=== PATIENT | female | born 1960 | race African-American/Black ===

== ENCOUNTER 2016-12-19 16:11 | Inpatient (IN) | payer MEDICARE, OTHER ==
[~2016-12-19] VITALS: Ht 167.6 cm; Wt 157.9 kg
[~2016-12-19 16:11] MED LIST: AMLO10TA2 PO; AMLO10TA4 PO; AMLO5TAB2 PO; BUDE10.22 IH; BUPR150T6 PO; CARV12.52 PO; CARV25TA PO; CELE200C PO; CYCL10TA2 PO; DICL100G7 TP; DOCU-27 PO; DULO30CA2 PO; DULO60CA6 PO; FERR-26 PO; FLUT1DIS3 IH; FLUT1DIS3 INH; FURO-68 PO; Ipratropium/Albuterol Sulfate NEB; LEVO500T38 PO; LIDO700A4 TD; LOSA50TA6 PO; MELO-150 PO; MIRT30TA PO; MIRT30TA3 PO; Nicotine TD; OXYC30TA PO; OXYC5TAB88 PO; POTA20TA4 PO; PRED-220 PO; PRED20TA PO; PREG25CA PO; VENL37.5 PO; VENTOLIN HFA18 GM IH; WARF5TAB PO
[2016-12-19 16:55] LABS: BASO % 0 % (0-3); EOS % 3 % (0-3); HEMATOCRIT 43.6 % (36.0-47.0); HEMOGLOBIN 13.3 g/dL (12.0-15.5); LYMPH # 1.3 x10^3/uL (1.0-4.8); LYMPH % 14 % (24-48); MEAN CORPUSCULAR HEMOGLOBIN 26 pg (25-35); MEAN CORPUSCULAR HGB CONC 30 g/dL (31-37); MEAN CORPUSCULAR VOLUME 86 fL (79-100); MONO % 9 % (0-9); NEUT % 74 % (31-73); PLATELET COUNT 292 x10^3/uL (140-400); RED CELL DISTRIBUTION WIDTH 18.8 % (11.5-14.5); WHITE BLOOD COUNT 8.8 x10^3/uL (4.0-11.0)
[2016-12-19] MEDS ORDERED: IPRATRPIUM/ALBUTEROL 0.5/2.5MG 3 ML NEBU. NEB ONE (17:00)
[2016-12-19] MEDS ORDERED: methylPREDNISolone SOD SUCC PF 125 MG/2 ML VIAL. IV ONE (17:00)
[2016-12-19 17:12] LABS: CALCIUM 8.7 mg/dL (8.5-10.1); GFR 69.7; POTASSIUM 4.5 mmol/L (3.5-5.1)
[2016-12-19 17:19] LABS: ALBUMIN 3.1 g/dL (3.4-5.0); ALBUMIN/GLOBULIN RATIO 0.7 (1.0-1.7); TOTAL BILIRUBIN 0.4 mg/dL (0.2-1.0); TOTAL PROTEIN 7.6 g/dL (6.4-8.2)
[2016-12-19 17:27] LABS: CKMB INDEX 0.8 % (0-4); CKMB MASS 0.9 ng/mL (0.0-3.6)
[2016-12-19 17:37] LABS: OBC FLU VALID
[2016-12-19 18:20] LABS: HCO3 ABG 35 mmol/L (21-28); PH ABG 7.31 (7.35-7.45); PO2 ABG 56 mmHg (75-108)
[2016-12-19 18:22] LABS: PCO2 ABG 70 mmHg (35-46)
[2016-12-19] MEDS ORDERED: ONDANSETRON PF 4 MG/2 ML VIAL. IV PRN (18:30)
[2016-12-19] MEDS ORDERED: ACETAMINOPHEN 325 MG TABLET. PO PRN (18:30)
--- NOTE | 2016-12-19 19:13 | PHYS DOC ---
Past Medical History Past Medical History: COPD, Hypertension, Pneumonia, TIA Additional Past Medical Histor: LEFT KNEE PAIN Past Surgical History: Hip Replacement, Knee Replacement Additional Past Surgical Histo: ankle surgery Alcohol Use: None Drug Use: None Adult General Chief Complaint Chief Complaint: SHORTNESS OF BREATH HPI HPI Patient is a 56 year old female who presents with complaint of shortness of breath. 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 Patient states that she has had symptoms off and on for the past couple weeks, however over the past 3 days she has had significantly worsening symptoms of shortness of breath. Denies any chest pain. Patient states that she is not normally on continuous oxygen, however patient was found to have low oxygen saturation in the mid 70s. Patient denies any fevers or productive cough. Patient has history of COPD and hypertension. Review of Systems Review of Systems Constitutional: Denies fever or chills [] Eyes: Denies change in visual acuity, redness, or eye pain [] HENT: Denies nasal congestion or sore throat [] Respiratory: Shortness of breath, cough [] Cardiovascular: Denies chest pain or edema [] GI: Denies abdominal pain, nausea, vomiting, bloody stools or diarrhea [] : Denies dysuria or hematuria [] Musculoskeletal: Denies back pain or joint pain [] Integument: Denies rash or skin lesions [] Neurologic: Denies headache, focal weakness or sensory changes [] Current Medications Current Medications Current Medications Medications (Trade) Dose Ordered Sig/Gwendolyn Start Time Stop Time Status Last Admin Dose Admin Acetaminophen (Tylenol) 650 mg PRN Q4HRS PRN 12/19/16 18:30 12/20/16 18:29 Albuterol/ Ipratropium (Duoneb) 3 ml RTQID 12/19/16 20:00 12/20/16 19:59 Methylprednisolone Sodium Succinate (Solu-Medrol 125mg Vial) 125 mg 1X ONCE 12/19/16 17:00 12/19/16 17:01 DC 12/19/16 17:04 125 MG Ondansetron HCl 4 mg 4 mg PRN Q8HRS PRN 12/19/16 18:30 12/20/16 18:29 Sodium Chloride (Iv Sodium Chloride 0.9% 1000ml Bag) 1,000 ml @ 75 mls/hr [id number] 2/15/17 19:00 12/20/16 18:59 Allergies Allergies Allergies Coded Allergies Type Severity Reaction Last Updated Verified No Known Drug Allergies 03/19/16 No Physical Exam Physical Exam Constitutional: Alert, obese, afebrile, appears in moderate respiratory distress. [] HENT: Normocephalic, atraumatic, bilateral external ears normal, oropharynx moist, no oral exudates, nose normal. [] Eyes: PERRLA, EOMI, conjunctiva normal, no discharge. [] Neck: Normal range of motion, no tenderness, supple, no stridor. [] Cardiovascular:Heart rate regular rhythm, no murmur [] Lungs & Thorax: Moderate to severe restriction of air movement bilaterally, expiratory wheezes bilaterally, no rales [] Abdomen: Bowel sounds normal, soft, no tenderness, no masses, no pulsatile masses. [] Skin: Warm, dry, no erythema, no rash. [] Back: No tenderness, no CVA tenderness. [] Extremities: No tenderness, no cyanosis, no clubbing, ROM intact, 1+ pedal edema bilaterally. [] Neurologic: Alert and oriented X 3, normal motor function, normal sensory function, no focal deficits noted. [] Current Patient Data Vital Signs Vital Signs Date Time Temp Pulse Resp B/P Pulse Ox O2 Delivery O2 Flow Rate FiO2 12/19/16 18:25 BiPAP/CPAP 12/19/16 16:50 96 12/19/16 16:44 98.1 81 22 136/73 98.1 Lab Values Laboratory Tests Test 12/19/16 16:35 12/19/16 17:03 12/19/16 18:15 White Blood Count 8.8x10^3/uL (4.0-11.0) Red Blood Count 5.10x10^6/uL (3.50-5.40) Hemoglobin 13.3g/dL (12.0-15.5) Hematocrit 43.6% (36.0-47.0) Mean Corpuscular Volume 86fL (79-100) Mean Corpuscular Hemoglobin 26pg (25-35) Mean Corpuscular Hemoglobin Concent 30g/dL (31-37) L Red Cell Distribution Width 18.8% (11.5-14.5) H Platelet Count 292x10^3/uL (140-400) Neutrophils (%) (Auto) 74% (31-73) H Lymphocytes (%) (Auto) 14% (24-48) L Monocytes (%) (Auto) 9% (0-9) Eosinophils (%) (Auto) 3% (0-3) Basophils (%) (Auto) 0% (0-3) Neutrophils # (Auto) 6.5x10^3uL (1.8-7.7) Lymphocytes # (Auto) 1.3x10^3/uL (1.0-4.8) Monocytes # (Auto) 0.8x10^3/uL (0.0-1.1) Eosinophils # (Auto) 0.2x10^3/uL (0.0-0.7) Basophils # (Auto) 0.0x10^3/uL (0.0-0.2) Sodium Level 140mmol/L (136-145) Potassium Level 4.5mmol/L (3.5-5.1) Chloride Level 101mmol/L (98-107) Carbon Dioxide Level 33mmol/L (21-32) H Anion Gap 6 (6-14) Blood Urea Nitrogen 13mg/dL (7-20) Creatinine 1.0mg/dL (0.6-1.0) Estimated GFR (Cockcroft-Gault) 69.7 BUN/Creatinine Ratio 13 (6-20) Glucose Level 97mg/dL (70-99) Calcium Level 8.7mg/dL (8.5-10.1) Total Bilirubin 0.4mg/dL (0.2-1.0) Aspartate Amino Transferase (AST) 18U/L (15-37) Alanine Aminotransferase (ALT) 22U/L (14-59) Alkaline Phosphatase 96U/L (46-116) Creatine Kinase 114U/L (26-192) Creatine Kinase MB (Mass) 0.9ng/mL (0.0-3.6) Creatine Kinase MB Relative Index 0.8% (0-4) Troponin I Quantitative < 0.017ng/mL (0.000-0.055) RJ-Iwv-Z-Type Natriuretic Peptide 1244pg/mL (0-124) H Total Protein 7.6g/dL (6.4-8.2) Albumin 3.1g/dL (3.4-5.0) L Albumin/Globulin Ratio 0.7 (1.0-1.7) L Influenza Type A Antigen Negative (NEGATIVE) Influenza Type B Antigen Negative (NEGATIVE) O2 Saturation Pending Arterial Blood pH 7.31 (7.35-7.45) L Arterial Blood pCO2 at Patient Temp 70mmHg (35-46) *H Arterial Blood pO2 at Patient Temp 56mmHg (75-108) L Arterial Blood HCO3 35mmol/L (21-28) H Arterial Blood Base Excess 6mmol/L (-3-3) H FiO2 40.0 Laboratory Tests 12/19/16 16:35 Laboratory Tests 12/19/16 16:35 EKG EKG Interpreted by me: Heart rate 78, sinus rhythm, normal intervals, normal axis, T -wave inversions in V2 through V4, no acute ST elevations or depressions [] Radiology/Procedures Radiology/Procedures One view AP chest x-ray interpreted by me: Cardiomegaly, no infiltrate, no effusion [] Course & Med Decision Making Course & Med Decision Making Pertinent Labs and Imaging studies reviewed. (See chart for details) Due to severity of symptoms and hypoxia, the patient was placed on BiPAP in the emergency department. Patient's testing does not show an obvious source of infection at this time. The patient will need continued treatment in hospital. I spoke with Dr. Burks who accepted care of patient in hospital. A consult was placed to Dr. Pena of pulmonology to follow patient in hospital. Critical care time excluding procedures: 45 minutes Dragon Disclaimer Dragon Disclaimer This electronic medical record was generated, in whole or in part, using a voice recognition dictation system. Departure Departure Impression: Primary Impression: Acute on chronic respiratory failure Additional Impressions: COPD (chronic obstructive pulmonary disease) Moderate protein malnutrition Disposition: ADMITTED INPATIENT Admitting Physician: Geri Burks Condition: GUARDED Referrals: LESLIE LUCIO MD (PCP) Problem Qualifiers Primary Impression: Acute on chronic respiratory failure Respiratory failure complication: hypoxia and hypercapnia Qualified Code: J96.21 - Acute and chronic respiratory failure with hypoxia Additional Impressions: COPD (chronic obstructive pulmonary disease) COPD type: COPD with acute exacerbation Qualified Code: J44.1 - Chronic obstructive pulmonary disease with (acute) exacerbation VANESSA OBRIEN MD Dec 19, 2016 19:13
[2016-12-19] MEDS: IV NORMAL SALINE 1000ML BAG 1,000 ML IV SCH (19:38)
[2016-12-19] MEDS: IPRATRPIUM/ALBUTEROL 0.5/2.5MG 3 ML NEBU. NEB SCH (19:59)
[2016-12-19 21:15] VITALS: BP 125/74
--- NOTE | 2016-12-19 22:00 | ACF ---
Admission Forms Criteria RESPIRATORY FAILURE [facility] Clinical Indications for Admission to Inpatient Care (Place 'X' for any and all applicable criteria): Hospital admission is needed for appropriate care of the patient because of acute respiratory failure or insufficiency as indicated by ANY ONE of the following(1)(2)(3)(4)(5)(6)(7)(8): [X]I. Mechanical ventilation needed (acute invasive or noninvasive) [X]II. Severe ventilation deficit as indicated by ANY ONE of the following (9) [ ]a) Respiratory acidosis (pH less than 7.32 and partial pressure of carbon dioxide greater than 40 mm Hg (5.3 kPa)) [X]b) Partial pressure of carbon dioxide greater than 44 mm Hg (5.9 kPa ) (new) [ ]c) Airflow measurements less than 25% of predicted (eg, peak expiratory flow rate less than 100 L/minute) [ ]d) Forced vital capacity less than 15 mL/kg of ideal body weight, or 50% decrease in vital capacity from baseline [ ]III. Noncardiac pulmonary edema not resolving with rapid emergency treatment (8) [ ]IV. Severe respiratory distress as indicated by ANY ONE of the following: [ ]a) Severe tachypnea (respiratory rate greater than 30, greater than 45 for 6-month-old, greater than 60 for ) [ ]b) Severe hypoxemia (partial pressure of oxygen less than 50 mm Hg ( 6.7 kPa) on greater than 50% oxygen or partial pressure of oxygen to FIO2 ratio less than 200) [ ]c) Mental status deterioration from respiratory disease [ ]V. Airway obstruction or inadequate protection [A](10)(11) The original [employer] content created by [employer] has been revised. The portions of the content which have been revised are identified through the use of italic text or in bold, and [facility] [employer] has neither reviewed nor approved the modified material. All other unmodified content is copyright [employer]. Please see references footnoted in the original [employer] edition 2016 Admission Criteria Met?: Yes DHARMESH ANSARI Dec 19, 2016 22:00
[2016-12-19 23:29] VITALS: BP 143/68
[2016-12-20] MEDS ORDERED: CHOL10007 PO (00:09)
[2016-12-20] MEDS ORDERED: PROG200C7 PO (00:09)
[2016-12-20] MEDS ORDERED: DOCU100C5 PO (00:09)
[2016-12-20] MEDS ORDERED: PHEN37.53 PO (00:09)
[2016-12-20] MEDS ORDERED: OMEG1CAP16 PO (00:09)
[2016-12-20] MEDS ORDERED: LIOT25TA3 PO (00:18)
[2016-12-20] MEDS ORDERED: CHOL500050 PO (00:18)
[2016-12-20] MEDS ORDERED: TEST200V3 IM (00:18)
[2016-12-20] MEDS ORDERED: DULO30CA43 PO (00:18)
[2016-12-20] MEDS ORDERED: DICL100G7 TD (00:18)
[2016-12-20 03:27] VITALS: BP 116/74
[2016-12-20 06:00] LABS: BASO % 0 % (0-3); EOS % 0 % (0-3); HEMATOCRIT 43.5 % (36.0-47.0); HEMOGLOBIN 13.5 g/dL (12.0-15.5); LYMPH # 0.6 x10^3/uL (1.0-4.8); LYMPH % 7 % (24-48); MEAN CORPUSCULAR HEMOGLOBIN 26 pg (25-35); MEAN CORPUSCULAR HGB CONC 31 g/dL (31-37); MEAN CORPUSCULAR VOLUME 84 fL (79-100); MONO % 2 % (0-9); NEUT % 91 % (31-73); PLATELET COUNT 310 x10^3/uL (140-400); RED CELL DISTRIBUTION WIDTH 19.5 % (11.5-14.5)
[2016-12-20 06:10] LABS: CALCIUM 8.9 mg/dL (8.5-10.1); CREATININE 0.7 mg/dL (0.6-1.0); GFR 105.1; POTASSIUM 4.5 mmol/L (3.5-5.1)
[2016-12-20 07:00] VITALS: BP 140/85
--- NOTE | 2016-12-20 07:26 | EKG ---
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
--- NOTE | 2016-12-20 07:47 | RAD ---
Portable chest, 12/19/2016: History: Shortness of breath Comparison is made to a study from 02/13/2016. The heart remains moderately enlarged. The pulmonary vascularity is within normal limits. No pulmonary infiltrates are seen. There is no evidence of pleural fluid. Moderate arthritic changes are present at both shoulders. IMPRESSION: 1. Cardiomegaly. 2. No new abnormality is detected.
[2016-12-20] MEDS: IPRATRPIUM/ALBUTEROL 0.5/2.5MG 3 ML NEBU. NEB SCH ×3 (07:55→15:13)
[2016-12-20 09:02] LABS: HCO3 ABG 30 mmol/L (21-28); PCO2 ABG 55 mmHg (35-46); PH ABG 7.36 (7.35-7.45); PO2 ABG 72 mmHg (75-108)
[2016-12-20] MEDS ORDERED: DOCUSATE SODIUM 100 MG CAPSULE PO PRN (09:15)
[2016-12-20] MEDS ORDERED: CYCLOBENZAPRINE 10 MG TABLET. PO PRN (09:15)
[2016-12-20] MEDS ORDERED: DICLOFENAC SODIUM 1% TOPICAL GEL 100GM TUBE. TP PRN (09:15)
--- NOTE | 2016-12-20 09:38 | PDOC ---
OBJECTIVE Vital Signs Vital Signs Date Time Temp Pulse Resp B/P Pulse Ox O2 Delivery O2 Flow Rate FiO2 12/20/16 07:55 94 Venturi Mask 12/20/16 07:00 98.1 94 18 140/85 90 Nasal Cannula 6.0 98.1 12/20/16 04:19 93 BiPAP/CPAP 12/20/16 03:27 98.6 87 20 116/74 93 BiPAP/CPAP 98.6 12/20/16 02:42 Bi-pap 12/20/16 02:38 94 BiPAP/CPAP 12/19/16 23:29 98.6 62 18 143/68 97 BiPAP/CPAP 98.6 12/19/16 21:15 97.6 80 20 125/74 90 Room Air 97.6 12/19/16 20:57 86 26 141/81 91 BiPAP/CPAP 12/19/16 20:27 86 26 139/80 91 BiPAP/CPAP 12/19/16 20:00 92 BiPAP/CPAP 12/19/16 19:57 88 24 146/83 91 12/19/16 19:27 86 26 144/81 90 BiPAP/CPAP 12/19/16 18:57 88 26 145/85 91 12/19/16 18:27 84 24 147/79 92 12/19/16 18:25 BiPAP/CPAP 12/19/16 17:57 86 24 138/79 92 12/19/16 17:27 78 26 132/69 95 12/19/16 16:57 84 24 124/72 97 BiPAP/CPAP 12/19/16 16:50 96 BiPAP/CPAP 12/19/16 16:44 98.1 81 22 136/73 67 Room Air 98.1 I & O Intake and Output 12/20/16 07:00 # Voids 2 ASSESSMENT/PLAN Assessment/Plan [id number] H&P dictated Problems: COMMENT Lab Laboratory Tests Test 12/19/16 16:35 12/19/16 17:03 12/19/16 18:15 12/20/16 04:30 White Blood Count 8.8x10^3/uL (4.0-11.0) 9.0x10^3/uL (4.0-11.0) Red Blood Count 5.10x10^6/uL (3.50-5.40) 5.20x10^6/uL (3.50-5.40) Hemoglobin 13.3g/dL (12.0-15.5) 13.5g/dL (12.0-15.5) Hematocrit 43.6% (36.0-47.0) 43.5% (36.0-47.0) Mean Corpuscular Volume 86fL (79-100) 84fL (79-100) Mean Corpuscular Hemoglobin 26pg (25-35) 26pg (25-35) Mean Corpuscular Hemoglobin Concent 30g/dL (31-37) 31g/dL (31-37) Red Cell Distribution Width 18.8% (11.5-14.5) 19.5% (11.5-14.5) Platelet Count 292x10^3/uL (140-400) 310x10^3/uL (140-400) Neutrophils (%) (Auto) 74% (31-73) 91% (31-73) Lymphocytes (%) (Auto) 14% (24-48) 7% (24-48) Monocytes (%) (Auto) 9% (0-9) 2% (0-9) Eosinophils (%) (Auto) 3% (0-3) 0% (0-3) Basophils (%) (Auto) 0% (0-3) 0% (0-3) Neutrophils # (Auto) 6.5x10^3uL (1.8-7.7) 8.2x10^3uL (1.8-7.7) Lymphocytes # (Auto) 1.3x10^3/uL (1.0-4.8) 0.6x10^3/uL (1.0-4.8) Monocytes # (Auto) 0.8x10^3/uL (0.0-1.1) 0.2x10^3/uL (0.0-1.1) Eosinophils # (Auto) 0.2x10^3/uL (0.0-0.7) 0.0x10^3/uL (0.0-0.7) Basophils # (Auto) 0.0x10^3/uL (0.0-0.2) 0.0x10^3/uL (0.0-0.2) Sodium Level 140mmol/L (136-145) 141mmol/L (136-145) Potassium Level 4.5mmol/L (3.5-5.1) 4.5mmol/L (3.5-5.1) Chloride Level 101mmol/L (98-107) 103mmol/L (98-107) Carbon Dioxide Level 33mmol/L (21-32) 30mmol/L (21-32) Anion Gap 6 (6-14) 8 (6-14) Blood Urea Nitrogen 13mg/dL (7-20) 15mg/dL (7-20) Creatinine 1.0mg/dL (0.6-1.0) 0.7mg/dL (0.6-1.0) Estimated GFR (Cockcroft-Gault) 69.7 105.1 BUN/Creatinine Ratio 13 (6-20) Glucose Level 97mg/dL (70-99) 129mg/dL (70-99) Calcium Level 8.7mg/dL (8.5-10.1) 8.9mg/dL (8.5-10.1) Total Bilirubin 0.4mg/dL (0.2-1.0) Aspartate Amino Transf (AST/SGOT) 18U/L (15-37) Alanine Aminotransferase (ALT/SGPT) 22U/L (14-59) Alkaline Phosphatase 96U/L (46-116) Creatine Kinase 114U/L (26-192) Creatine Kinase MB (Mass) 0.9ng/mL (0.0-3.6) Creatine Kinase MB Relative Index 0.8% (0-4) Troponin I Quantitative < 0.017ng/mL (0.000-0.055) RK-Tnj-P-Type Natriuretic Peptide 1244pg/mL (0-124) Total Protein 7.6g/dL (6.4-8.2) Albumin 3.1g/dL (3.4-5.0) Albumin/Globulin Ratio 0.7 (1.0-1.7) Influenza Type A Antigen Negative (NEGATIVE) Influenza Type B Antigen Negative (NEGATIVE) Arterial Blood pH 7.31 (7.35-7.45) Arterial Blood pCO2 at Patient Temp 70mmHg (35-46) Arterial Blood pO2 at Patient Temp 56mmHg (75-108) Arterial Blood HCO3 35mmol/L (21-28) Arterial Blood Base Excess 6mmol/L (-3-3) FiO2 40.0 Test 12/20/16 08:55 Arterial Blood pH 7.36 (7.35-7.45) Arterial Blood pCO2 at Patient Temp 55mmHg (35-46) Arterial Blood pO2 at Patient Temp 72mmHg (75-108) Arterial Blood HCO3 30mmol/L (21-28) Arterial Blood Base Excess 3mmol/L (-3-3) FiO2 40.0 ITALIA VALENCIA MD Dec 20, 2016 09:38
--- NOTE | 2016-12-20 09:44 | PDOC ---
PULMONARY PROGRESS NOTES Vitals Vital Signs Date Time Temp Pulse Resp B/P Pulse Ox O2 Delivery O2 Flow Rate FiO2 12/20/16 07:55 94 Venturi Mask 12/20/16 07:00 98.1 94 18 140/85 6.0 98.1 Lungs: Crackles Cardiovascular: S1 Abdomen: Soft, Non-tender Extremities: No Edema, Other Labs Laboratory Tests Test 12/19/16 16:35 12/19/16 17:03 12/19/16 18:15 12/20/16 04:30 White Blood Count 8.8x10^3/uL (4.0-11.0) 9.0x10^3/uL (4.0-11.0) Red Blood Count 5.10x10^6/uL (3.50-5.40) 5.20x10^6/uL (3.50-5.40) Hemoglobin 13.3g/dL (12.0-15.5) 13.5g/dL (12.0-15.5) Hematocrit 43.6% (36.0-47.0) 43.5% (36.0-47.0) Mean Corpuscular Volume 86fL (79-100) 84fL (79-100) Mean Corpuscular Hemoglobin 26pg (25-35) 26pg (25-35) Mean Corpuscular Hemoglobin Concent 30g/dL (31-37) 31g/dL (31-37) Red Cell Distribution Width 18.8% (11.5-14.5) 19.5% (11.5-14.5) Platelet Count 292x10^3/uL (140-400) 310x10^3/uL (140-400) Neutrophils (%) (Auto) 74% (31-73) 91% (31-73) Lymphocytes (%) (Auto) 14% (24-48) 7% (24-48) Monocytes (%) (Auto) 9% (0-9) 2% (0-9) Eosinophils (%) (Auto) 3% (0-3) 0% (0-3) Basophils (%) (Auto) 0% (0-3) 0% (0-3) Neutrophils # (Auto) 6.5x10^3uL (1.8-7.7) 8.2x10^3uL (1.8-7.7) Lymphocytes # (Auto) 1.3x10^3/uL (1.0-4.8) 0.6x10^3/uL (1.0-4.8) Monocytes # (Auto) 0.8x10^3/uL (0.0-1.1) 0.2x10^3/uL (0.0-1.1) Eosinophils # (Auto) 0.2x10^3/uL (0.0-0.7) 0.0x10^3/uL (0.0-0.7) Basophils # (Auto) 0.0x10^3/uL (0.0-0.2) 0.0x10^3/uL (0.0-0.2) Sodium Level 140mmol/L (136-145) 141mmol/L (136-145) Potassium Level 4.5mmol/L (3.5-5.1) 4.5mmol/L (3.5-5.1) Chloride Level 101mmol/L (98-107) 103mmol/L (98-107) Carbon Dioxide Level 33mmol/L (21-32) 30mmol/L (21-32) Anion Gap 6 (6-14) 8 (6-14) Blood Urea Nitrogen 13mg/dL (7-20) 15mg/dL (7-20) Creatinine 1.0mg/dL (0.6-1.0) 0.7mg/dL (0.6-1.0) Estimated GFR (Cockcroft-Gault) 69.7 105.1 BUN/Creatinine Ratio 13 (6-20) Glucose Level 97mg/dL (70-99) 129mg/dL (70-99) Calcium Level 8.7mg/dL (8.5-10.1) 8.9mg/dL (8.5-10.1) Total Bilirubin 0.4mg/dL (0.2-1.0) Aspartate Amino Transf (AST/SGOT) 18U/L (15-37) Alanine Aminotransferase (ALT/SGPT) 22U/L (14-59) Alkaline Phosphatase 96U/L (46-116) Creatine Kinase 114U/L (26-192) Creatine Kinase MB (Mass) 0.9ng/mL (0.0-3.6) Creatine Kinase MB Relative Index 0.8% (0-4) Troponin I Quantitative < 0.017ng/mL (0.000-0.055) GB-Swc-J-Type Natriuretic Peptide 1244pg/mL (0-124) Total Protein 7.6g/dL (6.4-8.2) Albumin 3.1g/dL (3.4-5.0) Albumin/Globulin Ratio 0.7 (1.0-1.7) Influenza Type A Antigen Negative (NEGATIVE) Influenza Type B Antigen Negative (NEGATIVE) Arterial Blood pH 7.31 (7.35-7.45) Arterial Blood pCO2 at Patient Temp 70mmHg (35-46) Arterial Blood pO2 at Patient Temp 56mmHg (75-108) Arterial Blood HCO3 35mmol/L (21-28) Arterial Blood Base Excess 6mmol/L (-3-3) FiO2 40.0 Test 12/20/16 08:55 Arterial Blood pH 7.36 (7.35-7.45) Arterial Blood pCO2 at Patient Temp 55mmHg (35-46) Arterial Blood pO2 at Patient Temp 72mmHg (75-108) Arterial Blood HCO3 30mmol/L (21-28) Arterial Blood Base Excess 3mmol/L (-3-3) FiO2 40.0 Laboratory Tests Test 12/19/16 16:35 12/19/16 17:03 12/19/16 18:15 12/20/16 04:30 White Blood Count 8.8x10^3/uL (4.0-11.0) 9.0x10^3/uL (4.0-11.0) Red Blood Count 5.10x10^6/uL (3.50-5.40) 5.20x10^6/uL (3.50-5.40) Hemoglobin 13.3g/dL (12.0-15.5) 13.5g/dL (12.0-15.5) Hematocrit 43.6% (36.0-47.0) 43.5% (36.0-47.0) Mean Corpuscular Volume 86fL (79-100) 84fL (79-100) Mean Corpuscular Hemoglobin 26pg (25-35) 26pg (25-35) Mean Corpuscular Hemoglobin Concent 30g/dL (31-37) 31g/dL (31-37) Red Cell Distribution Width 18.8% (11.5-14.5) 19.5% (11.5-14.5) Platelet Count 292x10^3/uL (140-400) 310x10^3/uL (140-400) Neutrophils (%) (Auto) 74% (31-73) 91% (31-73) Lymphocytes (%) (Auto) 14% (24-48) 7% (24-48) Monocytes (%) (Auto) 9% (0-9) 2% (0-9) Eosinophils (%) (Auto) 3% (0-3) 0% (0-3) Basophils (%) (Auto) 0% (0-3) 0% (0-3) Neutrophils # (Auto) 6.5x10^3uL (1.8-7.7) 8.2x10^3uL (1.8-7.7) Lymphocytes # (Auto) 1.3x10^3/uL (1.0-4.8) 0.6x10^3/uL (1.0-4.8) Monocytes # (Auto) 0.8x10^3/uL (0.0-1.1) 0.2x10^3/uL (0.0-1.1) Eosinophils # (Auto) 0.2x10^3/uL (0.0-0.7) 0.0x10^3/uL (0.0-0.7) Basophils # (Auto) 0.0x10^3/uL (0.0-0.2) 0.0x10^3/uL (0.0-0.2) Sodium Level 140mmol/L (136-145) 141mmol/L (136-145) Potassium Level 4.5mmol/L (3.5-5.1) 4.5mmol/L (3.5-5.1) Chloride Level 101mmol/L (98-107) 103mmol/L (98-107) Carbon Dioxide Level 33mmol/L (21-32) 30mmol/L (21-32) Anion Gap 6 (6-14) 8 (6-14) Blood Urea Nitrogen 13mg/dL (7-20) 15mg/dL (7-20) Creatinine 1.0mg/dL (0.6-1.0) 0.7mg/dL (0.6-1.0) Estimated GFR (Cockcroft-Gault) 69.7 105.1 BUN/Creatinine Ratio 13 (6-20) Glucose Level 97mg/dL (70-99) 129mg/dL (70-99) Calcium Level 8.7mg/dL (8.5-10.1) 8.9mg/dL (8.5-10.1) Total Bilirubin 0.4mg/dL (0.2-1.0) Aspartate Amino Transf (AST/SGOT) 18U/L (15-37) Alanine Aminotransferase (ALT/SGPT) 22U/L (14-59) Alkaline Phosphatase 96U/L (46-116) Creatine Kinase 114U/L (26-192) Creatine Kinase MB (Mass) 0.9ng/mL (0.0-3.6) Creatine Kinase MB Relative Index 0.8% (0-4) Troponin I Quantitative < 0.017ng/mL (0.000-0.055) YU-Wei-R-Type Natriuretic Peptide 1244pg/mL (0-124) Total Protein 7.6g/dL (6.4-8.2) Albumin 3.1g/dL (3.4-5.0) Albumin/Globulin Ratio 0.7 (1.0-1.7) Influenza Type A Antigen Negative (NEGATIVE) Influenza Type B Antigen Negative (NEGATIVE) Arterial Blood pH 7.31 (7.35-7.45) Arterial Blood pCO2 at Patient Temp 70mmHg (35-46) Arterial Blood pO2 at Patient Temp 56mmHg (75-108) Arterial Blood HCO3 35mmol/L (21-28) Arterial Blood Base Excess 6mmol/L (-3-3) FiO2 40.0 Test 12/20/16 08:55 Arterial Blood pH 7.36 (7.35-7.45) Arterial Blood pCO2 at Patient Temp 55mmHg (35-46) Arterial Blood pO2 at Patient Temp 72mmHg (75-108) Arterial Blood HCO3 30mmol/L (21-28) Arterial Blood Base Excess 3mmol/L (-3-3) FiO2 40.0 Medications Active Scripts Medications Dose Route/Sig Days Date Category Testosterone Cypionate 200 Mg/1 Ml Vial 0.15 Ml IM Q2WKS 12/20/16 Reported Voltaren (Diclofenac Sodium) 100 Gm Gel..gram. 1 Eduardo TD PRN QID PRN 12/20/16 Reported Liothyronine Sodium 25 Mcg Tablet 12.5 Mcg PO DAILY 12/20/16 Reported Duloxetine Hcl 30 Mg Capsule.dr 90 Mg PO DAILY 12/20/16 Reported Vitamin D3 (Cholecalciferol (Vitamin D3)) 50,000 Unit Capsule 1 Cap PO QM 12/20/16 Reported Fish Oil 1,000 Mg Softgel ([place]-3 Fatty Acids/Fish Oil) 1 Each Capsule 1 Each PO BID 12/20/16 Reported Prometrium (Progesterone,Micronized) 200 Mg Capsule 1 Cap PO QHS 12/20/16 Reported Phentermine Hcl 37.5 Mg Capsule 1 Cap PO DAILYWBKFT 12/20/16 Reported Docusate Sodium 100 Mg Capsule 1 Cap PO PRN BID PRN 12/20/16 Reported Oxycodone Hcl 30 Mg Tablet 1 Tab PO Q6HRS 03/19/16 Reported Mirtazapine 30 Mg Tablet 1 Tab PO QHS 03/19/16 Reported Coreg (Carvedilol) 25 Mg Tablet 1 Tab PO BID 03/19/16 Reported Amlodipine Besylate 10 Mg Tablet 10 Mg PO DAILY 03/19/16 Reported Advair 250-50 Diskus (Fluticasone/Salmeterol) 1 Each Disk.w.dev 1 Inh IH BID 03/19/16 Reported Klor-Con M20 (Potassium Chloride) 20 Meq Tablet.er 20 Meq PO DAILYWBKFT 09/19/15 Rx [Ipratropium/Albuterol Sulfate] 3 ML Nebu 3 Ml NEB Q4HRS 07/24/15 Rx Ventolin Hfa Inhaler (Albuterol Sulfate) 1 Puff Puff 2 Puff IH QID 07/24/15 Rx Losartan Potassium 50 Mg Tablet 100 Mg PO DAILY 12/22/14 Reported Cyclobenzaprine Hcl 10 Mg Tablet 1 Tab PO PRN DAILY PRN 12/22/14 Reported Impression . [id number] AGREE WITH CURRENT RX THANKS [facility]IP[facility] ANUSHA FARAH MD Dec 20, 2016 09:44
[2016-12-20 10:04] LABS: ANISOCYTOSIS SLIGHT; PLT ESTIMATE ADEQUATE (ADEQUATE)
[2016-12-20] MEDS ORDERED: ERGO500012 PO (10:05)
[2016-12-20] MEDS: IV NORMAL SALINE 1000ML BAG 1,000 ML IV SCH (10:27)
[2016-12-20] MEDS: DULOXETINE HCL 30 MG CAPSULE.DR. PO SCH (10:28)
[2016-12-20] MEDS: POTASSIUM CHLORIDE 20 MEQ TABLET.ER. PO SCH (10:29)
[2016-12-20] MEDS: LEVOFLOXACIN 500 MG TABLET PO SCH (10:29)
[2016-12-20] MEDS: PREDNISONE 20 MG TABLET PO SCH (10:30)
[2016-12-20] MEDS: AMLODIPINE BESYLATE 10 MG TABLET PO SCH (10:30)
[2016-12-20] MEDS: CARVEDILOL 12.5 MG TABLET PO SCH ×2 (10:30→16:58)
[2016-12-20] MEDS: LOSARTAN POTASSIUM 50 MG TABLET. PO SCH (10:32)
[2016-12-20 10:58] VITALS: BP 143/82
[2016-12-20] MEDS ORDERED: ERGOCALCIFEROL (VITAMIN D2) 50,000 UNIT CAPSULE PO SCH (11:00)
--- NOTE | 2016-12-20 11:09 | PREOP HP ---
DATE OF SERVICE: HISTORY OF PRESENT ILLNESS: The patient is in room 578, she is a 56-year-old lady who presented to the Emergency Room complaining of increasing shortness of breath and not being able to ____breathe. She was at her [employer] office where she has expressed her shortness of breath and feeling more short of breath over the last few days and was sent to the Emergency Room for further evaluation. She does have previous history of COPD and has been using her inhalers and bronchodilators, but continued to have shortness of breath and apparently her O2 sat was in the mid 70s at the [employer] office, for that reason she was sent to the Emergency Room. She denies fever or chills. She does have cough productive to yellowish sputum and increasing wheezing and shortness of breath. PAST MEDICAL HISTORY: Significant for hypertension and hypertensive cardiovascular disease, diastolic dysfunction and diastolic congestive heart failure. She does have chronic peripheral edema due to venous insufficiency, previous history of CVA, COPD, emphysema, bronchitis, pneumonia, sleep apnea; she uses CPAP at night, gastroesophageal reflux disease, obesity, constipation. She has been dealing with dysfunctional uterine bleeding and abnormal ultrasound of the uterus for which she had endometrial biopsy was not enough sampling and she is now being sent for possible dilation and curettage. She also has chronic kidney disease, osteoarthritis, degenerative disk disease, bilateral hip replacement, also bilateral knee replacement and left ankle fusion. She has chronic back pain, depression, anxiety and history of tonsillectomy. SOCIAL HISTORY: She quit smoking in 05/2016 recently, but has many years of smoking about 34 years. She had received her flu shot and pneumonia vaccine. She uses alcohol occasionally, does not use other drugs. FAMILY HISTORY: Positive for obesity, hypertension, epilepsy, diabetes, depression, Chron's disease, CVA, asthma and kidney cancer. REVIEW OF SYSTEMS: CONSTITUTIONAL: Denies fever or chills. EYES: Denies visual changes. HEENT: Denies nasal congestion or sore throat. RESPIRATORY: She does have increasing shortness of breath, wheezing, and cough productive to yellowish sputum. CARDIOVASCULAR: She denies chest pain. She does have chronic lower extremity edema. GASTROINTESTINAL: Denies abdominal pain, nausea, vomiting, diarrhea. GENITOURINARY: Denies dysuria or hematuria. MUSCULOSKELETAL: Denies back pain or joint pain. DERMATOLOGY: Denies rash. NEUROLOGIC: Denies headache or focal weakness. PHYSICAL EXAMINATION: GENERAL: She is alert and oriented, in no acute distress. HEENT: Her tympanic membranes clear. Mucous membranes are moist. Eyes: Conjunctivae normal. NECK: Supple. HEART: Regular rate and rhythm. LUNGS: With mild diffuse scattered wheezes with decreased breath sounds bilaterally. ABDOMEN: Soft, nontender, obese. No organomegaly or masses was appreciated. No bruits. SKIN: Warm and dry. BACK: She has no CVA tenderness. EXTREMITIES: She has +1 pedal edema bilaterally, which is chronic. NEUROLOGY: Without any focal deficit. IMPRESSION: 1. Chronic obstructive pulmonary disease exacerbation. 2. Acute on chronic bronchitis. 3. Acute on chronic respiratory failure. 4. Sleep apnea and hypoxia with hypercapnia. 5. Obesity. 6. Diastolic congestive heart failure, chronic and compensated. 7. Abnormal uterine bleeding by history as mentioned above. 8. Osteoarthritis and degenerative joint disease. 9. Depression and anxiety. ITALIA VALENCIA MD DR: CECILIA/trace JOB#: [id number] / [id number]
[2016-12-20] MEDS ORDERED: OXYCODONE IR 30 MG TABLET. PO SCH (12:00)
[2016-12-20] MEDS ORDERED: OXYCODONE IR 5 MG TABLET. PO PRN (12:00)
[2016-12-20 14:46] VITALS: BP 137/44
[2016-12-20] MEDS: OXYCODONE IR 30 MG TABLET. PO PRN (16:57)
[2016-12-20 19:00] VITALS: BP 140/81
[2016-12-20 23:00] VITALS: BP 122/70
[2016-12-21] MEDS: OXYCODONE IR 30 MG TABLET. PO PRN ×2 (00:41→08:30)
--- NOTE | 2016-12-21 04:28 | CONS ---
DATE OF CONSULTATION: 12/20/2016 ATTENDING PHYSICIAN: Dr. Geri Burks. REASON FOR CONSULTATION: The patient seen in pulmonary consultation at the request of Dr. Burks for acute respiratory failure. HISTORY OF PRESENT ILLNESS: The patient is a 56-year-old female that presented from the [employer] [employer] office with decreased saturation. She was found to have saturations in the mid 70s. She is normally not on oxygen. She normally wears CPAP at home. Unfortunately, she recently moved in with her sister and has not been able to locate her CPAP machine. She also had a cough, mostly productive of green sputum. She moved in with her sister and some friends who smoke. She does not smoke herself. She denies any acute onset of shortness of breath associated with syncope and near syncopal episode. No chest pain or pressure. PAST MEDICAL HISTORY: Otherwise remarkable for COPD, obstructive sleep apnea, hypertension, TIA, previous left knee arthroplasty. PAST SURGICAL HISTORY: Recent knee arthroplasty on the left. SOCIAL HISTORY: She denies any current use of tobacco or alcohol. REVIEW OF SYSTEMS: As indicated above, otherwise, a 10-point system was reviewed and negative. CURRENT MEDICATIONS: List was reviewed. Please see the MRAD. ALLERGIES: No known drug allergies. PHYSICAL EXAMINATION: VITAL SIGNS: Stable. O2 saturation was greater than 92%. Overnight, she was on BiPAP. She is currently on 6 liters. HEENT: Eyes, the sclerae were nonicteric. NECK: Jugular venous distention was not elevated. No lymphadenopathy. CHEST: Full expansion. LUNGS: Adequate airway flow, no wheezes. CARDIOVASCULAR: Regular rate and rhythm with S1, S2, no S3. ABDOMEN: Soft, nontender, nondistended. EXTREMITIES: No clubbing, cyanosis or edema. LABORATORY DATA: White count was normal. Hemoglobin and hematocrit were noted. Arterial blood gas; pH of 7.31, PaCO2 of 70, pO2 of 56. Influenza screen was negative. Chest x-ray reveals some cardiomegaly. IMPRESSION: 1. Acute on chronic hypercapnic hypoxemic respiratory failure. 2. Acute exacerbation of chronic obstructive pulmonary disease. 3. Obstructive sleep apnea/obesity hypoventilation syndrome. 4. Morbid obesity. 5. Diastolic heart failure. 6. Depression and anxiety. PLAN: 1. Recommend continue BiPAP at bedtime. 2. Initiate CPAP at home. 3. Concur with prednisone. 4. Doxycycline for acute nonspecific bronchitis. Dr. Burks, I do appreciate the privilege in sharing in the patient's care. ANUSHA FARAH MD DR: OCTAVIA/trace JOB#: [id number] / [id number]
[2016-12-21] MEDS: LEVOFLOXACIN 500 MG TABLET PO SCH (05:39)
[2016-12-21 07:00] VITALS: BP 136/87
[2016-12-21] MEDS: DULOXETINE HCL 30 MG CAPSULE.DR. PO SCH (08:29)
[2016-12-21] MEDS: PREDNISONE 20 MG TABLET PO SCH (08:29)
[2016-12-21] MEDS: POTASSIUM CHLORIDE 20 MEQ TABLET.ER. PO SCH (08:29)
[2016-12-21] MEDS: LOSARTAN POTASSIUM 50 MG TABLET. PO SCH (08:30)
[2016-12-21] MEDS: CARVEDILOL 12.5 MG TABLET PO SCH ×2 (08:33→17:00)
[2016-12-21] MEDS: AMLODIPINE BESYLATE 10 MG TABLET PO SCH (08:37)
--- NOTE | 2016-12-21 10:22 | PDOC ---
SUBJECTIVE Subjective feels better , still wheezy, mild swelling Lower ext, did not sleep good need sleep medicine OBJECTIVE Vital Signs Vital Signs Date Time Temp Pulse Resp B/P Pulse Ox O2 Delivery O2 Flow Rate FiO2 12/21/16 09:47 95 Nasal Cannula 5.0 12/21/16 08:37 80 122/70 12/21/16 08:33 80 122/70 12/21/16 08:30 18 Nasal Cannula 5.0 12/21/16 08:30 80 122/70 12/21/16 08:00 Nasal Cannula 5.0 12/21/16 07:00 97.8 80 18 136/87 95 Venturi Mask 12.0 97.8 12/21/16 02:00 19 12/21/16 00:41 22 96 BiPAP/CPAP 12.0 12/20/16 23:42 96 BiPAP/CPAP 12/20/16 23:00 98.1 80 20 122/70 94 Venturi Mask 12.0 98.1 12/20/16 20:00 Nasal Cannula 5.0 12/20/16 19:00 97.9 93 20 140/81 91 Nasal Cannula 97.9 12/20/16 16:58 87 137/44 12/20/16 16:57 92 Venturi Mask 6.0 12/20/16 15:14 Venturi Mask 12/20/16 14:46 98.1 87 20 137/44 92 Venturi Mask 12.0 98.1 12/20/16 12:06 90 Venturi Mask 6.0 12/20/16 12:00 90 Venturi Mask 6.0 12/20/16 11:36 Venturi Mask 12/20/16 10:58 98.3 107 18 143/82 90 Venturi Mask 6.0 98.3 12/20/16 10:32 94 140/85 12/20/16 10:30 94 140/85 12/20/16 10:30 94 140/85 I & O Intake and Output 12/21/16 07:00 Intake Total 2700 ml Balance 2700 ml Intake Oral 1700 ml IV Total 1000 ml # Voids 5 PHYSICAL EXAM Physical Exam still few scattered wheezes no change except trace edema LE ASSESSMENT/PLAN Assessment/Plan 1. Chronic obstructive pulmonary disease exacerbation. 2. Acute on chronic bronchitis. 3. Acute on chronic respiratory failure. 4. Sleep apnea and hypoxia with hypercapnia. 5. Obesity. 6. Diastolic congestive heart failure, chronic and compensated. 7. Abnormal uterine bleeding by history as mentioned above. 8. Osteoarthritis and degenerative joint disease. 9. Depression and anxiety. continue current plans, Dr. Jacinto covering this week end Problems: ITALIA VALENCIA MD Dec 21, 2016 10:22
[2016-12-21] MEDS ORDERED: FUROSEMIDE 20 MG/2 ML VIAL IVP ONE (10:30)
[2016-12-21] MEDS ORDERED: TEMAZEPAM 15 MG CAPSULE PO PRN (10:30)
[2016-12-21 11:00] VITALS: BP 117/74
--- NOTE | 2016-12-21 13:33 | PDOC ---
PULMONARY PROGRESS NOTES Vitals Vital Signs Date Time Temp Pulse Resp B/P Pulse Ox O2 Delivery O2 Flow Rate FiO2 12/21/16 11:00 98.1 82 18 117/74 91 Nasal Cannula 5.0 98.1 Lungs: Crackles Cardiovascular: S1 Abdomen: Soft, Non-tender Extremities: No Edema, Other Labs Laboratory Tests Test 12/19/16 16:35 12/19/16 17:03 12/19/16 18:15 12/20/16 04:30 White Blood Count 8.8x10^3/uL (4.0-11.0) 9.0x10^3/uL (4.0-11.0) Red Blood Count 5.10x10^6/uL (3.50-5.40) 5.20x10^6/uL (3.50-5.40) Hemoglobin 13.3g/dL (12.0-15.5) 13.5g/dL (12.0-15.5) Hematocrit 43.6% (36.0-47.0) 43.5% (36.0-47.0) Mean Corpuscular Volume 86fL (79-100) 84fL (79-100) Mean Corpuscular Hemoglobin 26pg (25-35) 26pg (25-35) Mean Corpuscular Hemoglobin Concent 30g/dL (31-37) 31g/dL (31-37) Red Cell Distribution Width 18.8% (11.5-14.5) 19.5% (11.5-14.5) Platelet Count 292x10^3/uL (140-400) 310x10^3/uL (140-400) Neutrophils (%) (Auto) 74% (31-73) 91% (31-73) Lymphocytes (%) (Auto) 14% (24-48) 7% (24-48) Monocytes (%) (Auto) 9% (0-9) 2% (0-9) Eosinophils (%) (Auto) 3% (0-3) 0% (0-3) Basophils (%) (Auto) 0% (0-3) 0% (0-3) Neutrophils # (Auto) 6.5x10^3uL (1.8-7.7) 8.2x10^3uL (1.8-7.7) Lymphocytes # (Auto) 1.3x10^3/uL (1.0-4.8) 0.6x10^3/uL (1.0-4.8) Monocytes # (Auto) 0.8x10^3/uL (0.0-1.1) 0.2x10^3/uL (0.0-1.1) Eosinophils # (Auto) 0.2x10^3/uL (0.0-0.7) 0.0x10^3/uL (0.0-0.7) Basophils # (Auto) 0.0x10^3/uL (0.0-0.2) 0.0x10^3/uL (0.0-0.2) Sodium Level 140mmol/L (136-145) 141mmol/L (136-145) Potassium Level 4.5mmol/L (3.5-5.1) 4.5mmol/L (3.5-5.1) Chloride Level 101mmol/L (98-107) 103mmol/L (98-107) Carbon Dioxide Level 33mmol/L (21-32) 30mmol/L (21-32) Anion Gap 6 (6-14) 8 (6-14) Blood Urea Nitrogen 13mg/dL (7-20) 15mg/dL (7-20) Creatinine 1.0mg/dL (0.6-1.0) 0.7mg/dL (0.6-1.0) Estimated GFR (Cockcroft-Gault) 69.7 105.1 BUN/Creatinine Ratio 13 (6-20) Glucose Level 97mg/dL (70-99) 129mg/dL (70-99) Calcium Level 8.7mg/dL (8.5-10.1) 8.9mg/dL (8.5-10.1) Total Bilirubin 0.4mg/dL (0.2-1.0) Aspartate Amino Transf (AST/SGOT) 18U/L (15-37) Alanine Aminotransferase (ALT/SGPT) 22U/L (14-59) Alkaline Phosphatase 96U/L (46-116) Creatine Kinase 114U/L (26-192) Creatine Kinase MB (Mass) 0.9ng/mL (0.0-3.6) Creatine Kinase MB Relative Index 0.8% (0-4) Troponin I Quantitative < 0.017ng/mL (0.000-0.055) KX-Gyq-H-Type Natriuretic Peptide 1244pg/mL (0-124) Total Protein 7.6g/dL (6.4-8.2) Albumin 3.1g/dL (3.4-5.0) Albumin/Globulin Ratio 0.7 (1.0-1.7) Influenza Type A Antigen Negative (NEGATIVE) Influenza Type B Antigen Negative (NEGATIVE) Arterial Blood pH 7.31 (7.35-7.45) Arterial Blood pCO2 at Patient Temp 70mmHg (35-46) Arterial Blood pO2 at Patient Temp 56mmHg (75-108) Arterial Blood HCO3 35mmol/L (21-28) Arterial Blood Base Excess 6mmol/L (-3-3) FiO2 40.0 Segmented Neutrophils % 90% (35-66) Lymphocytes % 9% (24-48) Monocytes % 1% (0-10) Platelet Estimate Adequate (ADEQUATE) Anisocytosis Slight Test 12/20/16 08:55 Arterial Blood pH 7.36 (7.35-7.45) Arterial Blood pCO2 at Patient Temp 55mmHg (35-46) Arterial Blood pO2 at Patient Temp 72mmHg (75-108) Arterial Blood HCO3 30mmol/L (21-28) Arterial Blood Base Excess 3mmol/L (-3-3) FiO2 40.0 Medications Active Scripts Medications Dose Route/Sig Days Date Category Testosterone Cypionate 200 Mg/1 Ml Vial 0.15 Ml IM Q2WKS 12/20/16 Reported Voltaren (Diclofenac Sodium) 100 Gm Gel..gram. 1 Eduardo TD PRN QID PRN 12/20/16 Reported Liothyronine Sodium 25 Mcg Tablet 12.5 Mcg PO DAILY 12/20/16 Reported Duloxetine Hcl 30 Mg Capsule.dr 90 Mg PO DAILY 12/20/16 Reported Vitamin D3 (Cholecalciferol (Vitamin D3)) 50,000 Unit Capsule 1 Cap PO QM 12/20/16 Reported Fish Oil 1,000 Mg Softgel ([place]-3 Fatty Acids/Fish Oil) 1 Each Capsule 1 Each PO BID 12/20/16 Reported Prometrium (Progesterone,Micronized) 200 Mg Capsule 1 Cap PO QHS 12/20/16 Reported Phentermine Hcl 37.5 Mg Capsule 1 Cap PO DAILYWBKFT 12/20/16 Reported Docusate Sodium 100 Mg Capsule 1 Cap PO PRN BID PRN 12/20/16 Reported Oxycodone Hcl 30 Mg Tablet 1 Tab PO Q6HRS 03/19/16 Reported Mirtazapine 30 Mg Tablet 1 Tab PO QHS 03/19/16 Reported Coreg (Carvedilol) 25 Mg Tablet 1 Tab PO BID 03/19/16 Reported Amlodipine Besylate 10 Mg Tablet 10 Mg PO DAILY 03/19/16 Reported Advair 250-50 Diskus (Fluticasone/Salmeterol) 1 Each Disk.w.dev 1 Inh IH BID 03/19/16 Reported Klor-Con M20 (Potassium Chloride) 20 Meq Tablet.er 20 Meq PO DAILYWBKFT 09/19/15 Rx [Ipratropium/Albuterol Sulfate] 3 ML Nebu 3 Ml NEB Q4HRS 07/24/15 Rx Ventolin Hfa Inhaler (Albuterol Sulfate) 1 Puff Puff 2 Puff IH QID 07/24/15 Rx Losartan Potassium 50 Mg Tablet 100 Mg PO DAILY 12/22/14 Reported Cyclobenzaprine Hcl 10 Mg Tablet 1 Tab PO PRN DAILY PRN 12/22/14 Reported Impression . 1. Acute on chronic hypercapnic hypoxemic respiratory failure. 2. Acute exacerbation of chronic obstructive pulmonary disease. 3. Obstructive sleep apnea/obesity hypoventilation syndrome. 4. Morbid obesity. 5. Diastolic heart failure. 6. Depression and anxiety. ANUSHA FARAH MD Dec 21, 2016 13:33
[2016-12-21 14:57] VITALS: BP 140/71
[2016-12-21 17:00] VITALS: BP 140/71
--- NOTE | 2016-12-21 18:07 | PDOC3 ---
Discharge Summary* Date of Admission: Dec 19, 2016 Date of Discharge: Dec 21, 2016 Admitting Diagnosis Problems Medical Problems: (1) Acute on chronic respiratory failure Status: Acute (2) COPD (chronic obstructive pulmonary disease) Status: Acute (3) Moderate protein malnutrition Status: Acute Final Diagnosis 1. Chronic obstructive pulmonary disease exacerbation. 2. Acute on chronic bronchitis. 3. Acute on chronic respiratory failure. 4. Sleep apnea and hypoxia with hypercapnia. 5. Obesity. 6. Diastolic congestive heart failure, chronic and compensated. 7. Abnormal uterine bleeding by history as mentioned above. 8. Osteoarthritis and degenerative joint disease. 9. Depression and anxiety. Problems Medical Problems: (1) Acute on chronic respiratory failure Status: Acute (2) COPD (chronic obstructive pulmonary disease) Status: Acute (3) Moderate protein malnutrition Status: Acute CONSULTS pulmonary Dr. Ziegler Procedures CXR Brief Hospital Course Ms. Fernandez is a 56 old [sex] who presented with [ ] Disposition/Orders: D/C to Home CONDITION AT DISCHARGE: Improved Diet: Cardiac, Consistent Carbohydrate Scheduled ([Ipratropium/Albuterol Sulfate]) 3 ML NEB Q4HRS Albuterol Sulfate (Ventolin Hfa Inhaler) 2 PUFF IH QID Amlodipine Besylate (Amlodipine Besylate) 10 MG PO DAILY (Reported) Carvedilol (Coreg) 1 TAB PO BID (Reported) Cholecalciferol (Vitamin D3) (Vitamin D3) 1 CAP PO QM (Reported) Duloxetine Hcl (Duloxetine Hcl) 90 MG PO DAILY (Reported) Fluticasone/Salmeterol (Advair 250-50 Diskus) 1 INH IH BID (Reported) Liothyronine Sodium (Liothyronine Sodium) 12.5 MCG PO DAILY (Reported) Losartan Potassium (Losartan Potassium) 100 MG PO DAILY (Reported) Mirtazapine (Mirtazapine) 1 TAB PO QHS (Reported) [place]-3 Fatty Acids/Fish Oil (Fish Oil 1,000 Mg Softgel) 1 EACH PO BID (Reported ) Oxycodone Hcl (Oxycodone Hcl) 1 TAB PO Q6HRS (Reported) Phentermine Hcl (Phentermine Hcl) 1 CAP PO DAILYWBKFT (Reported) Potassium Chloride (Klor-Con M20) 20 MEQ PO DAILYWBKFT Progesterone,Micronized (Prometrium) 1 CAP PO QHS (Reported) Testosterone Cypionate (Testosterone Cypionate) 0.15 ML IM Q2WKS (Reported) Scheduled PRN Cyclobenzaprine Hcl (Cyclobenzaprine Hcl) 1 TAB PO PRN DAILY PRN PRN PAIN ( Reported) Diclofenac Sodium (Voltaren) 1 FRANCO TD PRN QID PRN PRN PAIN (Reported) Docusate Sodium (Docusate Sodium) 1 CAP PO PRN BID PRN PRN CONSTIPATION ( Reported) Miscellaneous Medications Ergocalciferol (Vitamin D2) (Vitamin D2) 50,000 UNIT PO (Reported) Discontinued Medications Celecoxib (Celebrex) 1 CAP PO 1X (Reported) Cholecalciferol (Vitamin D3) (Vitamin D3) 1,000 UNIT PO QM (Reported) Ferrous Sulfate (Ferrous Sulfate) 325 MG PO TIDWMEALS (Reported) FOLLOW UP APPOINTMENT: Dr. Valencia 2 weeks Time Spent Total time spent with patient [] minutes for coordination of care, counseling, and education. ITALIA VALENCIA MD Dec 21, 2016 18:07
[2016-12-24] MEDS ORDERED: ERGOCALCIFEROL (VITAMIN D2) 50,000 UNIT CAPSULE PO SCH (09:00)
[2016-12-24] MEDS ORDERED: CHOLECALCIFEROL PO SCH (16:00)
== END 2016-12-21 17:54 | disposition home health service (06) | DRG 189 ==
LOC: ER 16:11 → 5 SOUTH 18:08
PROVIDERS: ADMIT Internal Medicine; ATTEND Internal Medicine
PROC: 5A09357 Assistance with Respiratory Ventilation, Less than 24 Consecutive Hours, Continuous Positive Airway Pressure (ICD-10-PCS; principal; 2016-12-20)
DX: J96.22 Acute and chronic respiratory failure with hypercapnia (principal); J44.1 Chronic obstructive pulmonary disease with (acute) exacerbation; I50.32 Chronic diastolic (congestive) heart failure; E44.0 Moderate protein-calorie malnutrition; E66.2 Morbid (severe) obesity with alveolar hypoventilation; Z68.43 Body mass index [BMI] 50.0-59.9, adult; I13.0 Hypertensive heart and chronic kidney disease with heart failure and stage 1 through stage 4 chronic kidney disease, or unspecified chronic kidney disease; J44.0 Chronic obstructive pulmonary disease with (acute) lower respiratory infection; J20.9 Acute bronchitis, unspecified; F32.9 Major depressive disorder, single episode, unspecified; F41.9 Anxiety disorder, unspecified; I87.2 Venous insufficiency (chronic) (peripheral); N18.9 Chronic kidney disease, unspecified; J96.21 Acute and chronic respiratory failure with hypoxia; Z96.643 Presence of artificial hip joint, bilateral; Z96.653 Presence of artificial knee joint, bilateral; K21.9 Gastro-esophageal reflux disease without esophagitis; M19.90 Unspecified osteoarthritis, unspecified site; Z80.51 Family history of malignant neoplasm of kidney; Z81.8 Family history of other mental and behavioral disorders; Z82.0 Family history of epilepsy and other diseases of the nervous system; Z82.3 Family history of stroke; Z82.49 Family history of ischemic heart disease and other diseases of the circulatory system; Z82.5 Family history of asthma and other chronic lower respiratory diseases; Z83.3 Family history of diabetes mellitus; Z86.73 Personal history of transient ischemic attack (TIA), and cerebral infarction without residual deficits; Z87.891 Personal history of nicotine dependence; Z79.899 Other long term (current) drug therapy
CPT/HCPCS: 36415; 36600; 71010; 80048; 80053; 82553; 82805; 83880; 84484; 85007; 85027; 87804; 93005; 94620; 94640; 94660; 94760; 96374; J2930; J7030; J7512; J7620; 97535; 99291-25

== ENCOUNTER → 2017-02-12 | Outpatient (CLI) | payer MEDICARE, OTHER ==
[~2017-02-12] MED LIST changes: +CHOL10007 PO; +CHOL500050 PO; +DICL100G7 TD; +DOCU100C5 PO; +DULO30CA43 PO; +ERGO500012 PO; +LIOT25TA3 PO; +OMEG1CAP16 PO; +PHEN37.53 PO; +PROG200C7 PO; +TEST200V3 IM
--- NOTE | 2017-02-13 09:21 | SLEEP ---
DATE OF STUDY: 02/12/2017 ATTENDING PHYSICIAN: Dr. Emmanuel Galan. HISTORY OF PRESENT ILLNESS: Soraida is a 66-year-old who weighs 330 pounds with a BMI of 53. The patient's Andrew score was 20 suggesting severe subjective hypersomnia. Sleep study was performed at [place] [facility]. This was a split night study. During the night study, the patient spent 441 minutes in bed and slept for 344 minutes with a sleep efficiency of 78%. Sleep latency was 24 minutes with absent REM sleep. Overall, sleep architecture showed increased stage I and stage II sleep, normal slow wave and absent REM sleep. During the initial diagnostic portion of the study, the patient slept for 156 minutes. During this time, there were 1 obstructive apnea, 10 mixed apneas and 172 hypopneas. The patient's apnea hypopnea index was 71 per hour. Supine index 37 per hour and REM sleep was not observed. Review of nocturnal oximetry study revealed a mean oxygen saturation of 88% with the lowest of 75%, 92% of time oxygen saturation remained between 80% and 89% and 8% of time between 70% and 79%. EKG monitoring revealed normal sinus rhythm. There were frequent PACs seen. Average heart rate was 87 beats per minute. PLMS were seen at index of 66 per hour and 13 per hour caused EEG arousals. The patient met the criteria for CPAP initiation. It was started at 5 centimeter of water and titrated up to 17 centimeter of water. At the final pressure, the patient slept for 53 minutes. The patient had supine sleep throughout. No REM sleep was observed. AHI was reduced to 7 per hour, mostly from few rebound central apneas due to mask leak. The patient's oxygen saturation remained in the mid to high 80s with the lowest saturation of 84%. The patient would benefit from 1 liter of oxygen with the CPAP. The patient used a nasal mask. IMPRESSION: 1. Severe sleep apnea-hypopnea syndrome at an apnea hypopnea index of 71 per hour. 2. Nocturnal hypoxia secondary to combination of obstructive sleep apnea and suspected obesity hypoventilation syndrome. Not completely resolved with CPAP alone. 3. Severe PLMS at an index of 66 per hour and 13 per hour caused EEG arousals. RECOMMENDATIONS: 1. CPAP at 17 cm of water with 1 liter of supplemental oxygen should be used on a nightly basis. 2. Follow up in 4-6 weeks to assess compliance with CPAP and to document clinical improvement. 3. Weight loss is strongly advised. 4. Avoid LUNCHROOM MONITOR depressants. 5. Caution regarding driving until symptoms of sleep apnea resolve with the use of CPAP. 6. PLMS can be further assessed for any symptoms of restless legs during the day and if present, it can be treated with dopaminergic agonist agents. FATIMAH ZELAYA MD DR: DIXIE/trace JOB#: [id number] / [id number] LESLIE Pablo MD
== END | disposition home or self-care (01) ==
LOC: SLPLAB 18:22
PROVIDERS: ATTEND Family Medicine
DX: G47.33 Obstructive sleep apnea (adult) (pediatric) (principal); G47.00 Insomnia, unspecified; E66.9 Obesity, unspecified; J44.9 Chronic obstructive pulmonary disease, unspecified
CPT/HCPCS: 95810

== ENCOUNTER 2017-03-27 14:25 | Inpatient (IN) | payer OTHER ==
[~2017-03-27] VITALS: Ht 167.6 cm; Wt 154.8 kg
[~2017-03-27 14:25] MED LIST changes: +WARF-78 PO; -WARF5TAB PO
[2017-03-27 15:08] LABS: BASO # 0.1 x10^3/uL (0.0-0.2); BASO % 1 % (0-3); EOS % 3 % (0-3); HEMOGLOBIN 13.8 g/dL (12.0-15.5); LYMPH # 1.2 x10^3/uL (1.0-4.8); LYMPH % 15 % (24-48); MEAN CORPUSCULAR HEMOGLOBIN 30 pg (25-35); MEAN CORPUSCULAR HGB CONC 32 g/dL (31-37); MEAN CORPUSCULAR VOLUME 94 fL (79-100); MONO % 12 % (0-9); NEUT % 69 % (31-73); PLATELET COUNT 228 x10^3/uL (140-400); RED BLOOD COUNT 4.59 x10^6/uL (3.50-5.40); WHITE BLOOD COUNT 8.1 x10^3/uL (4.0-11.0)
--- NOTE | 2017-03-27 15:15 | RAD ---
Portable chest, 03/27/2017: History: Dyspnea, hypoxia Comparison is made to a study from 12/19/2016. The heart is enlarged. The pulmonary appears congested with loss of vascular margination. No pulmonary consolidation is seen. There is no evidence of pleural fluid. IMPRESSION: Cardiomegaly with vascular congestion.
[2017-03-27 15:19] LABS: CALCIUM 8.9 mg/dL (8.5-10.1); GFR 69.7; POTASSIUM 4.2 mmol/L (3.5-5.1)
[2017-03-27 15:21] LABS: HCO3 ABG 33 mmol/L (21-28); PCO2 ABG 55 mmHg (35-46); PH ABG 7.39 (7.35-7.45); PO2 ABG 61 mmHg (75-108); SAT O2 ABG 89 % (92-99)
[2017-03-27 15:23] LABS: FIO2 ABG 36
[2017-03-27 15:27] LABS: ALBUMIN 3.2 g/dL (3.4-5.0); ALBUMIN/GLOBULIN RATIO 0.7 (1.0-1.7); TOTAL BILIRUBIN 0.6 mg/dL (0.2-1.0); TOTAL PROTEIN 7.9 g/dL (6.4-8.2)
[2017-03-27] MEDS ORDERED: IPRATRPIUM/ALBUTEROL 0.5/2.5MG 3 ML NEBU. NEB ONE (15:30)
--- NOTE | 2017-03-27 15:37 | PHYS DOC ---
Past Medical History Past Medical History: CHF, COPD, Hypertension, Pneumonia, TIA Additional Past Medical Histor: LEFT KNEE PAIN, OBESITY Past Medical History Sleep apnea Past Surgical History: Hip Replacement, Knee Replacement Additional Past Surgical Histo: ankle surgery Alcohol Use: None Drug Use: None Adult General Chief Complaint Chief Complaint: SHORTNESS OF BREATH HPI HPI Patient is a 56 year old female who presents with 2 day history of progressive moderate dyspnea and no chest pain. Patient was sent here by EMS after home health and delivered a new CPAP machine which she's been not having for over one year and they noted her room air oxygen saturation of 65%. Patient is a fairly noncompliant with any of her medical regimen including the CPAP, nebulizer treatments, diuretics for congestive heart failure and poor follow- up. Patient admits to some element of orthopnea denies any chest pain cough or fever. Patient had a recent sleep study which showed severe sleep apnea. Patient is not on home oxygen. Review of Systems Review of Systems Constitutional: Denies fever or chills [] Eyes: Denies change in visual acuity, redness, or eye pain [] HENT: Denies nasal congestion or sore throat [] Respiratory: Denies cough or shortness of breath [] Cardiovascular: No additional information not addressed in HPI [] GI: Denies abdominal pain, nausea, vomiting, bloody stools or diarrhea [] : Denies dysuria or hematuria [] Musculoskeletal: Denies back pain or joint pain [] Integument: Denies rash or skin lesions [] Neurologic: Denies headache, focal weakness or sensory changes [] Endocrine: Denies polyuria or polydipsia [] Current Medications Current Medications Current Medications Medications (Trade) Dose Ordered Sig/Gwendolyn Start Time Stop Time Status Last Admin Dose Admin Acetaminophen (Tylenol) 650 mg PRN Q4HRS PRN 03/27/17 16:15 03/28/17 16:14 Albuterol/ Ipratropium (Duoneb) 3 ml 1X ONCE 03/27/17 15:30 03/27/17 15:31 DC 03/27/17 15:44 3 ML Furosemide (Lasix) 40 mg 1X ONCE 03/27/17 15:45 03/27/17 15:46 DC 03/27/17 15:54 40 MG Ondansetron HCl (Zofran) 4 mg PRN Q8HRS PRN 03/27/17 16:15 03/28/17 16:14 Allergies Allergies Allergies Coded Allergies Type Severity Reaction Last Updated Verified No Known Drug Allergies 03/19/16 No Physical Exam Physical Exam Constitutional: Well developed, well nourished, no acute distress, non-toxic appearance. [] HENT: Normocephalic, atraumatic, bilateral external ears normal, oropharynx moist, no oral exudates, nose normal. [] Eyes: PERRLA, EOMI, conjunctiva normal, no discharge. [] Neck: Normal range of motion, no tenderness, supple, no stridor. [] Cardiovascular:Heart rate regular rhythm, no murmur [] Lungs & Thorax: Bilateral breath sounds occasional crackles, no respiratory distress Abdomen: Bowel sounds normal, soft, no tenderness, no masses, no pulsatile masses. [] Skin: Warm, dry, no erythema, no rash. [] Back: No tenderness, no CVA tenderness. [] Extremities: No tenderness, no cyanosis, no clubbing, ROM intact, 2+ edema bilateral lower extremities Neurologic: Alert and oriented X 3, normal motor function, normal sensory function, no focal deficits noted. [] Psychologic: Affect normal, judgement normal, mood normal. [] Current Patient Data Vital Signs Vital Signs Date Time Temp Pulse Resp B/P (MAP) Pulse Ox O2 Delivery O2 Flow Rate FiO2 03/27/17 16:03 90 139/80 (99) 95 Nasal Cannula 5.0 03/27/17 14:35 97.9 20 97.9 Lab Values Laboratory Tests Test 03/27/17 14:42 03/27/17 15:03 White Blood Count 8.1 x10^3/uL (4.0-11.0) Red Blood Count 4.59 x10^6/uL (3.50-5.40) Hemoglobin 13.8 g/dL (12.0-15.5) Hematocrit 43.0 % (36.0-47.0) Mean Corpuscular Volume 94 fL (79-100) Mean Corpuscular Hemoglobin 30 pg (25-35) Mean Corpuscular Hemoglobin Concent 32 g/dL (31-37) Red Cell Distribution Width 20.0 % (11.5-14.5) H Platelet Count 228 x10^3/uL (140-400) Neutrophils (%) (Auto) 69 % (31-73) Lymphocytes (%) (Auto) 15 % (24-48) L Monocytes (%) (Auto) 12 % (0-9) H Eosinophils (%) (Auto) 3 % (0-3) Basophils (%) (Auto) 1 % (0-3) Neutrophils # (Auto) 5.6 x10^3uL (1.8-7.7) Lymphocytes # (Auto) 1.2 x10^3/uL (1.0-4.8) Monocytes # (Auto) 1.0 x10^3/uL (0.0-1.1) Eosinophils # (Auto) 0.3 x10^3/uL (0.0-0.7) Basophils # (Auto) 0.1 x10^3/uL (0.0-0.2) Sodium Level 142 mmol/L (136-145) Potassium Level 4.2 mmol/L (3.5-5.1) Chloride Level 103 mmol/L (98-107) Carbon Dioxide Level 33 mmol/L (21-32) H Anion Gap 6 (6-14) Blood Urea Nitrogen 31 mg/dL (7-20) H Creatinine 1.0 mg/dL (0.6-1.0) Estimated GFR (Cockcroft-Gault) 69.7 BUN/Creatinine Ratio 31 (6-20) H Glucose Level 122 mg/dL (70-99) H Calcium Level 8.9 mg/dL (8.5-10.1) Total Bilirubin 0.6 mg/dL (0.2-1.0) Aspartate Amino Transferase (AST) 19 U/L (15-37) Alanine Aminotransferase (ALT) 25 U/L (14-59) Alkaline Phosphatase 111 U/L (46-116) Troponin I Quantitative < 0.017 ng/mL (0.000-0.055) Total Protein 7.9 g/dL (6.4-8.2) Albumin 3.2 g/dL (3.4-5.0) L Albumin/Globulin Ratio 0.7 (1.0-1.7) L O2 Saturation 89 % (92-99) L Arterial Blood pH 7.39 (7.35-7.45) Arterial Blood pCO2 at Patient Temp 55 mmHg (35-46) H Arterial Blood pO2 at Patient Temp 61 mmHg (75-108) L Arterial Blood HCO3 33 mmol/L (21-28) H Arterial Blood Base Excess 6 mmol/L (-3-3) H FiO2 36 Laboratory Tests 03/27/17 14:42 Laboratory Tests 03/27/17 14:42 EKG EKG Normal sinus rhythm rate of 89 STEMI QTC normal [] Radiology/Procedures Radiology/Procedures Chest x-ray significant cardiomegaly CHF time of reviewed by me independently visualized at 1536 [] Course & Med Decision Making Course & Med Decision Making Pertinent Labs and Imaging studies reviewed. (See chart for details) Clinically patient appears to have CHF based on physical exam and chest x-ray. Given 1 dose of IV Lasix. Patient is normally not on home oxygen; on 4 L she was satting around 87% and we bumped it up to 5 L by nasal cannula and she is saturating around 90. She'll need to be admitted for further workup and evaluation and be placed back on her medications. Based on her physical exam and history and findings on her workup most consistent with CHF and acute on chronic respiratory failure do not suspect pulmonary embolism and do not feel a CT of the chest is warranted at this time. [] Dragon Disclaimer Dragon Disclaimer This electronic medical record was generated, in whole or in part, using a voice recognition dictation system. Departure Departure Impression: Primary Impression: Acute CHF (congestive heart failure) Additional Impression: Acute on chronic respiratory failure Disposition: ADMITTED INPATIENT Admitting Physician: Geri Burks Condition: IMPROVED Referrals: LESLIE LUCIO MD (PCP) Problem Qualifiers VANESSA DIAL MD March 27, 2017 15:37
[2017-03-27] MEDS ORDERED: FUROSEMIDE 40 MG/4 ML VIAL. IVP ONE (15:45)
[2017-03-27] MEDS ORDERED: ONDANSETRON PF 4 MG/2 ML VIAL. IV PRN (16:15)
[2017-03-27] MEDS ORDERED: ACETAMINOPHEN 325 MG TABLET. PO PRN (16:15)
[2017-03-27] MEDS ORDERED: DICLOFENAC SODIUM 1% TOPICAL GEL 100GM TUBE. TP PRN (18:30)
[2017-03-27] MEDS ORDERED: DOCUSATE SODIUM 100 MG CAPSULE. PO PRN (18:30)
[2017-03-27] MEDS: CARVEDILOL 12.5 MG TABLET. PO SCH (18:42)
[2017-03-27 19:00] VITALS: BP 135/84
[2017-03-27 19:13] VITALS: BP 130/70
[2017-03-27] MEDS ORDERED: NON FORMULARY ITEM ([Ipratropium/Albuterol Sulfate] (Duoneb) 3 ML) NEB SCH (20:00)
[2017-03-27] MEDS: IPRATRPIUM/ALBUTEROL 0.5/2.5MG 3 ML NEBU. NEB SCH (20:10)
[2017-03-27] MEDS: BUDESONIDE 0.5 MG/2 ML NEBU. NEB SCH (20:10)
[2017-03-27] MEDS: CYCLOBENZAPRINE 10 MG TABLET. PO PRN (20:25)
[2017-03-27] MEDS ORDERED: NON FORMULARY ITEM (Fluticasone/Salmeterol (Advair 250-50 Diskus) 1 INH) IH SCH (21:00)
[2017-03-27] MEDS: MIRTAZAPINE 15 MG TABLET PO SCH (22:36)
[2017-03-27 23:00] VITALS: BP 136/76
[2017-03-28 03:00] VITALS: BP 130/68
[2017-03-28 06:05] LABS: HEMATOCRIT 41.6 % (36.0-47.0); HEMOGLOBIN 13.5 g/dL (12.0-15.5); RED BLOOD COUNT 4.46 x10^6/uL (3.50-5.40); RED CELL DISTRIBUTION WIDTH 20.3 % (11.5-14.5); WHITE BLOOD COUNT 6.5 x10^3/uL (4.0-11.0)
[2017-03-28 06:25] LABS: CALCIUM 8.7 mg/dL (8.5-10.1); GFR 69.7; POTASSIUM 3.8 mmol/L (3.5-5.1)
[2017-03-28 07:46] VITALS: BP 119/81
--- NOTE | 2017-03-28 08:00 | EKG ---
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
[2017-03-28] MEDS: DULoxetine HCL 30 MG CAPSULE.DR PO SCH (09:06)
[2017-03-28] MEDS: POTASSIUM CHLORIDE 20 MEQ TABLET.ER. PO SCH (09:07)
[2017-03-28] MEDS: LIOTHYRONINE 5 MCG TABLET. PO SCH (09:07)
[2017-03-28] MEDS: LOSARTAN POTASSIUM 50 MG TABLET. PO SCH (09:09)
[2017-03-28] MEDS: amLODIPine BESYLATE 10 MG TABLET PO SCH (09:10)
[2017-03-28] MEDS: CARVEDILOL 12.5 MG TABLET. PO SCH ×2 (09:11→17:55)
--- NOTE | 2017-03-28 09:33 | PDOC ---
OBJECTIVE Vital Signs Vital Signs Date Time Temp Pulse Resp B/P (MAP) Pulse Ox O2 Delivery O2 Flow Rate FiO2 03/28/17 09:11 86 119/81 03/28/17 09:10 86 119/81 03/28/17 09:09 86 119/81 03/28/17 07:46 96.5 86 20 119/81 (94) 88 Nasal Cannula 4.0 96.5 03/28/17 07:07 4.0 03/28/17 06:07 20 95 Nasal Cannula 4.0 03/28/17 04:46 95 BiPAP/CPAP 03/28/17 03:10 BiPAP/CPAP 03/28/17 03:00 97.3 93 18 130/68 (88) 86 Nasal Cannula 4.0 97.3 03/28/17 01:09 20 95 03/28/17 00:09 20 93 BiPAP/CPAP 03/27/17 23:00 97.5 71 19 136/76 (96) 84 Nasal Cannula 4.0 97.5 03/27/17 22:27 93 BiPAP/CPAP 03/27/17 20:17 Nasal Cannula 4.0 03/27/17 20:11 90 Nasal Cannula 4.0 03/27/17 20:03 Nasal Cannula 03/27/17 20:00 Nasal Cannula 5.0 03/27/17 20:00 Nasal Cannula 4.0 03/27/17 19:13 97.9 89 20 130/70 (90) 93 Nasal Cannula 5.0 97.9 03/27/17 19:03 Nasal Cannula 5.0 03/27/17 19:00 97.5 77 19 135/84 (101) 92 Nasal Cannula 4.0 97.5 03/27/17 18:42 88 139/81 03/27/17 17:03 88 139/81 (100) 97 Nasal Cannula 5.0 03/27/17 16:03 90 139/80 (99) 95 Nasal Cannula 5.0 03/27/17 15:47 90 Nasal Cannula 4.0 03/27/17 15:10 90 Nasal Cannula 4.0 03/27/17 15:03 88 133/75 (94) 91 Nasal Cannula 4.0 03/27/17 14:35 97.9 97 20 123/62 (82) 67 Room Air 97.9 ASSESSMENT/PLAN Assessment/Plan [id number] H&P dictated Problems: COMMENT Lab Laboratory Tests Test 03/27/17 14:42 03/27/17 15:03 03/28/17 05:15 White Blood Count 8.1 x10^3/uL (4.0-11.0) 6.5 x10^3/uL (4.0-11.0) Red Blood Count 4.59 x10^6/uL (3.50-5.40) 4.46 x10^6/uL (3.50-5.40) Hemoglobin 13.8 g/dL (12.0-15.5) 13.5 g/dL (12.0-15.5) Hematocrit 43.0 % (36.0-47.0) 41.6 % (36.0-47.0) Mean Corpuscular Volume 94 fL (79-100) 93 fL (79-100) Mean Corpuscular Hemoglobin 30 pg (25-35) 30 pg (25-35) Mean Corpuscular Hemoglobin Concent 32 g/dL (31-37) 32 g/dL (31-37) Red Cell Distribution Width 20.0 % (11.5-14.5) 20.3 % (11.5-14.5) Platelet Count 228 x10^3/uL (140-400) 218 x10^3/uL (140-400) Neutrophils (%) (Auto) 69 % (31-73) Lymphocytes (%) (Auto) 15 % (24-48) Monocytes (%) (Auto) 12 % (0-9) Eosinophils (%) (Auto) 3 % (0-3) Basophils (%) (Auto) 1 % (0-3) Neutrophils # (Auto) 5.6 x10^3uL (1.8-7.7) Lymphocytes # (Auto) 1.2 x10^3/uL (1.0-4.8) Monocytes # (Auto) 1.0 x10^3/uL (0.0-1.1) Eosinophils # (Auto) 0.3 x10^3/uL (0.0-0.7) Basophils # (Auto) 0.1 x10^3/uL (0.0-0.2) Sodium Level 142 mmol/L (136-145) 141 mmol/L (136-145) Potassium Level 4.2 mmol/L (3.5-5.1) 3.8 mmol/L (3.5-5.1) Chloride Level 103 mmol/L (98-107) 101 mmol/L (98-107) Carbon Dioxide Level 33 mmol/L (21-32) 36 mmol/L (21-32) Anion Gap 6 (6-14) 4 (6-14) Blood Urea Nitrogen 31 mg/dL (7-20) 30 mg/dL (7-20) Creatinine 1.0 mg/dL (0.6-1.0) 1.0 mg/dL (0.6-1.0) Estimated GFR (Cockcroft-Gault) 69.7 69.7 BUN/Creatinine Ratio 31 (6-20) Glucose Level 122 mg/dL (70-99) 122 mg/dL (70-99) Calcium Level 8.9 mg/dL (8.5-10.1) 8.7 mg/dL (8.5-10.1) Total Bilirubin 0.6 mg/dL (0.2-1.0) Aspartate Amino Transf (AST/SGOT) 19 U/L (15-37) Alanine Aminotransferase (ALT/SGPT) 25 U/L (14-59) Alkaline Phosphatase 111 U/L (46-116) Troponin I Quantitative < 0.017 ng/mL (0.000-0.055) Total Protein 7.9 g/dL (6.4-8.2) Albumin 3.2 g/dL (3.4-5.0) Albumin/Globulin Ratio 0.7 (1.0-1.7) O2 Saturation 89 % (92-99) Arterial Blood pH 7.39 (7.35-7.45) Arterial Blood pCO2 at Patient Temp 55 mmHg (35-46) Arterial Blood pO2 at Patient Temp 61 mmHg (75-108) Arterial Blood HCO3 33 mmol/L (21-28) Arterial Blood Base Excess 6 mmol/L (-3-3) FiO2 36 ITALIA VALENCIA MD March 28, 2017 09:33
[2017-03-28 10:30] VITALS: BP 153/88
--- NOTE | 2017-03-28 10:38 | PREOP HP ---
DATE OF SERVICE: HISTORY OF PRESENT ILLNESS: The patient is a 56-year-old lady is admitted to room 557. She is a 56-year-old lady who presented to the Emergency Room complaining of increasing shortness of breath and dyspnea over the last 2 days. Home health nurse sent her to the Emergency Room after she had a new CPAP machine. Apparently, her O2 sat was down to 65% and she was feeling very short of breath. She was brought in by ambulance. She denies chest pain. She is not compliant with her medications including CPAP, nebulizer treatments, diuretics. She does describe orthopnea and PND. She denies chest pain. She does have increasing shortness of breath as mentioned above. She is normally on CPAP at night, but is not on oxygen. PAST MEDICAL HISTORY: Significant for diastolic congestive heart failure, hypertension, hypertensive cardiovascular disease, COPD, emphysema, previous history of bronchitis and pneumonia. She does have CPAP for sleep apnea that she uses at night, obesity, CVA in 2013, peripheral vascular disease and venous insufficiency edema, chronic kidney disease, osteoarthritis, and chronic back pain for which she is on pain medication chronically which is causing her to be constipated at times. She does have a history of bilateral hip replacement and knee replacement, history of left ankle fusion, history of depression and anxiety. SOCIAL HISTORY: She used to smoke heavy and she quit smoking in May 2016. She drinks alcohol occasionally. She denies use of illicit drugs. FAMILY HISTORY: Positive for obesity, hypertension, epilepsy, diabetes, depression, Crohn's disease, cardiovascular disease and asthma. She also has a family history of kidney cancer in her brother. REVIEW OF SYSTEMS: CONSTITUTIONAL: Denies fever or chills. EYES: Denies changes in her vision, redness or drainage from the eyes. HEENT: Denies nasal congestion or sore throat. RESPIRATORY: She does have increasing shortness of breath. CARDIOVASCULAR: She does not have chest pain, but she does have edema in the lower extremities, which seems to be chronic. GASTROINTESTINAL: Denies abdominal pain, nausea, vomiting or diarrhea. GENITOURINARY: Denies dysuria or hematuria. MUSCULOSKELETAL: She does have chronic back pain and chronic arthritis pain. NEUROLOGIC: Denies headache or focal weakness or sensory changes. ALLERGIES: She has no known drug allergies. PHYSICAL EXAMINATION: GENERAL: She is well-developed, obese. Nontoxic appearance. At the time I saw her, she was very sleepy, lying flat on her back. HEENT: Normocephalic, atraumatic. Eyes: Pupils equal, round, reactive to light and accommodation. NECK: Supple. HEART: Regular rate and rhythm. LUNGS: She does have poor air movement, bilateral crackles in the lower lobes. ABDOMEN: Obese, soft, nontender, no masses. SKIN: Warm and dry. BACK: Without CVA tenderness. EXTREMITIES: She does have +2 edema bilateral lower extremities. No clubbing or cyanosis. NEUROLOGICAL: She is alert and oriented x 3. Moves all her extremities without any focal deficit. IMPRESSION: 1. Acute on chronic respiratory failure due to chronic obstructive pulmonary disease and diastolic congestive heart failure exacerbation. 2. Chronic back pain. 3. Hypertension, hypertensive cardiovascular disease. 4. Diastolic congestive heart failure. 5. Chronic obstructive pulmonary disease. 6. Sleep apnea. 7. Constipation. 8. Chronic kidney disease. 9. Osteoarthritis and chronic back pain. ITALIA VALENCIA MD DR: CECILIA/trace JOB#: [id number] / [id number]
--- NOTE | 2017-03-28 11:12 | PDOC2 ---
JESS QUIROS PUBLIC RELATIONS COUNSELOR 03/28/17 1112: CARDIAC CONSULT DATE OF CONSULT Date of Consult DATE: 03/28/17 TIME: 11:02 REASON FOR CONSULT Reason for Consult: Acute CHF, Hypoxia REFERRING PHYSICIAN Referring Physician: Kieran SOURCE Source: Chart review, Patient HISTORY OF PRESENT ILLNESS HISTORY OF PRESENT ILLNESS This is a pleasant 56 yo female admitted for complains of SOA. Reports that in the last 2 weeks she has been feeling more fatigue than usual and in the last 3- 4 days her SOA has gotten worse. Her SOA initially was with exrtion and progressed to rest. No productive coughing. No fever or chills. Also describes increased leg swelling, orthopnea and PND. She has been utilizing about 2 LPM o@ supplement continuously at home. She has been newly diagnosed with KRISTINA in 02/2017 and just received her CPAP the other day and has not had a chance to wear it. Upon admission she was noted with CO2 retention and was feeling sleepy. She was then placed on a bipap and her mentation improved. Presently she is wheezy and easily drifts to sleep as I was talking to her. She feels tired currently but her SOA is better. Reports no nausea, diarrhea, CP, or palpitations. Denies any CAD, VTE, recent falls or injury. She currently lives by herself PAST MEDICAL HISTORY Cardiovascular: CHF, HTN, Hyperlipidemia, Other (PAD/venous insuficiency) Pulmonary: COPD, Pneumonia, Other (KRISTINA) CENTRAL NERVOUS SYSTEM: CVA (no residuals) GI: Constipation Heme/Onc: No pertinent hx Hepatobiliary: No pertinent hx Psych: Anxiety, Depression Musculoskeletal: Osteoarthritis Rheumatologic: No pertinent hx ENT: No pertinent hx Renal/: No pertinent hx Endocrine: Hypothyroidism Dermatology: No pertinent hx PAST SURGICAL HISTORY Past Surgical History: Total hip replacement (bilateral ), Total knee replacement (left), Other (left ankle fusion) FAMILY HISTORY Family History: Coronary Artery Disease, Diabetes, Heart Disease SOCIAL HISTORY Smoke: No (heavy tobaccoism quit 2015) ALCOHOL: occassional Drugs: None Lives: with Family CURRENT MEDICATIONS CURRENT MEDICATIONS Current Medications Medications (Trade) Dose Ordered Sig/Gwendolyn Route PRN Reason Start Time Stop Time Status Last Admin Dose Admin Albuterol/ Ipratropium (Duoneb) 3 ml 1X ONCE NEB 03/27/17 15:30 03/27/17 15:31 DC 03/27/17 15:44 Furosemide (Lasix) 40 mg 1X ONCE IVP 03/27/17 15:45 03/27/17 15:46 DC 03/27/17 15:54 Amlodipine Besylate (Norvasc) 10 mg DAILY PO 03/28/17 09:00 03/28/17 09:10 Cyclobenzaprine HCl (Flexeril) 10 mg PRN DAILY PRN PO PAIN 03/27/17 18:30 03/27/17 20:25 Duloxetine HCl (Cymbalta) 90 mg DAILY PO 03/28/17 09:00 03/28/17 09:06 Losartan Potassium (Cozaar) 100 mg DAILY PO 03/28/17 09:00 03/28/17 09:09 Potassium Chloride (Klor-Con) 20 meq DAILYWBKFT PO 03/28/17 08:00 03/28/17 09:07 Carvedilol (Coreg) 25 mg BIDWMEALS PO 03/27/17 18:30 03/28/17 09:11 Liothyronine Sodium (Cytomel) 12.5 mcg DAILY PO 03/28/17 09:00 03/28/17 09:07 Mirtazapine (Remeron) 30 mg QHS PO 03/27/17 21:00 03/27/17 22:36 Albuterol/ Ipratropium (Duoneb) 3 ml Q4HRS W/A NEB 03/27/17 22:00 03/27/17 20:10 Budesonide (Pulmicort) 0.5 mg RTBID NEB 03/27/17 20:00 03/27/17 20:10 Oxycodone HCl (Roxicodone) 30 mg Q6HRS PO 03/27/17 18:45 03/28/17 09:36 DC 03/28/17 06:07 ALLERGIES ALLERGIES: Coded Allergies: No Known Drug Allergies (Unverified , 03/19/16) ROS Review of System 14 point ROS evaluated with pertinent positives noted per HPI PHYSICAL EXAM General: Oriented X3, Cooperative, No acute distress HEENT: Atraumatic, Mucous membr. moist/pink Lungs: Other (diffuse wheeze, diminished) Heart: Regular rate, Normal S1, Normal S2, Other (2/6 systolic murmur to LLS border; distant heart sounds) Abdomen: Soft, Other (obese; large pannus) Extremities: No cyanosis, Other (1-2+ bilateral LE pitting edema) Skin: No breakdown, Other (buttock wound; cracked skin by gluteal crease) Neuro: Normal speech, Sensation intact Psych/Mental Status: Other (drowsy) MUSCULOSKELETAL: Osteoarthritic changes both hands VITALS VITALS Vital Signs Date Time Temp Pulse Resp B/P (MAP) Pulse Ox O2 Delivery O2 Flow Rate FiO2 03/28/17 09:11 86 119/81 03/28/17 08:00 Nasal Cannula 5.0 03/28/17 07:46 96.5 20 88 96.5 LABS Lab: Laboratory Tests Test 03/27/17 14:42 03/27/17 15:03 03/28/17 05:15 White Blood Count 8.1 x10^3/uL (4.0-11.0) 6.5 x10^3/uL (4.0-11.0) Red Blood Count 4.59 x10^6/uL (3.50-5.40) 4.46 x10^6/uL (3.50-5.40) Hemoglobin 13.8 g/dL (12.0-15.5) 13.5 g/dL (12.0-15.5) Hematocrit 43.0 % (36.0-47.0) 41.6 % (36.0-47.0) Mean Corpuscular Volume 94 fL (79-100) 93 fL (79-100) Mean Corpuscular Hemoglobin 30 pg (25-35) 30 pg (25-35) Mean Corpuscular Hemoglobin Concent 32 g/dL (31-37) 32 g/dL (31-37) Red Cell Distribution Width 20.0 % (11.5-14.5) 20.3 % (11.5-14.5) Platelet Count 228 x10^3/uL (140-400) 218 x10^3/uL (140-400) Neutrophils (%) (Auto) 69 % (31-73) Lymphocytes (%) (Auto) 15 % (24-48) Monocytes (%) (Auto) 12 % (0-9) Eosinophils (%) (Auto) 3 % (0-3) Basophils (%) (Auto) 1 % (0-3) Neutrophils # (Auto) 5.6 x10^3uL (1.8-7.7) Lymphocytes # (Auto) 1.2 x10^3/uL (1.0-4.8) Monocytes # (Auto) 1.0 x10^3/uL (0.0-1.1) Eosinophils # (Auto) 0.3 x10^3/uL (0.0-0.7) Basophils # (Auto) 0.1 x10^3/uL (0.0-0.2) Sodium Level 142 mmol/L (136-145) 141 mmol/L (136-145) Potassium Level 4.2 mmol/L (3.5-5.1) 3.8 mmol/L (3.5-5.1) Chloride Level 103 mmol/L (98-107) 101 mmol/L (98-107) Carbon Dioxide Level 33 mmol/L (21-32) 36 mmol/L (21-32) Anion Gap 6 (6-14) 4 (6-14) Blood Urea Nitrogen 31 mg/dL (7-20) 30 mg/dL (7-20) Creatinine 1.0 mg/dL (0.6-1.0) 1.0 mg/dL (0.6-1.0) Estimated GFR (Cockcroft-Gault) 69.7 69.7 BUN/Creatinine Ratio 31 (6-20) Glucose Level 122 mg/dL (70-99) 122 mg/dL (70-99) Calcium Level 8.9 mg/dL (8.5-10.1) 8.7 mg/dL (8.5-10.1) Total Bilirubin 0.6 mg/dL (0.2-1.0) Aspartate Amino Transf (AST/SGOT) 19 U/L (15-37) Alanine Aminotransferase (ALT/SGPT) 25 U/L (14-59) Alkaline Phosphatase 111 U/L (46-116) Troponin I Quantitative < 0.017 ng/mL (0.000-0.055) Total Protein 7.9 g/dL (6.4-8.2) Albumin 3.2 g/dL (3.4-5.0) Albumin/Globulin Ratio 0.7 (1.0-1.7) O2 Saturation 89 % (92-99) Arterial Blood pH 7.39 (7.35-7.45) Arterial Blood pCO2 at Patient Temp 55 mmHg (35-46) Arterial Blood pO2 at Patient Temp 61 mmHg (75-108) Arterial Blood HCO3 33 mmol/L (21-28) Arterial Blood Base Excess 6 mmol/L (-3-3) FiO2 36 ECHOCARDIOGRAM ECHOCARDIOGRAM <Conclusion> Technically difficult study. Left ventricle systolic function is normal. The Ejection Fraction is estimated at 60-65%. There is normal LV segmental wall motion. There is mild concentric left ventricular hypertrophy. Moderate tricuspid regurgitation. The PA pressure was estimated at 68 mmHg consistent with severe pulmonary hypertension. There is no evidence of significant pericardial effusion. DATE: 02/14/16 1434 ASSESSMENT/PLAN ASSESSMENT/PLAN 1. Acute on chronic respiratory failure with underlying COPD/KRISTINA 2. Known Severe pulmonary HTN: last TTE 02/2016 with PAP of 68 mmHg 3. Hypoxic encephalopathy 4. Acute on chronic diastolic CHF: likely induced by #1 & 2 5. HTN: controlled 6. HLP: controlled 7. Morbid obesity: BMI 56 8. Hx of CVA; no residuals 9. Hypothyroidism: TSH not therapeutic at 7.9, on replacement, defer to PCP Recommendations 1. Strict I & O 2. Lasix therapy with additional dose this afternoon 3. Bipap PRN. Start on nebulizer treatments. Follow pulmonary recommendations 4. Home CPAP machine just received day before admission, reinforced use. 5. Continue with secondary prevention. Add ASA to regimen. 6. TTE 7. Na restriction, wt loss, dietitian consult. Problems: TRINI BO MD 03/29/17 1512: CARDIAC CONSULT ALLERGIES ALLERGIES: Coded Allergies: No Known Drug Allergies (Unverified , 03/19/16) ASSESSMENT/PLAN ASSESSMENT/PLAN Patient seen and examined 03/28/17. Agree with LITIGATION CLAIM REPRESENTATIVE's assessment and plan. Acute respiratory failure secondary to combination of acute COPD exacerbation and acute on chronic diastolic heart failure. Continue diuresis with Lasix. Check 2-D echo to assess LV systolic function. Continue treatment of COPD per pulmonary team. Thank you for your consultation. Problems: JESS QUIROS APRN March 28, 2017 11:12 TRINI BO MD March 29, 2017 15:12
[2017-03-28] MEDS: FUROSEMIDE 40 MG/4 ML VIAL. IVP SCH (11:40)
[2017-03-28 11:44] LABS: CHOLESTEROL/HDL RATIO 2.8; MAGNESIUM 2.2 mg/dL (1.8-2.4)
[2017-03-28] MEDS: BUDESONIDE 0.5 MG/2 ML NEBU. NEB SCH ×2 (12:26→20:14)
[2017-03-28] MEDS: IPRATRPIUM/ALBUTEROL 0.5/2.5MG 3 ML NEBU. NEB SCH ×3 (12:26→20:14)
[2017-03-28] MEDS ORDERED: FUROSEMIDE 40 MG/4 ML VIAL. IVP ONE ×2 (12:45→18:00)
[2017-03-28 12:48] LABS: FREE T4 1.23 ng/dL (0.76-1.46)
--- NOTE | 2017-03-28 13:51 | CARD ---
APPROVED REPORT EXAM: Two-dimensional and M-mode echocardiogram with Doppler and color Doppler. Other Information Quality : Average Rhythm : NSR INDICATION Congestive Heart Failure Hypoxia 2D DIMENSIONS RVDd4.3 (2.9-3.5cm)Left Atrium(2D)4.0 (1.6-4.0cm) IVSd1.1 (0.7-1.1cm)LVDd5.0 (3.9-5.9cm) LVOT Diameter2.3 (1.8-2.4cm)PWd1.1 (0.7-1.1cm) LVDs3.3 (2.5-4.0cm)FS (%) 32.8 % SV70.7 mlLVEF(%)61.1 (>50%) Aortic Valve AoV Peak Emmett.157.9cm/sAoV VTI25.2cm AO Peak GR.10.0mmHgLVOT Peak Emmett.108.9cm/s LVOT VTI 18.31cmAO Mean GR.6mmHg LESLIE (VMAX)2.55kr4NDH (VTI)3.02cm2 Mitral Valve MV E Jhsshwnw73.6cm/sMV DECEL [id number] MV A Dkjgdmaw62.4cm/sMV SUR28dq E/A Ratio1.1MV A Xqiqqnpg119xu MVA (PHT)3.45cm2 TDI E/Lateral E'9.0E/Medial E'10.0 Tricuspid Valve TR P. Woetfkyi130hk/sRAP DSECVVFO93rvGv TR Peak Gr.52pdZiEOFQ35idGq LEFT VENTRICLE The left ventricle is normal size. There is normal left ventricular wall thickness. Left ventricle sy stolic function is normal. The Ejection Fraction is 60-65%. There is normal LV segmental wall motion. The left ventricular diastolic function and filling is normal for age. There is no ventricular septa l defect visualized. RIGHT VENTRICLE The right ventricle is mildly dilated. The right ventricular systolic function is normal. ATRIA The left atrium size is normal. The right atrium is moderately dilated. The interatrial septum is int act with no evidence for an atrial septal defect or patent foramen ovale as noted on 2-D or Doppler i maging. AORTIC VALVE The aortic valve is normal in structure and function. The aortic valve is trileaflet. Doppler and Col or Flow revealed no significant aortic regurgitation. There is no significant aortic valvular stenosi s. MITRAL VALVE The mitral valve leaflets are thickened. There is no mitral valve stenosis. Doppler and Color Flow re vealed no mitral valve regurgitation noted. TRICUSPID VALVE The tricuspid valve is not well visualized. Doppler and Color Flow revealed moderate tricuspid regurg itation. There is severe pulmonary hypertension. The PA pressure was estimated at 79 mmHg. There is n o tricuspid valve stenosis. PULMONIC VALVE The pulmonic valve is not well visualized. Doppler and Color Flow revealed no pulmonic valvular regur gitation. There is no pulmonic valvular stenosis. GREAT VESSELS The aortic root is normal in size. Normal pulmonary venous flow (Doppler). The IVC is dilated and col lapses <50% with inspiration. PERICARDIAL EFFUSION There is no evidence of significant pericardial effusion. Critical Notification Critical Value: No <Conclusion> Left ventricle systolic function is normal. The Ejection Fraction is 60-65%. There is normal LV segmental wall motion. The right ventricle is mildly dilated. The right atrium is moderately dilated. Moderate tricuspid regurgitation. There is severe pulmonary hypertension. The PA pressure was estimated at 79 mmHg. There is no evidence of significant pericardial effusion.
[2017-03-28 15:00] VITALS: BP 101/60
[2017-03-28 19:00] VITALS: BP 123/50
[2017-03-28] MEDS: MIRTAZAPINE 15 MG TABLET PO SCH (22:13)
[2017-03-28 23:00] VITALS: BP 133/78
[2017-03-29] VITALS (17 sets, daily range): BP systolic 89–161; BP diastolic 44–86
--- NOTE | 2017-03-29 03:50 | CONS ---
DATE OF CONSULTATION: 03/28/2017 ATTENDING PHYSICIAN: Geri Burks MD REASON FOR CONSULTATION: The patient is seen in pulmonary consultation at the request of Dr. Burks for increasing shortness of breath. HISTORY OF PRESENT ILLNESS: The patient is a 56-year-old that was admitted through the Emergency Room with increasing shortness of breath over the last 2 days, not associated with any significant chest pain. She has a history of obstructive sleep apnea, is not tolerating CPAP at home. Apparently, she also was unable to localize her CPAP. She states that she had a new CPAP delivered several days ago. She denies fever, chills or productive cough. She has some pedal edema. PAST MEDICAL HISTORY: Otherwise remarkable for COPD, obstructive sleep apnea, hypertension, TIA and obesity. PAST SURGICAL HISTORY: Previous left knee arthroplasty. SOCIAL HISTORY: She denies any tobacco or alcohol. REVIEW OF SYSTEMS: As indicated above, otherwise, a 10-point system was reviewed and negative. CURRENT MEDICATIONS: List was reviewed. Please see the MRAD. ALLERGIES: No known drug allergies. PHYSICAL EXAMINATION: GENERAL: The patient was in no significant respiratory distress. O2 saturation currently on 4 liters was greater than 92%. HEENT: Eyes, the sclerae were nonicteric. NECK: Jugular venous distention was not elevated. No lymphadenopathy. CHEST: Full expansion. LUNGS: Adequate airway flow with no wheezes. CARDIOVASCULAR: Regular rate and rhythm with S1, S2, no S3. ABDOMEN: Soft, nontender, nondistended. EXTREMITIES: No clubbing, cyanosis or edema. NEUROLOGIC: The patient was awake, alert, following commands. A detailed neuro exam was not performed. LABORATORY DATA: Reviewed. Chest x-ray was reviewed. There was increased infiltrates compatible with CHF. White count was normal. Hemoglobin and hematocrit were noted. Arterial blood gas; pH of 7.39, PaCO2 of 55, PaO2 of 61. Electrolytes were noted. Troponin level was not elevated. BUN and creatinine 31 and 1.0. BNP was elevated. TSH was high. IMPRESSION: 1. Uwjoj-ey-wdywlzf hypercapnic hypoxemic respiratory failure, multifactorial. 2. Ggpgn-eb-ypwadsk diastolic heart failure. 3. Acute exacerbation of chronic obstructive pulmonary disease. 4. Hypertensive cardiovascular disease. 5. Sleep apnea. 6. Morbid obesity. PLAN: 1. Agree with current medical management. Continue to diurese. 2. Echocardiogram is pending. 3. Continue CPAP. 4. The patient is intolerant to CPAP at home. We will consider repeating a sleep study for BiPAP titration. 5. Continue nebulized treatments. 6. Deep venous thrombosis prophylaxis. Dr. Burks, I do appreciate the privilege in sharing the patient's care. ANUSHA FARAH MD DR: OCTAVIA/trace JOB#: [id number] / [id number]
[2017-03-29 05:40] LABS: HEMATOCRIT 41.4 % (36.0-47.0); HEMOGLOBIN 13.3 g/dL (12.0-15.5); RED BLOOD COUNT 4.37 x10^6/uL (3.50-5.40); RED CELL DISTRIBUTION WIDTH 19.6 % (11.5-14.5); WHITE BLOOD COUNT 10.8 x10^3/uL (4.0-11.0)
[2017-03-29 05:47] LABS: CALCIUM 8.6 mg/dL (8.5-10.1); CREATININE 1.1 mg/dL (0.6-1.0); GFR 62.4; POTASSIUM 4.8 mmol/L (3.5-5.1)
[2017-03-29 05:50] LABS: HCO3 ABG 42 mmol/L (21-28); PO2 ABG 57 mmHg (75-108); SAT O2 ABG 78 % (92-99)
[2017-03-29] MEDS ORDERED: PROPOFOL 100 ML IV ONE ×2 (06:22→09:04)
[2017-03-29] MEDS ORDERED: SUCCINYLCHOLINE 200 MG/10 ML VIAL. ONE ×2 (06:22→06:30)
[2017-03-29] MEDS ORDERED: PROPOFOL 10 MG/ML (100ML) VIAL. IV ONE (06:30)
[2017-03-29 06:50] LABS: FIO2 ABG 40; PCO2 ABG 151 mmHg (35-46); PH ABG 7.06 (7.35-7.45)
--- NOTE | 2017-03-29 07:21 | RAD ---
Indication assess nasogastric tube placement. Single film targeted to the lower chest and upper abdomen was obtained. The abdominal gas pattern is unremarkable. The lung bases are clear. A nasogastric tube is noted coiled in the body of the stomach. The tip is positioned in the distal body of the stomach. IMPRESSION: NG tube in the stomach
--- NOTE | 2017-03-29 07:22 | RAD ---
Indication respiratory failure. A single view of the chest was obtained and is compared to an examination 2 days previously. Cardiomegaly is unchanged. Pulmonary infiltrates, likely reflecting congestive heart failure, persist and appear worse. (A superimposed infectious component associated with the infiltrates is not excluded). Endotracheal tube is appropriately positioned above the korin. Nasogastric tube is additionally noted. IMPRESSION: Worsening pulmonary infiltrates. Findings likely reflect worsening congestive heart failure. Appropriately positioned endotracheal tube
[2017-03-29] MEDS: CARVEDILOL 12.5 MG TABLET. PO SCH (08:00)
[2017-03-29] MEDS: POTASSIUM CHLORIDE 20 MEQ TABLET.ER. PO SCH (08:00)
[2017-03-29] MEDS: BUDESONIDE 0.5 MG/2 ML NEBU. NEB SCH ×2 (08:38→19:37)
[2017-03-29] MEDS: IPRATRPIUM/ALBUTEROL 0.5/2.5MG 3 ML NEBU. NEB SCH ×5 (08:38→22:00)
[2017-03-29] MEDS: DULoxetine HCL 30 MG CAPSULE.DR PO SCH (08:51)
[2017-03-29 08:56] LABS: HCO3 ABG 29 mmol/L (21-28); PCO2 ABG 51 mmHg (35-46); PH ABG 7.38 (7.35-7.45); PO2 ABG 74 mmHg (75-108); SAT O2 ABG 95 % (92-99)
[2017-03-29] MEDS: amLODIPine BESYLATE 10 MG TABLET PO SCH (08:57)
[2017-03-29] MEDS: LOSARTAN POTASSIUM 50 MG TABLET. PO SCH (08:57)
[2017-03-29] MEDS: LIOTHYRONINE 5 MCG TABLET. PO SCH (09:00)
[2017-03-29] MEDS: FUROSEMIDE 40 MG/4 ML VIAL. IVP SCH (09:00)
[2017-03-29 09:01] LABS: FIO2 ABG 50
--- NOTE | 2017-03-29 09:22 | PDOC ---
Provider Note Provider Note on vent re copd- labs ok, cxr chf- cont same HELIO LIANG MD March 29, 2017 09:22
--- NOTE | 2017-03-29 09:28 | PDOC ---
CARDIO Progress Notes Date and Time Date of Service 03/29/17 Time of Evaluation 0924 Subjective Subjective: Other (intubated/sedated) Vitals Vitals Vital Signs Date Time Temp Pulse Resp B/P (MAP) Pulse Ox O2 Delivery O2 Flow Rate FiO2 03/29/17 08:57 80 96/57 03/29/17 08:00 99.2 20 99 Ventilator 99.2 03/29/17 03:00 4.0 Weight Weight [ ] Input and Output Intake and Output Intake and Output 03/29/17 07:00 Intake Total 1480 ml Output Total 1050 ml Balance 430 ml Intake Oral 1480 ml Output Urine Total 1050 ml # Voids 1 Laboratory Labs Laboratory Tests Test 03/29/17 04:10 03/29/17 05:10 03/29/17 05:46 03/29/17 08:00 Sodium Level 138 mmol/L (136-145) Potassium Level 4.8 mmol/L (3.5-5.1) Chloride Level 99 mmol/L (98-107) Carbon Dioxide Level 33 mmol/L (21-32) Anion Gap 6 (6-14) Blood Urea Nitrogen 31 mg/dL (7-20) Creatinine 1.1 mg/dL (0.6-1.0) Estimated GFR (Cockcroft-Gault) 62.4 Glucose Level 118 mg/dL (70-99) Calcium Level 8.6 mg/dL (8.5-10.1) White Blood Count 10.8 x10^3/uL (4.0-11.0) Red Blood Count 4.37 x10^6/uL (3.50-5.40) Hemoglobin 13.3 g/dL (12.0-15.5) Hematocrit 41.4 % (36.0-47.0) Mean Corpuscular Volume 95 fL (79-100) Mean Corpuscular Hemoglobin 30 pg (25-35) Mean Corpuscular Hemoglobin Concent 32 g/dL (31-37) Red Cell Distribution Width 19.6 % (11.5-14.5) Platelet Count 230 x10^3/uL (140-400) O2 Saturation 78 % (92-99) 95 % (92-99) Arterial Blood pH 7.06 (7.35-7.45) 7.38 (7.35-7.45) Arterial Blood pCO2 at Patient Temp 151 mmHg (35-46) 51 mmHg (35-46) Arterial Blood pO2 at Patient Temp 57 mmHg (75-108) 74 mmHg (75-108) Arterial Blood HCO3 42 mmol/L (21-28) 29 mmol/L (21-28) Arterial Blood Base Excess 6 mmol/L (-3-3) 3 mmol/L (-3-3) FiO2 40 50 Radiology Rad Impression CXR: A single view of the chest was obtained and is compared to an examination 2 days previously. Cardiomegaly is unchanged. Pulmonary infiltrates, likely reflecting congestive heart failure, persist and appear worse. (A superimposed infectious component associated with the infiltrates is not excluded). Endotracheal tube is appropriately positioned above the korin. Nasogastric tube is additionally noted. IMPRESSION: Worsening pulmonary infiltrates. Findings likely reflect worsening congestive heart failure. Appropriately positioned endotracheal tube Physical Exam HEENT: Neck Supple W Full Motion Chest: Symmetric LUNGS: Other (diminished anteriorly; oral ETT/vent) Heart: S1S2, RRR (heart tones distant; tele: SR) Abdomen: Soft N/T, Other (truncal obesity) Extremities: Other (1-2+ bilateral) Neurology: other (sedated) Assessment Assessment 1. Acute on chronic respiratory failure underlying COPD/KRISTINA/pulmonary HTN (PA = 79) low respiratory rate overnight; hypoxic and acidotic and required intubation 2. Acute on chronic diastolic CHF preserved LV function BP low normotensive this a.m. - BB held change lasix to 20 mg BID today 3. HTN low normotensive after receiving sedating meds for intubation 4. hyperlipidemia LDLs = 80 on statin therapy ? of metabolic syndrome 5. Hypothyroidism TSH elevated defer to primary service 6. morbid obesity MARTIN BOWLES [employer] March 29, 2017 09:28
[2017-03-29] MEDS: PROPOFOL 100 ML IV PRN ×5 (09:35→21:09)
[2017-03-29] MEDS ORDERED: FUROSEMIDE 20 MG/2 ML VIAL. IVP ONE ×2 (09:45→14:00)
[2017-03-29] MEDS: METOPROLOL TARTRATE 5 MG/5 ML VIAL. IVP SCH ×2 (13:01→18:17)
--- NOTE | 2017-03-29 13:31 | PDOC ---
PULMONARY PROGRESS NOTES Subjective sedated on vent Vitals Vital Signs Date Time Temp Pulse Resp B/P (MAP) Pulse Ox O2 Delivery O2 Flow Rate FiO2 03/29/17 13:01 93 151/77 03/29/17 13:00 101.1 20 99 Ventilator 101.1 03/29/17 03:00 4.0 Lungs: Clear, Other (rhonchi) Cardiovascular: S1, S2 Abdomen: Soft, Non-tender Extremities: No Edema, Other Skin: Warm Labs Laboratory Tests Test 03/27/17 14:42 03/27/17 15:03 03/28/17 05:15 03/29/17 04:10 White Blood Count 8.1 x10^3/uL (4.0-11.0) 6.5 x10^3/uL (4.0-11.0) Red Blood Count 4.59 x10^6/uL (3.50-5.40) 4.46 x10^6/uL (3.50-5.40) Hemoglobin 13.8 g/dL (12.0-15.5) 13.5 g/dL (12.0-15.5) Hematocrit 43.0 % (36.0-47.0) 41.6 % (36.0-47.0) Mean Corpuscular Volume 94 fL (79-100) 93 fL (79-100) Mean Corpuscular Hemoglobin 30 pg (25-35) 30 pg (25-35) Mean Corpuscular Hemoglobin Concent 32 g/dL (31-37) 32 g/dL (31-37) Red Cell Distribution Width 20.0 % (11.5-14.5) 20.3 % (11.5-14.5) Platelet Count 228 x10^3/uL (140-400) 218 x10^3/uL (140-400) Neutrophils (%) (Auto) 69 % (31-73) Lymphocytes (%) (Auto) 15 % (24-48) Monocytes (%) (Auto) 12 % (0-9) Eosinophils (%) (Auto) 3 % (0-3) Basophils (%) (Auto) 1 % (0-3) Neutrophils # (Auto) 5.6 x10^3uL (1.8-7.7) Lymphocytes # (Auto) 1.2 x10^3/uL (1.0-4.8) Monocytes # (Auto) 1.0 x10^3/uL (0.0-1.1) Eosinophils # (Auto) 0.3 x10^3/uL (0.0-0.7) Basophils # (Auto) 0.1 x10^3/uL (0.0-0.2) Sodium Level 142 mmol/L (136-145) 141 mmol/L (136-145) 138 mmol/L (136-145) Potassium Level 4.2 mmol/L (3.5-5.1) 3.8 mmol/L (3.5-5.1) 4.8 mmol/L (3.5-5.1) Chloride Level 103 mmol/L (98-107) 101 mmol/L (98-107) 99 mmol/L (98-107) Carbon Dioxide Level 33 mmol/L (21-32) 36 mmol/L (21-32) 33 mmol/L (21-32) Anion Gap 6 (6-14) 4 (6-14) 6 (6-14) Blood Urea Nitrogen 31 mg/dL (7-20) 30 mg/dL (7-20) 31 mg/dL (7-20) Creatinine 1.0 mg/dL (0.6-1.0) 1.0 mg/dL (0.6-1.0) 1.1 mg/dL (0.6-1.0) Estimated GFR (Cockcroft-Gault) 69.7 69.7 62.4 BUN/Creatinine Ratio 31 (6-20) Glucose Level 122 mg/dL (70-99) 122 mg/dL (70-99) 118 mg/dL (70-99) Calcium Level 8.9 mg/dL (8.5-10.1) 8.7 mg/dL (8.5-10.1) 8.6 mg/dL (8.5-10.1) Total Bilirubin 0.6 mg/dL (0.2-1.0) Aspartate Amino Transf (AST/SGOT) 19 U/L (15-37) Alanine Aminotransferase (ALT/SGPT) 25 U/L (14-59) Alkaline Phosphatase 111 U/L (46-116) Troponin I Quantitative < 0.017 ng/mL (0.000-0.055) Total Protein 7.9 g/dL (6.4-8.2) Albumin 3.2 g/dL (3.4-5.0) Albumin/Globulin Ratio 0.7 (1.0-1.7) O2 Saturation 89 % (92-99) Arterial Blood pH 7.39 (7.35-7.45) Arterial Blood pCO2 at Patient Temp 55 mmHg (35-46) Arterial Blood pO2 at Patient Temp 61 mmHg (75-108) Arterial Blood HCO3 33 mmol/L (21-28) Arterial Blood Base Excess 6 mmol/L (-3-3) FiO2 36 Magnesium Level 2.2 mg/dL (1.8-2.4) JR-Xso-G-Type Natriuretic Peptide 1535 pg/mL (0-124) Triglycerides Level 75 mg/dL (0-150) Cholesterol Level 149 mg/dL (0-200) LDL Cholesterol, Calculated 80 mg/dL (0-100) VLDL Cholesterol, Calculated 15 mg/dL (0-40) Non-HDL Cholesterol Calculated 95 mg/dL (0-129) HDL Cholesterol 54 mg/dL (40-60) Cholesterol/HDL Ratio 2.8 Thyroid Stimulating Hormone (TSH) 7.909 uIU/mL (0.358-3.74) Free Thyroxine 1.23 ng/dL (0.76-1.46) Free Triiodothyronine (T3) pg/mL 3.69 pg/mL (2.18-3.98) Test 03/29/17 05:10 03/29/17 05:46 03/29/17 08:00 White Blood Count 10.8 x10^3/uL (4.0-11.0) Red Blood Count 4.37 x10^6/uL (3.50-5.40) Hemoglobin 13.3 g/dL (12.0-15.5) Hematocrit 41.4 % (36.0-47.0) Mean Corpuscular Volume 95 fL (79-100) Mean Corpuscular Hemoglobin 30 pg (25-35) Mean Corpuscular Hemoglobin Concent 32 g/dL (31-37) Red Cell Distribution Width 19.6 % (11.5-14.5) Platelet Count 230 x10^3/uL (140-400) O2 Saturation 78 % (92-99) 95 % (92-99) Arterial Blood pH 7.06 (7.35-7.45) 7.38 (7.35-7.45) Arterial Blood pCO2 at Patient Temp 151 mmHg (35-46) 51 mmHg (35-46) Arterial Blood pO2 at Patient Temp 57 mmHg (75-108) 74 mmHg (75-108) Arterial Blood HCO3 42 mmol/L (21-28) 29 mmol/L (21-28) Arterial Blood Base Excess 6 mmol/L (-3-3) 3 mmol/L (-3-3) FiO2 40 50 Laboratory Tests Test 03/29/17 04:10 03/29/17 05:10 03/29/17 05:46 03/29/17 08:00 Sodium Level 138 mmol/L (136-145) Potassium Level 4.8 mmol/L (3.5-5.1) Chloride Level 99 mmol/L (98-107) Carbon Dioxide Level 33 mmol/L (21-32) Anion Gap 6 (6-14) Blood Urea Nitrogen 31 mg/dL (7-20) Creatinine 1.1 mg/dL (0.6-1.0) Estimated GFR (Cockcroft-Gault) 62.4 Glucose Level 118 mg/dL (70-99) Calcium Level 8.6 mg/dL (8.5-10.1) White Blood Count 10.8 x10^3/uL (4.0-11.0) Red Blood Count 4.37 x10^6/uL (3.50-5.40) Hemoglobin 13.3 g/dL (12.0-15.5) Hematocrit 41.4 % (36.0-47.0) Mean Corpuscular Volume 95 fL (79-100) Mean Corpuscular Hemoglobin 30 pg (25-35) Mean Corpuscular Hemoglobin Concent 32 g/dL (31-37) Red Cell Distribution Width 19.6 % (11.5-14.5) Platelet Count 230 x10^3/uL (140-400) O2 Saturation 78 % (92-99) 95 % (92-99) Arterial Blood pH 7.06 (7.35-7.45) 7.38 (7.35-7.45) Arterial Blood pCO2 at Patient Temp 151 mmHg (35-46) 51 mmHg (35-46) Arterial Blood pO2 at Patient Temp 57 mmHg (75-108) 74 mmHg (75-108) Arterial Blood HCO3 42 mmol/L (21-28) 29 mmol/L (21-28) Arterial Blood Base Excess 6 mmol/L (-3-3) 3 mmol/L (-3-3) FiO2 40 50 Medications Active Scripts Medications Dose Route/Sig Max Daily Dose Days Date Category Vitamin D2 (Ergocalciferol (Vitamin D2)) 50,000 Unit Capsule 50,000 Unit PO 12/20/16 Reported Liothyronine Sodium 25 Mcg Tablet 12.5 Mcg PO DAILY 12/20/16 Reported Duloxetine Hcl 30 Mg Capsule.dr 90 Mg PO DAILY 12/20/16 Reported Vitamin D3 (Cholecalciferol (Vitamin D3)) 50,000 Unit Capsule 1 Cap PO QM 12/20/16 Reported Fish Oil 1,000 Mg Softgel (Ruso-3 Fatty Acids/Fish Oil) 1 Each Capsule 1 Each PO BID 12/20/16 Reported Prometrium (Progesterone,Micronized) 200 Mg Capsule 1 Cap PO QHS 12/20/16 Reported Phentermine Hcl 37.5 Mg Capsule 1 Cap PO DAILYWBKFT 12/20/16 Reported Docusate Sodium 100 Mg Capsule 1 Cap PO PRN BID PRN 12/20/16 Reported Oxycodone Hcl 30 Mg Tablet 1 Tab PO Q6HRS 03/19/16 Reported Mirtazapine 30 Mg Tablet 1 Tab PO QHS 03/19/16 Reported Coreg (Carvedilol) 25 Mg Tablet 1 Tab PO BID 03/19/16 Reported Amlodipine Besylate 10 Mg Tablet 10 Mg PO DAILY 03/19/16 Reported Advair 250-50 Diskus (Fluticasone/Salmeterol) 1 Each Disk.w.dev 1 Inh IH BID 03/19/16 Reported Klor-Con M20 (Potassium Chloride) 20 Meq Tablet.er 20 Meq PO DAILYWBKFT 09/19/15 Rx [Ipratropium/Albuterol Sulfate] 3 ML Nebu 3 Ml NEB Q4HRS 07/24/15 Rx Ventolin Hfa Inhaler (Albuterol Sulfate) 1 Puff Puff 2 Puff IH QID 07/24/15 Rx Losartan Potassium 50 Mg Tablet 100 Mg PO DAILY 12/22/14 Reported Cyclobenzaprine Hcl 10 Mg Tablet 1 Tab PO PRN DAILY PRN 12/22/14 Reported Impression . 1. Lvonf-gc-fdogfdk hypercapnic hypoxemic respiratory failure, multifactorial. 2. Doddd-lm-htzccbl diastolic heart failure. 3. Acute exacerbation of chronic obstructive pulmonary disease. 4. Hypertensive cardiovascular disease. 5. Sleep apnea. 6. Morbid obesity. 7. Fever possible sepsis 8. Narcotic dependent Left ventricle systolic function is normal. The Ejection Fraction is 60-65%. There is normal LV segmental wall motion. The right ventricle is mildly dilated. The right atrium is moderately dilated. Moderate tricuspid regurgitation. There is severe pulmonary hypertension. The PA pressure was estimated at 79 mmHg. There is no evidence of significant pericardial effusion. Plan . Pt became hypercapnic overnight required intubation emperi antibx see orders follow card input Echo report noted ANUSHA FARAH MD March 29, 2017 13:31
[2017-03-29] MEDS: ENALAPRILAT 1.25 MG/ML VIAL. IV SCH ×2 (14:10→18:18)
[2017-03-29] MEDS ORDERED: PIP/TAZO PER PHARMACY MC PRN (14:15)
[2017-03-29] MEDS ORDERED: VANCOMYCIN 2 GM in IV NORMAL SALINE 500ML BAG 500 ML IV ONE (15:00)
[2017-03-29] MEDS: VANCOMYCIN PER PHARMACY MC PRN (15:46)
[2017-03-29] MEDS: PIPERACILLIN/TAZOBACTAM 3.375 GM in IV NORMAL SALINE 50ML 50 ML IV SCH (16:07)
[2017-03-29] MEDS: CHLORHEXIDINE 0.12% 15 ML MOUTHWASH. MM SCH (21:07)
[2017-03-29] MEDS: MIRTAZAPINE 15 MG TABLET PO SCH (21:07)
[2017-03-30] VITALS (24 sets, daily range): BP systolic 85–143; BP diastolic 42–72
[2017-03-30] MEDS: PIPERACILLIN/TAZOBACTAM 3.375 GM in IV NORMAL SALINE 50ML 50 ML IV SCH ×5 (00:06→23:37)
[2017-03-30] MEDS: VANCOMYCIN 2 GM in IV NORMAL SALINE 500ML BAG 500 ML IV SCH ×2 (04:08→16:45)
[2017-03-30] MEDS: PROPOFOL 100 ML IV PRN ×3 (04:08→09:09)
[2017-03-30] MEDS: METOPROLOL TARTRATE 5 MG/5 ML VIAL. IVP SCH ×5 (06:00→18:00)
[2017-03-30] MEDS: ENALAPRILAT 1.25 MG/ML VIAL. IV SCH ×5 (06:00→23:36)
[2017-03-30] MEDS: BUDESONIDE 0.5 MG/2 ML NEBU. NEB SCH ×2 (07:05→19:59)
[2017-03-30] MEDS: IPRATRPIUM/ALBUTEROL 0.5/2.5MG 3 ML NEBU. NEB SCH ×4 (07:05→19:59)
[2017-03-30] MEDS: POTASSIUM CHLORIDE 20 MEQ TABLET.ER. PO SCH (07:15)
[2017-03-30] MEDS: DULoxetine HCL 30 MG CAPSULE.DR PO SCH (07:24)
[2017-03-30] MEDS: VANCOMYCIN PER PHARMACY MC PRN (07:53)
[2017-03-30] MEDS: FUROSEMIDE 40 MG/4 ML VIAL. IVP SCH (08:49)
[2017-03-30] MEDS: CHLORHEXIDINE 0.12% 15 ML MOUTHWASH. MM SCH ×2 (08:49→21:00)
[2017-03-30] MEDS: LIOTHYRONINE 5 MCG TABLET. PO SCH (08:49)
[2017-03-30] MEDS: LOSARTAN POTASSIUM 50 MG TABLET. PO SCH (09:00)
[2017-03-30] MEDS: amLODIPine BESYLATE 10 MG TABLET PO SCH (09:00)
[2017-03-30 09:34] LABS: HCO3 ABG 34 mmol/L (21-28); PCO2 ABG 52 mmHg (35-46); PH ABG 7.43 (7.35-7.45); PO2 ABG 59 mmHg (75-108); SAT O2 ABG 90 % (92-99)
[2017-03-30 09:35] LABS: FIO2 ABG 40
[2017-03-30 11:34] LABS: BASO % 0 % (0-3); EOS % 5 % (0-3); HEMATOCRIT 40.9 % (36.0-47.0); HEMOGLOBIN 13.4 g/dL (12.0-15.5); LYMPH # 0.5 x10^3/uL (1.0-4.8); LYMPH % 7 % (24-48); MEAN CORPUSCULAR HEMOGLOBIN 30 pg (25-35); MEAN CORPUSCULAR HGB CONC 33 g/dL (31-37); MEAN CORPUSCULAR VOLUME 92 fL (79-100); MONO % 16 % (0-9); NEUT % 72 % (31-73); PLATELET COUNT 200 x10^3/uL (140-400); RED BLOOD COUNT 4.46 x10^6/uL (3.50-5.40); RED CELL DISTRIBUTION WIDTH 19.6 % (11.5-14.5); WHITE BLOOD COUNT 6.8 x10^3/uL (4.0-11.0)
--- NOTE | 2017-03-30 11:36 | PDOC ---
PULMONARY PROGRESS NOTES Subjective PT SEEN ON PS TRIAL NO RESP DISTRESS Vitals Vital Signs Date Time Temp Pulse Resp B/P (MAP) Pulse Ox O2 Delivery O2 Flow Rate FiO2 03/30/17 11:06 100 Ventilator 03/30/17 11:00 88 22 129/69 (89) 03/30/17 08:00 99.4 99.4 Lungs: Clear, Other (rhonchi) Cardiovascular: S1, S2 Abdomen: Soft, Non-tender Extremities: No Edema, Other Skin: Warm Labs Laboratory Tests Test 03/29/17 04:10 03/29/17 05:10 03/29/17 05:46 03/29/17 08:00 Sodium Level 138 mmol/L (136-145) Potassium Level 4.8 mmol/L (3.5-5.1) Chloride Level 99 mmol/L (98-107) Carbon Dioxide Level 33 mmol/L (21-32) Anion Gap 6 (6-14) Blood Urea Nitrogen 31 mg/dL (7-20) Creatinine 1.1 mg/dL (0.6-1.0) Estimated GFR (Cockcroft-Gault) 62.4 Glucose Level 118 mg/dL (70-99) Calcium Level 8.6 mg/dL (8.5-10.1) White Blood Count 10.8 x10^3/uL (4.0-11.0) Red Blood Count 4.37 x10^6/uL (3.50-5.40) Hemoglobin 13.3 g/dL (12.0-15.5) Hematocrit 41.4 % (36.0-47.0) Mean Corpuscular Volume 95 fL (79-100) Mean Corpuscular Hemoglobin 30 pg (25-35) Mean Corpuscular Hemoglobin Concent 32 g/dL (31-37) Red Cell Distribution Width 19.6 % (11.5-14.5) Platelet Count 230 x10^3/uL (140-400) O2 Saturation 78 % (92-99) 95 % (92-99) Arterial Blood pH 7.06 (7.35-7.45) 7.38 (7.35-7.45) Arterial Blood pCO2 at Patient Temp 151 mmHg (35-46) 51 mmHg (35-46) Arterial Blood pO2 at Patient Temp 57 mmHg (75-108) 74 mmHg (75-108) Arterial Blood HCO3 42 mmol/L (21-28) 29 mmol/L (21-28) Arterial Blood Base Excess 6 mmol/L (-3-3) 3 mmol/L (-3-3) FiO2 40 50 Test 03/29/17 14:25 03/30/17 08:00 Lactic Acid Level 2.7 mmol/L (0.4-2.0) O2 Saturation 90 % (92-99) Arterial Blood pH 7.43 (7.35-7.45) Arterial Blood pCO2 at Patient Temp 52 mmHg (35-46) Arterial Blood pO2 at Patient Temp 59 mmHg (75-108) Arterial Blood HCO3 34 mmol/L (21-28) Arterial Blood Base Excess 8 mmol/L (-3-3) FiO2 40 Laboratory Tests Test 03/29/17 14:25 03/30/17 08:00 Lactic Acid Level 2.7 mmol/L (0.4-2.0) O2 Saturation 90 % (92-99) Arterial Blood pH 7.43 (7.35-7.45) Arterial Blood pCO2 at Patient Temp 52 mmHg (35-46) Arterial Blood pO2 at Patient Temp 59 mmHg (75-108) Arterial Blood HCO3 34 mmol/L (21-28) Arterial Blood Base Excess 8 mmol/L (-3-3) FiO2 40 Medications Active Scripts Medications Dose Route/Sig Max Daily Dose Days Date Category Vitamin D2 (Ergocalciferol (Vitamin D2)) 50,000 Unit Capsule 50,000 Unit PO 12/20/16 Reported Liothyronine Sodium 25 Mcg Tablet 12.5 Mcg PO DAILY 12/20/16 Reported Duloxetine Hcl 30 Mg Capsule.dr 90 Mg PO DAILY 12/20/16 Reported Vitamin D3 (Cholecalciferol (Vitamin D3)) 50,000 Unit Capsule 1 Cap PO QM 12/20/16 Reported Fish Oil 1,000 Mg Softgel (Diana-3 Fatty Acids/Fish Oil) 1 Each Capsule 1 Each PO BID 12/20/16 Reported Prometrium (Progesterone,Micronized) 200 Mg Capsule 1 Cap PO QHS 12/20/16 Reported Phentermine Hcl 37.5 Mg Capsule 1 Cap PO DAILYWBKFT 12/20/16 Reported Docusate Sodium 100 Mg Capsule 1 Cap PO PRN BID PRN 12/20/16 Reported Oxycodone Hcl 30 Mg Tablet 1 Tab PO Q6HRS 03/19/16 Reported Mirtazapine 30 Mg Tablet 1 Tab PO QHS 03/19/16 Reported Coreg (Carvedilol) 25 Mg Tablet 1 Tab PO BID 03/19/16 Reported Amlodipine Besylate 10 Mg Tablet 10 Mg PO DAILY 03/19/16 Reported Advair 250-50 Diskus (Fluticasone/Salmeterol) 1 Each Disk.w.dev 1 Inh IH BID 03/19/16 Reported Klor-Con M20 (Potassium Chloride) 20 Meq Tablet.er 20 Meq PO DAILYWBKFT 09/19/15 Rx [Ipratropium/Albuterol Sulfate] 3 ML Nebu 3 Ml NEB Q4HRS 07/24/15 Rx Ventolin Hfa Inhaler (Albuterol Sulfate) 1 Puff Puff 2 Puff IH QID 07/24/15 Rx Losartan Potassium 50 Mg Tablet 100 Mg PO DAILY 12/22/14 Reported Cyclobenzaprine Hcl 10 Mg Tablet 1 Tab PO PRN DAILY PRN 12/22/14 Reported Impression . 1. Nldzu-zu-bhqhwsa hypercapnic hypoxemic respiratory failure, multifactorial. 2. Gobxv-to-trnalgq diastolic heart failure. 3. Acute exacerbation of chronic obstructive pulmonary disease. 4. Hypertensive cardiovascular disease. 5. Sleep apnea. 6. Morbid obesity. 7. Fever possible sepsis 8. Narcotic dependent Left ventricle systolic function is normal. The Ejection Fraction is 60-65%. There is normal LV segmental wall motion. The right ventricle is mildly dilated. The right atrium is moderately dilated. Moderate tricuspid regurgitation. There is severe pulmonary hypertension. The PA pressure was estimated at 79 mmHg. There is no evidence of significant pericardial effusion. Plan . PS TRIAL SUSPECT EXTUBATION LATER TODAY SPOKE WITH RN AND RT empiric antibx see orders follow card input Echo report noted ANUSHA FARAH MD March 30, 2017 11:36
[2017-03-30 11:43] LABS: CALCIUM 8.4 mg/dL (8.5-10.1); CREATININE 0.9 mg/dL (0.6-1.0); GFR 78.7; POTASSIUM 3.7 mmol/L (3.5-5.1)
[2017-03-30 11:59] LABS: FIO2 ABG 40; HCO3 ABG 37 mmol/L (21-28); PCO2 ABG 55 mmHg (35-46); PH ABG 7.45 (7.35-7.45); PO2 ABG 66 mmHg (75-108); SAT O2 ABG 93 % (92-99)
--- NOTE | 2017-03-30 12:20 | PDOC ---
Provider Note Provider Note off tube , alert, no new sxs- labs ok- feel this was opiod mediated resp arrest , was on oxycodone 30 x 6 at home re tkr, will use only 7.5 q 6 prn now HELIO LIANG MD March 30, 2017 12:20
[2017-03-30] MEDS: PANTOPRAZOLE IV PUSH 40 MG VIAL. IVP SCH (12:37)
[2017-03-30] MEDS: MIRTAZAPINE 15 MG TABLET PO SCH (21:09)
[2017-03-31] VITALS (13 sets, daily range): BP systolic 104–142; BP diastolic 48–82
[2017-03-31] MEDS: METOPROLOL TARTRATE 5 MG/5 ML VIAL. IVP SCH ×5 (00:18→23:16)
[2017-03-31] MEDS: VANCOMYCIN PER PHARMACY MC PRN (05:18)
[2017-03-31] MEDS: PIPERACILLIN/TAZOBACTAM 3.375 GM in IV NORMAL SALINE 50ML 50 ML IV SCH ×4 (05:59→23:20)
[2017-03-31] MEDS: ENALAPRILAT 1.25 MG/ML VIAL. IV SCH (05:59)
[2017-03-31] MEDS: IPRATRPIUM/ALBUTEROL 0.5/2.5MG 3 ML NEBU. NEB SCH ×5 (06:00→19:42)
[2017-03-31] MEDS: VANCOMYCIN 2 GM in IV NORMAL SALINE 500ML BAG 500 ML IV SCH ×2 (06:24→17:34)
[2017-03-31] MEDS: BUDESONIDE 0.5 MG/2 ML NEBU. NEB SCH ×2 (07:09→19:41)
[2017-03-31] MEDS: CHLORHEXIDINE 0.12% 15 ML MOUTHWASH. MM SCH ×2 (07:36→20:26)
--- NOTE | 2017-03-31 08:55 | PDOC ---
PULMONARY PROGRESS NOTES Subjective PT SEEN ON PS TRIAL NO RESP DISTRESS Vitals Vital Signs Date Time Temp Pulse Resp B/P (MAP) Pulse Ox O2 Delivery O2 Flow Rate FiO2 03/31/17 07:10 96 Nasal Cannula 2.0 03/31/17 06:00 98.8 84 22 112/62 (79) 98.8 Lungs: Clear, Other (rhonchi) Cardiovascular: S1, S2 Abdomen: Soft, Non-tender Extremities: No Edema, Other Skin: Warm Labs Laboratory Tests Test 03/29/17 14:25 03/30/17 08:00 03/30/17 11:15 03/30/17 11:52 Lactic Acid Level 2.7 mmol/L (0.4-2.0) O2 Saturation 90 % (92-99) 93 % (92-99) Arterial Blood pH 7.43 (7.35-7.45) 7.45 (7.35-7.45) Arterial Blood pCO2 at Patient Temp 52 mmHg (35-46) 55 mmHg (35-46) Arterial Blood pO2 at Patient Temp 59 mmHg (75-108) 66 mmHg (75-108) Arterial Blood HCO3 34 mmol/L (21-28) 37 mmol/L (21-28) Arterial Blood Base Excess 8 mmol/L (-3-3) 11 mmol/L (-3-3) FiO2 40 40 White Blood Count 6.8 x10^3/uL (4.0-11.0) Red Blood Count 4.46 x10^6/uL (3.50-5.40) Hemoglobin 13.4 g/dL (12.0-15.5) Hematocrit 40.9 % (36.0-47.0) Mean Corpuscular Volume 92 fL (79-100) Mean Corpuscular Hemoglobin 30 pg (25-35) Mean Corpuscular Hemoglobin Concent 33 g/dL (31-37) Red Cell Distribution Width 19.6 % (11.5-14.5) Platelet Count 200 x10^3/uL (140-400) Neutrophils (%) (Auto) 72 % (31-73) Lymphocytes (%) (Auto) 7 % (24-48) Monocytes (%) (Auto) 16 % (0-9) Eosinophils (%) (Auto) 5 % (0-3) Basophils (%) (Auto) 0 % (0-3) Neutrophils # (Auto) 4.9 x10^3uL (1.8-7.7) Lymphocytes # (Auto) 0.5 x10^3/uL (1.0-4.8) Monocytes # (Auto) 1.1 x10^3/uL (0.0-1.1) Eosinophils # (Auto) 0.3 x10^3/uL (0.0-0.7) Basophils # (Auto) 0.0 x10^3/uL (0.0-0.2) Sodium Level 143 mmol/L (136-145) Potassium Level 3.7 mmol/L (3.5-5.1) Chloride Level 100 mmol/L (98-107) Carbon Dioxide Level 36 mmol/L (21-32) Anion Gap 7 (6-14) Blood Urea Nitrogen 17 mg/dL (7-20) Creatinine 0.9 mg/dL (0.6-1.0) Estimated GFR (Cockcroft-Gault) 78.7 Glucose Level 83 mg/dL (70-99) Calcium Level 8.4 mg/dL (8.5-10.1) Test 03/31/17 03:30 Vancomycin Level Trough 19.5 mcg/mL (10.0-20.0) Vancomycin Last Dose Date 5261110 Vancomycin Last Dose Time 1700 Laboratory Tests Test 03/30/17 11:15 03/30/17 11:52 03/31/17 03:30 White Blood Count 6.8 x10^3/uL (4.0-11.0) Red Blood Count 4.46 x10^6/uL (3.50-5.40) Hemoglobin 13.4 g/dL (12.0-15.5) Hematocrit 40.9 % (36.0-47.0) Mean Corpuscular Volume 92 fL (79-100) Mean Corpuscular Hemoglobin 30 pg (25-35) Mean Corpuscular Hemoglobin Concent 33 g/dL (31-37) Red Cell Distribution Width 19.6 % (11.5-14.5) Platelet Count 200 x10^3/uL (140-400) Neutrophils (%) (Auto) 72 % (31-73) Lymphocytes (%) (Auto) 7 % (24-48) Monocytes (%) (Auto) 16 % (0-9) Eosinophils (%) (Auto) 5 % (0-3) Basophils (%) (Auto) 0 % (0-3) Neutrophils # (Auto) 4.9 x10^3uL (1.8-7.7) Lymphocytes # (Auto) 0.5 x10^3/uL (1.0-4.8) Monocytes # (Auto) 1.1 x10^3/uL (0.0-1.1) Eosinophils # (Auto) 0.3 x10^3/uL (0.0-0.7) Basophils # (Auto) 0.0 x10^3/uL (0.0-0.2) Sodium Level 143 mmol/L (136-145) Potassium Level 3.7 mmol/L (3.5-5.1) Chloride Level 100 mmol/L (98-107) Carbon Dioxide Level 36 mmol/L (21-32) Anion Gap 7 (6-14) Blood Urea Nitrogen 17 mg/dL (7-20) Creatinine 0.9 mg/dL (0.6-1.0) Estimated GFR (Cockcroft-Gault) 78.7 Glucose Level 83 mg/dL (70-99) Calcium Level 8.4 mg/dL (8.5-10.1) O2 Saturation 93 % (92-99) Arterial Blood pH 7.45 (7.35-7.45) Arterial Blood pCO2 at Patient Temp 55 mmHg (35-46) Arterial Blood pO2 at Patient Temp 66 mmHg (75-108) Arterial Blood HCO3 37 mmol/L (21-28) Arterial Blood Base Excess 11 mmol/L (-3-3) FiO2 40 Vancomycin Level Trough 19.5 mcg/mL (10.0-20.0) Vancomycin Last Dose Date 5261110 Vancomycin Last Dose Time 1699 Medications Active Scripts Medications Dose Route/Sig Max Daily Dose Days Date Category Vitamin D2 (Ergocalciferol (Vitamin D2)) 50,000 Unit Capsule 50,000 Unit PO 12/20/16 Reported Liothyronine Sodium 25 Mcg Tablet 12.5 Mcg PO DAILY 12/20/16 Reported Duloxetine Hcl 30 Mg Capsule.dr 90 Mg PO DAILY 12/20/16 Reported Vitamin D3 (Cholecalciferol (Vitamin D3)) 50,000 Unit Capsule 1 Cap PO QM 12/20/16 Reported Fish Oil 1,000 Mg Softgel ([place]-3 Fatty Acids/Fish Oil) 1 Each Capsule 1 Each PO BID 12/20/16 Reported Prometrium (Progesterone,Micronized) 200 Mg Capsule 1 Cap PO QHS 12/20/16 Reported Phentermine Hcl 37.5 Mg Capsule 1 Cap PO DAILYWBKFT 12/20/16 Reported Docusate Sodium 100 Mg Capsule 1 Cap PO PRN BID PRN 12/20/16 Reported Oxycodone Hcl 30 Mg Tablet 1 Tab PO Q6HRS 03/19/16 Reported Mirtazapine 30 Mg Tablet 1 Tab PO QHS 03/19/16 Reported Coreg (Carvedilol) 25 Mg Tablet 1 Tab PO BID 03/19/16 Reported Amlodipine Besylate 10 Mg Tablet 10 Mg PO DAILY 03/19/16 Reported Advair 250-50 Diskus (Fluticasone/Salmeterol) 1 Each Disk.w.dev 1 Inh IH BID 03/19/16 Reported Klor-Con M20 (Potassium Chloride) 20 Meq Tablet.er 20 Meq PO DAILYWBKFT 09/19/15 Rx [Ipratropium/Albuterol Sulfate] 3 ML Nebu 3 Ml NEB Q4HRS 07/24/15 Rx Ventolin Hfa Inhaler (Albuterol Sulfate) 1 Puff Puff 2 Puff IH QID 07/24/15 Rx Losartan Potassium 50 Mg Tablet 100 Mg PO DAILY 12/22/14 Reported Cyclobenzaprine Hcl 10 Mg Tablet 1 Tab PO PRN DAILY PRN 12/22/14 Reported Impression . 1. Squrt-hm-jyzbevo hypercapnic hypoxemic respiratory failure, multifactorial. 2. Obiis-fv-ewanbra diastolic heart failure. 3. Acute exacerbation of chronic obstructive pulmonary disease. 4. Hypertensive cardiovascular disease. 5. Sleep apnea. 6. Morbid obesity. 7. Fever possible sepsis 8. Narcotic dependent Left ventricle systolic function is normal. The Ejection Fraction is 60-65%. There is normal LV segmental wall motion. The right ventricle is mildly dilated. The right atrium is moderately dilated. Moderate tricuspid regurgitation. There is severe pulmonary hypertension. The PA pressure was estimated at 79 mmHg. There is no evidence of significant pericardial effusion. Plan . EXTUBATED YESTERDAY NO RESP COMPLAINTS OK TO MOVE OUT OF ICU REG DIET SPOKE WITH RN AND RT empiric antibx Echo report noted ANUSHA FARAH MD March 31, 2017 08:55
[2017-03-31] MEDS: LIOTHYRONINE 5 MCG TABLET. PO SCH (09:10)
[2017-03-31] MEDS: DULoxetine HCL 30 MG CAPSULE.DR PO SCH (09:11)
[2017-03-31] MEDS: POTASSIUM CHLORIDE 20 MEQ TABLET.ER. PO SCH (09:11)
[2017-03-31] MEDS: LOSARTAN POTASSIUM 50 MG TABLET. PO SCH (09:11)
[2017-03-31] MEDS: amLODIPine BESYLATE 10 MG TABLET PO SCH (09:12)
[2017-03-31] MEDS: PANTOPRAZOLE IV PUSH 40 MG VIAL. IVP SCH (09:12)
[2017-03-31] MEDS: FUROSEMIDE 40 MG/4 ML VIAL. IVP SCH (09:14)
--- NOTE | 2017-03-31 11:23 | PDOC ---
Provider Note Provider Note sleeping, bp down so will hold some meds, daily proph lovenox, to floor- echo ef 60% HELIO LIANG MD March 31, 2017 11:23
[2017-03-31] MEDS: FAMOTIDINE 20 MG TABLET. PO SCH ×2 (12:53→20:27)
[2017-03-31] MEDS: oxyCODONE IR 5 MG TABLET PO PRN ×2 (13:49→20:26)
[2017-03-31] MEDS: CYCLOBENZAPRINE 10 MG TABLET. PO PRN (17:17)
[2017-03-31] MEDS ORDERED: MIDAZOLAM HCL/PF 5 MG/5 ML VIAL. ONE (18:56)
[2017-03-31] MEDS: MIRTAZAPINE 15 MG TABLET PO SCH (20:27)
[2017-04-01] VITALS (8 sets, daily range): BP systolic 123–157; BP diastolic 71–90
[2017-04-01] MEDS: oxyCODONE IR 5 MG TABLET PO PRN ×4 (02:27→20:51)
[2017-04-01] MEDS: VANCOMYCIN 2 GM in IV NORMAL SALINE 500ML BAG 500 ML IV SCH (05:34)
[2017-04-01] MEDS: METOPROLOL TARTRATE 5 MG/5 ML VIAL. IVP SCH ×2 (05:38→12:41)
[2017-04-01] MEDS: BUDESONIDE 0.5 MG/2 ML NEBU. NEB SCH ×2 (07:49→19:11)
[2017-04-01] MEDS: IPRATRPIUM/ALBUTEROL 0.5/2.5MG 3 ML NEBU. NEB SCH ×4 (07:49→19:10)
[2017-04-01] MEDS: PIPERACILLIN/TAZOBACTAM 3.375 GM in IV NORMAL SALINE 50ML 50 ML IV SCH ×2 (08:13→12:00)
[2017-04-01] MEDS: DULoxetine HCL 30 MG CAPSULE.DR PO SCH (08:14)
[2017-04-01] MEDS: CHLORHEXIDINE 0.12% 15 ML MOUTHWASH. MM SCH (08:15)
[2017-04-01] MEDS: POTASSIUM CHLORIDE 20 MEQ TABLET.ER. PO SCH (08:16)
[2017-04-01] MEDS: FAMOTIDINE 20 MG TABLET. PO SCH ×2 (08:16→20:51)
[2017-04-01] MEDS: LIOTHYRONINE 5 MCG TABLET. PO SCH (09:29)
--- NOTE | 2017-04-01 12:13 | PDOC ---
PULMONARY PROGRESS NOTES Subjective PT WITH NO INCREASE SOA Vitals Vital Signs Date Time Temp Pulse Resp B/P (MAP) Pulse Ox O2 Delivery O2 Flow Rate FiO2 04/01/17 11:50 Nasal Cannula 2.0 04/01/17 10:54 98.6 105 18 123/71 (88) 98.6 04/01/17 09:14 92 ROS: No Nausea, No Chest Pain, No Abdominal Pain, No Increase Cough General: Alert Lungs: Clear, Other (rhonchi) Cardiovascular: S1, S2 Abdomen: Soft, Non-tender Neuro Exam: Alert Extremities: No Edema, Other Skin: Warm Labs Laboratory Tests Test 03/31/17 03:30 Vancomycin Level Trough 19.5 mcg/mL (10.0-20.0) Vancomycin Last Dose Date 5261110 Vancomycin Last Dose Time 170 Medications Active Scripts Medications Dose Route/Sig Max Daily Dose Days Date Category Vitamin D2 (Ergocalciferol (Vitamin D2)) 50,000 Unit Capsule 50,000 Unit PO 12/20/16 Reported Liothyronine Sodium 25 Mcg Tablet 12.5 Mcg PO DAILY 12/20/16 Reported Duloxetine Hcl 30 Mg Capsule.dr 90 Mg PO DAILY 12/20/16 Reported Vitamin D3 (Cholecalciferol (Vitamin D3)) 50,000 Unit Capsule 1 Cap PO QM 12/20/16 Reported Fish Oil 1,000 Mg Softgel ([employer]-3 Fatty Acids/Fish Oil) 1 Each Capsule 1 Each PO BID 12/20/16 Reported Prometrium (Progesterone,Micronized) 200 Mg Capsule 1 Cap PO QHS 12/20/16 Reported Phentermine Hcl 37.5 Mg Capsule 1 Cap PO DAILYWBKFT 12/20/16 Reported Docusate Sodium 100 Mg Capsule 1 Cap PO PRN BID PRN 12/20/16 Reported Oxycodone Hcl 30 Mg Tablet 1 Tab PO Q6HRS 03/19/16 Reported Mirtazapine 30 Mg Tablet 1 Tab PO QHS 03/19/16 Reported Coreg (Carvedilol) 25 Mg Tablet 1 Tab PO BID 03/19/16 Reported Amlodipine Besylate 10 Mg Tablet 10 Mg PO DAILY 03/19/16 Reported Advair 250-50 Diskus (Fluticasone/Salmeterol) 1 Each Disk.w.dev 1 Inh IH BID 03/19/16 Reported Klor-Con M20 (Potassium Chloride) 20 Meq Tablet.er 20 Meq PO DAILYWBKFT 09/19/15 Rx [Ipratropium/Albuterol Sulfate] 3 ML Nebu 3 Ml NEB Q4HRS 07/24/15 Rx Ventolin Hfa Inhaler (Albuterol Sulfate) 1 Puff Puff 2 Puff IH QID 07/24/15 Rx Losartan Potassium 50 Mg Tablet 100 Mg PO DAILY 12/22/14 Reported Cyclobenzaprine Hcl 10 Mg Tablet 1 Tab PO PRN DAILY PRN 12/22/14 Reported Impression . 1. Syold-kr-dmcokvp hypercapnic hypoxemic respiratory failure, multifactorial. 2. Scagv-ep-zkkzgna diastolic heart failure. 3. Acute exacerbation of chronic obstructive pulmonary disease. 4. Hypertensive cardiovascular disease. 5. Sleep apnea. 6. Morbid obesity. 7. Fever possible sepsis 8. Narcotic dependent Left ventricle systolic function is normal. The Ejection Fraction is 60-65%. There is normal LV segmental wall motion. The right ventricle is mildly dilated. The right atrium is moderately dilated. Moderate tricuspid regurgitation. There is severe pulmonary hypertension. The PA pressure was estimated at 79 mmHg. There is no evidence of significant pericardial effusion. Plan . EXTUBATED 03/30 HOME IN AM OK HOME BIPAP NO RESP COMPLAINTS REG DIET SPOKE WITH RN AND RT ANUSHA FARAH MD April 01, 2017 12:13
--- NOTE | 2017-04-01 13:49 | PDOC ---
Provider Note Provider Note VSS, BP OK OFF USUAL MEDS- WILL DC IV METOP, FOLLOW- NO NEW SXS- PT IN SHOWER AT PRESENT HELIO LIANG MD April 01, 2017 13:49
[2017-04-01] MEDS: CARVEDILOL 6.25 MG TABLET. PO SCH (16:02)
[2017-04-01] MEDS: MIRTAZAPINE 15 MG TABLET PO SCH (20:51)
[2017-04-02 07:15] VITALS: BP 142/72
[2017-04-02] MEDS: IPRATRPIUM/ALBUTEROL 0.5/2.5MG 3 ML NEBU. NEB SCH ×2 (07:39→11:55)
[2017-04-02] MEDS: BUDESONIDE 0.5 MG/2 ML NEBU. NEB SCH (07:39)
[2017-04-02] MEDS: POTASSIUM CHLORIDE 20 MEQ TABLET.ER. PO SCH (08:17)
[2017-04-02] MEDS: LIOTHYRONINE 5 MCG TABLET. PO SCH (08:17)
[2017-04-02] MEDS: DULoxetine HCL 30 MG CAPSULE.DR PO SCH (08:17)
[2017-04-02] MEDS: FAMOTIDINE 20 MG TABLET. PO SCH (08:18)
[2017-04-02] MEDS: CARVEDILOL 6.25 MG TABLET. PO SCH (08:18)
[2017-04-02] MEDS: oxyCODONE IR 5 MG TABLET PO PRN (08:24)
--- NOTE | 2017-04-02 09:02 | PDOC ---
PULMONARY PROGRESS NOTES Subjective PT WITH NO INCREASE SOA Vitals Vital Signs Date Time Temp Pulse Resp B/P (MAP) Pulse Ox O2 Delivery O2 Flow Rate FiO2 04/02/17 08:24 19 98 Nasal Cannula 2.0 04/02/17 08:18 96 142/72 04/02/17 07:15 99.3 99.3 ROS: No Nausea, No Chest Pain, No Abdominal Pain, No Increase Cough General: Alert, No acute distress Lungs: Clear Cardiovascular: S1, S2 Abdomen: Soft, Non-tender Neuro Exam: Alert Extremities: No Edema, Other Skin: Warm Medications Active Scripts Medications Dose Route/Sig Max Daily Dose Days Date Category Vitamin D2 (Ergocalciferol (Vitamin D2)) 50,000 Unit Capsule 50,000 Unit PO 12/20/16 Reported Liothyronine Sodium 25 Mcg Tablet 12.5 Mcg PO DAILY 12/20/16 Reported Duloxetine Hcl 30 Mg Capsule.dr 90 Mg PO DAILY 12/20/16 Reported Vitamin D3 (Cholecalciferol (Vitamin D3)) 50,000 Unit Capsule 1 Cap PO QM 12/20/16 Reported Fish Oil 1,000 Mg Softgel ([place]-3 Fatty Acids/Fish Oil) 1 Each Capsule 1 Each PO BID 12/20/16 Reported Prometrium (Progesterone,Micronized) 200 Mg Capsule 1 Cap PO QHS 12/20/16 Reported Phentermine Hcl 37.5 Mg Capsule 1 Cap PO DAILYWBKFT 12/20/16 Reported Docusate Sodium 100 Mg Capsule 1 Cap PO PRN BID PRN 12/20/16 Reported Oxycodone Hcl 30 Mg Tablet 1 Tab PO Q6HRS 03/19/16 Reported Mirtazapine 30 Mg Tablet 1 Tab PO QHS 03/19/16 Reported Coreg (Carvedilol) 25 Mg Tablet 1 Tab PO BID 03/19/16 Reported Amlodipine Besylate 10 Mg Tablet 10 Mg PO DAILY 03/19/16 Reported Advair 250-50 Diskus (Fluticasone/Salmeterol) 1 Each Disk.w.dev 1 Inh IH BID 03/19/16 Reported Klor-Con M20 (Potassium Chloride) 20 Meq Tablet.er 20 Meq PO DAILYWBKFT 09/19/15 Rx [Ipratropium/Albuterol Sulfate] 3 ML Nebu 3 Ml NEB Q4HRS 07/24/15 Rx Ventolin Hfa Inhaler (Albuterol Sulfate) 1 Puff Puff 2 Puff IH QID 07/24/15 Rx Losartan Potassium 50 Mg Tablet 100 Mg PO DAILY 12/22/14 Reported Cyclobenzaprine Hcl 10 Mg Tablet 1 Tab PO PRN DAILY PRN 12/22/14 Reported Comments Left ventricle systolic function is normal. The Ejection Fraction is 60-65%. There is normal LV segmental wall motion. The right ventricle is mildly dilated. The right atrium is moderately dilated. Moderate tricuspid regurgitation. There is severe pulmonary hypertension. The PA pressure was estimated at 79 mmHg. There is no evidence of significant pericardial effusion. Impression . 1. Pptyl-ry-oyrlfzc hypercapnic hypoxemic respiratory failure, multifactorial. 2. Bweeq-ut-ohdybmx diastolic heart failure. 3. Acute exacerbation of chronic obstructive pulmonary disease. 4. Hypertensive cardiovascular disease. 5. Sleep apnea. 6. Morbid obesity. 7. Fever possible sepsis, resolved. 8. Narcotic dependent Plan . EXTUBATED 03/30/ DOING WELL HOME TODAY HOME CPAP /OXYGEN QHS WILL DC O2 DURING DAY AND ASSESS THE NEED FOR DAYTIME O2 NO RESP COMPLAINTS REG DIET SPOKE WITH FATIMAH SCHUSTER MD April 02, 2017 09:01
[2017-04-02] MEDS ORDERED: CARV6.25 PO (09:20)
[2017-04-02] MEDS ORDERED: FURO-69 PO (09:21)
[2017-04-02] MEDS ORDERED: OXYC5TAB PO (09:22)
--- NOTE | 2017-04-02 09:27 | PDOC ---
SUBJECTIVE Subjective alert and breathing comfortable, no new complaints OBJECTIVE Vital Signs Vital Signs Date Time Temp Pulse Resp B/P (MAP) Pulse Ox O2 Delivery O2 Flow Rate FiO2 04/02/17 08:24 19 98 Nasal Cannula 2.0 04/02/17 08:18 96 142/72 04/02/17 08:00 Nasal Cannula 2.0 04/02/17 07:42 Room Air 04/02/17 07:15 99.3 96 20 142/72 (95) 98 Nasal Cannula 2.0 99.3 04/02/17 05:04 96 BiPAP/CPAP 04/02/17 03:08 92 BiPAP/CPAP 04/02/17 03:06 18 BiPAP/CPAP 04/02/17 00:48 BiPAP/CPAP 04/01/17 23:21 98.9 98 20 155/90 (111) 91 Room Air 98.9 04/01/17 19:51 Nasal Cannula 2.0 04/01/17 19:50 98.4 91 24 128/79 (95) 92 Nasal Cannula 2.0 98.4 04/01/17 19:14 92 Nasal Cannula 2.0 04/01/17 16:02 100 135/72 04/01/17 15:53 16 Nasal Cannula 2.0 04/01/17 15:49 90 Nasal Cannula 2.0 04/01/17 15:00 98.5 100 18 135/72 (93) Nasal Cannula 98.5 04/01/17 14:48 14 Nasal Cannula 2.0 04/01/17 12:41 105 123/71 04/01/17 11:50 Nasal Cannula 2.0 04/01/17 10:54 98.6 105 18 123/71 (88) 98.6 04/01/17 10:31 100.0 100.0 I & O Intake and Output 04/02/17 06:59 Intake Total 1140 ml Output Total 1400 ml Balance -260 ml Intake Oral 840 ml IV Total 300 ml Output Urine Total 1400 ml # Voids 2 PHYSICAL EXAM Physical Exam lungs fairly clear heart RRR abd soft obese ext +1 edema chronic ASSESSMENT/PLAN Assessment/Plan doing well home today f/u out pt Problems: ITALIA VALENCIA MD April 02, 2017 09:27
--- NOTE | 2017-04-02 09:33 | PDOC3 ---
Discharge Summary* Date of Admission: March 27, 2017 Date of Discharge: April 02, 2017 Admitting Diagnosis Problems Medical Problems: (1) Acute CHF (congestive heart failure) Status: Acute (2) Acute on chronic respiratory failure Status: Acute Final Diagnosis 1. Nebmk-qn-gmacxok hypercapnic hypoxemic respiratory failure, multifactorial. requiring mechanical ventilation on this admit 2. Jjfqr-vu-iszsjue diastolic heart failure. 3. Acute exacerbation of chronic obstructive pulmonary disease. 4. Hypertensive cardiovascular disease. 5. Sleep apnea. 6. Morbid obesity. 7. Fever possible sepsis 8. Narcotic dependent 9. severe pulmonary HTN Problems Medical Problems: (1) Acute CHF (congestive heart failure) Status: Acute (2) Acute on chronic respiratory failure Status: Acute CONSULTS cardiology ,pulmonary Procedures echocardiogram, CXR, KUB, mechanical ventilation Brief Hospital Course Ms. Fernandez is a 56 old F who presented with SOB, heart failure , deteriorated shortly after admit requiring mechanical ventilation, extubated 03/30 , treated with bronchodilatotrs, ABx, dueretics, improved and now only on 2l BNC, neeed CPAP at night , pt advised to stop oxycodone 30 mg too high dose using only percocet 7.5 mg Q 8h PRN in hospital , 1 week supply script given till seen by Disposition/Orders: D/C to Home w/ HH CONDITION AT DISCHARGE: Improved Diet: Cardiac Scheduled Albuterol Sulfate (Ventolin Hfa Inhaler), 2 PUFF IH QID Amlodipine Besylate (Amlodipine Besylate), 10 MG PO DAILY, (Reported) Carvedilol (Coreg), 1 TAB PO BID, (Reported) Cholecalciferol (Vitamin D3) (Vitamin D3), 1 CAP PO QM, (Reported) Duloxetine Hcl (Duloxetine Hcl), 90 MG PO DAILY, (Reported) Fluticasone/Salmeterol (Advair 250-50 Diskus), 1 INH IH BID, (Reported) Liothyronine Sodium (Liothyronine Sodium), 12.5 MCG PO DAILY, (Reported) Losartan Potassium (Losartan Potassium), 100 MG PO DAILY, (Reported) Mirtazapine (Mirtazapine), 1 TAB PO QHS, (Reported) [place]-3 Fatty Acids/Fish Oil (Fish Oil 1,000 Mg Softgel), 1 EACH PO BID, ( Reported) Oxycodone Hcl (Oxycodone Hcl), 1 TAB PO Q6HRS, (Reported) Phentermine Hcl (Phentermine Hcl), 1 CAP PO DAILYWBKFT, (Reported) Potassium Chloride (Klor-Con M20), 20 MEQ PO DAILYWBKFT Progesterone,Micronized (Prometrium), 1 CAP PO QHS, (Reported) [Ipratropium/Albuterol Sulfate], 3 ML NEB Q4HRS Scheduled PRN Cyclobenzaprine Hcl (Cyclobenzaprine Hcl), 1 TAB PO PRN DAILY PRN for PAIN, ( Reported) Diclofenac Sodium (Voltaren), 1 FRANCO TD PRN QID PRN for PAIN, (Reported) Docusate Sodium (Docusate Sodium), 1 CAP PO PRN BID PRN for CONSTIPATION, ( Reported) Oxycodone Hcl (Oxycodone Hcl), 7.5 MG PO PRN Q6-8HRS PRN for PAIN Miscellaneous Medications Ergocalciferol (Vitamin D2) (Vitamin D2), 50,000 UNIT PO, (Reported) Discontinued Medications Testosterone Cypionate (Testosterone Cypionate), 0.15 ML IM Q2WKS, (Reported) FOLLOW UP APPOINTMENT: do not take oxycodone 30 mg f/u Dr. Galan [address] Yoo for knee Dr. Ziegler pulmonary Time Spent Total time spent with patient [] minutes for coordination of care, counseling, and education. ITALIA VALENCIA MD April 02, 2017 09:33
[2017-04-02] MEDS ORDERED: ENOXAPARIN 40 MG/0.4 ML SYRINGE. SQ SCH (10:00)
[2017-04-02 10:30] VITALS: BP 121/69
== END 2017-04-02 12:42 | disposition home health service (06) | DRG 208 ==
LOC: ER 14:25 → 5 NORTH 16:21 → 1 WEST ICU 03-29 07:11 → 6 SOUTH 03-31 16:11
PROVIDERS: ADMIT Internal Medicine; ATTEND Internal Medicine
PROC: 5A09357 Assistance with Respiratory Ventilation, Less than 24 Consecutive Hours, Continuous Positive Airway Pressure (ICD-10-PCS; principal; 2017-03-27)
PROC: 5A1945Z Respiratory Ventilation, 24-96 Consecutive Hours (ICD-10-PCS; 2017-03-29)
DX: J96.21 Acute and chronic respiratory failure with hypoxia (principal); I50.33 Acute on chronic diastolic (congestive) heart failure; J44.1 Chronic obstructive pulmonary disease with (acute) exacerbation; G93.1 Anoxic brain damage, not elsewhere classified; I13.0 Hypertensive heart and chronic kidney disease with heart failure and stage 1 through stage 4 chronic kidney disease, or unspecified chronic kidney disease; F11.20 Opioid dependence, uncomplicated; E87.2 Acidosis; Z68.43 Body mass index [BMI] 50.0-59.9, adult; J96.22 Acute and chronic respiratory failure with hypercapnia; E66.01 Morbid (severe) obesity due to excess calories; E78.5 Hyperlipidemia, unspecified; E03.9 Hypothyroidism, unspecified; G47.33 Obstructive sleep apnea (adult) (pediatric); G89.29 Other chronic pain; I07.1 Rheumatic tricuspid insufficiency; I73.9 Peripheral vascular disease, unspecified; I27.2 Other secondary pulmonary hypertension; K59.00 Constipation, unspecified; N18.9 Chronic kidney disease, unspecified; M54.9 Dorsalgia, unspecified; Z96.643 Presence of artificial hip joint, bilateral; Z96.652 Presence of left artificial knee joint; I87.2 Venous insufficiency (chronic) (peripheral); F32.9 Major depressive disorder, single episode, unspecified; F41.9 Anxiety disorder, unspecified; M19.90 Unspecified osteoarthritis, unspecified site; Z87.01 Personal history of pneumonia (recurrent); Z87.891 Personal history of nicotine dependence; Z91.19 Patient's noncompliance with other medical treatment and regimen; Z86.73 Personal history of transient ischemic attack (TIA), and cerebral infarction without residual deficits; Z83.3 Family history of diabetes mellitus; Z82.5 Family history of asthma and other chronic lower respiratory diseases; Z82.49 Family history of ischemic heart disease and other diseases of the circulatory system; Z82.0 Family history of epilepsy and other diseases of the nervous system; Z81.8 Family history of other mental and behavioral disorders; Z80.9 Family history of malignant neoplasm, unspecified
CPT/HCPCS: 36415; 36600; 71010; 74000; 80048; 80053; 80061; 80202; 82805; 83605; 83735; 83880; 84439; 84443; 84481; 84484; 85027; 87086; 87641; 93005; 93306; 94002; 94003; 94250; 94640; 94660; 96374; C9113; J0330; J1650; J1940; J2543; J2704; J3370; J3490; J7040; J7620; 99285-25

== ENCOUNTER 2018-06-19 00:44 | Inpatient (IN) | payer OTHER ==
[2018-06-19] VITALS (11 sets, daily range): BP systolic 83–162; BP diastolic 68–84
[~2018-06-19] VITALS: Ht 167.6 cm; Wt 156.1 kg
[~2018-06-19 00:44] MED LIST changes: +CARV6.25 PO; +CHOL100014 PO; -CHOL10007 PO; +DICL100G18 TD; +DICL100G18 TP; -DICL100G7 TD; -DICL100G7 TP; +DOCU-109 PO; -DOCU-27 PO; +DOCU100C28 PO; -DOCU100C5 PO; -ERGO500012 PO; +ERGO500027 PO; -FERR-26 PO; +FERR325T14 PO; +FURO-69 PO; -LEVO500T38 PO; +LEVO500T59 PO; -MELO-150 PO; +MELO15TA23 PO; -OMEG1CAP16 PO; +OMEG1CAP27 PO; +OXYC5TAB95 PO; +PROG200C15 PO; -PROG200C7 PO
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
[2018-06-19 01:02] LABS: BASE EXCESS COOX -10 mmol/L (-3-3); HCO3 COOX 22 mmol/L (21-28); METHEMOGLOBIN 0.5 % (0.0-1.9); OXYHEMOGLOBIN 82.4 %; PO2 COOX 68 mmHg (75-108); SAT O2 COOX 85 % (92-99)
[2018-06-19] MEDS ORDERED: NALOXONE 2 MG/2 ML DISP.SYRIN. IV ONE (01:15)
[2018-06-19] MEDS ORDERED: NALOXONE 2 MG in IV DEXTROSE 5% 500 ML IV ONE ×4 (01:30→08:30)
[2018-06-19 01:33] LABS: PCO2 COOX 76 mmHg (35-46)
--- NOTE | 2018-06-19 01:36 | EKG ---
[facility] [address] [place] [address] Test Date: 2018-06-19 Test Time: 01:16:27 Pat Name: PO BLOUNT Department: Room: Gender: F Flavor [employer] Tender: : 1960 Requested By: HELIO ESCALANTE Order Number: [id number] Reading MD: Blas Kaminski MD Measurements Intervals [place] Rate: 88 P: 61 HI: 182 QRS: 81 QRSD: 88 T: 20 QT: 362 QTc: 441 Interpretive Statements SINUS RHYTHM NON-SPECIFIC ST/T CHANGES Electronically Signed On 06-19-2018 15:10:55 CDT by Blas Kaminski MD
[2018-06-19 01:51] LABS: BILIRUBIN,URINE NEGATIVE (NEG); CLARITY,URINE CLOUDY; COLOR,URINE AMBER; NITRITE,URINE NEGATIVE (NEG); PROTEIN,URINE 100 mg/dL (NEG-TRACE)
[2018-06-19 01:56] LABS: RBC,URINE OCC /HPF (0-2)
[2018-06-19 01:57] LABS: BACTERIA,URINE FEW /HPF (0-FEW); HYALINE CASTS, URINE MODERATE /HPF; SQUAMOUS EPITHELIAL CELL,UR FEW /LPF
[2018-06-19 02:06] LABS: BARBITURATES NEG (NEG); BENZODIAZEPINES NEG (NEG); CANNABINOIDS NEG (NEG); COCAINE NEG (NEG); METHADONE NEG (NEG); OPIATES POS (NEG); PHENCYCLIDINE NEG (NEG)
[2018-06-19 02:15] LABS: AMPHETAMINE/METHAMPHETAMINE NEG (NEG)
[2018-06-19 02:16] LABS: BASE EXCESS COOX -8 mmol/L (-3-3); HCO3 COOX 23 mmol/L (21-28); METHEMOGLOBIN 0.4 % (0.0-1.9); OXYHEMOGLOBIN 88.2 %; PO2 COOX 80 mmHg (75-108); SAT O2 COOX 91 % (92-99)
[2018-06-19 02:18] LABS: BASO % 0 % (0-3); EOS % 0 % (0-3); HEMATOCRIT 49.3 % (36.0-47.0); HEMOGLOBIN 15.8 g/dL (12.0-15.5); LYMPH # 0.9 x10^3/uL (1.0-4.8); LYMPH % 11 % (24-48); MEAN CORPUSCULAR HEMOGLOBIN 31 pg (25-35); MEAN CORPUSCULAR HGB CONC 32 g/dL (31-37); MEAN CORPUSCULAR VOLUME 98 fL (79-100); MONO # 0.8 x10^3/uL (0.0-1.1); MONO % 10 % (0-9); NEUT # 6.4 x10^3uL (1.8-7.7); NEUT % 79 % (31-73); PLATELET COUNT 234 x10^3/uL (140-400); RED BLOOD COUNT 5.04 x10^6/uL (3.50-5.40); RED CELL DISTRIBUTION WIDTH 16.7 % (11.5-14.5); WHITE BLOOD COUNT 8.1 x10^3/uL (4.0-11.0)
[2018-06-19 02:32] LABS: PROTHROMBIN TIME PATIENT 13.8 SEC (11.7-14.0)
[2018-06-19 02:40] LABS: CALCIUM 8.6 mg/dL (8.5-10.1); CREATININE 2.1 mg/dL (0.6-1.0); GFR 29.4; POTASSIUM 4.6 mmol/L (3.5-5.1)
[2018-06-19 02:43] LABS: SALIC < 2.8 mg/dL (2.8-20.0)
[2018-06-19 02:44] LABS: ACETAMIN < 2 mcg/ml (10-30); ETHANOL 45 mg/dL (0-10)
[2018-06-19 02:47] LABS: PCO2 COOX 74 mmHg (35-46)
[2018-06-19 02:50] LABS: FREE T4 1.16 ng/dL (0.76-1.46); THYROID STIM HORMONE (TSH) 3.597 uIU/mL (0.358-3.74)
[2018-06-19 02:53] LABS: ALBUMIN 3.3 g/dL (3.4-5.0); DIRECT BILIRUBIN 0.1 mg/dL (0.0-0.2); MAGNESIUM 2.2 mg/dL (1.8-2.4); TOTAL BILIRUBIN 0.2 mg/dL (0.2-1.0)
[2018-06-19] MEDS ORDERED: VANCOMYCIN 1GM IVPB FOR OMNI 250 ML IV ONE (03:15)
[2018-06-19] MEDS ORDERED: PIPERACILLIN/TAZOBACTAM 3.375 GM in IV NORMAL SALINE 50ML 50 ML IV ONE (03:30)
[2018-06-19 03:32] LABS: BASE EXCESS ABG -6 mmol/L (-3-3); HCO3 ABG 25 mmol/L (21-28); PO2 ABG 89 mmHg (75-108); SAT O2 ABG 94 % (92-99)
--- NOTE | 2018-06-19 03:52 | RAD ---
CT head without contrast 06/19/2018 CLINICAL INDICATION: Altered mental status. COMPARISON: MRI brain 02/14/2013, CT head 02/13/2013 TECHNIQUE: Multiple CT images of the head were obtained without contrast. *One or more of the following individualized dose reduction techniques were utilized for this examination: 1. Automated exposure control. 2. Adjustment of the mA and/or kV according to patient size. 3. Use of iterative reconstruction technique. FINDINGS: No acute intracranial hemorrhage or extra-axial fluid collection. No midline shift. Mild periventricular white matter low attenuation compatible with mild nonspecific white matter disease. No midline shift. The yusuf-white matter interfaces are grossly maintained. IMPRESSION: No acute intracranial hemorrhage. Electronically signed by: Carrillo Souza MD (06/19/2018 3:48 AM) [facility]
[2018-06-19] MEDS ORDERED: VANCOMYCIN 2 GM in IV NORMAL SALINE 500ML BAG 500 ML IV ONE (04:00)
[2018-06-19 04:04] LABS: PCO2 ABG 72 mmHg (35-46)
[2018-06-19] MEDS ORDERED: NALOXONE IV ONE (06:00)
[2018-06-19] MEDS ORDERED: DEXTROSE 5% IV ONE (06:00)
[2018-06-19 08:10] LABS: BASE EXCESS ABG -1 mmol/L (-3-3); HCO3 ABG 28 mmol/L (21-28); PO2 ABG 87 mmHg (75-108); SAT O2 ABG 95 % (92-99)
[2018-06-19 08:12] LABS: FIO2 ABG 50; PCO2 ABG 69 mmHg (35-46)
--- NOTE | 2018-06-19 09:03 | RAD ---
EXAM: Portable semiupright AP view of the chest DATE: 06/19/2018 1:29 AM INDICATION: SOA; AMS COMPARISON: 03/29/2017, 03/27/2017 FINDINGS/ IMPRESSION: Moderate cardiomegaly. Perihilar predominant airspace opacities are seen with central pulmonary congestion may be seen with pulmonary edema. Small bilateral pleural effusions. No definite pneumothorax. Electronically signed by: Gen Moura MD (06/19/2018 8:59 AM) [facility]
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
[2018-06-19] MEDS ORDERED: PIP/TAZO PER PHARMACY MC PRN (11:45)
[2018-06-19] MEDS ORDERED: SODIUM BICARB ADULT 8.4% 50 MEQ/50 ML DISP.SYRIN. IV ONE (12:00)
--- NOTE | 2018-06-19 12:08 | CONS ---
DATE OF CONSULTATION: ATTENDING PHYSICIAN: Dr. Rene. REASON FOR CONSULTATION: Respiratory failure. HISTORY OF PRESENT ILLNESS: The patient is a 58-year-old female who is morbidly obese with a BMI of 55. She has a long history of tobacco use and is also dependent on narcotics. She was brought into the Emergency Room after she was found lying on the floor near her couch by her daughter at about 9 p.m. The patient was like this throughout the evening. EMS found the patient unresponsive and diaphoretic with small pupils. She was given Narcan, which did improve her mental status. She takes 3 tablets of oxycodone regularly and she was drinking alcohol as well. Urine drug screen was positive for alcohol and opiates. The patient was placed on BiPAP. Her initial arterial blood gases revealed a pH of 7.08, pCO2 of 76 and a pO2 of 68 on 36% FiO2, and the latest ABG showed a pH of 7.23, pCO2 of 69 and a pO2 of 87 on 50% FiO2. FiO2 has been reduced to 40% and IPAP and respiratory rate has been increased. She is awake and following commands. She also stated that she has been coughing up yellow sputum lately. I have reviewed her chest x-ray, which shows bilateral infiltrates with no significant effusions, more suggesting pneumonia. Lactic acid was high, which is now improved. Her systolic blood pressure was 76 on admission. Consultation requested for further evaluation and management. Her daughter was at the bedside who also says the patient uses CPAP at nighttime. PAST MEDICAL HISTORY: Significant for CHF, COPD, suspect obesity hypoventilation syndrome, history of KRISTINA on CPAP, history of hypertension, pneumonia, TIA. PAST SURGICAL HISTORY: Left knee surgery and hip replacement. ALLERGIES: None. MEDICATIONS: Reviewed as listed in the MRAD. REVIEW OF SYSTEMS: A 10-point system obtained. Pertinent positives discussed in my history of present illness, otherwise noncontributory. All systems that were negative were reviewed as well. No headaches. No nausea, vomiting, no diarrhea. No increased leg edema. No dysuria. No focal weakness. SOCIAL HISTORY: Smoking history at least for 25-30 years and still smokes cigarettes and drinks alcohol. PHYSICAL EXAMINATION: GENERAL: She is awake, following commands, while on BiPAP. VITAL SIGNS: Blood pressure 154 systolic, afebrile, pulse ox is 98% on current FiO2. HEENT: Sclerae nonicteric. NECK: Supple. LUNGS: With diminished breath sounds. CARDIOVASCULAR: Regular rate and rhythm. ABDOMEN: Soft, markedly obese. EXTREMITIES: With trace pitting edema. LABORATORY DATA: Reviewed. ABGs as discussed in my history of present illness. Chemistries with BUN of 22 and creatinine of 2.1. INR 1.1. White cell count 8.1, hemoglobin 15.8 and platelets are 234. IMPRESSION: 1. Acute hypoxic and hypercapnic respiratory failure secondary to narcotic overdose along with alcohol intoxication in a patient who has underlying COPD and has morbid obesity and suspected obesity hypoventilation syndrome. 2. Acute toxic encephalopathy, clinically improved. 3. Underlying chronic obstructive pulmonary disease. 4. Abnormal chest x-ray with bilateral infiltrates, clinical picture more compatible with pneumonia. 5. Obstructive sleep apnea/obesity hypoventilation syndrome. 6. Lactic acidosis related to hypoperfusion, less likely sepsis, it is now resolved with hydration. RECOMMENDATIONS: 1. Continue with present BiPAP, adjustments have been made on the IPAP and respiratory rate and FiO2 has been reduced. We will follow another ABGs and if the pH normalizes, then we will discontinue BiPAP. 2. Smoking cessation counseling provided along with counseling for alcohol cessation. 3. Add empiric antibiotic Zosyn. 4. Bronchodilators to continue. 5. Deep venous thrombosis prophylaxis. 6. Once she is off the BiPAP, she will go back to her home CPAP settings at nighttime. 7. Narcan can be discontinued as mentally she has improved. 8. Discussed with the patient's daughter. Discussed with RN and RT. We will follow along with you. Critical care time 39 minutes. FATIMAH ZELAYA MD DR: DIXIE/trace JOB#: [id number] / [id number]
[2018-06-19] MEDS: PIPERACILLIN/TAZOBACTAM 3.375 GM in IV NORMAL SALINE 50ML 50 ML IV SCH ×3 (12:30→23:44)
[2018-06-19] MEDS: IPRATRPIUM/ALBUTEROL 0.5/2.5MG 3 ML NEBU. NEB SCH ×3 (12:47→19:39)
--- NOTE | 2018-06-19 14:21 | PDOC2 ---
MARTIN BOWLES CREATIVE SPECIALIST 06/19/18 1421: CARDIAC CONSULT DATE OF CONSULT Date of Consult DATE: 06/19/18 TIME: 14:15 REASON FOR CONSULT Reason for Consult: CHF REFERRING PHYSICIAN Referring Physician: Mark SOURCE Source: Caregiver (daughter), Chart review HISTORY OF PRESENT ILLNESS HISTORY OF PRESENT ILLNESS 58 year old female admitted through ER. Per daughter, she was contacted at 2330 yesterday that patient was on floor. She spoke with a woman in the patient's home when she arrived at her mother's home about 10 minutes later and the daughter was advised the patient had been on the floor for at least 2 hours. Per ER records, patient has Rx for oxycodone 30 mg and got a 90 pill script filled 06/16/2018 with 30 pills missing when counted by EMS on 2017. Patient states she hides meds as "they steal them." Responded to Narcan in the field and was treated with Narcan gtt which has since been discontinued. UDS + for ETOH and opiates. Had admission in 2017 for similar circumstances during which time she required for intubation for her respiratory failure. Currently on bi-pap. Denies associated chest pain but reports recent dyspnea and LE edema. EKG without acute changes; initial lactate level 4.6 and now normalized; Cr of 2.1; NT-proBNP of 2121 and elevated AST/ALT. Labile BP with hypo and hypertension Reason for Visit: elevvated NT-proBNP PAST MEDICAL HISTORY Cardiovascular: CHF (diastolic, chronic), HTN, Hyperlipidemia, Pulmonary hypertension (severe, with PA of ) Pulmonary: COPD, Other (KRISTINA) GI: Other (morbid obesity) Psych: Addictions (vs chronic pain) Rheumatologic: No pertinent hx Infectious disease: No pertinent hx ENT: No pertinent hx Endocrine: Hypothyroidism PAST SURGICAL HISTORY Past Surgical History: Total hip replacement (bilateral ), Total knee replacement (right), Tonsillectomy FAMILY HISTORY Family History: Diabetes, Heart Disease, Hypertension SOCIAL HISTORY Smoke: <1 pack per day ALCOHOL: occassional Drugs: Other (opiods) CURRENT MEDICATIONS CURRENT MEDICATIONS Current Medications Medications (Trade) Dose Ordered Sig/Gwendolyn Route PRN Reason Start Time Stop Time Status Last Admin Dose Admin Naloxone HCl (Narcan) 1 mg 1X ONCE IV 06/19/18 01:15 06/19/18 01:16 DC 06/19/18 01:08 Naloxone HCl 2 mg/ Dextrose 502 ml @ 251 mls/hr 1X ONCE IV 06/19/18 01:30 06/19/18 03:29 DC 06/19/18 01:28 Piperacillin Sod/ Tazobactam Sod 3.375 gm/Sodium Chloride 50 ml @ 100 mls/hr 1X ONCE IV 06/19/18 03:30 06/19/18 03:59 DC 06/19/18 03:30 Vancomycin HCl 2 gm/Sodium Chloride 500 ml @ 250 mls/hr 1X ONCE IV 06/19/18 04:00 06/19/18 05:59 DC 06/19/18 03:51 Naloxone HCl 2 mg/ Dextrose 502 ml @ 251 mls/hr 1X ONCE IV 06/19/18 04:00 06/19/18 05:59 DC 06/19/18 03:50 Naloxone HCl 2 mg/ Dextrose 502 ml @ 251 mls/hr 1X ONCE IV 06/19/18 06:00 06/19/18 07:59 DC 06/19/18 05:50 Naloxone HCl 2 mg/ Dextrose 502 ml @ 251 mls/hr 1X ONCE IV 06/19/18 08:30 06/19/18 10:29 DC 06/19/18 08:31 Sodium Bicarbonate (Sodium Bicarb Adult 8.4% Syr) 50 meq 1X ONCE IV 06/19/18 12:00 06/19/18 12:01 DC 06/19/18 12:29 Piperacillin Sod/ Tazobactam Sod 3.375 gm/Sodium Chloride 50 ml @ 100 mls/hr Q6HRS IV 06/19/18 12:00 06/19/18 12:30 Enoxaparin Sodium (Lovenox 60mg Syringe) 60 mg Q12HR SQ 06/19/18 12:00 06/19/18 12:30 Albuterol/ Ipratropium (Duoneb) 3 ml RTQID NEB 06/19/18 12:00 06/19/18 12:47 ALLERGIES ALLERGIES: Coded Allergies: No Known Drug Allergies (Unverified , 09/30/17) ROS General: YES: Fatigue, Malaise PSYCHOLOGICAL ROS: No: Anxiety, Behavioral Disorder, Concentration difficultie , Decreased libido, Depression, Disorientation, Hallucinations, Hostility, Irritablity, Memory difficulties, Mood Swings, Obsessive thoughts, Physical abuse, Sexual abuse, Sleep disturbances, Suicidal ideation, Other Eyes: No Blurry vision, No Decreased vision, No Double vision, No Dry eyes, No Excessive tearing, No Eye Pain, No Itchy Eyes, No Loss of vision, No Photophobia , No Scotomata, No Uses contacts, No Uses glasses, No Other HEENT: No: Heacaches, Visual Changes, Hearing change, Nasal congestion, Nasal discharge, Oral lesions, Sinus pain, Sore Throat, Epistaxis, Sneezing, Snoring, Tinnitus, Vertigo, Vocal changes, Other ALLERGY AND IMMUNOLOGY: No: Hives, Insect Bite Sensitivity, Itchy/Watery Eyes, Nasal Congestion, Post Nasal Drip, Seasonal Allergies, Other Hematological and Lymphatic: No: Bleeding Problems, Blood Clots, Blood Transfusions, Brusing, Night Sweats, Pallor, Swollen Lymph Nodes, Other ENDOCRINE: YES: Malaise/lethargy Respiratory: YES: Shortness of breath, SOB with excertion; No: Cough, Hemoptysis, Orthopnea, Pleuritic Pain, Sputum Changes, Stridor, Tachypnea, Wheezing, Other Cardiovascular: yes Edema; No Chest Pain, No Palpitations, No Orthopnea, No Paroxysmal Noc. Dyspnea, No Lt Headedness, No Other Gastrointestinal: No Nausea, No Vomiting, No Abdominal Pain, No Diarrhea, No Constipation, No Melena, No Hematochezia, No Other Genitourinary: No Dysuria, No Frequency, No Incontinence, No Hematuria, No Retention, No Discharge, No Urgency, No Pain, No Flank Pain, No Other Musculoskeletal: No Gait Disturbance, No Joint Pain, No Joint Stiffness, No Joint Swelling, No Muscle Pain, No Muscular Weakness, No Pain In:, No Swelling In:, No Other Neurological: No Behavorial Changes, No Bowel/Bladder ControlChng, No Confusion , No Dizziness, No Gait Disturbance, No Headaches, No Impaired Coord/balance, No Memory Loss, No Numbness/Tingling, No Seizures, No Speech Problems, No Tremors, No Visual Changes, No Weakness, No Other Skin: No Dry Skin, No Eczema, No Hair Changes, No Lumps, No Mole Changes, No Mottling, No Nail Changes, No Pruritus, No Rash, No Skin Lesion Changes, No Other, No Acne PHYSICAL EXAM General: Alert, Cooperative HEENT: Atraumatic Lungs: Other (coarse, wheezing, bi-pap in use) Heart: Normal S1, Normal S2, Other (distant) Abdomen: Other (obese abdomen; difficult to examine) Extremities: No edema Skin: No rashes Neuro: Normal speech Psych/Mental Status: Mood NL MUSCULOSKELETAL: No deformity VITALS VITALS Vital Signs Date Time Temp Pulse Resp B/P (MAP) Pulse Ox O2 Delivery O2 Flow Rate FiO2 06/19/18 14:00 91 24 83/68 (73) 92 BiPAP/CPAP 06/19/18 12:00 98.3 98.3 06/19/18 00:50 4.0 LABS Lab: Laboratory Tests Test 06/19/18 00:55 06/19/18 01:41 06/19/18 01:55 06/19/18 02:10 O2 Saturation 85 % (92-99) 91 % (92-99) Arterial Blood pH 7.08 (7.35-7.45) 7.12 (7.35-7.45) Arterial Blood pCO2 at Patient Temp 76 mmHg (35-46) 74 mmHg (35-46) Arterial Blood pO2 at Patient Temp 68 mmHg (75-108) 80 mmHg (75-108) Arterial Blood HCO3 22 mmol/L (21-28) 23 mmol/L (21-28) Arterial Blood Base Excess -10 mmol/L (-3-3) -8 mmol/L (-3-3) Oxyhemoglobin 82.4 % 88.2 % Methemoglobin 0.5 % (0.0-1.9) 0.4 % (0.0-1.9) Carbon Monoxide, Quantitative 3.0 % (0.0-1.9) 2.9 % (0.0-1.9) FiO2 36.0 50.0 Urine Collection Type U cath Urine Color [place]ina Urine Clarity Cloudy Urine pH 5.0 Urine Specific [place] 1.020 Urine Protein 100 mg/dL (NEG-TRACE) Urine Glucose (UA) Negative mg/dL (NEG) Urine Ketones (Stick) Negative mg/dL (NEG) Urine Blood Large (NEG) Urine Nitrite Negative (NEG) Urine Bilirubin Negative (NEG) Urine Urobilinogen Dipstick 1.0 mg/dL (0.2 mg/dL) Urine Leukocyte Esterase Small (NEG) Urine RBC Occ /HPF (0-2) Urine WBC 1-4 /HPF (0-4) Urine Squamous Epithelial Cells Few /LPF Urine Bacteria Few /HPF (0-FEW) Urine Hyaline Casts Moderate /HPF Urine Mucus Mod /LPF Urine Opiates Screen Pos (NEG) Urine Methadone Screen Neg (NEG) Urine Barbiturates Neg (NEG) Urine Phencyclidine Screen Neg (NEG) Urine Amphetamine/Methamphetamine Neg (NEG) Urine Benzodiazepines Screen Neg (NEG) Urine Cocaine Screen Neg (NEG) Urine Cannabinoids Screen Neg (NEG) Urine Ethyl Alcohol Pos (NEG) White Blood Count 8.1 x10^3/uL (4.0-11.0) Red Blood Count 5.04 x10^6/uL (3.50-5.40) Hemoglobin 15.8 g/dL (12.0-15.5) Hematocrit 49.3 % (36.0-47.0) Mean Corpuscular Volume 98 fL (79-100) Mean Corpuscular Hemoglobin 31 pg (25-35) Mean Corpuscular Hemoglobin Concent 32 g/dL (31-37) Red Cell Distribution Width 16.7 % (11.5-14.5) Platelet Count 234 x10^3/uL (140-400) Neutrophils (%) (Auto) 79 % (31-73) Lymphocytes (%) (Auto) 11 % (24-48) Monocytes (%) (Auto) 10 % (0-9) Eosinophils (%) (Auto) 0 % (0-3) Basophils (%) (Auto) 0 % (0-3) Neutrophils # (Auto) 6.4 x10^3uL (1.8-7.7) Lymphocytes # (Auto) 0.9 x10^3/uL (1.0-4.8) Monocytes # (Auto) 0.8 x10^3/uL (0.0-1.1) Eosinophils # (Auto) 0.0 x10^3/uL (0.0-0.7) Basophils # (Auto) 0.0 x10^3/uL (0.0-0.2) Prothrombin Time 13.8 SEC (11.7-14.0) Prothromb Time International Ratio 1.1 (0.8-1.1) Activated Partial Thromboplast Time 28 SEC (24-38) Sodium Level 135 mmol/L (136-145) Potassium Level 4.6 mmol/L (3.5-5.1) Chloride Level 99 mmol/L (98-107) Carbon Dioxide Level 26 mmol/L (21-32) Anion Gap 10 (6-14) Blood Urea Nitrogen 22 mg/dL (7-20) Creatinine 2.1 mg/dL (0.6-1.0) Estimated GFR (Cockcroft-Gault) 29.4 Glucose Level 99 mg/dL (70-99) Lactic Acid Level 4.6 mmol/L (0.4-2.0) Calcium Level 8.6 mg/dL (8.5-10.1) Magnesium Level 2.2 mg/dL (1.8-2.4) Total Bilirubin 0.2 mg/dL (0.2-1.0) Direct Bilirubin 0.1 mg/dL (0.0-0.2) Aspartate Amino Transf (AST/SGOT) 112 U/L (15-37) Alanine Aminotransferase (ALT/SGPT) 89 U/L (14-59) Alkaline Phosphatase 103 U/L (46-116) Troponin I Quantitative < 0.017 ng/mL (0.000-0.055) RC-Qgs-O-Type Natriuretic Peptide 2121 pg/mL (0-124) Total Protein 8.0 g/dL (6.4-8.2) Albumin 3.3 g/dL (3.4-5.0) Thyroid Stimulating Hormone (TSH) 3.597 uIU/mL (0.358-3.74) Free Thyroxine 1.16 ng/dL (0.76-1.46) Salicylates Level < 2.8 mg/dL (2.8-20.0) Salicylate Last Dose Date Salicylate Last Dose Time Acetaminophen Level < 2 mcg/ml (10-30) Acetaminophen Last Dose Date Acetaminophen Last Dose Time Ethyl Alcohol Level 45 mg/dL (0-10) Test 06/19/18 03:28 06/19/18 06:35 06/19/18 08:00 O2 Saturation 94 % (92-99) 95 % (92-99) Arterial Blood pH 7.15 (7.35-7.45) 7.23 (7.35-7.45) Arterial Blood pCO2 at Patient Temp 72 mmHg (35-46) 69 mmHg (35-46) Arterial Blood pO2 at Patient Temp 89 mmHg (75-108) 87 mmHg (75-108) Arterial Blood HCO3 25 mmol/L (21-28) 28 mmol/L (21-28) Arterial Blood Base Excess -6 mmol/L (-3-3) -1 mmol/L (-3-3) FiO2 50.0 50 Lactic Acid Level 1.0 mmol/L (0.4-2.0) IMAGES IMAGES CXR FINDINGS/ IMPRESSION: Moderate cardiomegaly. Perihilar predominant airspace opacities are seen with central pulmonary congestion may be seen with pulmonary edema. Small bilateral pleural effusions. No definite pneumothorax. EKG EKG SR with anteroseptal T wave inversions; unchanged from EKG of 12/2016 ECHOCARDIOGRAM ECHOCARDIOGRAM 03/28/2017: TTE: Left ventricle systolic function is normal. The Ejection Fraction is 60-65%. There is normal LV segmental wall motion. The right ventricle is mildly dilated. The right atrium is moderately dilated. Moderate tricuspid regurgitation. There is severe pulmonary hypertension. The PA pressure was estimated at 79 mmHg. There is no evidence of significant pericardial effusion. ASSESSMENT/PLAN ASSESSMENT/PLAN 1. acute respiratory failure with COPD/KRISTINA/pulm HTN history --on bipap --per pulm 2. chronic diastolic HF --CXR with mild CHF; multiple IV fluids in ER --NT-proBNP elevated in the setting of IVORY --check myoglobin as she was down for > 2 hours --TTE to re-evaluate LV function 3. substance abuse vs accidental overdose --ETOH with opioids --defer to primary service 4. morbid obesity --BMI > 50 TRINI BO MD 06/20/18 0904: CARDIAC CONSULT ASSESSMENT/PLAN ASSESSMENT/PLAN Patient seen and examined 06/19/18 (late entry). Agree with CASING BLOWER's assessment and plan. Acute respiratory failure probably secondary to narcotic overdose. Continue treatment per pulmonary team. Check 2-D echo to assess LV systolic function. Thank you for your consultation. MARTIN BOWLES APRN Jun 19, 2018 14:21 TRINI BO MD Jun 20, 2018 09:04
[2018-06-19 14:40] LABS: BASE EXCESS ABG 1 mmol/L (-3-3); HCO3 ABG 26 mmol/L (21-28); PO2 ABG 71 mmHg (75-108); SAT O2 ABG 93 % (92-99)
[2018-06-19 14:45] LABS: FIO2 ABG 40; PCO2 ABG 45 mmHg (35-46)
[2018-06-19] MEDS ORDERED: CARV25TA PO (19:11)
[2018-06-19] MEDS: ACETAMINOPHEN 325 MG TABLET. PO PRN (20:11)
[2018-06-20] VITALS: BP 147/78
[2018-06-20 04:00] VITALS: BP 150/76
[2018-06-20 04:40] LABS: BASO % 0 % (0-3); EOS # 0.4 x10^3/uL (0.0-0.7); EOS % 4 % (0-3); HEMATOCRIT 48.4 % (36.0-47.0); HEMOGLOBIN 15.9 g/dL (12.0-15.5); LYMPH # 0.5 x10^3/uL (1.0-4.8); LYMPH % 5 % (24-48); MEAN CORPUSCULAR HEMOGLOBIN 32 pg (25-35); MEAN CORPUSCULAR HGB CONC 33 g/dL (31-37); MEAN CORPUSCULAR VOLUME 97 fL (79-100); MONO # 1.4 x10^3/uL (0.0-1.1); MONO % 14 % (0-9); NEUT # 7.6 x10^3uL (1.8-7.7); NEUT % 77 % (31-73); PLATELET COUNT 177 x10^3/uL (140-400); RED BLOOD COUNT 5.02 x10^6/uL (3.50-5.40); RED CELL DISTRIBUTION WIDTH 16.6 % (11.5-14.5); WHITE BLOOD COUNT 9.8 x10^3/uL (4.0-11.0)
[2018-06-20 05:14] LABS: CALCIUM 8.7 mg/dL (8.5-10.1); CREATININE 1.2 mg/dL (0.6-1.0); POTASSIUM 3.9 mmol/L (3.5-5.1)
[2018-06-20] MEDS: PIPERACILLIN/TAZOBACTAM 3.375 GM in IV NORMAL SALINE 50ML 50 ML IV SCH ×4 (05:59→23:47)
[2018-06-20] MEDS ORDERED: PERFLUTREN PROTEIN-A MICROSPHR 0.22 MG/ML 3 ML VIAL. IV PRN (08:00)
[2018-06-20] MEDS: IPRATRPIUM/ALBUTEROL 0.5/2.5MG 3 ML NEBU. NEB SCH ×4 (08:00→19:58)
[2018-06-20 09:00] VITALS: BP 105/76
[2018-06-20] MEDS: DULoxetine HCL 30 MG CAPSULE.DR PO SCH (09:00)
--- NOTE | 2018-06-20 09:22 | CARD ---
MR#: [id number] Date of Study: 06/20/2018 Ordering Physician: MARTIN BOWLES, Referring Physician: OCTAVIANO BELL Tech: Verenice Pino, [facility] APPROVED REPORT EXAM: Two-dimensional and M-mode echocardiogram with Doppler and color Doppler. Other Information Quality : Good INDICATION Congestive Heart Failure RISK FACTORS Obesity 2D DIMENSIONS RVDd3.4 (2.9-3.5cm)Left Atrium(2D)3.4 (1.6-4.0cm) IVSd1.1 (0.7-1.1cm)Aortic Root(2D)2.9 (2.0-3.7cm) LVDd4.6 (3.9-5.9cm)LVOT Diameter2.0 (1.8-2.4cm) PWd1.2 (0.7-1.1cm)LVDs2.3 (2.5-4.0cm) FS (%) 30.0 %SV76.9 ml LVEF(%)60.0 (>50%) Aortic Valve AoV Peak Emmett.147.3cm/sAoV VTI19.0cm AO Peak GR.8.7mmHgLVOT VTI 12.11cm AO Mean GR.4mmHgAVA (VTI)2.00cm2 Mitral Valve MV E Dmaqjyts12.7cm/sMV DECEL TAIV014ha MV A Hdqqbvyl47.2cm/sE/A Ratio1.5 TDI Lateral E' P. V6.76cm/sMedial E' P. V5.66cm/s E/Lateral E'11.9E/Medial E'14.3 Tricuspid Valve TR P. Whgyjrcf610pk/sRAP PKSKRALC22kiEi TR Peak Gr.52xwAjUOWX22qvDp LEFT VENTRICLE The left ventricle is normal size. There is mild concentric left ventricular hypertrophy. The left ve ntricular systolic function is normal and the ejection fraction is within normal range. The Ejection Fraction is 55-60%. There is grossly normal LV segmental wall motion. Limited images due to body posi tion. Tissue Doppler imaging reveals moderate left ventricular diastolic dysfunction. RIGHT VENTRICLE The right ventricle is moderate to severely dilated. RV Systolic function is mildly reduced. ATRIA The left atrium size is normal. The right atrium is moderately dilated. The interatrial septum is int act with no evidence for an atrial septal defect or patent foramen ovale as noted on 2-D or Doppler i maging. AORTIC VALVE Not well visualized. Doppler and Color Flow revealed no significant aortic regurgitation. There is no significant aortic valvular stenosis. MITRAL VALVE The mitral valve is calcified but opens well. Mitral annular calcification is mild. There is no evide nce of mitral valve prolapse. There is no mitral valve stenosis. Doppler and Color-flow revealed trac e mitral regurgitation. TRICUSPID VALVE The tricuspid valve is normal in structure and function. Doppler and Color Flow revealed trace tricus pid regurgitation. There is moderate-severe pulmonary hypertension. The PA pressure was estimated at 67 mmHg. There is no tricuspid valve stenosis. PULMONIC VALVE The pulmonic valve is not well visualized. Doppler and Color Flow revealed no pulmonic valvular regur gitation. There is no pulmonic valvular stenosis. GREAT VESSELS The aortic root is normal in size. The ascending aorta is normal in size. The IVC is dilated and lili apses <50% with inspiration. PERICARDIAL EFFUSION There is no evidence of significant pericardial effusion. Critical Notification Critical Value: No <Conclusion> The left ventricular systolic function is normal and the ejection fraction is within normal range. Th e Ejection Fraction is 55-60%. There is grossly normal LV segmental wall motion. Limited images due to body position. The right ventricle is moderate to severely dilated. RV Systolic function is mildly reduced. Doppler and Color Flow revealed trace tricuspid regurgitation. There is moderate-severe pulmonary hyp ertension. The PA pressure was estimated at 67 mmHg. Signed by : Blas Kaminski, Electronically Approved : 06/20/2018 09:21:17
--- NOTE | 2018-06-20 10:38 | PDOC ---
PULMONARY PROGRESS NOTES Subjective fully awake, off BIPAP Vitals Vital Signs Date Time Temp Pulse Resp B/P (MAP) Pulse Ox O2 Delivery O2 Flow Rate FiO2 06/20/18 04:00 100.1 90 24 150/76 (100) 94 BiPAP/CPAP 100.1 06/19/18 19:38 12.0 General: Alert, No acute distress Lungs: Clear Cardiovascular: S1, S2 Abdomen: Soft, Non-tender, Other (obese) Extremities: Other (1+edema) Labs Laboratory Tests Test 06/19/18 00:55 06/19/18 01:41 06/19/18 01:55 06/19/18 02:10 O2 Saturation 85 % (92-99) 91 % (92-99) Arterial Blood pH 7.08 (7.35-7.45) 7.12 (7.35-7.45) Arterial Blood pCO2 at Patient Temp 76 mmHg (35-46) 74 mmHg (35-46) Arterial Blood pO2 at Patient Temp 68 mmHg (75-108) 80 mmHg (75-108) Arterial Blood HCO3 22 mmol/L (21-28) 23 mmol/L (21-28) Arterial Blood Base Excess -10 mmol/L (-3-3) -8 mmol/L (-3-3) Oxyhemoglobin 82.4 % 88.2 % Methemoglobin 0.5 % (0.0-1.9) 0.4 % (0.0-1.9) Carbon Monoxide, Quantitative 3.0 % (0.0-1.9) 2.9 % (0.0-1.9) FiO2 36.0 50.0 Urine Collection Type U cath Urine Color Regina Urine Clarity Cloudy Urine pH 5.0 Urine Specific [place] 1.020 Urine Protein 100 mg/dL (NEG-TRACE) Urine Glucose (UA) Negative mg/dL (NEG) Urine Ketones (Stick) Negative mg/dL (NEG) Urine Blood Large (NEG) Urine Nitrite Negative (NEG) Urine Bilirubin Negative (NEG) Urine Urobilinogen Dipstick 1.0 mg/dL (0.2 mg/dL) Urine Leukocyte Esterase Small (NEG) Urine RBC Occ /HPF (0-2) Urine WBC 1-4 /HPF (0-4) Urine Squamous Epithelial Cells Few /LPF Urine Bacteria Few /HPF (0-FEW) Urine Hyaline Casts Moderate /HPF Urine Mucus Mod /LPF Urine Opiates Screen Pos (NEG) Urine Methadone Screen Neg (NEG) Urine Barbiturates Neg (NEG) Urine Phencyclidine Screen Neg (NEG) Urine Amphetamine/Methamphetamine Neg (NEG) Urine Benzodiazepines Screen Neg (NEG) Urine Cocaine Screen Neg (NEG) Urine Cannabinoids Screen Neg (NEG) Urine Ethyl Alcohol Pos (NEG) White Blood Count 8.1 x10^3/uL (4.0-11.0) Red Blood Count 5.04 x10^6/uL (3.50-5.40) Hemoglobin 15.8 g/dL (12.0-15.5) Hematocrit 49.3 % (36.0-47.0) Mean Corpuscular Volume 98 fL (79-100) Mean Corpuscular Hemoglobin 31 pg (25-35) Mean Corpuscular Hemoglobin Concent 32 g/dL (31-37) Red Cell Distribution Width 16.7 % (11.5-14.5) Platelet Count 234 x10^3/uL (140-400) Neutrophils (%) (Auto) 79 % (31-73) Lymphocytes (%) (Auto) 11 % (24-48) Monocytes (%) (Auto) 10 % (0-9) Eosinophils (%) (Auto) 0 % (0-3) Basophils (%) (Auto) 0 % (0-3) Neutrophils # (Auto) 6.4 x10^3uL (1.8-7.7) Lymphocytes # (Auto) 0.9 x10^3/uL (1.0-4.8) Monocytes # (Auto) 0.8 x10^3/uL (0.0-1.1) Eosinophils # (Auto) 0.0 x10^3/uL (0.0-0.7) Basophils # (Auto) 0.0 x10^3/uL (0.0-0.2) Prothrombin Time 13.8 SEC (11.7-14.0) Prothromb Time International Ratio 1.1 (0.8-1.1) Activated Partial Thromboplast Time 28 SEC (24-38) Sodium Level 135 mmol/L (136-145) Potassium Level 4.6 mmol/L (3.5-5.1) Chloride Level 99 mmol/L (98-107) Carbon Dioxide Level 26 mmol/L (21-32) Anion Gap 10 (6-14) Blood Urea Nitrogen 22 mg/dL (7-20) Creatinine 2.1 mg/dL (0.6-1.0) Estimated GFR (Cockcroft-Gault) 29.4 Glucose Level 99 mg/dL (70-99) Lactic Acid Level 4.6 mmol/L (0.4-2.0) Calcium Level 8.6 mg/dL (8.5-10.1) Magnesium Level 2.2 mg/dL (1.8-2.4) Total Bilirubin 0.2 mg/dL (0.2-1.0) Direct Bilirubin 0.1 mg/dL (0.0-0.2) Aspartate Amino Transf (AST/SGOT) 112 U/L (15-37) Alanine Aminotransferase (ALT/SGPT) 89 U/L (14-59) Alkaline Phosphatase 103 U/L (46-116) Troponin I Quantitative < 0.017 ng/mL (0.000-0.055) PR-Dei-D-Type Natriuretic Peptide 2121 pg/mL (0-124) Total Protein 8.0 g/dL (6.4-8.2) Albumin 3.3 g/dL (3.4-5.0) Thyroid Stimulating Hormone (TSH) 3.597 uIU/mL (0.358-3.74) Free Thyroxine 1.16 ng/dL (0.76-1.46) Salicylates Level < 2.8 mg/dL (2.8-20.0) Salicylate Last Dose Date Salicylate Last Dose Time Acetaminophen Level < 2 mcg/ml (10-30) Acetaminophen Last Dose Date Acetaminophen Last Dose Time Ethyl Alcohol Level 45 mg/dL (0-10) Test 06/19/18 03:28 06/19/18 05:30 06/19/18 06:35 06/19/18 08:00 O2 Saturation 94 % (92-99) 95 % (92-99) Arterial Blood pH 7.15 (7.35-7.45) 7.23 (7.35-7.45) Arterial Blood pCO2 at Patient Temp 72 mmHg (35-46) 69 mmHg (35-46) Arterial Blood pO2 at Patient Temp 89 mmHg (75-108) 87 mmHg (75-108) Arterial Blood HCO3 25 mmol/L (21-28) 28 mmol/L (21-28) Arterial Blood Base Excess -6 mmol/L (-3-3) -1 mmol/L (-3-3) FiO2 50.0 50 Nasal Screen MRSA (PCR) Negative (Negative) Lactic Acid Level 1.0 mmol/L (0.4-2.0) Myoglobin 72 ng/mL (9-82) Test 06/19/18 14:30 06/20/18 04:00 O2 Saturation 93 % (92-99) Arterial Blood pH 7.38 (7.35-7.45) Arterial Blood pCO2 at Patient Temp 45 mmHg (35-46) Arterial Blood pO2 at Patient Temp 71 mmHg (75-108) Arterial Blood HCO3 26 mmol/L (21-28) Arterial Blood Base Excess 1 mmol/L (-3-3) FiO2 40 White Blood Count 9.8 x10^3/uL (4.0-11.0) Red Blood Count 5.02 x10^6/uL (3.50-5.40) Hemoglobin 15.9 g/dL (12.0-15.5) Hematocrit 48.4 % (36.0-47.0) Mean Corpuscular Volume 97 fL (79-100) Mean Corpuscular Hemoglobin 32 pg (25-35) Mean Corpuscular Hemoglobin Concent 33 g/dL (31-37) Red Cell Distribution Width 16.6 % (11.5-14.5) Platelet Count 177 x10^3/uL (140-400) Neutrophils (%) (Auto) 77 % (31-73) Lymphocytes (%) (Auto) 5 % (24-48) Monocytes (%) (Auto) 14 % (0-9) Eosinophils (%) (Auto) 4 % (0-3) Basophils (%) (Auto) 0 % (0-3) Neutrophils # (Auto) 7.6 x10^3uL (1.8-7.7) Lymphocytes # (Auto) 0.5 x10^3/uL (1.0-4.8) Monocytes # (Auto) 1.4 x10^3/uL (0.0-1.1) Eosinophils # (Auto) 0.4 x10^3/uL (0.0-0.7) Basophils # (Auto) 0.0 x10^3/uL (0.0-0.2) Sodium Level 140 mmol/L (136-145) Potassium Level 3.9 mmol/L (3.5-5.1) Chloride Level 103 mmol/L (98-107) Carbon Dioxide Level 33 mmol/L (21-32) Anion Gap 4 (6-14) Blood Urea Nitrogen 19 mg/dL (7-20) Creatinine 1.2 mg/dL (0.6-1.0) Estimated GFR (Cockcroft-Gault) 56.0 Glucose Level 94 mg/dL (70-99) Calcium Level 8.7 mg/dL (8.5-10.1) Laboratory Tests Test 06/19/18 14:30 06/20/18 04:00 O2 Saturation 93 % (92-99) Arterial Blood pH 7.38 (7.35-7.45) Arterial Blood pCO2 at Patient Temp 45 mmHg (35-46) Arterial Blood pO2 at Patient Temp 71 mmHg (75-108) Arterial Blood HCO3 26 mmol/L (21-28) Arterial Blood Base Excess 1 mmol/L (-3-3) FiO2 40 White Blood Count 9.8 x10^3/uL (4.0-11.0) Red Blood Count 5.02 x10^6/uL (3.50-5.40) Hemoglobin 15.9 g/dL (12.0-15.5) Hematocrit 48.4 % (36.0-47.0) Mean Corpuscular Volume 97 fL (79-100) Mean Corpuscular Hemoglobin 32 pg (25-35) Mean Corpuscular Hemoglobin Concent 33 g/dL (31-37) Red Cell Distribution Width 16.6 % (11.5-14.5) Platelet Count 177 x10^3/uL (140-400) Neutrophils (%) (Auto) 77 % (31-73) Lymphocytes (%) (Auto) 5 % (24-48) Monocytes (%) (Auto) 14 % (0-9) Eosinophils (%) (Auto) 4 % (0-3) Basophils (%) (Auto) 0 % (0-3) Neutrophils # (Auto) 7.6 x10^3uL (1.8-7.7) Lymphocytes # (Auto) 0.5 x10^3/uL (1.0-4.8) Monocytes # (Auto) 1.4 x10^3/uL (0.0-1.1) Eosinophils # (Auto) 0.4 x10^3/uL (0.0-0.7) Basophils # (Auto) 0.0 x10^3/uL (0.0-0.2) Sodium Level 140 mmol/L (136-145) Potassium Level 3.9 mmol/L (3.5-5.1) Chloride Level 103 mmol/L (98-107) Carbon Dioxide Level 33 mmol/L (21-32) Anion Gap 4 (6-14) Blood Urea Nitrogen 19 mg/dL (7-20) Creatinine 1.2 mg/dL (0.6-1.0) Estimated GFR (Cockcroft-Gault) 56.0 Glucose Level 94 mg/dL (70-99) Calcium Level 8.7 mg/dL (8.5-10.1) Medications Active Scripts Medications Dose Route/Sig Max Daily Dose Days Date Category Coreg (Carvedilol) 25 Mg Tablet 1 Tab PO BID 06/19/18 Reported Oxycodone Hcl 5 Mg Tablet 7.5 Mg PO PRN Q6-8HRS PRN 7 04/02/17 Rx Duloxetine Hcl 30 Mg Capsule.dr 90 Mg PO DAILY 12/20/16 Reported Cyclobenzaprine Hcl 10 Mg Tablet 1 Tab PO PRN DAILY PRN 12/22/14 Reported Impression . 1. Acute hypoxic and hypercapnic respiratory failure secondary to narcotic overdose along with alcohol intoxication in a patient who has underlying COPD , morbid obesity and suspected obesity hypoventilation syndrome. 2. Acute toxic encephalopathy, clinically improved. 3. Underlying chronic obstructive pulmonary disease. 4. Abnormal chest x-ray with bilateral infiltrates, clinical picture more compatible with pneumonia. 5. Obstructive sleep apnea/obesity hypoventilation syndrome. 6. Lactic acidosis related to hypoperfusion, less likely sepsis, it is now resolved with hydration. Plan . 1. Continue with present nasal canula. 2. Smoking cessation counseling provided along with counseling for alcohol cessation. 3. empiric antibiotic Zosyn. repeat cxr in few days 4. Bronchodilators to continue. 5. Deep venous thrombosis prophylaxis. 6. Resume home CPAP settings at nighttime. 7. Discussed with RN and RT. Transfer to [facility] FATIMAH ZELAYA MD Jun 20, 2018 10:38
[2018-06-20 12:00] VITALS: BP 124/62
--- NOTE | 2018-06-20 14:34 | PDOC ---
PROGRESS NOTES Chief Complaint Chief Complaint Acute hypoxic and hypercapnic respiratory failure secondary to narcotic overdose along with alcohol intoxication in a patient who has underlying COPD , morbid obesity and suspected obesity hypoventilation syndrome. Acute toxic encephalopathy, clinically improved. Underlying chronic obstructive pulmonary disease. Abnormal chest x-ray with bilateral infiltrates, clinical picture more compatible with pneumonia. Obstructive sleep apnea/obesity hypoventilation syndrome. Lactic acidosis related to hypoperfusion, less likely sepsis, it is now resolved with hydration. History of Present Illness History of Present Illness Pt seen and examined in ICU Up in chair Extubates VSS DULCE MARIA RN Vitals Vitals Vital Signs Date Time Temp Pulse Resp B/P (MAP) Pulse Ox O2 Delivery O2 Flow Rate FiO2 06/20/18 11:39 92 Nasal Cannula 4.0 06/20/18 04:00 100.1 90 24 150/76 (100) 100.1 Physical Exam General: Alert, Cooperative Heart: Normal S1, Normal S2, Other (distant) Lungs: Clear Abdomen: Other (obese abdomen; difficult to examine) Extremities: No edema Skin: No rashes Labs LABS Laboratory Tests Test 06/20/18 04:00 White Blood Count 9.8 x10^3/uL (4.0-11.0) Red Blood Count 5.02 x10^6/uL (3.50-5.40) Hemoglobin 15.9 g/dL (12.0-15.5) Hematocrit 48.4 % (36.0-47.0) Mean Corpuscular Volume 97 fL (79-100) Mean Corpuscular Hemoglobin 32 pg (25-35) Mean Corpuscular Hemoglobin Concent 33 g/dL (31-37) Red Cell Distribution Width 16.6 % (11.5-14.5) Platelet Count 177 x10^3/uL (140-400) Neutrophils (%) (Auto) 77 % (31-73) Lymphocytes (%) (Auto) 5 % (24-48) Monocytes (%) (Auto) 14 % (0-9) Eosinophils (%) (Auto) 4 % (0-3) Basophils (%) (Auto) 0 % (0-3) Neutrophils # (Auto) 7.6 x10^3uL (1.8-7.7) Lymphocytes # (Auto) 0.5 x10^3/uL (1.0-4.8) Monocytes # (Auto) 1.4 x10^3/uL (0.0-1.1) Eosinophils # (Auto) 0.4 x10^3/uL (0.0-0.7) Basophils # (Auto) 0.0 x10^3/uL (0.0-0.2) Sodium Level 140 mmol/L (136-145) Potassium Level 3.9 mmol/L (3.5-5.1) Chloride Level 103 mmol/L (98-107) Carbon Dioxide Level 33 mmol/L (21-32) Anion Gap 4 (6-14) Blood Urea Nitrogen 19 mg/dL (7-20) Creatinine 1.2 mg/dL (0.6-1.0) Estimated GFR (Cockcroft-Gault) 56.0 Glucose Level 94 mg/dL (70-99) Calcium Level 8.7 mg/dL (8.5-10.1) Review of Systems Review of Systems co weakness co hunger Assessment and Plan Assessmemt and Plan Problems Medical Problems: (1) Acute on chronic respiratory failure Status: Acute (2) Opiate overdose Status: Acute (3) Pneumonia Status: Acute Acute hypoxic and hypercapnic respiratory failure secondary to narcotic overdose along with alcohol intoxication in a patient who has underlying COPD , morbid obesity and suspected obesity hypoventilation syndrome. Acute toxic encephalopathy, clinically improved. Underlying chronic obstructive pulmonary disease. Abnormal chest x-ray with bilateral infiltrates, clinical picture more compatible with pneumonia. Obstructive sleep apnea/obesity hypoventilation syndrome. Lactic acidosis related to hypoperfusion, less likely sepsis, it is now resolved with hydration. Plan ICU Nebs O2 Antibx Home meds labs Comment Review of Relevant I have reviewed the following items chicho (where applicable) has been applied. Labs Laboratory Tests Test 06/19/18 00:55 06/19/18 01:41 06/19/18 01:55 06/19/18 02:10 O2 Saturation 85 % (92-99) 91 % (92-99) Arterial Blood pH 7.08 (7.35-7.45) 7.12 (7.35-7.45) Arterial Blood pCO2 at Patient Temp 76 mmHg (35-46) 74 mmHg (35-46) Arterial Blood pO2 at Patient Temp 68 mmHg (75-108) 80 mmHg (75-108) Arterial Blood HCO3 22 mmol/L (21-28) 23 mmol/L (21-28) Arterial Blood Base Excess -10 mmol/L (-3-3) -8 mmol/L (-3-3) Oxyhemoglobin 82.4 % 88.2 % Methemoglobin 0.5 % (0.0-1.9) 0.4 % (0.0-1.9) Carbon Monoxide, Quantitative 3.0 % (0.0-1.9) 2.9 % (0.0-1.9) FiO2 36.0 50.0 Urine Collection Type U cath Urine Color Regina Urine Clarity Cloudy Urine pH 5.0 Urine Specific Stanton 1.020 Urine Protein 100 mg/dL (NEG-TRACE) Urine Glucose (UA) Negative mg/dL (NEG) Urine Ketones (Stick) Negative mg/dL (NEG) Urine Blood Large (NEG) Urine Nitrite Negative (NEG) Urine Bilirubin Negative (NEG) Urine Urobilinogen Dipstick 1.0 mg/dL (0.2 mg/dL) Urine Leukocyte Esterase Small (NEG) Urine RBC Occ /HPF (0-2) Urine WBC 1-4 /HPF (0-4) Urine Squamous Epithelial Cells Few /LPF Urine Bacteria Few /HPF (0-FEW) Urine Hyaline Casts Moderate /HPF Urine Mucus Mod /LPF Urine Opiates Screen Pos (NEG) Urine Methadone Screen Neg (NEG) Urine Barbiturates Neg (NEG) Urine Phencyclidine Screen Neg (NEG) Urine Amphetamine/Methamphetamine Neg (NEG) Urine Benzodiazepines Screen Neg (NEG) Urine Cocaine Screen Neg (NEG) Urine Cannabinoids Screen Neg (NEG) Urine Ethyl Alcohol Pos (NEG) White Blood Count 8.1 x10^3/uL (4.0-11.0) Red Blood Count 5.04 x10^6/uL (3.50-5.40) Hemoglobin 15.8 g/dL (12.0-15.5) Hematocrit 49.3 % (36.0-47.0) Mean Corpuscular Volume 98 fL (79-100) Mean Corpuscular Hemoglobin 31 pg (25-35) Mean Corpuscular Hemoglobin Concent 32 g/dL (31-37) Red Cell Distribution Width 16.7 % (11.5-14.5) Platelet Count 234 x10^3/uL (140-400) Neutrophils (%) (Auto) 79 % (31-73) Lymphocytes (%) (Auto) 11 % (24-48) Monocytes (%) (Auto) 10 % (0-9) Eosinophils (%) (Auto) 0 % (0-3) Basophils (%) (Auto) 0 % (0-3) Neutrophils # (Auto) 6.4 x10^3uL (1.8-7.7) Lymphocytes # (Auto) 0.9 x10^3/uL (1.0-4.8) Monocytes # (Auto) 0.8 x10^3/uL (0.0-1.1) Eosinophils # (Auto) 0.0 x10^3/uL (0.0-0.7) Basophils # (Auto) 0.0 x10^3/uL (0.0-0.2) Prothrombin Time 13.8 SEC (11.7-14.0) Prothromb Time International Ratio 1.1 (0.8-1.1) Activated Partial Thromboplast Time 28 SEC (24-38) Sodium Level 135 mmol/L (136-145) Potassium Level 4.6 mmol/L (3.5-5.1) Chloride Level 99 mmol/L (98-107) Carbon Dioxide Level 26 mmol/L (21-32) Anion Gap 10 (6-14) Blood Urea Nitrogen 22 mg/dL (7-20) Creatinine 2.1 mg/dL (0.6-1.0) Estimated GFR (Cockcroft-Gault) 29.4 Glucose Level 99 mg/dL (70-99) Lactic Acid Level 4.6 mmol/L (0.4-2.0) Calcium Level 8.6 mg/dL (8.5-10.1) Magnesium Level 2.2 mg/dL (1.8-2.4) Total Bilirubin 0.2 mg/dL (0.2-1.0) Direct Bilirubin 0.1 mg/dL (0.0-0.2) Aspartate Amino Transf (AST/SGOT) 112 U/L (15-37) Alanine Aminotransferase (ALT/SGPT) 89 U/L (14-59) Alkaline Phosphatase 103 U/L (46-116) Troponin I Quantitative < 0.017 ng/mL (0.000-0.055) PH-Hdt-R-Type Natriuretic Peptide 2121 pg/mL (0-124) Total Protein 8.0 g/dL (6.4-8.2) Albumin 3.3 g/dL (3.4-5.0) Thyroid Stimulating Hormone (TSH) 3.597 uIU/mL (0.358-3.74) Free Thyroxine 1.16 ng/dL (0.76-1.46) Salicylates Level < 2.8 mg/dL (2.8-20.0) Salicylate Last Dose Date Salicylate Last Dose Time Acetaminophen Level < 2 mcg/ml (10-30) Acetaminophen Last Dose Date Acetaminophen Last Dose Time Ethyl Alcohol Level 45 mg/dL (0-10) Test 06/19/18 03:28 06/19/18 05:30 06/19/18 06:35 06/19/18 08:00 O2 Saturation 94 % (92-99) 95 % (92-99) Arterial Blood pH 7.15 (7.35-7.45) 7.23 (7.35-7.45) Arterial Blood pCO2 at Patient Temp 72 mmHg (35-46) 69 mmHg (35-46) Arterial Blood pO2 at Patient Temp 89 mmHg (75-108) 87 mmHg (75-108) Arterial Blood HCO3 25 mmol/L (21-28) 28 mmol/L (21-28) Arterial Blood Base Excess -6 mmol/L (-3-3) -1 mmol/L (-3-3) FiO2 50.0 50 Nasal Screen MRSA (PCR) Negative (Negative) Lactic Acid Level 1.0 mmol/L (0.4-2.0) Myoglobin 72 ng/mL (9-82) Test 06/19/18 14:30 06/20/18 04:00 O2 Saturation 93 % (92-99) Arterial Blood pH 7.38 (7.35-7.45) Arterial Blood pCO2 at Patient Temp 45 mmHg (35-46) Arterial Blood pO2 at Patient Temp 71 mmHg (75-108) Arterial Blood HCO3 26 mmol/L (21-28) Arterial Blood Base Excess 1 mmol/L (-3-3) FiO2 40 White Blood Count 9.8 x10^3/uL (4.0-11.0) Red Blood Count 5.02 x10^6/uL (3.50-5.40) Hemoglobin 15.9 g/dL (12.0-15.5) Hematocrit 48.4 % (36.0-47.0) Mean Corpuscular Volume 97 fL (79-100) Mean Corpuscular Hemoglobin 32 pg (25-35) Mean Corpuscular Hemoglobin Concent 33 g/dL (31-37) Red Cell Distribution Width 16.6 % (11.5-14.5) Platelet Count 177 x10^3/uL (140-400) Neutrophils (%) (Auto) 77 % (31-73) Lymphocytes (%) (Auto) 5 % (24-48) Monocytes (%) (Auto) 14 % (0-9) Eosinophils (%) (Auto) 4 % (0-3) Basophils (%) (Auto) 0 % (0-3) Neutrophils # (Auto) 7.6 x10^3uL (1.8-7.7) Lymphocytes # (Auto) 0.5 x10^3/uL (1.0-4.8) Monocytes # (Auto) 1.4 x10^3/uL (0.0-1.1) Eosinophils # (Auto) 0.4 x10^3/uL (0.0-0.7) Basophils # (Auto) 0.0 x10^3/uL (0.0-0.2) Sodium Level 140 mmol/L (136-145) Potassium Level 3.9 mmol/L (3.5-5.1) Chloride Level 103 mmol/L (98-107) Carbon Dioxide Level 33 mmol/L (21-32) Anion Gap 4 (6-14) Blood Urea Nitrogen 19 mg/dL (7-20) Creatinine 1.2 mg/dL (0.6-1.0) Estimated GFR (Cockcroft-Gault) 56.0 Glucose Level 94 mg/dL (70-99) Calcium Level 8.7 mg/dL (8.5-10.1) Laboratory Tests Test 06/20/18 04:00 White Blood Count 9.8 x10^3/uL (4.0-11.0) Red Blood Count 5.02 x10^6/uL (3.50-5.40) Hemoglobin 15.9 g/dL (12.0-15.5) Hematocrit 48.4 % (36.0-47.0) Mean Corpuscular Volume 97 fL (79-100) Mean Corpuscular Hemoglobin 32 pg (25-35) Mean Corpuscular Hemoglobin Concent 33 g/dL (31-37) Red Cell Distribution Width 16.6 % (11.5-14.5) Platelet Count 177 x10^3/uL (140-400) Neutrophils (%) (Auto) 77 % (31-73) Lymphocytes (%) (Auto) 5 % (24-48) Monocytes (%) (Auto) 14 % (0-9) Eosinophils (%) (Auto) 4 % (0-3) Basophils (%) (Auto) 0 % (0-3) Neutrophils # (Auto) 7.6 x10^3uL (1.8-7.7) Lymphocytes # (Auto) 0.5 x10^3/uL (1.0-4.8) Monocytes # (Auto) 1.4 x10^3/uL (0.0-1.1) Eosinophils # (Auto) 0.4 x10^3/uL (0.0-0.7) Basophils # (Auto) 0.0 x10^3/uL (0.0-0.2) Sodium Level 140 mmol/L (136-145) Potassium Level 3.9 mmol/L (3.5-5.1) Chloride Level 103 mmol/L (98-107) Carbon Dioxide Level 33 mmol/L (21-32) Anion Gap 4 (6-14) Blood Urea Nitrogen 19 mg/dL (7-20) Creatinine 1.2 mg/dL (0.6-1.0) Estimated GFR (Cockcroft-Gault) 56.0 Glucose Level 94 mg/dL (70-99) Calcium Level 8.7 mg/dL (8.5-10.1) Medications Current Medications Naloxone HCl (Narcan) 1 mg 1X ONCE IV Last administered on 06/19/18at 01:08; Start 06/19/18 at 01:15; Stop 06/19/18 at 01:16; Status DC Naloxone HCl 2 mg/ Dextrose 502 ml @ 251 mls/hr 1X ONCE IV Last administered on 06/19/18at 01:28; Start 06/19/18 at 01:30; Stop 06/19/18 at 03:29; Status DC Piperacillin Sod/ Tazobactam Sod 3.375 gm/Sodium Chloride 50 ml @ 100 mls/hr 1X ONCE IV Last administered on 06/19/18at 03:30; Start 06/19/18 at 03:30; Stop 06/19/18 at 03:59; Status DC Vancomycin HCl 250 ml @ 250 mls/hr 1X ONCE IV ; Start 06/19/18 at 03:15; Stop 06/19/18 at 04:14; Status UNV Vancomycin HCl 2 gm/Sodium Chloride 500 ml @ 250 mls/hr 1X ONCE IV Last administered on 06/19/18at 03:51; Start 06/19/18 at 04:00; Stop 06/19/18 at 05:59 ; Status DC Naloxone HCl 2 mg/ Dextrose 502 ml @ 251 mls/hr 1X ONCE IV Last administered on 06/19/18at 03:50; Start 06/19/18 at 04:00; Stop 06/19/18 at 05:59; Status DC Naloxone HCl 2 mg/ Dextrose 1,002 ml @ 501 mls/hr 1X ONCE IV ; Start 06/19/18 at 06:00; Stop 06/19/18 at 07:59; Status Cancel Naloxone HCl 2 mg/ Dextrose 502 ml @ 251 mls/hr 1X ONCE IV Last administered on 06/19/18at 05:50; Start 06/19/18 at 06:00; Stop 06/19/18 at 07:59; Status DC Naloxone HCl 2 mg/ Dextrose 502 ml @ 251 mls/hr 1X ONCE IV Last administered on 06/19/18at 08:31; Start 06/19/18 at 08:30; Stop 06/19/18 at 10:29; Status DC Piperacillin Sod/ Tazobactam Sod (Zosyn Per Pharmacy) 1 each PRN DAILY PRN MC SEE COMMENTS; Start 06/19/18 at 11:45 Sodium Bicarbonate (Sodium Bicarb Adult 8.4% Syr) 50 meq 1X ONCE IV Last administered on 06/19/18at 12:29; Start 06/19/18 at 12:00; Stop 06/19/18 at 12:01 ; Status DC Piperacillin Sod/ Tazobactam Sod 3.375 gm/Sodium Chloride 50 ml @ 100 mls/hr Q6HRS IV Last administered on 06/20/18at 05:59; Start 06/19/18 at 12:00 Enoxaparin Sodium (Lovenox 60mg Syringe) 60 mg Q12HR SQ Last administered on at 20:12; Start 06/19/18 at 12:00 Albuterol/ Ipratropium (Duoneb) 3 ml RTQID NEB Last administered on 06/20/18at 11:38; Start 06/19/18 at 12:00 Duloxetine HCl (Cymbalta) 90 mg DAILY PO ; Start 06/20/18 at 09:00 Carvedilol (Coreg) 25 mg BIDWMEALS PO ; Start 06/20/18 at 08:00 Acetaminophen (Tylenol) 650 mg PRN Q6HRS PRN PO MILD PAIN Last administered on 06/19/18at 20:11; Start 06/19/18 at 19:30 Perflutren Protein Type A Microsphe (Optison) 0.66 mg PRN 1X PRN IV SEE COMMENTS; Start 06/20/18 at 08:00; Stop 06/21/18 at 07:59 Lactobacillus Rhamnosus (Culturelle) 1 cap BID PO ; Start 06/20/18 at 10:30 Active Scripts Active Oxycodone Hcl 5 Mg Tablet 7.5 Mg PO PRN Q6-8HRS PRN 7 Days Reported Coreg (Carvedilol) 25 Mg Tablet 1 Tab PO BID Duloxetine Hcl 30 Mg Capsule.dr 90 Mg PO DAILY Cyclobenzaprine Hcl 10 Mg Tablet 1 Tab PO PRN DAILY PRN Vitals/I & O Vital Sign - Last 24 Hours 06/19/18 06/19/18 06/19/18 06/19/18 15:05 15:10 16:00 19:38 Temp 98.0 98.0 Pulse 100 Resp 24 B/P (MAP) 162/81 (108) Pulse Ox 92 92 91 93 O2 Delivery Venturi Mask Venturi Mask Venturi Mask Venturi Mask O2 Flow Rate 12.0 12.0 12.0 06/19/18 06/19/18 06/19/18 06/20/18 20:00 20:00 23:47 00:00 Temp 100.2 99.5 100.2 99.5 Pulse 104 96 Resp 22 24 B/P (MAP) 147/75 (99) 147/78 (101) Pulse Ox 94 94 O2 Delivery Venturi Mask Venturi Mask BiPAP/CPAP BiPAP/CPAP 06/20/18 06/20/18 06/20/1818 01:37 03:31 04:00 11:39 Temp 100.1 100.1 Pulse 90 Resp 24 B/P (MAP) 150/76 (100) Pulse Ox 96 95 94 92 O2 Delivery BiPAP/CPAP BiPAP/CPAP BiPAP/CPAP Nasal Cannula O2 Flow Rate 4.0 Intake and Output 06/19/18 06/19/18 06/20/18 15:00 23:00 07:00 Intake Total 1032 ml 550 ml 500 ml Balance 1032 ml 550 ml 500 ml TURNER LEE III DO Jun 20, 2018 14:34
[2018-06-20] MEDS: LACTOBACILLUS RHAMNOSUS GG 1 CAPSULE. PO SCH ×2 (19:31→20:52)
[2018-06-20] MEDS: CARVEDILOL 12.5 MG TABLET. PO SCH ×2 (19:31→19:34)
[2018-06-20 19:50] VITALS: BP 110/64
[2018-06-20] MEDS: ACETAMINOPHEN 325 MG TABLET. PO PRN (22:15)
[2018-06-21] VITALS (7 sets, daily range): BP systolic 87–134; BP diastolic 48–77
[2018-06-21] MEDS: CYCLOBENZAPRINE 10 MG TABLET. PO PRN ×2 (00:15→21:49)
[2018-06-21 05:27] LABS: BASO % 0 % (0-3); EOS # 0.4 x10^3/uL (0.0-0.7); EOS % 5 % (0-3); HEMATOCRIT 44.6 % (36.0-47.0); HEMOGLOBIN 14.6 g/dL (12.0-15.5); LYMPH # 0.7 x10^3/uL (1.0-4.8); LYMPH % 8 % (24-48); MEAN CORPUSCULAR HEMOGLOBIN 32 pg (25-35); MEAN CORPUSCULAR HGB CONC 33 g/dL (31-37); MEAN CORPUSCULAR VOLUME 97 fL (79-100); MONO # 1.1 x10^3/uL (0.0-1.1); MONO % 13 % (0-9); NEUT # 5.9 x10^3uL (1.8-7.7); NEUT % 74 % (31-73); PLATELET COUNT 196 x10^3/uL (140-400); RED BLOOD COUNT 4.62 x10^6/uL (3.50-5.40)
[2018-06-21 05:58] LABS: CALCIUM 8.9 mg/dL (8.5-10.1); GFR 69.1; POTASSIUM 4.3 mmol/L (3.5-5.1)
[2018-06-21] MEDS: PIPERACILLIN/TAZOBACTAM 3.375 GM in IV NORMAL SALINE 50ML 50 ML IV SCH ×4 (05:58→23:25)
[2018-06-21] MEDS: IPRATRPIUM/ALBUTEROL 0.5/2.5MG 3 ML NEBU. NEB SCH ×4 (08:18→20:14)
[2018-06-21] MEDS: LACTOBACILLUS RHAMNOSUS GG 1 CAPSULE. PO SCH ×2 (09:00→20:39)
[2018-06-21] MEDS: oxyCODONE IR 5 MG TABLET PO PRN ×2 (09:49→18:25)
[2018-06-21] MEDS: CARVEDILOL 12.5 MG TABLET. PO SCH ×2 (09:50→17:56)
[2018-06-21] MEDS: DULoxetine HCL 30 MG CAPSULE.DR PO SCH (09:51)
--- NOTE | 2018-06-21 11:09 | PDOC ---
PROGRESS NOTES Chief Complaint Chief Complaint Medical Problems: -Acute Hypoxic and Hypercapnic Respiratory Failure -Acute Toxic Encephalopathy -COPD -Obstructive Sleep Apnea/Obesity Hypoventilation Syndrome. -Lactic Acidosis -Narcotic OD -Alcohol Intoxication History of Present Illness History of Present Illness -Pt seen and examined in ICU -Pt. appeared to have improved status -Pt. was up in chair upon rounding -GRACIE -DULCE MARIA RN -Hope to DC today Vitals Vitals Vital Signs Date Time Temp Pulse Resp B/P (MAP) Pulse Ox O2 Delivery O2 Flow Rate FiO2 06/21/18 09:50 84 118/65 06/21/18 09:49 20 93 Nasal Cannula 3.0 06/21/18 04:00 98.4 98.4 Physical Exam General: Alert, Oriented X3, Cooperative, No acute distress Heart: Regular rate, Normal S1, Normal S2, No murmurs, Other (distant) Lungs: Clear, Other Abdomen: Normal bowel sounds, Soft, No tenderness, No masses, Other (obese abdomen; difficult to examine) Extremities: No clubbing, No cyanosis, No edema, Normal pulses, No tenderness/ swelling Skin: No rashes, No breakdown, No significant lesion Labs LABS Laboratory Tests Test 06/21/18 04:45 White Blood Count 8.0 x10^3/uL (4.0-11.0) Red Blood Count 4.62 x10^6/uL (3.50-5.40) Hemoglobin 14.6 g/dL (12.0-15.5) Hematocrit 44.6 % (36.0-47.0) Mean Corpuscular Volume 97 fL (79-100) Mean Corpuscular Hemoglobin 32 pg (25-35) Mean Corpuscular Hemoglobin Concent 33 g/dL (31-37) Red Cell Distribution Width 17.0 % (11.5-14.5) Platelet Count 196 x10^3/uL (140-400) Neutrophils (%) (Auto) 74 % (31-73) Lymphocytes (%) (Auto) 8 % (24-48) Monocytes (%) (Auto) 13 % (0-9) Eosinophils (%) (Auto) 5 % (0-3) Basophils (%) (Auto) 0 % (0-3) Neutrophils # (Auto) 5.9 x10^3uL (1.8-7.7) Lymphocytes # (Auto) 0.7 x10^3/uL (1.0-4.8) Monocytes # (Auto) 1.1 x10^3/uL (0.0-1.1) Eosinophils # (Auto) 0.4 x10^3/uL (0.0-0.7) Basophils # (Auto) 0.0 x10^3/uL (0.0-0.2) Sodium Level 142 mmol/L (136-145) Potassium Level 4.3 mmol/L (3.5-5.1) Chloride Level 106 mmol/L (98-107) Carbon Dioxide Level 33 mmol/L (21-32) Anion Gap 3 (6-14) Blood Urea Nitrogen 19 mg/dL (7-20) Creatinine 1.0 mg/dL (0.6-1.0) Estimated GFR (Cockcroft-Gault) 69.1 Glucose Level 120 mg/dL (70-99) Calcium Level 8.9 mg/dL (8.5-10.1) Review of Systems Review of Systems -Pt. Lacked SOB -Respiratory Rate WNL Assessment and Plan Assessmemt and Plan Medical Problems: -Acute Hypoxic and Hypercapnic Respiratory Failure -Acute Toxic Encephalopathy -COPD -Obstructive Sleep Apnea/Obesity Hypoventilation Syndrome. -Lactic Acidosis -Narcotic OD -Alcohol Intoxication Plan: -Labs -PT/OT -Home Meds -Probable DC later today if stable -FU w/ PCP in 1wk. -D/C w/ Pt. plan for future OD prevention Comment Review of Relevant I have reviewed the following items chicho (where applicable) has been applied. Labs Laboratory Tests Test 06/19/18 14:30 06/20/18 04:00 06/21/18 04:45 O2 Saturation 93 % (92-99) Arterial Blood pH 7.38 (7.35-7.45) Arterial Blood pCO2 at Patient Temp 45 mmHg (35-46) Arterial Blood pO2 at Patient Temp 71 mmHg (75-108) Arterial Blood HCO3 26 mmol/L (21-28) Arterial Blood Base Excess 1 mmol/L (-3-3) FiO2 40 White Blood Count 9.8 x10^3/uL (4.0-11.0) 8.0 x10^3/uL (4.0-11.0) Red Blood Count 5.02 x10^6/uL (3.50-5.40) 4.62 x10^6/uL (3.50-5.40) Hemoglobin 15.9 g/dL (12.0-15.5) 14.6 g/dL (12.0-15.5) Hematocrit 48.4 % (36.0-47.0) 44.6 % (36.0-47.0) Mean Corpuscular Volume 97 fL (79-100) 97 fL (79-100) Mean Corpuscular Hemoglobin 32 pg (25-35) 32 pg (25-35) Mean Corpuscular Hemoglobin Concent 33 g/dL (31-37) 33 g/dL (31-37) Red Cell Distribution Width 16.6 % (11.5-14.5) 17.0 % (11.5-14.5) Platelet Count 177 x10^3/uL (140-400) 196 x10^3/uL (140-400) Neutrophils (%) (Auto) 77 % (31-73) 74 % (31-73) Lymphocytes (%) (Auto) 5 % (24-48) 8 % (24-48) Monocytes (%) (Auto) 14 % (0-9) 13 % (0-9) Eosinophils (%) (Auto) 4 % (0-3) 5 % (0-3) Basophils (%) (Auto) 0 % (0-3) 0 % (0-3) Neutrophils # (Auto) 7.6 x10^3uL (1.8-7.7) 5.9 x10^3uL (1.8-7.7) Lymphocytes # (Auto) 0.5 x10^3/uL (1.0-4.8) 0.7 x10^3/uL (1.0-4.8) Monocytes # (Auto) 1.4 x10^3/uL (0.0-1.1) 1.1 x10^3/uL (0.0-1.1) Eosinophils # (Auto) 0.4 x10^3/uL (0.0-0.7) 0.4 x10^3/uL (0.0-0.7) Basophils # (Auto) 0.0 x10^3/uL (0.0-0.2) 0.0 x10^3/uL (0.0-0.2) Sodium Level 140 mmol/L (136-145) 142 mmol/L (136-145) Potassium Level 3.9 mmol/L (3.5-5.1) 4.3 mmol/L (3.5-5.1) Chloride Level 103 mmol/L (98-107) 106 mmol/L (98-107) Carbon Dioxide Level 33 mmol/L (21-32) 33 mmol/L (21-32) Anion Gap 4 (6-14) 3 (6-14) Blood Urea Nitrogen 19 mg/dL (7-20) 19 mg/dL (7-20) Creatinine 1.2 mg/dL (0.6-1.0) 1.0 mg/dL (0.6-1.0) Estimated GFR (Cockcroft-Gault) 56.0 69.1 Glucose Level 94 mg/dL (70-99) 120 mg/dL (70-99) Calcium Level 8.7 mg/dL (8.5-10.1) 8.9 mg/dL (8.5-10.1) Laboratory Tests Test 06/21/18 04:45 White Blood Count 8.0 x10^3/uL (4.0-11.0) Red Blood Count 4.62 x10^6/uL (3.50-5.40) Hemoglobin 14.6 g/dL (12.0-15.5) Hematocrit 44.6 % (36.0-47.0) Mean Corpuscular Volume 97 fL (79-100) Mean Corpuscular Hemoglobin 32 pg (25-35) Mean Corpuscular Hemoglobin Concent 33 g/dL (31-37) Red Cell Distribution Width 17.0 % (11.5-14.5) Platelet Count 196 x10^3/uL (140-400) Neutrophils (%) (Auto) 74 % (31-73) Lymphocytes (%) (Auto) 8 % (24-48) Monocytes (%) (Auto) 13 % (0-9) Eosinophils (%) (Auto) 5 % (0-3) Basophils (%) (Auto) 0 % (0-3) Neutrophils # (Auto) 5.9 x10^3uL (1.8-7.7) Lymphocytes # (Auto) 0.7 x10^3/uL (1.0-4.8) Monocytes # (Auto) 1.1 x10^3/uL (0.0-1.1) Eosinophils # (Auto) 0.4 x10^3/uL (0.0-0.7) Basophils # (Auto) 0.0 x10^3/uL (0.0-0.2) Sodium Level 142 mmol/L (136-145) Potassium Level 4.3 mmol/L (3.5-5.1) Chloride Level 106 mmol/L (98-107) Carbon Dioxide Level 33 mmol/L (21-32) Anion Gap 3 (6-14) Blood Urea Nitrogen 19 mg/dL (7-20) Creatinine 1.0 mg/dL (0.6-1.0) Estimated GFR (Cockcroft-Gault) 69.1 Glucose Level 120 mg/dL (70-99) Calcium Level 8.9 mg/dL (8.5-10.1) Microbiology 06/19/18 Urine Culture - Final, Complete 06/19/18 Urine Culture Result 1 (SHAKIRA) - Final, Complete Medications Current Medications Naloxone HCl (Narcan) 1 mg 1X ONCE IV Last administered on 06/19/18at 01:08; Start 06/19/18 at 01:15; Stop 06/19/18 at 01:16; Status DC Naloxone HCl 2 mg/ Dextrose 502 ml @ 251 mls/hr 1X ONCE IV Last administered on 06/19/18at 01:28; Start 06/19/18 at 01:30; Stop 06/19/18 at 03:29; Status DC Piperacillin Sod/ Tazobactam Sod 3.375 gm/Sodium Chloride 50 ml @ 100 mls/hr 1X ONCE IV Last administered on 06/19/18at 03:30; Start 06/19/18 at 03:30; Stop 06/19/18 at 03:59; Status DC Vancomycin HCl 250 ml @ 250 mls/hr 1X ONCE IV ; Start 06/19/18 at 03:15; Stop 06/19/18 at 04:14; Status UNV Vancomycin HCl 2 gm/Sodium Chloride 500 ml @ 250 mls/hr 1X ONCE IV Last administered on 06/19/18at 03:51; Start 06/19/18 at 04:00; Stop 06/19/18 at 05:59 ; Status DC Naloxone HCl 2 mg/ Dextrose 502 ml @ 251 mls/hr 1X ONCE IV Last administered on 06/19/18at 03:50; Start 06/19/18 at 04:00; Stop 06/19/18 at 05:59; Status DC Naloxone HCl 2 mg/ Dextrose 1,002 ml @ 501 mls/hr 1X ONCE IV ; Start 06/19/18 at 06:00; Stop 06/19/18 at 07:59; Status Cancel Naloxone HCl 2 mg/ Dextrose 502 ml @ 251 mls/hr 1X ONCE IV Last administered on 06/19/18at 05:50; Start 06/19/18 at 06:00; Stop 06/19/18 at 07:59; Status DC Naloxone HCl 2 mg/ Dextrose 502 ml @ 251 mls/hr 1X ONCE IV Last administered on 06/19/18at 08:31; Start 06/19/18 at 08:30; Stop 06/19/18 at 10:29; Status DC Piperacillin Sod/ Tazobactam Sod (Zosyn Per Pharmacy) 1 each PRN DAILY PRN MC SEE COMMENTS; Start 06/19/18 at 11:45 Sodium Bicarbonate (Sodium Bicarb Adult 8.4% Syr) 50 meq 1X ONCE IV Last administered on 06/19/18at 12:29; Start 06/19/18 at 12:00; Stop 06/19/18 at 12:01 ; Status DC Piperacillin Sod/ Tazobactam Sod 3.375 gm/Sodium Chloride 50 ml @ 100 mls/hr Q6HRS IV Last administered on 06/21/18at 05:58; Start 06/19/18 at 12:00 Enoxaparin Sodium (Lovenox 60mg Syringe) 60 mg Q12HR SQ Last administered on at 09:48; Start 06/19/18 at 12:00 Albuterol/ Ipratropium (Duoneb) 3 ml RTQID NEB Last administered on 06/21/18at 08:18; Start 06/19/18 at 12:00 Duloxetine HCl (Cymbalta) 90 mg DAILY PO Last administered on 06/21/18at 09:51; Start 06/20/18 at 09:00 Carvedilol (Coreg) 25 mg BIDWMEALS PO Last administered on 06/21/18at 09:50; Start 06/20/18 at 08:00 Acetaminophen (Tylenol) 650 mg PRN Q6HRS PRN PO MILD PAIN Last administered on 06/20/18at 22:15; Start 06/19/18 at 19:30 Perflutren Protein Type A Microsphe (Optison) 0.66 mg PRN 1X PRN IV SEE COMMENTS; Start 06/20/18 at 08:00; Stop 06/21/18 at 07:59; Status DC Lactobacillus Rhamnosus (Culturelle) 1 cap BID PO Last administered on at 20:52; Start 06/20/18 at 10:30 Cyclobenzaprine HCl (Flexeril) 10 mg PRN DAILY PRN PO MUSCLE PAIN Last administered on 06/21/18at 00:15; Start 06/21/18 at 00:00 Oxycodone HCl (Roxicodone) 7.5 mg PRN Q6HRS PRN PO SEVERE PAIN Last administered on 06/21/18at 09:49; Start 06/21/18 at 00:15 Active Scripts Active Oxycodone Hcl 5 Mg Tablet 7.5 Mg PO PRN Q6-8HRS PRN 7 Days Reported Coreg (Carvedilol) 25 Mg Tablet 1 Tab PO BID Duloxetine Hcl 30 Mg Capsule.dr 90 Mg PO DAILY Cyclobenzaprine Hcl 10 Mg Tablet 1 Tab PO PRN DAILY PRN Vitals/I & O Vital Sign - Last 24 Hours 06/20/18 06/20/18 06/20/18 06/20/18 11:39 12:00 15:44 16:24 Temp 99.6 99.6 Pulse 84 87 Resp 20 24 B/P (MAP) 124/62 (82) Pulse Ox 92 94 96 90 O2 Delivery Nasal Cannula Nasal Cannula Nasal Cannula Nasal Cannula O2 Flow Rate 4.0 3.0 3.0 4.0 06/20/18 06/20/18 06/20/18 06/20/18 19:31 19:34 19:45 19:50 Temp 97.8 97.8 Pulse 87 86 85 Resp 18 B/P (MAP) 119/66 150/68 110/64 (79) Pulse Ox 93 O2 Delivery Nasal Cannula Nasal Cannula O2 Flow Rate 3.0 3.0 06/20/18 06/21/18 06/21/18 06/21/18 19:59 00:07 04:00 08:03 Temp 97.9 98.4 97.9 98.4 Pulse 96 96 Resp 15 14 B/P (MAP) 87/59 (68) 128/77 (94) Pulse Ox 92 94 94 O2 Delivery Nasal Cannula Nasal Cannula Nasal Cannula Nasal Cannula O2 Flow Rate 3.0 3.0 3.0 3.0 06/21/18 06/21/18 06/21/18 08:18 09:49 09:50 Pulse 84 Resp 20 B/P (MAP) 118/65 Pulse Ox 93 93 O2 Delivery Nasal Cannula Nasal Cannula O2 Flow Rate 3.0 3.0 Intake and Output 06/20/18 06/20/18 06/21/18 15:00 23:00 07:00 Intake Total 875 ml 240 ml Output Total 3000 ml 2000 ml 1500 ml Balance -2125 ml -1760 ml -1500 ml TURNER LEE III, DO Jun 21, 2018 11:09
[2018-06-22 03:19] VITALS: BP 100/50
[2018-06-22 03:24] VITALS: BP 114/65
[2018-06-22 05:44] LABS: BASO % 1 % (0-3); EOS # 0.4 x10^3/uL (0.0-0.7); EOS % 7 % (0-3); HEMATOCRIT 44.9 % (36.0-47.0); HEMOGLOBIN 14.7 g/dL (12.0-15.5); LYMPH # 0.9 x10^3/uL (1.0-4.8); LYMPH % 15 % (24-48); MEAN CORPUSCULAR HEMOGLOBIN 32 pg (25-35); MEAN CORPUSCULAR HGB CONC 33 g/dL (31-37); MEAN CORPUSCULAR VOLUME 98 fL (79-100); MONO # 1.3 x10^3/uL (0.0-1.1); MONO % 21 % (0-9); NEUT # 3.5 x10^3uL (1.8-7.7); NEUT % 57 % (31-73); PLATELET COUNT 180 x10^3/uL (140-400); RED BLOOD COUNT 4.59 x10^6/uL (3.50-5.40); RED CELL DISTRIBUTION WIDTH 16.9 % (11.5-14.5); WHITE BLOOD COUNT 6.2 x10^3/uL (4.0-11.0)
[2018-06-22] MEDS: PIPERACILLIN/TAZOBACTAM 3.375 GM in IV NORMAL SALINE 50ML 50 ML IV SCH ×3 (05:56→17:20)
[2018-06-22 06:06] LABS: CALCIUM 8.8 mg/dL (8.5-10.1); CREATININE 1.1 mg/dL (0.6-1.0); GFR 61.9; POTASSIUM 4.3 mmol/L (3.5-5.1)
[2018-06-22 07:48] VITALS: BP 141/87
[2018-06-22] MEDS: IPRATRPIUM/ALBUTEROL 0.5/2.5MG 3 ML NEBU. NEB SCH ×4 (07:50→19:23)
[2018-06-22 08:31] LABS: % BANDS 4 % (0-9); % EOS 7 % (0-5); % LYMPHS 20 % (24-48); % MONOS 16 % (0-10); % SEGS 53 % (35-66); PLT ESTIMATE ADEQUATE (ADEQUATE)
[2018-06-22] MEDS: LACTOBACILLUS RHAMNOSUS GG 1 CAPSULE. PO SCH ×2 (08:51→20:13)
[2018-06-22] MEDS: DULoxetine HCL 30 MG CAPSULE.DR PO SCH (08:52)
[2018-06-22] MEDS: CARVEDILOL 12.5 MG TABLET. PO SCH ×2 (08:54→17:21)
[2018-06-22] MEDS: oxyCODONE IR 5 MG TABLET PO PRN ×2 (09:07→20:21)
--- NOTE | 2018-06-22 13:15 | PDOC ---
PROGRESS NOTES Chief Complaint Chief Complaint Medical Problems: -Acute Hypoxic and Hypercapnic Respiratory Failure -Acute Toxic Encephalopathy -COPD -Obstructive Sleep Apnea/Obesity Hypoventilation Syndrome. -Lactic Acidosis -Narcotic OD -Alcohol Intoxication History of Present Illness History of Present Illness feeling ok c/o pain not controlled discussed can not take more than current dose that she is expected to have some pain , discussed danger of sedating effect of medication, she agrees to continue current dose , offered rehab does not want that but would like to increase activity today and see how she does so she can continue same [place] at home Vitals Vitals Vital Signs Date Time Temp Pulse Resp B/P (MAP) Pulse Ox O2 Delivery O2 Flow Rate FiO2 06/22/18 11:31 96 Room Air 06/22/18 10:23 2.0 06/22/18 08:54 73 114/65 06/22/18 07:48 97.9 18 97.9 Physical Exam General: Alert, Oriented X3, Cooperative, No acute distress Heart: Regular rate, Normal S1, Normal S2, No murmurs, Other (distant) Lungs: Clear, Other Abdomen: Normal bowel sounds, Soft, No tenderness, No masses, Other (obese abdomen; difficult to examine) Extremities: No clubbing, No cyanosis, No edema, Normal pulses, No tenderness/ swelling Skin: No rashes, No breakdown, No significant lesion Labs LABS Laboratory Tests Test 06/22/18 04:25 White Blood Count 6.2 x10^3/uL (4.0-11.0) Red Blood Count 4.59 x10^6/uL (3.50-5.40) Hemoglobin 14.7 g/dL (12.0-15.5) Hematocrit 44.9 % (36.0-47.0) Mean Corpuscular Volume 98 fL (79-100) Mean Corpuscular Hemoglobin 32 pg (25-35) Mean Corpuscular Hemoglobin Concent 33 g/dL (31-37) Red Cell Distribution Width 16.9 % (11.5-14.5) Platelet Count 180 x10^3/uL (140-400) Neutrophils (%) (Auto) 57 % (31-73) Lymphocytes (%) (Auto) 15 % (24-48) Monocytes (%) (Auto) 21 % (0-9) Eosinophils (%) (Auto) 7 % (0-3) Basophils (%) (Auto) 1 % (0-3) Neutrophils # (Auto) 3.5 x10^3uL (1.8-7.7) Lymphocytes # (Auto) 0.9 x10^3/uL (1.0-4.8) Monocytes # (Auto) 1.3 x10^3/uL (0.0-1.1) Eosinophils # (Auto) 0.4 x10^3/uL (0.0-0.7) Basophils # (Auto) 0.0 x10^3/uL (0.0-0.2) Segmented Neutrophils % 53 % (35-66) Band Neutrophils % 4 % (0-9) Lymphocytes % 20 % (24-48) Monocytes % 16 % (0-10) Eosinophils % 7 % (0-5) Platelet Estimate Adequate (ADEQUATE) Sodium Level 140 mmol/L (136-145) Potassium Level 4.3 mmol/L (3.5-5.1) Chloride Level 104 mmol/L (98-107) Carbon Dioxide Level 30 mmol/L (21-32) Anion Gap 6 (6-14) Blood Urea Nitrogen 16 mg/dL (7-20) Creatinine 1.1 mg/dL (0.6-1.0) Estimated GFR (Cockcroft-Gault) 61.9 Glucose Level 82 mg/dL (70-99) Calcium Level 8.8 mg/dL (8.5-10.1) Assessment and Plan Assessmemt and Plan Problems Medical Problems: (1) Acute on chronic respiratory failure Status: Acute (2) Opiate overdose Status: Acute (3) Pneumonia Status: Acute Comment Review of Relevant I have reviewed the following items chicho (where applicable) has been applied. Labs Laboratory Tests Test 06/21/18 04:45 06/22/18 04:25 White Blood Count 8.0 x10^3/uL (4.0-11.0) 6.2 x10^3/uL (4.0-11.0) Red Blood Count 4.62 x10^6/uL (3.50-5.40) 4.59 x10^6/uL (3.50-5.40) Hemoglobin 14.6 g/dL (12.0-15.5) 14.7 g/dL (12.0-15.5) Hematocrit 44.6 % (36.0-47.0) 44.9 % (36.0-47.0) Mean Corpuscular Volume 97 fL (79-100) 98 fL (79-100) Mean Corpuscular Hemoglobin 32 pg (25-35) 32 pg (25-35) Mean Corpuscular Hemoglobin Concent 33 g/dL (31-37) 33 g/dL (31-37) Red Cell Distribution Width 17.0 % (11.5-14.5) 16.9 % (11.5-14.5) Platelet Count 196 x10^3/uL (140-400) 180 x10^3/uL (140-400) Neutrophils (%) (Auto) 74 % (31-73) 57 % (31-73) Lymphocytes (%) (Auto) 8 % (24-48) 15 % (24-48) Monocytes (%) (Auto) 13 % (0-9) 21 % (0-9) Eosinophils (%) (Auto) 5 % (0-3) 7 % (0-3) Basophils (%) (Auto) 0 % (0-3) 1 % (0-3) Neutrophils # (Auto) 5.9 x10^3uL (1.8-7.7) 3.5 x10^3uL (1.8-7.7) Lymphocytes # (Auto) 0.7 x10^3/uL (1.0-4.8) 0.9 x10^3/uL (1.0-4.8) Monocytes # (Auto) 1.1 x10^3/uL (0.0-1.1) 1.3 x10^3/uL (0.0-1.1) Eosinophils # (Auto) 0.4 x10^3/uL (0.0-0.7) 0.4 x10^3/uL (0.0-0.7) Basophils # (Auto) 0.0 x10^3/uL (0.0-0.2) 0.0 x10^3/uL (0.0-0.2) Sodium Level 142 mmol/L (136-145) 140 mmol/L (136-145) Potassium Level 4.3 mmol/L (3.5-5.1) 4.3 mmol/L (3.5-5.1) Chloride Level 106 mmol/L (98-107) 104 mmol/L (98-107) Carbon Dioxide Level 33 mmol/L (21-32) 30 mmol/L (21-32) Anion Gap 3 (6-14) 6 (6-14) Blood Urea Nitrogen 19 mg/dL (7-20) 16 mg/dL (7-20) Creatinine 1.0 mg/dL (0.6-1.0) 1.1 mg/dL (0.6-1.0) Estimated GFR (Cockcroft-Gault) 69.1 61.9 Glucose Level 120 mg/dL (70-99) 82 mg/dL (70-99) Calcium Level 8.9 mg/dL (8.5-10.1) 8.8 mg/dL (8.5-10.1) Segmented Neutrophils % 53 % (35-66) Band Neutrophils % 4 % (0-9) Lymphocytes % 20 % (24-48) Monocytes % 16 % (0-10) Eosinophils % 7 % (0-5) Platelet Estimate Adequate (ADEQUATE) Laboratory Tests Test 06/22/18 04:25 White Blood Count 6.2 x10^3/uL (4.0-11.0) Red Blood Count 4.59 x10^6/uL (3.50-5.40) Hemoglobin 14.7 g/dL (12.0-15.5) Hematocrit 44.9 % (36.0-47.0) Mean Corpuscular Volume 98 fL (79-100) Mean Corpuscular Hemoglobin 32 pg (25-35) Mean Corpuscular Hemoglobin Concent 33 g/dL (31-37) Red Cell Distribution Width 16.9 % (11.5-14.5) Platelet Count 180 x10^3/uL (140-400) Neutrophils (%) (Auto) 57 % (31-73) Lymphocytes (%) (Auto) 15 % (24-48) Monocytes (%) (Auto) 21 % (0-9) Eosinophils (%) (Auto) 7 % (0-3) Basophils (%) (Auto) 1 % (0-3) Neutrophils # (Auto) 3.5 x10^3uL (1.8-7.7) Lymphocytes # (Auto) 0.9 x10^3/uL (1.0-4.8) Monocytes # (Auto) 1.3 x10^3/uL (0.0-1.1) Eosinophils # (Auto) 0.4 x10^3/uL (0.0-0.7) Basophils # (Auto) 0.0 x10^3/uL (0.0-0.2) Segmented Neutrophils % 53 % (35-66) Band Neutrophils % 4 % (0-9) Lymphocytes % 20 % (24-48) Monocytes % 16 % (0-10) Eosinophils % 7 % (0-5) Platelet Estimate Adequate (ADEQUATE) Sodium Level 140 mmol/L (136-145) Potassium Level 4.3 mmol/L (3.5-5.1) Chloride Level 104 mmol/L (98-107) Carbon Dioxide Level 30 mmol/L (21-32) Anion Gap 6 (6-14) Blood Urea Nitrogen 16 mg/dL (7-20) Creatinine 1.1 mg/dL (0.6-1.0) Estimated GFR (Cockcroft-Gault) 61.9 Glucose Level 82 mg/dL (70-99) Calcium Level 8.8 mg/dL (8.5-10.1) Microbiology 06/19/18 Urine Culture - Final, Complete 06/19/18 Urine Culture Result 1 (SHAKIRA) - Final, Complete Medications Current Medications Naloxone HCl (Narcan) 1 mg 1X ONCE IV Last administered on 06/19/18at 01:08; Start 06/19/18 at 01:15; Stop 06/19/18 at 01:16; Status DC Naloxone HCl 2 mg/ Dextrose 502 ml @ 251 mls/hr 1X ONCE IV Last administered on 06/19/18at 01:28; Start 06/19/18 at 01:30; Stop 06/19/18 at 03:29; Status DC Piperacillin Sod/ Tazobactam Sod 3.375 gm/Sodium Chloride 50 ml @ 100 mls/hr 1X ONCE IV Last administered on 06/19/18at 03:30; Start 06/19/18 at 03:30; Stop 06/19/18 at 03:59; Status DC Vancomycin HCl 250 ml @ 250 mls/hr 1X ONCE IV ; Start 06/19/18 at 03:15; Stop 06/19/18 at 04:14; Status UNV Vancomycin HCl 2 gm/Sodium Chloride 500 ml @ 250 mls/hr 1X ONCE IV Last administered on 06/19/18at 03:51; Start 06/19/18 at 04:00; Stop 06/19/18 at 05:59 ; Status DC Naloxone HCl 2 mg/ Dextrose 502 ml @ 251 mls/hr 1X ONCE IV Last administered on 06/19/18at 03:50; Start 06/19/18 at 04:00; Stop 06/19/18 at 05:59; Status DC Naloxone HCl 2 mg/ Dextrose 1,002 ml @ 501 mls/hr 1X ONCE IV ; Start 06/19/18 at 06:00; Stop 06/19/18 at 07:59; Status Cancel Naloxone HCl 2 mg/ Dextrose 502 ml @ 251 mls/hr 1X ONCE IV Last administered on 06/19/18at 05:50; Start 06/19/18 at 06:00; Stop 06/19/18 at 07:59; Status DC Naloxone HCl 2 mg/ Dextrose 502 ml @ 251 mls/hr 1X ONCE IV Last administered on 06/19/18at 08:31; Start 06/19/18 at 08:30; Stop 06/19/18 at 10:29; Status DC Piperacillin Sod/ Tazobactam Sod (Zosyn Per Pharmacy) 1 each PRN DAILY PRN MC SEE COMMENTS; Start 06/19/18 at 11:45 Sodium Bicarbonate (Sodium Bicarb Adult 8.4% Syr) 50 meq 1X ONCE IV Last administered on 06/19/18at 12:29; Start 06/19/18 at 12:00; Stop 06/19/18 at 12:01 ; Status DC Piperacillin Sod/ Tazobactam Sod 3.375 gm/Sodium Chloride 50 ml @ 100 mls/hr Q6HRS IV Last administered on 06/22/18at 08:57; Start 06/19/18 at 12:00 Enoxaparin Sodium (Lovenox 60mg Syringe) 60 mg Q12HR SQ Last administered on at 08:52; Start 06/19/18 at 12:00 Albuterol/ Ipratropium (Duoneb) 3 ml RTQID NEB Last administered on 06/22/18at 11:29; Start 06/19/18 at 12:00 Duloxetine HCl (Cymbalta) 90 mg DAILY PO Last administered on 06/22/18at 08:52; Start 06/20/18 at 09:00 Carvedilol (Coreg) 25 mg BIDWMEALS PO Last administered on 06/22/18 08:54; Start 06/20/18 at 08:00 Acetaminophen (Tylenol) 650 mg PRN Q6HRS PRN PO MILD PAIN Last administered on 06/20/18at 22:15; Start 06/19/18 at 19:30 Perflutren Protein Type A Microsphe (Optison) 0.66 mg PRN 1X PRN IV SEE COMMENTS; Start 06/20/18 at 08:00; Stop 06/21/18 at 07:59; Status DC Lactobacillus Rhamnosus (Culturelle) 1 cap BID PO Last administered on at 08:51; Start 06/20/18 at 10:30 Cyclobenzaprine HCl (Flexeril) 10 mg PRN DAILY PRN PO MUSCLE PAIN Last administered on 06/21/18at 21:49; Start 06/21/18 at 00:00 Oxycodone HCl (Roxicodone) 7.5 mg PRN Q6HRS PRN PO SEVERE PAIN Last administered on 06/22/18at 09:07; Start 06/21/18 at 00:15 Active Scripts Active Oxycodone Hcl 5 Mg Tablet 7.5 Mg PO PRN Q6-8HRS PRN 7 Days Reported Coreg (Carvedilol) 25 Mg Tablet 1 Tab PO BID Duloxetine Hcl 30 Mg Capsule.dr 90 Mg PO DAILY Cyclobenzaprine Hcl 10 Mg Tablet 1 Tab PO PRN DAILY PRN Vitals/I & O Vital Sign - Last 24 Hours 06/21/18 06/21/18 06/21/18 06/21/18 15:00 15:41 17:56 18:25 Temp 97.7 97.7 Pulse 79 79 Resp 20 B/P (MAP) 103/60 (74) 103/60 Pulse Ox 93 90 90 O2 Delivery Nasal Cannula Nasal Cannula Nasal Cannula O2 Flow Rate 3.0 3.0 3.0 06/21/18 06/21/18 06/21/18 06/21/18 19:39 20:00 20:00 20:16 Temp 98.4 98.4 Pulse 86 Resp 20 B/P (MAP) 102/48 (66) Pulse Ox 90 91 O2 Delivery Nasal Cannula Nasal Cannula Nasal Cannula O2 Flow Rate 2.0 3.0 3.0 2.0 06/21/18 06/22/18 06/22/18 06/22/18 23:49 00:02 03:05 03:24 Temp 98.6 98.2 98.6 98.2 Pulse 78 73 Resp 18 18 B/P (MAP) 115/49 (71) 114/65 (81) Pulse Ox 95 93 95 94 O2 Delivery Room Air BiPAP/CPAP BiPAP/CPAP Nasal Cannula O2 Flow Rate 2.0 06/22/18 06/22/18 06/22/18 06/22/18 05:02 07:48 07:50 08:00 Temp 97.9 97.9 Pulse 78 Resp 18 B/P (MAP) 141/87 (105) Pulse Ox 92 O2 Delivery BiPAP/CPAP Nasal Cannula Nasal Cannula O2 Flow Rate 2.0 2.0 2.0 06/22/18 06/22/18 06/22/18 06/22/18 08:54 09:07 10:23 11:31 Pulse 73 B/P (MAP) 114/65 Pulse Ox 94 94 96 O2 Delivery Nasal Cannula Nasal Cannula Room Air O2 Flow Rate 2.0 2.0 Intake and Output 06/21/18 06/21/18 06/22/18 15:01 23:01 07:01 Intake Total 400 ml 0 ml Balance 400 ml 0 ml ITALIA VALENCIA MD Jun 22, 2018 13:15
[2018-06-22 15:20] VITALS: BP 122/63
[2018-06-22 19:32] VITALS: BP 126/58
[2018-06-22] MEDS: CYCLOBENZAPRINE 10 MG TABLET. PO PRN (20:21)
[2018-06-23] MEDS: oxyCODONE IR 5 MG TABLET PO PRN (02:21)
[2018-06-23 03:09] VITALS: BP 100/50
[2018-06-23] MEDS: PIPERACILLIN/TAZOBACTAM 3.375 GM in IV NORMAL SALINE 50ML 50 ML IV SCH ×3 (06:24)
[2018-06-23 07:35] VITALS: BP 95/55
[2018-06-23] MEDS: IPRATRPIUM/ALBUTEROL 0.5/2.5MG 3 ML NEBU. NEB SCH ×4 (07:36→20:00)
[2018-06-23 08:01] LABS: BASO % 0 % (0-3); EOS # 0.4 x10^3/uL (0.0-0.7); EOS % 7 % (0-3); HEMATOCRIT 44.3 % (36.0-47.0); HEMOGLOBIN 14.5 g/dL (12.0-15.5); LYMPH # 0.8 x10^3/uL (1.0-4.8); LYMPH % 13 % (24-48); MEAN CORPUSCULAR HEMOGLOBIN 32 pg (25-35); MEAN CORPUSCULAR HGB CONC 33 g/dL (31-37); MEAN CORPUSCULAR VOLUME 97 fL (79-100); MONO # 1.2 x10^3/uL (0.0-1.1); MONO % 19 % (0-9); NEUT # 3.9 x10^3uL (1.8-7.7); NEUT % 61 % (31-73); PLATELET COUNT 179 x10^3/uL (140-400); RED BLOOD COUNT 4.56 x10^6/uL (3.50-5.40); RED CELL DISTRIBUTION WIDTH 16.5 % (11.5-14.5); WHITE BLOOD COUNT 6.3 x10^3/uL (4.0-11.0)
[2018-06-23 08:16] LABS: CALCIUM 8.7 mg/dL (8.5-10.1); CREATININE 1.1 mg/dL (0.6-1.0); GFR 61.9; POTASSIUM 3.8 mmol/L (3.5-5.1)
[2018-06-23] MEDS: CARVEDILOL 12.5 MG TABLET. PO SCH ×2 (09:10→18:10)
[2018-06-23] MEDS: LACTOBACILLUS RHAMNOSUS GG 1 CAPSULE. PO SCH ×2 (09:11→20:50)
[2018-06-23] MEDS: DULoxetine HCL 30 MG CAPSULE.DR PO SCH (09:11)
--- NOTE | 2018-06-23 10:59 | PDOC ---
PROGRESS NOTES Chief Complaint Chief Complaint Medical Problems: -Acute Hypoxic and Hypercapnic Respiratory Failure -Acute Toxic Encephalopathy -COPD -Obstructive Sleep Apnea/Obesity Hypoventilation Syndrome. -Lactic Acidosis -Narcotic OD -Alcohol Intoxication -alcohol abuse taper and stop all narcotics, rec no narcotics on discharge stop alcohol use completely nneds home health, roller walker with seat on d/c History of Present Illness History of Present Illness discussed danger of sedating effect of medication, she agrees to continue current dose , offered rehab does not want that but would like to increase activity today Vitals Vitals Vital Signs Date Time Temp Pulse Resp B/P (MAP) Pulse Ox O2 Delivery O2 Flow Rate FiO2 06/23/18 09:10 84 95/55 06/23/18 07:40 98 Room Air 06/23/18 07:35 98.1 22 2.0 98.1 Physical Exam General: Alert, Oriented X3, Cooperative, No acute distress, Other (states she only takes 2-3 pain tabs a day) Heart: Regular rate, Normal S1, Normal S2, No murmurs, Other (distant) Lungs: Clear, Other Abdomen: Normal bowel sounds, Soft, No tenderness, No masses, Other (obese abdomen; difficult to examine) Extremities: No clubbing, No cyanosis, No edema, Normal pulses, No tenderness/ swelling Skin: No rashes, No breakdown, No significant lesion Labs LABS Laboratory Tests Test 06/23/18 07:20 White Blood Count 6.3 x10^3/uL (4.0-11.0) Red Blood Count 4.56 x10^6/uL (3.50-5.40) Hemoglobin 14.5 g/dL (12.0-15.5) Hematocrit 44.3 % (36.0-47.0) Mean Corpuscular Volume 97 fL (79-100) Mean Corpuscular Hemoglobin 32 pg (25-35) Mean Corpuscular Hemoglobin Concent 33 g/dL (31-37) Red Cell Distribution Width 16.5 % (11.5-14.5) Platelet Count 179 x10^3/uL (140-400) Neutrophils (%) (Auto) 61 % (31-73) Lymphocytes (%) (Auto) 13 % (24-48) Monocytes (%) (Auto) 19 % (0-9) Eosinophils (%) (Auto) 7 % (0-3) Basophils (%) (Auto) 0 % (0-3) Neutrophils # (Auto) 3.9 x10^3uL (1.8-7.7) Lymphocytes # (Auto) 0.8 x10^3/uL (1.0-4.8) Monocytes # (Auto) 1.2 x10^3/uL (0.0-1.1) Eosinophils # (Auto) 0.4 x10^3/uL (0.0-0.7) Basophils # (Auto) 0.0 x10^3/uL (0.0-0.2) Sodium Level 144 mmol/L (136-145) Potassium Level 3.8 mmol/L (3.5-5.1) Chloride Level 104 mmol/L (98-107) Carbon Dioxide Level 31 mmol/L (21-32) Anion Gap 9 (6-14) Blood Urea Nitrogen 15 mg/dL (7-20) Creatinine 1.1 mg/dL (0.6-1.0) Estimated GFR (Cockcroft-Gault) 61.9 Glucose Level 116 mg/dL (70-99) Calcium Level 8.7 mg/dL (8.5-10.1) Assessment and Plan Assessmemt and Plan Problems Medical Problems: (1) Acute on chronic respiratory failure Status: Acute (2) Opiate overdose Status: Acute (3) Pneumonia Status: Acute Goal 1 Assessment * Appropriate - Continue Goal 2 - Transfers Assistance Required * Independent Goal 2 - Transfer Type * Sit to Stand Goal 2 Assessment * Appropriate - Continue Goal 3 - Ambulation Assistance Required * Independent Goal 3 - Ambulation Distance * 100' Goal 3 - Ambulation Device * Roller Walker Goal 3 Assessment * Appropriate - Continue Treatment Plan * Therapeutic Exercise * Bed Mobility Training * Transfer training * Gait Training * Dynamic Balance Training Frequency of Treatment Expected * 7 visits/week Duration of Treatment Expected * 2 weeks Discharge Recommendations * Home with Assistance * Home with Home Health Discharge Recommendation - DME * 4 wheeled walker Discharge Recommendation Comments * patient would benefit from bariatric roller walker with seat Comment Review of Relevant I have reviewed the following items chicho (where applicable) has been applied. Labs Laboratory Tests Test 06/22/18 04:25 06/23/18 07:20 White Blood Count 6.2 x10^3/uL (4.0-11.0) 6.3 x10^3/uL (4.0-11.0) Red Blood Count 4.59 x10^6/uL (3.50-5.40) 4.56 x10^6/uL (3.50-5.40) Hemoglobin 14.7 g/dL (12.0-15.5) 14.5 g/dL (12.0-15.5) Hematocrit 44.9 % (36.0-47.0) 44.3 % (36.0-47.0) Mean Corpuscular Volume 98 fL (79-100) 97 fL (79-100) Mean Corpuscular Hemoglobin 32 pg (25-35) 32 pg (25-35) Mean Corpuscular Hemoglobin Concent 33 g/dL (31-37) 33 g/dL (31-37) Red Cell Distribution Width 16.9 % (11.5-14.5) 16.5 % (11.5-14.5) Platelet Count 180 x10^3/uL (140-400) 179 x10^3/uL (140-400) Neutrophils (%) (Auto) 57 % (31-73) 61 % (31-73) Lymphocytes (%) (Auto) 15 % (24-48) 13 % (24-48) Monocytes (%) (Auto) 21 % (0-9) 19 % (0-9) Eosinophils (%) (Auto) 7 % (0-3) 7 % (0-3) Basophils (%) (Auto) 1 % (0-3) 0 % (0-3) Neutrophils # (Auto) 3.5 x10^3uL (1.8-7.7) 3.9 x10^3uL (1.8-7.7) Lymphocytes # (Auto) 0.9 x10^3/uL (1.0-4.8) 0.8 x10^3/uL (1.0-4.8) Monocytes # (Auto) 1.3 x10^3/uL (0.0-1.1) 1.2 x10^3/uL (0.0-1.1) Eosinophils # (Auto) 0.4 x10^3/uL (0.0-0.7) 0.4 x10^3/uL (0.0-0.7) Basophils # (Auto) 0.0 x10^3/uL (0.0-0.2) 0.0 x10^3/uL (0.0-0.2) Segmented Neutrophils % 53 % (35-66) Band Neutrophils % 4 % (0-9) Lymphocytes % 20 % (24-48) Monocytes % 16 % (0-10) Eosinophils % 7 % (0-5) Platelet Estimate Adequate (ADEQUATE) Sodium Level 140 mmol/L (136-145) 144 mmol/L (136-145) Potassium Level 4.3 mmol/L (3.5-5.1) 3.8 mmol/L (3.5-5.1) Chloride Level 104 mmol/L (98-107) 104 mmol/L (98-107) Carbon Dioxide Level 30 mmol/L (21-32) 31 mmol/L (21-32) Anion Gap 6 (6-14) 9 (6-14) Blood Urea Nitrogen 16 mg/dL (7-20) 15 mg/dL (7-20) Creatinine 1.1 mg/dL (0.6-1.0) 1.1 mg/dL (0.6-1.0) Estimated GFR (Cockcroft-Gault) 61.9 61.9 Glucose Level 82 mg/dL (70-99) 116 mg/dL (70-99) Calcium Level 8.8 mg/dL (8.5-10.1) 8.7 mg/dL (8.5-10.1) Laboratory Tests Test 06/23/18 07:20 White Blood Count 6.3 x10^3/uL (4.0-11.0) Red Blood Count 4.56 x10^6/uL (3.50-5.40) Hemoglobin 14.5 g/dL (12.0-15.5) Hematocrit 44.3 % (36.0-47.0) Mean Corpuscular Volume 97 fL (79-100) Mean Corpuscular Hemoglobin 32 pg (25-35) Mean Corpuscular Hemoglobin Concent 33 g/dL (31-37) Red Cell Distribution Width 16.5 % (11.5-14.5) Platelet Count 179 x10^3/uL (140-400) Neutrophils (%) (Auto) 61 % (31-73) Lymphocytes (%) (Auto) 13 % (24-48) Monocytes (%) (Auto) 19 % (0-9) Eosinophils (%) (Auto) 7 % (0-3) Basophils (%) (Auto) 0 % (0-3) Neutrophils # (Auto) 3.9 x10^3uL (1.8-7.7) Lymphocytes # (Auto) 0.8 x10^3/uL (1.0-4.8) Monocytes # (Auto) 1.2 x10^3/uL (0.0-1.1) Eosinophils # (Auto) 0.4 x10^3/uL (0.0-0.7) Basophils # (Auto) 0.0 x10^3/uL (0.0-0.2) Sodium Level 144 mmol/L (136-145) Potassium Level 3.8 mmol/L (3.5-5.1) Chloride Level 104 mmol/L (98-107) Carbon Dioxide Level 31 mmol/L (21-32) Anion Gap 9 (6-14) Blood Urea Nitrogen 15 mg/dL (7-20) Creatinine 1.1 mg/dL (0.6-1.0) Estimated GFR (Cockcroft-Gault) 61.9 Glucose Level 116 mg/dL (70-99) Calcium Level 8.7 mg/dL (8.5-10.1) Microbiology 06/19/18 Urine Culture - Final, Complete 06/19/18 Urine Culture Result 1 (SHAKIRA) - Final, Complete Medications Current Medications Naloxone HCl (Narcan) 1 mg 1X ONCE IV Last administered on 06/19/18at 01:08; Start 06/19/18 at 01:15; Stop 06/19/18 at 01:16; Status DC Naloxone HCl 2 mg/ Dextrose 502 ml @ 251 mls/hr 1X ONCE IV Last administered on 06/19/18at 01:28; Start 06/19/18 at 01:30; Stop 06/19/18 at 03:29; Status DC Piperacillin Sod/ Tazobactam Sod 3.375 gm/Sodium Chloride 50 ml @ 100 mls/hr 1X ONCE IV Last administered on 06/19/18at 03:30; Start 06/19/18 at 03:30; Stop 06/19/18 at 03:59; Status DC Vancomycin HCl 250 ml @ 250 mls/hr 1X ONCE IV ; Start 06/19/18 at 03:15; Stop 06/19/18 at 04:14; Status UNV Vancomycin HCl 2 gm/Sodium Chloride 500 ml @ 250 mls/hr 1X ONCE IV Last administered on 06/19/18at 03:51; Start 06/19/18 at 04:00; Stop 06/19/18 at 05:59 ; Status DC Naloxone HCl 2 mg/ Dextrose 502 ml @ 251 mls/hr 1X ONCE IV Last administered on 06/19/18at 03:50; Start 06/19/18 at 04:00; Stop 06/19/18 at 05:59; Status DC Naloxone HCl 2 mg/ Dextrose 1,002 ml @ 501 mls/hr 1X ONCE IV ; Start 06/19/18 at 06:00; Stop 06/19/18 at 07:59; Status Cancel Naloxone HCl 2 mg/ Dextrose 502 ml @ 251 mls/hr 1X ONCE IV Last administered on 06/19/18at 05:50; Start 06/19/18 at 06:00; Stop 06/19/18 at 07:59; Status DC Naloxone HCl 2 mg/ Dextrose 502 ml @ 251 mls/hr 1X ONCE IV Last administered on 06/19/18at 08:31; Start 06/19/18 at 08:30; Stop 06/19/18 at 10:29; Status DC Piperacillin Sod/ Tazobactam Sod (Zosyn Per Pharmacy) 1 each PRN DAILY PRN MC SEE COMMENTS; Start 06/19/18 at 11:45 Sodium Bicarbonate (Sodium Bicarb Adult 8.4% Syr) 50 meq 1X ONCE IV Last administered on 06/19/18at 12:29; Start 06/19/18 at 12:00; Stop 06/19/18 at 12:01 ; Status DC Piperacillin Sod/ Tazobactam Sod 3.375 gm/Sodium Chloride 50 ml @ 100 mls/hr Q6HRS IV Last administered on 06/23/18at 06:24; Start 06/19/18 at 12:00 Enoxaparin Sodium (Lovenox 60mg Syringe) 60 mg Q12HR SQ Last administered on at 20:13; Start 06/19/18 at 12:00 Albuterol/ Ipratropium (Duoneb) 3 ml RTQID NEB Last administered on 06/23/18 07:39; Start 06/19/18 at 12:00 Duloxetine HCl (Cymbalta) 90 mg DAILY PO Last administered on 06/23/18 09:11; Start 06/20/18 at 09:00 Carvedilol (Coreg) 25 mg BIDWMEALS PO Last administered on 06/23/18 09:10; Start 06/20/18 at 08:00 Acetaminophen (Tylenol) 650 mg PRN Q6HRS PRN PO MILD PAIN Last administered on 06/20/18at 22:15; Start 06/19/18 at 19:30 Perflutren Protein Type A Microsphe (Optison) 0.66 mg PRN 1X PRN IV SEE COMMENTS; Start 06/20/18 at 08:00; Stop 06/21/18 at 07:59; Status DC Lactobacillus Rhamnosus (Culturelle) 1 cap BID PO Last administered on 09:11; Start 06/20/18 at 10:30 Cyclobenzaprine HCl (Flexeril) 10 mg PRN DAILY PRN PO MUSCLE PAIN Last administered on 06/22/18 20:21; Start 06/21/18 at 00:00 Oxycodone HCl (Roxicodone) 7.5 mg PRN Q6HRS PRN PO SEVERE PAIN Last administered on 06/23/18 02:21; Start 06/21/18 at 00:15 Active Scripts Active Oxycodone Hcl 5 Mg Tablet 7.5 Mg PO PRN Q6-8HRS PRN 7 Days Reported Coreg (Carvedilol) 25 Mg Tablet 1 Tab PO BID Duloxetine Hcl 30 Mg Capsule.dr 90 Mg PO DAILY Cyclobenzaprine Hcl 10 Mg Tablet 1 Tab PO PRN DAILY PRN Vitals/I & O Vital Sign - Last 24 Hours 06/22/18 06/22/18 06/22/18 06/22/18 11:31 15:20 15:25 17:21 Temp 98.4 98.4 Pulse 86 86 Resp 16 B/P (MAP) 122/63 (82) 122/63 Pulse Ox 96 100 100 O2 Delivery Room Air Nasal Cannula Room Air O2 Flow Rate 2.0 06/22/18 06/22/18 06/22/18 06/22/18 19:24 19:32 20:10 20:21 Temp 98.7 98.7 Pulse 89 Resp 18 20 B/P (MAP) 126/58 (80) Pulse Ox 94 O2 Delivery Room Air Room Air Nasal Cannula Room Air 06/22/18 06/23/18 06/23/18 06/23/18 23:43 01:28 02:21 03:09 Temp 98.5 98.5 Pulse 86 Resp 20 B/P (MAP) 100/50 (67) Pulse Ox 95 95 93 O2 Delivery BiPAP/CPAP BiPAP/CPAP Nasal Cannula Nasal Cannula O2 Flow Rate 2.0 2.0 06/23/18 06/23/18 06/23/18 06/23/18 03:21 07:35 07:40 09:10 Temp 98.1 98.1 Pulse 84 84 Resp 22 B/P (MAP) 95/55 (68) 95/55 Pulse Ox 95 99 98 O2 Delivery Nasal Cannula Nasal Cannula Room Air O2 Flow Rate 2.0 2.0 Intake and Output 06/22/18 06/22/18 06/23/18 15:01 23:01 07:01 Intake Total 240 ml 1000 ml Output Total 300 ml Balance -60 ml 1000 ml JALYN CORTES MD Jun 23, 2018 10:59
[2018-06-23] MEDS ORDERED: oxyCODONE IR 5 MG TABLET PO PRN (11:15)
[2018-06-23 11:59] VITALS: BP 125/67
--- NOTE | 2018-06-23 13:04 | PDOC ---
PULMONARY PROGRESS NOTES Subjective no soa Vitals Vital Signs Date Time Temp Pulse Resp B/P (MAP) Pulse Ox O2 Delivery O2 Flow Rate FiO2 06/23/18 11:59 99.2 87 20 125/67 (86) 100 Nasal Cannula 2.0 99.2 General: Alert, No acute distress Lungs: Clear Cardiovascular: S1, S2 Abdomen: Soft, Non-tender, Other (obese) Extremities: Other (1+edema) Labs Laboratory Tests Test 06/22/18 04:25 06/23/18 07:20 White Blood Count 6.2 x10^3/uL (4.0-11.0) 6.3 x10^3/uL (4.0-11.0) Red Blood Count 4.59 x10^6/uL (3.50-5.40) 4.56 x10^6/uL (3.50-5.40) Hemoglobin 14.7 g/dL (12.0-15.5) 14.5 g/dL (12.0-15.5) Hematocrit 44.9 % (36.0-47.0) 44.3 % (36.0-47.0) Mean Corpuscular Volume 98 fL (79-100) 97 fL (79-100) Mean Corpuscular Hemoglobin 32 pg (25-35) 32 pg (25-35) Mean Corpuscular Hemoglobin Concent 33 g/dL (31-37) 33 g/dL (31-37) Red Cell Distribution Width 16.9 % (11.5-14.5) 16.5 % (11.5-14.5) Platelet Count 180 x10^3/uL (140-400) 179 x10^3/uL (140-400) Neutrophils (%) (Auto) 57 % (31-73) 61 % (31-73) Lymphocytes (%) (Auto) 15 % (24-48) 13 % (24-48) Monocytes (%) (Auto) 21 % (0-9) 19 % (0-9) Eosinophils (%) (Auto) 7 % (0-3) 7 % (0-3) Basophils (%) (Auto) 1 % (0-3) 0 % (0-3) Neutrophils # (Auto) 3.5 x10^3uL (1.8-7.7) 3.9 x10^3uL (1.8-7.7) Lymphocytes # (Auto) 0.9 x10^3/uL (1.0-4.8) 0.8 x10^3/uL (1.0-4.8) Monocytes # (Auto) 1.3 x10^3/uL (0.0-1.1) 1.2 x10^3/uL (0.0-1.1) Eosinophils # (Auto) 0.4 x10^3/uL (0.0-0.7) 0.4 x10^3/uL (0.0-0.7) Basophils # (Auto) 0.0 x10^3/uL (0.0-0.2) 0.0 x10^3/uL (0.0-0.2) Segmented Neutrophils % 53 % (35-66) Band Neutrophils % 4 % (0-9) Lymphocytes % 20 % (24-48) Monocytes % 16 % (0-10) Eosinophils % 7 % (0-5) Platelet Estimate Adequate (ADEQUATE) Sodium Level 140 mmol/L (136-145) 144 mmol/L (136-145) Potassium Level 4.3 mmol/L (3.5-5.1) 3.8 mmol/L (3.5-5.1) Chloride Level 104 mmol/L (98-107) 104 mmol/L (98-107) Carbon Dioxide Level 30 mmol/L (21-32) 31 mmol/L (21-32) Anion Gap 6 (6-14) 9 (6-14) Blood Urea Nitrogen 16 mg/dL (7-20) 15 mg/dL (7-20) Creatinine 1.1 mg/dL (0.6-1.0) 1.1 mg/dL (0.6-1.0) Estimated GFR (Cockcroft-Gault) 61.9 61.9 Glucose Level 82 mg/dL (70-99) 116 mg/dL (70-99) Calcium Level 8.8 mg/dL (8.5-10.1) 8.7 mg/dL (8.5-10.1) Laboratory Tests Test 06/23/18 07:20 White Blood Count 6.3 x10^3/uL (4.0-11.0) Red Blood Count 4.56 x10^6/uL (3.50-5.40) Hemoglobin 14.5 g/dL (12.0-15.5) Hematocrit 44.3 % (36.0-47.0) Mean Corpuscular Volume 97 fL (79-100) Mean Corpuscular Hemoglobin 32 pg (25-35) Mean Corpuscular Hemoglobin Concent 33 g/dL (31-37) Red Cell Distribution Width 16.5 % (11.5-14.5) Platelet Count 179 x10^3/uL (140-400) Neutrophils (%) (Auto) 61 % (31-73) Lymphocytes (%) (Auto) 13 % (24-48) Monocytes (%) (Auto) 19 % (0-9) Eosinophils (%) (Auto) 7 % (0-3) Basophils (%) (Auto) 0 % (0-3) Neutrophils # (Auto) 3.9 x10^3uL (1.8-7.7) Lymphocytes # (Auto) 0.8 x10^3/uL (1.0-4.8) Monocytes # (Auto) 1.2 x10^3/uL (0.0-1.1) Eosinophils # (Auto) 0.4 x10^3/uL (0.0-0.7) Basophils # (Auto) 0.0 x10^3/uL (0.0-0.2) Sodium Level 144 mmol/L (136-145) Potassium Level 3.8 mmol/L (3.5-5.1) Chloride Level 104 mmol/L (98-107) Carbon Dioxide Level 31 mmol/L (21-32) Anion Gap 9 (6-14) Blood Urea Nitrogen 15 mg/dL (7-20) Creatinine 1.1 mg/dL (0.6-1.0) Estimated GFR (Cockcroft-Gault) 61.9 Glucose Level 116 mg/dL (70-99) Calcium Level 8.7 mg/dL (8.5-10.1) Medications Active Scripts Medications Dose Route/Sig Max Daily Dose Days Date Category Coreg (Carvedilol) 25 Mg Tablet 1 Tab PO BID 06/19/18 Reported Oxycodone Hcl 5 Mg Tablet 7.5 Mg PO PRN Q6-8HRS PRN 7 04/02/17 Rx Duloxetine Hcl 30 Mg Capsule.dr 90 Mg PO DAILY 12/20/16 Reported Cyclobenzaprine Hcl 10 Mg Tablet 1 Tab PO PRN DAILY PRN 12/22/14 Reported Impression . 1. Acute hypoxic and hypercapnic respiratory failure secondary to narcotic overdose along with alcohol intoxication in a patient who has underlying COPD , morbid obesity and suspected obesity hypoventilation syndrome. 2. Acute toxic encephalopathy, clinically improved. 3. Underlying chronic obstructive pulmonary disease. 4. Abnormal chest x-ray with bilateral infiltrates, clinical picture more compatible with pneumonia. 5. Obstructive sleep apnea/obesity hypoventilation syndrome. 6. Lactic acidosis related to hypoperfusion, less likely sepsis, it is now resolved with hydration. Plan . 1. Continue with present nasal canula. 2. Smoking cessation counseling provided along with counseling for alcohol cessation. 3. dc Lorna. repeat cxr today. change to PO augmentin 4. Bronchodilators to continue. 5. Deep venous thrombosis prophylaxis. 6. Resume home CPAP settings at nighttime. 7. can go home if cxr improves FATIMAH ZELAYA MD Jun 23, 2018 13:04
[2018-06-23 15:16] VITALS: BP 124/70
--- NOTE | 2018-06-23 16:42 | RAD ---
Portable chest, 06/23/2018: HISTORY: Pneumonia Comparison is made to a study from March 19, 2018. The heart is enlarged. Perihilar opacities have largely cleared with better definition of the underlying pulmonary vascularity. No new pulmonary abnormality is seen. There is no evidence of pleural fluid. Moderate arthritic change is evident at the left shoulder. IMPRESSION: Cardiomegaly with resolving perihilar infiltrates. Electronically signed by: Matt Zaragoza MD (06/23/2018 4:37 PM) [facility]
[2018-06-23] MEDS: AMOXICILLIN/K CLAV 875/125MG TABLET. PO SCH ×2 (18:09→20:49)
[2018-06-23 19:20] VITALS: BP 154/73
[2018-06-23] MEDS: CYCLOBENZAPRINE 10 MG TABLET. PO PRN (20:49)
[2018-06-23 23:15] VITALS: BP 131/68
[2018-06-24 03:15] VITALS: BP 132/70
[2018-06-24 05:02] LABS: BASO % 1 % (0-3); EOS # 0.4 x10^3/uL (0.0-0.7); EOS % 9 % (0-3); HEMATOCRIT 44.1 % (36.0-47.0); HEMOGLOBIN 14.5 g/dL (12.0-15.5); LYMPH % 22 % (24-48); MEAN CORPUSCULAR HEMOGLOBIN 32 pg (25-35); MEAN CORPUSCULAR HGB CONC 33 g/dL (31-37); MEAN CORPUSCULAR VOLUME 97 fL (79-100); MONO % 23 % (0-9); NEUT % 46 % (31-73); PLATELET COUNT 181 x10^3/uL (140-400); RED BLOOD COUNT 4.57 x10^6/uL (3.50-5.40); RED CELL DISTRIBUTION WIDTH 16.8 % (11.5-14.5); WHITE BLOOD COUNT 4.4 x10^3/uL (4.0-11.0)
[2018-06-24 05:26] LABS: CALCIUM 8.9 mg/dL (8.5-10.1); CREATININE 0.9 mg/dL (0.6-1.0); GFR 78.1; POTASSIUM 3.6 mmol/L (3.5-5.1)
[2018-06-24 07:41] VITALS: BP 116/57
[2018-06-24] MEDS: IPRATRPIUM/ALBUTEROL 0.5/2.5MG 3 ML NEBU. NEB SCH ×3 (08:42→15:37)
[2018-06-24] MEDS: LACTOBACILLUS RHAMNOSUS GG 1 CAPSULE. PO SCH (11:18)
[2018-06-24] MEDS: CARVEDILOL 12.5 MG TABLET. PO SCH ×2 (11:18→17:20)
[2018-06-24] MEDS: ACETAMINOPHEN 325 MG TABLET. PO PRN (11:19)
[2018-06-24] MEDS: AMOXICILLIN/K CLAV 875/125MG TABLET. PO SCH (11:19)
[2018-06-24] MEDS: DULoxetine HCL 30 MG CAPSULE.DR PO SCH (11:19)
[2018-06-24 11:29] VITALS: BP 149/78
--- NOTE | 2018-06-24 11:29 | PDOC ---
PROGRESS NOTES Chief Complaint Chief Complaint Medical Problems: -Acute Hypoxic and Hypercapnic Respiratory Failure -Acute Toxic Encephalopathy -COPD -Obstructive Sleep Apnea/Obesity Hypoventilation Syndrome. -Lactic Acidosis -Narcotic OD -Alcohol Intoxication -alcohol abuse taper and stop all narcotics, rec no narcotics on discharge stop alcohol use completely nEeds home health, roller walker with seat on d/c CPAP WITH ALL SLEEP AUGMENTIN ON D/C History of Present Illness History of Present Illness discussed danger of sedating effect of medication, she agrees to continue current dose , offered rehab does not want that but would like to increase activity today Vitals Vitals Vital Signs Date Time Temp Pulse Resp B/P (MAP) Pulse Ox O2 Delivery O2 Flow Rate FiO2 06/24/18 11:18 77 116/57 06/24/18 08:44 96 Room Air 06/24/18 07:41 97.5 20 97.5 06/23/18 20:49 2.0 Physical Exam General: Alert, Oriented X3, Cooperative, No acute distress, Other (states she only takes 2-3 pain tabs a day) Heart: Regular rate, Normal S1, Normal S2, No murmurs, Other (distant) Lungs: Clear Abdomen: Normal bowel sounds, Soft, No tenderness, No masses, Other (obese abdomen; difficult to examine) Extremities: No clubbing, No cyanosis, No edema, Normal pulses, No tenderness/ swelling Skin: No rashes, No breakdown, No significant lesion Labs LABS Laboratory Tests Test 06/24/18 02:50 White Blood Count 4.4 x10^3/uL (4.0-11.0) Red Blood Count 4.57 x10^6/uL (3.50-5.40) Hemoglobin 14.5 g/dL (12.0-15.5) Hematocrit 44.1 % (36.0-47.0) Mean Corpuscular Volume 97 fL (79-100) Mean Corpuscular Hemoglobin 32 pg (25-35) Mean Corpuscular Hemoglobin Concent 33 g/dL (31-37) Red Cell Distribution Width 16.8 % (11.5-14.5) Platelet Count 181 x10^3/uL (140-400) Neutrophils (%) (Auto) 46 % (31-73) Lymphocytes (%) (Auto) 22 % (24-48) Monocytes (%) (Auto) 23 % (0-9) Eosinophils (%) (Auto) 9 % (0-3) Basophils (%) (Auto) 1 % (0-3) Neutrophils # (Auto) 2.0 x10^3uL (1.8-7.7) Lymphocytes # (Auto) 1.0 x10^3/uL (1.0-4.8) Monocytes # (Auto) 1.0 x10^3/uL (0.0-1.1) Eosinophils # (Auto) 0.4 x10^3/uL (0.0-0.7) Basophils # (Auto) 0.0 x10^3/uL (0.0-0.2) Sodium Level 142 mmol/L (136-145) Potassium Level 3.6 mmol/L (3.5-5.1) Chloride Level 103 mmol/L (98-107) Carbon Dioxide Level 34 mmol/L (21-32) Anion Gap 5 (6-14) Blood Urea Nitrogen 13 mg/dL (7-20) Creatinine 0.9 mg/dL (0.6-1.0) Estimated GFR (Cockcroft-Gault) 78.1 Glucose Level 88 mg/dL (70-99) Calcium Level 8.9 mg/dL (8.5-10.1) Assessment and Plan Assessmemt and Plan Problems Medical Problems: (1) Acute on chronic respiratory failure Status: Acute (2) Opiate overdose Status: Acute (3) Pneumonia Status: Acute Comment Review of Relevant I have reviewed the following items chicho (where applicable) has been applied. Labs Laboratory Tests Test 06/23/18 07:20 06/24/18 02:50 White Blood Count 6.3 x10^3/uL (4.0-11.0) 4.4 x10^3/uL (4.0-11.0) Red Blood Count 4.56 x10^6/uL (3.50-5.40) 4.57 x10^6/uL (3.50-5.40) Hemoglobin 14.5 g/dL (12.0-15.5) 14.5 g/dL (12.0-15.5) Hematocrit 44.3 % (36.0-47.0) 44.1 % (36.0-47.0) Mean Corpuscular Volume 97 fL (79-100) 97 fL (79-100) Mean Corpuscular Hemoglobin 32 pg (25-35) 32 pg (25-35) Mean Corpuscular Hemoglobin Concent 33 g/dL (31-37) 33 g/dL (31-37) Red Cell Distribution Width 16.5 % (11.5-14.5) 16.8 % (11.5-14.5) Platelet Count 179 x10^3/uL (140-400) 181 x10^3/uL (140-400) Neutrophils (%) (Auto) 61 % (31-73) 46 % (31-73) Lymphocytes (%) (Auto) 13 % (24-48) 22 % (24-48) Monocytes (%) (Auto) 19 % (0-9) 23 % (0-9) Eosinophils (%) (Auto) 7 % (0-3) 9 % (0-3) Basophils (%) (Auto) 0 % (0-3) 1 % (0-3) Neutrophils # (Auto) 3.9 x10^3uL (1.8-7.7) 2.0 x10^3uL (1.8-7.7) Lymphocytes # (Auto) 0.8 x10^3/uL (1.0-4.8) 1.0 x10^3/uL (1.0-4.8) Monocytes # (Auto) 1.2 x10^3/uL (0.0-1.1) 1.0 x10^3/uL (0.0-1.1) Eosinophils # (Auto) 0.4 x10^3/uL (0.0-0.7) 0.4 x10^3/uL (0.0-0.7) Basophils # (Auto) 0.0 x10^3/uL (0.0-0.2) 0.0 x10^3/uL (0.0-0.2) Sodium Level 144 mmol/L (136-145) 142 mmol/L (136-145) Potassium Level 3.8 mmol/L (3.5-5.1) 3.6 mmol/L (3.5-5.1) Chloride Level 104 mmol/L (98-107) 103 mmol/L (98-107) Carbon Dioxide Level 31 mmol/L (21-32) 34 mmol/L (21-32) Anion Gap 9 (6-14) 5 (6-14) Blood Urea Nitrogen 15 mg/dL (7-20) 13 mg/dL (7-20) Creatinine 1.1 mg/dL (0.6-1.0) 0.9 mg/dL (0.6-1.0) Estimated GFR (Cockcroft-Gault) 61.9 78.1 Glucose Level 116 mg/dL (70-99) 88 mg/dL (70-99) Calcium Level 8.7 mg/dL (8.5-10.1) 8.9 mg/dL (8.5-10.1) Laboratory Tests Test 06/24/18 02:50 White Blood Count 4.4 x10^3/uL (4.0-11.0) Red Blood Count 4.57 x10^6/uL (3.50-5.40) Hemoglobin 14.5 g/dL (12.0-15.5) Hematocrit 44.1 % (36.0-47.0) Mean Corpuscular Volume 97 fL (79-100) Mean Corpuscular Hemoglobin 32 pg (25-35) Mean Corpuscular Hemoglobin Concent 33 g/dL (31-37) Red Cell Distribution Width 16.8 % (11.5-14.5) Platelet Count 181 x10^3/uL (140-400) Neutrophils (%) (Auto) 46 % (31-73) Lymphocytes (%) (Auto) 22 % (24-48) Monocytes (%) (Auto) 23 % (0-9) Eosinophils (%) (Auto) 9 % (0-3) Basophils (%) (Auto) 1 % (0-3) Neutrophils # (Auto) 2.0 x10^3uL (1.8-7.7) Lymphocytes # (Auto) 1.0 x10^3/uL (1.0-4.8) Monocytes # (Auto) 1.0 x10^3/uL (0.0-1.1) Eosinophils # (Auto) 0.4 x10^3/uL (0.0-0.7) Basophils # (Auto) 0.0 x10^3/uL (0.0-0.2) Sodium Level 142 mmol/L (136-145) Potassium Level 3.6 mmol/L (3.5-5.1) Chloride Level 103 mmol/L (98-107) Carbon Dioxide Level 34 mmol/L (21-32) Anion Gap 5 (6-14) Blood Urea Nitrogen 13 mg/dL (7-20) Creatinine 0.9 mg/dL (0.6-1.0) Estimated GFR (Cockcroft-Gault) 78.1 Glucose Level 88 mg/dL (70-99) Calcium Level 8.9 mg/dL (8.5-10.1) Microbiology 06/19/18 Urine Culture - Final, Complete 06/19/18 Urine Culture Result 1 (SHAKIRA) - Final, Complete Medications Current Medications Naloxone HCl (Narcan) 1 mg 1X ONCE IV Last administered on 06/19/18at 01:08; Start 06/19/18 at 01:15; Stop 06/19/18 at 01:16; Status DC Naloxone HCl 2 mg/ Dextrose 502 ml @ 251 mls/hr 1X ONCE IV Last administered on 06/19/18at 01:28; Start 06/19/18 at 01:30; Stop 06/19/18 at 03:29; Status DC Piperacillin Sod/ Tazobactam Sod 3.375 gm/Sodium Chloride 50 ml @ 100 mls/hr 1X ONCE IV Last administered on 06/19/18at 03:30; Start 06/19/18 at 03:30; Stop 06/19/18 at 03:59; Status DC Vancomycin HCl 250 ml @ 250 mls/hr 1X ONCE IV ; Start 06/19/18 at 03:15; Stop 06/19/18 at 04:14; Status UNV Vancomycin HCl 2 gm/Sodium Chloride 500 ml @ 250 mls/hr 1X ONCE IV Last administered on 06/19/18at 03:51; Start 06/19/18 at 04:00; Stop 06/19/18 at 05:59 ; Status DC Naloxone HCl 2 mg/ Dextrose 502 ml @ 251 mls/hr 1X ONCE IV Last administered on 06/19/18at 03:50; Start 06/19/18 at 04:00; Stop 06/19/18 at 05:59; Status DC Naloxone HCl 2 mg/ Dextrose 1,002 ml @ 501 mls/hr 1X ONCE IV ; Start 06/19/18 at 06:00; Stop 06/19/18 at 07:59; Status Cancel Naloxone HCl 2 mg/ Dextrose 502 ml @ 251 mls/hr 1X ONCE IV Last administered on 06/19/18at 05:50; Start 06/19/18 at 06:00; Stop 06/19/18 at 07:59; Status DC Naloxone HCl 2 mg/ Dextrose 502 ml @ 251 mls/hr 1X ONCE IV Last administered on 06/19/18at 08:31; Start 06/19/18 at 08:30; Stop 06/19/18 at 10:29; Status DC Piperacillin Sod/ Tazobactam Sod (Zosyn Per Pharmacy) 1 each PRN DAILY PRN MC SEE COMMENTS; Start 06/19/18 at 11:45; Stop 06/23/18 at 13:06; Status DC Sodium Bicarbonate (Sodium Bicarb Adult 8.4% Syr) 50 meq 1X ONCE IV Last administered on 06/19/18at 12:29; Start 06/19/18 at 12:00; Stop 06/19/18 at 12:01 ; Status DC Piperacillin Sod/ Tazobactam Sod 3.375 gm/Sodium Chloride 50 ml @ 100 mls/hr Q6HRS IV Last administered on 06/23/18at 06:24; Start 06/19/18 at 12:00; Stop at 13:05; Status DC Enoxaparin Sodium (Lovenox 60mg Syringe) 60 mg Q12HR SQ Last administered on at 20:50; Start 06/19/18 at 12:00 Albuterol/ Ipratropium (Duoneb) 3 ml RTQID NEB Last administered on 06/24/18at 08:42; Start 06/19/18 at 12:00 Duloxetine HCl (Cymbalta) 90 mg DAILY PO Last administered on 06/24/18at 11:19; Start 06/20/18 at 09:00 Carvedilol (Coreg) 25 mg BIDWMEALS PO Last administered on 06/24/18at 11:18; Start 06/20/18 at 08:00 Acetaminophen (Tylenol) 650 mg PRN Q6HRS PRN PO MILD PAIN Last administered on 06/24/18at 11:19; Start 06/19/18 at 19:30 Perflutren Protein Type A Microsphe (Optison) 0.66 mg PRN 1X PRN IV SEE COMMENTS; Start 06/20/18 at 08:00; Stop 06/21/18 at 07:59; Status DC Lactobacillus Rhamnosus (Culturelle) 1 cap BID PO Last administered on at 11:18; Start 06/20/18 at 10:30 Cyclobenzaprine HCl (Flexeril) 10 mg PRN DAILY PRN PO MUSCLE PAIN Last administered on 06/23/18at 20:49; Start 06/21/18 at 00:00 Oxycodone HCl (Roxicodone) 7.5 mg PRN Q6HRS PRN PO SEVERE PAIN Last administered on 06/23/18at 02:21; Start 06/21/18 at 00:15; Stop 06/23/18 at 11:02 ; Status DC Oxycodone HCl (Roxicodone) 5 mg PRN Q8HRS PRN PO SEVERE PAIN Last administered on 06/23/18at 20:49; Start 06/23/18 at 11:15 Amoxicillin/ Clavulanate Potassium (Augmentin 875/ 125mg) 1 tab BID PO Last administered on 06/24/18at 11:19; Start 06/23/18 at 13:30 Active Scripts Active Oxycodone Hcl 5 Mg Tablet 7.5 Mg PO PRN Q6-8HRS PRN 7 Days Reported Coreg (Carvedilol) 25 Mg Tablet 1 Tab PO BID Duloxetine Hcl 30 Mg Capsule.dr 90 Mg PO DAILY Cyclobenzaprine Hcl 10 Mg Tablet 1 Tab PO PRN DAILY PRN Vitals/I & O Vital Sign - Last 24 Hours 06/23/18 06/23/18 06/23/18 06/23/18 11:58 11:59 15:16 16:43 Temp 99.2 98.3 99.2 98.3 Pulse 87 84 Resp 20 22 B/P (MAP) 125/67 (86) 124/70 (88) Pulse Ox 98 100 92 O2 Delivery Room Air Nasal Cannula Nasal Cannula Room Air O2 Flow Rate 2.0 2.0 06/23/18 06/23/18 06/23/18 06/23/18 18:10 19:20 20:00 20:09 Temp 98.3 98.3 Pulse 84 88 Resp 18 B/P (MAP) 124/70 154/73 (100) Pulse Ox 91 O2 Delivery Room Air Room Air Room Air 06/23/18 06/23/18 06/23/18 06/24/18 20:49 21:49 23:15 00:55 Temp 98.2 98.2 Pulse 82 Resp 18 12 18 B/P (MAP) 131/68 (89) Pulse Ox 92 92 96 O2 Delivery Room Air Room Air Room Air BiPAP/CPAP O2 Flow Rate 2.0 06/24/18 06/24/18 06/24/18 06/24/18 03:15 03:46 05:30 07:41 Temp 98.3 97.5 98.3 97.5 Pulse 84 77 Resp 18 20 B/P (MAP) 132/70 (90) 116/57 (76) Pulse Ox 95 92 O2 Delivery Room Air BiPAP/CPAP BiPAP/CPAP Room Air 06/24/18 06/24/18 08:44 11:18 Pulse 77 B/P (MAP) 116/57 Pulse Ox 96 O2 Delivery Room Air Intake and Output 06/23/18 06/23/18 06/24/18 15:00 23:00 07:00 Intake Total 880 ml 1090 ml Output Total 401 ml Balance 479 ml 1090 ml JALYN CORTES MD Jun 24, 2018 11:29
--- NOTE | 2018-06-24 12:22 | PDOC ---
PULMONARY PROGRESS NOTES Subjective no soa Vitals Vital Signs Date Time Temp Pulse Resp B/P (MAP) Pulse Ox O2 Delivery O2 Flow Rate FiO2 06/24/18 12:12 Room Air 06/24/18 11:29 97.5 84 20 149/78 (101) 97 97.5 06/23/18 20:49 2.0 General: Alert, No acute distress Lungs: Clear Cardiovascular: S1, S2 Abdomen: Soft, Non-tender, Other (obese) Extremities: Other (1+edema) Labs Laboratory Tests Test 06/23/18 07:20 06/24/18 02:50 White Blood Count 6.3 x10^3/uL (4.0-11.0) 4.4 x10^3/uL (4.0-11.0) Red Blood Count 4.56 x10^6/uL (3.50-5.40) 4.57 x10^6/uL (3.50-5.40) Hemoglobin 14.5 g/dL (12.0-15.5) 14.5 g/dL (12.0-15.5) Hematocrit 44.3 % (36.0-47.0) 44.1 % (36.0-47.0) Mean Corpuscular Volume 97 fL (79-100) 97 fL (79-100) Mean Corpuscular Hemoglobin 32 pg (25-35) 32 pg (25-35) Mean Corpuscular Hemoglobin Concent 33 g/dL (31-37) 33 g/dL (31-37) Red Cell Distribution Width 16.5 % (11.5-14.5) 16.8 % (11.5-14.5) Platelet Count 179 x10^3/uL (140-400) 181 x10^3/uL (140-400) Neutrophils (%) (Auto) 61 % (31-73) 46 % (31-73) Lymphocytes (%) (Auto) 13 % (24-48) 22 % (24-48) Monocytes (%) (Auto) 19 % (0-9) 23 % (0-9) Eosinophils (%) (Auto) 7 % (0-3) 9 % (0-3) Basophils (%) (Auto) 0 % (0-3) 1 % (0-3) Neutrophils # (Auto) 3.9 x10^3uL (1.8-7.7) 2.0 x10^3uL (1.8-7.7) Lymphocytes # (Auto) 0.8 x10^3/uL (1.0-4.8) 1.0 x10^3/uL (1.0-4.8) Monocytes # (Auto) 1.2 x10^3/uL (0.0-1.1) 1.0 x10^3/uL (0.0-1.1) Eosinophils # (Auto) 0.4 x10^3/uL (0.0-0.7) 0.4 x10^3/uL (0.0-0.7) Basophils # (Auto) 0.0 x10^3/uL (0.0-0.2) 0.0 x10^3/uL (0.0-0.2) Sodium Level 144 mmol/L (136-145) 142 mmol/L (136-145) Potassium Level 3.8 mmol/L (3.5-5.1) 3.6 mmol/L (3.5-5.1) Chloride Level 104 mmol/L (98-107) 103 mmol/L (98-107) Carbon Dioxide Level 31 mmol/L (21-32) 34 mmol/L (21-32) Anion Gap 9 (6-14) 5 (6-14) Blood Urea Nitrogen 15 mg/dL (7-20) 13 mg/dL (7-20) Creatinine 1.1 mg/dL (0.6-1.0) 0.9 mg/dL (0.6-1.0) Estimated GFR (Cockcroft-Gault) 61.9 78.1 Glucose Level 116 mg/dL (70-99) 88 mg/dL (70-99) Calcium Level 8.7 mg/dL (8.5-10.1) 8.9 mg/dL (8.5-10.1) Laboratory Tests Test 06/24/18 02:50 White Blood Count 4.4 x10^3/uL (4.0-11.0) Red Blood Count 4.57 x10^6/uL (3.50-5.40) Hemoglobin 14.5 g/dL (12.0-15.5) Hematocrit 44.1 % (36.0-47.0) Mean Corpuscular Volume 97 fL (79-100) Mean Corpuscular Hemoglobin 32 pg (25-35) Mean Corpuscular Hemoglobin Concent 33 g/dL (31-37) Red Cell Distribution Width 16.8 % (11.5-14.5) Platelet Count 181 x10^3/uL (140-400) Neutrophils (%) (Auto) 46 % (31-73) Lymphocytes (%) (Auto) 22 % (24-48) Monocytes (%) (Auto) 23 % (0-9) Eosinophils (%) (Auto) 9 % (0-3) Basophils (%) (Auto) 1 % (0-3) Neutrophils # (Auto) 2.0 x10^3uL (1.8-7.7) Lymphocytes # (Auto) 1.0 x10^3/uL (1.0-4.8) Monocytes # (Auto) 1.0 x10^3/uL (0.0-1.1) Eosinophils # (Auto) 0.4 x10^3/uL (0.0-0.7) Basophils # (Auto) 0.0 x10^3/uL (0.0-0.2) Sodium Level 142 mmol/L (136-145) Potassium Level 3.6 mmol/L (3.5-5.1) Chloride Level 103 mmol/L (98-107) Carbon Dioxide Level 34 mmol/L (21-32) Anion Gap 5 (6-14) Blood Urea Nitrogen 13 mg/dL (7-20) Creatinine 0.9 mg/dL (0.6-1.0) Estimated GFR (Cockcroft-Gault) 78.1 Glucose Level 88 mg/dL (70-99) Calcium Level 8.9 mg/dL (8.5-10.1) Medications Active Scripts Medications Dose Route/Sig Max Daily Dose Days Date Category Coreg (Carvedilol) 25 Mg Tablet 1 Tab PO BID 06/19/18 Reported Oxycodone Hcl 5 Mg Tablet 7.5 Mg PO PRN Q6-8HRS PRN 7 04/02/17 Rx Duloxetine Hcl 30 Mg Capsule.dr 90 Mg PO DAILY 12/20/16 Reported Cyclobenzaprine Hcl 10 Mg Tablet 1 Tab PO PRN DAILY PRN 12/22/14 Reported Impression . 1. Acute hypoxic and hypercapnic respiratory failure secondary to narcotic overdose along with alcohol intoxication in a patient who has underlying COPD , morbid obesity and suspected obesity hypoventilation syndrome. resolved 2. Acute toxic encephalopathy, clinically improved. 3. Underlying chronic obstructive pulmonary disease. 4. Abnormal chest x-ray with bilateral infiltrates, clinical picture more compatible with pneumonia. resolved 5. Obstructive sleep apnea/obesity hypoventilation syndrome. 6. Lactic acidosis related to hypoperfusion, less likely sepsis, it is now resolved with hydration. Plan . 1. Continue with present nasal canula. 2. Smoking cessation counseling provided along with counseling for alcohol cessation. 3. off Zosyn. repeat cxr clear. on PO augmentin 4. Bronchodilators to continue. 5. Deep venous thrombosis prophylaxis. 6. Resume home CPAP settings at nighttime. 7. ma home . will sign off FATIMAH ZELAYA MD Jun 24, 2018 12:22
--- NOTE | 2018-06-24 15:04 | PDOC3 ---
Discharge Summary Date of Admission: Jun 19, 2018 Date of Discharge: Jun 24, 2018 Follow-Up: 3-5 days Admitting Diagnosis comment: DISCHARGE DIAGNOSIS=- Chief Complaint Medical Problems: -Acute Hypoxic and Hypercapnic Respiratory Failure -Acute Toxic Encephalopathy -COPD -Obstructive Sleep Apnea/Obesity Hypoventilation Syndrome. -Lactic Acidosis -Narcotic OD -Alcohol Intoxication -alcohol abuse taper and stop all narcotics, rec no narcotics on discharge stop alcohol use completely nEeds home health, roller walker with seat on d/c CPAP WITH ALL SLEEP AUGMENTIN ON D/C History of Present Illness History of Present Illness discussed danger of sedating effect of medication, she agrees to continue current dose , offered rehab does not want that but would like to increase activity AT HOME Vitals Vitals Vital Signs Date Time Temp Pulse Resp B/P (MAP) Pulse Ox O2 Delivery O2 Flow Rate FiO2 06/24/18 11:18 77 116/57 06/24/18 08:44 96 Room Air 06/24/18 07:41 97.5 20 97.5 06/23/18 20:49 2.0 Physical Exam General: Alert, Oriented X3, Cooperative, No acute distress, Other (states she only takes 2-3 pain tabs a day) Heart: Regular rate, Normal S1, Normal S2, No murmurs, Other (distant) Lungs: Clear Abdomen: Normal bowel sounds, Soft, No tenderness, No masses, Other (obese abdomen; difficult to examine) Extremities: No clubbing, No cyanosis, No edema, Normal pulses, No tenderness/ swelling Skin: No rashes, No breakdown, No significant lesion FINAL DIAGNOSIS Problems Medical Problems: (1) Acute on chronic respiratory failure Status: Acute (2) Opiate overdose Status: Acute (3) Pneumonia Status: Acute Brief Hospital Course Ms. Fernandez is a 58 old [sex] who presented with [ ] CONDITION AT DISCHARGE: Improved Discharge Medications Current Medications Naloxone HCl (Narcan) 1 mg 1X ONCE IV Last administered on 06/19/18at 01:08; Start 06/19/18 at 01:15; Stop 06/19/18 at 01:16; Status DC Naloxone HCl 2 mg/ Dextrose 502 ml @ 251 mls/hr 1X ONCE IV Last administered on 06/19/18at 01:28; Start 06/19/18 at 01:30; Stop 06/19/18 at 03:29; Status DC Piperacillin Sod/ Tazobactam Sod 3.375 gm/Sodium Chloride 50 ml @ 100 mls/hr 1X ONCE IV Last administered on 06/19/18at 03:30; Start 06/19/18 at 03:30; Stop 06/19/18 at 03:59; Status DC Vancomycin HCl 250 ml @ 250 mls/hr 1X ONCE IV ; Start 06/19/18 at 03:15; Stop 06/19/18 at 04:14; Status UNV Vancomycin HCl 2 gm/Sodium Chloride 500 ml @ 250 mls/hr 1X ONCE IV Last administered on 06/19/18at 03:51; Start 06/19/18 at 04:00; Stop 06/19/18 at 05:59 ; Status DC Naloxone HCl 2 mg/ Dextrose 502 ml @ 251 mls/hr 1X ONCE IV Last administered on 06/19/18at 03:50; Start 06/19/18 at 04:00; Stop 06/19/18 at 05:59; Status DC Naloxone HCl 2 mg/ Dextrose 1,002 ml @ 501 mls/hr 1X ONCE IV ; Start 06/19/18 at 06:00; Stop 06/19/18 at 07:59; Status Cancel Naloxone HCl 2 mg/ Dextrose 502 ml @ 251 mls/hr 1X ONCE IV Last administered on 06/19/18at 05:50; Start 06/19/18 at 06:00; Stop 06/19/18 at 07:59; Status DC Naloxone HCl 2 mg/ Dextrose 502 ml @ 251 mls/hr 1X ONCE IV Last administered on 06/19/18at 08:31; Start 06/19/18 at 08:30; Stop 06/19/18 at 10:29; Status DC Piperacillin Sod/ Tazobactam Sod (Zosyn Per Pharmacy) 1 each PRN DAILY PRN MC SEE COMMENTS; Start 06/19/18 at 11:45; Stop 06/23/18 at 13:06; Status DC Sodium Bicarbonate (Sodium Bicarb Adult 8.4% Syr) 50 meq 1X ONCE IV Last administered on 06/19/18at 12:29; Start 06/19/18 at 12:00; Stop 06/19/18 at 12:01 ; Status DC Piperacillin Sod/ Tazobactam Sod 3.375 gm/Sodium Chloride 50 ml @ 100 mls/hr Q6HRS IV Last administered on 06/23/18 06:24; Start 06/19/18 at 12:00; Stop at 13:05; Status DC Enoxaparin Sodium (Lovenox 60mg Syringe) 60 mg Q12HR SQ Last administered on at 20:50; Start 06/19/18 at 12:00 Albuterol/ Ipratropium (Duoneb) 3 ml RTQID NEB Last administered on 06/24/18at 12:11; Start 06/19/18 at 12:00 Duloxetine HCl (Cymbalta) 90 mg DAILY PO Last administered on 06/24/18 11:19; Start 06/20/18 at 09:00 Carvedilol (Coreg) 25 mg BIDWMEALS PO Last administered on 06/24/18 11:18; Start 06/20/18 at 08:00 Acetaminophen (Tylenol) 650 mg PRN Q6HRS PRN PO MILD PAIN Last administered on 06/24/18at 11:19; Start 06/19/18 at 19:30 Perflutren Protein Type A Microsphe (Optison) 0.66 mg PRN 1X PRN IV SEE COMMENTS; Start 06/20/18 at 08:00; Stop 06/21/18 at 07:59; Status DC Lactobacillus Rhamnosus (Culturelle) 1 cap BID PO Last administered on at 11:18; Start 06/20/18 at 10:30 Cyclobenzaprine HCl (Flexeril) 10 mg PRN DAILY PRN PO MUSCLE PAIN Last administered on 06/23/18at 20:49; Start 06/21/18 at 00:00 Oxycodone HCl (Roxicodone) 7.5 mg PRN Q6HRS PRN PO SEVERE PAIN Last administered on 06/23/18at 02:21; Start 06/21/18 at 00:15; Stop 06/23/18 at 11:02 ; Status DC Oxycodone HCl (Roxicodone) 5 mg PRN Q8HRS PRN PO SEVERE PAIN Last administered on 06/23/18at 20:49; Start 06/23/18 at 11:15 Amoxicillin/ Clavulanate Potassium (Augmentin 875/ 125mg) 1 tab BID PO Last administered on 06/24/18at 11:19; Start 06/23/18 at 13:30 Active Scripts Active Oxycodone Hcl 5 Mg Tablet 7.5 Mg PO PRN Q6-8HRS PRN 7 Days Reported Coreg (Carvedilol) 25 Mg Tablet 1 Tab PO BID Duloxetine Hcl 30 Mg Capsule.dr 90 Mg PO DAILY Cyclobenzaprine Hcl 10 Mg Tablet 1 Tab PO PRN DAILY PRN Vital Signs Vital Signs Date Time Temp Pulse Resp B/P (MAP) Pulse Ox O2 Delivery O2 Flow Rate FiO2 06/24/18 12:12 Room Air 06/24/18 11:29 97.5 84 20 149/78 (101) 97 97.5 06/24/18 08:00 2.0 Labs Laboratory Tests Test 06/23/18 07:20 06/24/18 02:50 White Blood Count 6.3 x10^3/uL (4.0-11.0) 4.4 x10^3/uL (4.0-11.0) Red Blood Count 4.56 x10^6/uL (3.50-5.40) 4.57 x10^6/uL (3.50-5.40) Hemoglobin 14.5 g/dL (12.0-15.5) 14.5 g/dL (12.0-15.5) Hematocrit 44.3 % (36.0-47.0) 44.1 % (36.0-47.0) Mean Corpuscular Volume 97 fL (79-100) 97 fL (79-100) Mean Corpuscular Hemoglobin 32 pg (25-35) 32 pg (25-35) Mean Corpuscular Hemoglobin Concent 33 g/dL (31-37) 33 g/dL (31-37) Red Cell Distribution Width 16.5 % (11.5-14.5) 16.8 % (11.5-14.5) Platelet Count 179 x10^3/uL (140-400) 181 x10^3/uL (140-400) Neutrophils (%) (Auto) 61 % (31-73) 46 % (31-73) Lymphocytes (%) (Auto) 13 % (24-48) 22 % (24-48) Monocytes (%) (Auto) 19 % (0-9) 23 % (0-9) Eosinophils (%) (Auto) 7 % (0-3) 9 % (0-3) Basophils (%) (Auto) 0 % (0-3) 1 % (0-3) Neutrophils # (Auto) 3.9 x10^3uL (1.8-7.7) 2.0 x10^3uL (1.8-7.7) Lymphocytes # (Auto) 0.8 x10^3/uL (1.0-4.8) 1.0 x10^3/uL (1.0-4.8) Monocytes # (Auto) 1.2 x10^3/uL (0.0-1.1) 1.0 x10^3/uL (0.0-1.1) Eosinophils # (Auto) 0.4 x10^3/uL (0.0-0.7) 0.4 x10^3/uL (0.0-0.7) Basophils # (Auto) 0.0 x10^3/uL (0.0-0.2) 0.0 x10^3/uL (0.0-0.2) Sodium Level 144 mmol/L (136-145) 142 mmol/L (136-145) Potassium Level 3.8 mmol/L (3.5-5.1) 3.6 mmol/L (3.5-5.1) Chloride Level 104 mmol/L (98-107) 103 mmol/L (98-107) Carbon Dioxide Level 31 mmol/L (21-32) 34 mmol/L (21-32) Anion Gap 9 (6-14) 5 (6-14) Blood Urea Nitrogen 15 mg/dL (7-20) 13 mg/dL (7-20) Creatinine 1.1 mg/dL (0.6-1.0) 0.9 mg/dL (0.6-1.0) Estimated GFR (Cockcroft-Gault) 61.9 78.1 Glucose Level 116 mg/dL (70-99) 88 mg/dL (70-99) Calcium Level 8.7 mg/dL (8.5-10.1) 8.9 mg/dL (8.5-10.1) Laboratory Tests Test 06/24/18 02:50 White Blood Count 4.4 x10^3/uL (4.0-11.0) Red Blood Count 4.57 x10^6/uL (3.50-5.40) Hemoglobin 14.5 g/dL (12.0-15.5) Hematocrit 44.1 % (36.0-47.0) Mean Corpuscular Volume 97 fL (79-100) Mean Corpuscular Hemoglobin 32 pg (25-35) Mean Corpuscular Hemoglobin Concent 33 g/dL (31-37) Red Cell Distribution Width 16.8 % (11.5-14.5) Platelet Count 181 x10^3/uL (140-400) Neutrophils (%) (Auto) 46 % (31-73) Lymphocytes (%) (Auto) 22 % (24-48) Monocytes (%) (Auto) 23 % (0-9) Eosinophils (%) (Auto) 9 % (0-3) Basophils (%) (Auto) 1 % (0-3) Neutrophils # (Auto) 2.0 x10^3uL (1.8-7.7) Lymphocytes # (Auto) 1.0 x10^3/uL (1.0-4.8) Monocytes # (Auto) 1.0 x10^3/uL (0.0-1.1) Eosinophils # (Auto) 0.4 x10^3/uL (0.0-0.7) Basophils # (Auto) 0.0 x10^3/uL (0.0-0.2) Sodium Level 142 mmol/L (136-145) Potassium Level 3.6 mmol/L (3.5-5.1) Chloride Level 103 mmol/L (98-107) Carbon Dioxide Level 34 mmol/L (21-32) Anion Gap 5 (6-14) Blood Urea Nitrogen 13 mg/dL (7-20) Creatinine 0.9 mg/dL (0.6-1.0) Estimated GFR (Cockcroft-Gault) 78.1 Glucose Level 88 mg/dL (70-99) Calcium Level 8.9 mg/dL (8.5-10.1) Allergies Allergies Coded Allergies Type Severity Reaction Last Updated Verified No Known Drug Allergies 09/30/17 No Disposition/Orders: D/C to Home JALYN CORTES MD Jun 24, 2018 15:04
--- NOTE | 2018-06-24 15:05 | DISCH ---
DISCHARGE INSTRUCTIONS Condition on Discharge Condition on Discharge: Guarded Activity After Discharge Activity Instructions for Disc: Progressive ambulation Bathing Instructions: Shower-keep dressing dry, No Tub Bath until see Lifting Instructions after Dis: No heavy lifting, No pulling or pushing, Do not lift >10 pounds Exercise Instruction after Dis: Exercise per therapy Driving Instructions after Dis: Do not drive Weight Bearing Status after Di: No restrictions, Full weight bearing, As tolerated Diet after Discharge Diet after Discharge: Cardiac, Regular Diet Texture: Regular Liquid Texture: Thin Liquid Swallowing Supervision: None needed Wound Incision Care Wound/Incision Care: Ice to area for comfort, Do not change dressing Checks after Discharge Checks after discharge: Check blood press - daily, Weigh Yourself Daily Community/Resources/Services Services at Discharge: Home Health Care Services, PT EVALUATE & TREAT, OT Evaluate & Treat Contacting the [facility] after DC Call your doctor for: Concerns you may have Treatment/Equipment after DC Adaptive Equipment Issued: None Discharge Respiratory Equipmen: Oxygen JALYN CORTES MD Jun 24, 2018 15:05
[2018-06-24 15:30] VITALS: BP 125/74
[2018-06-24 17:20] VITALS: BP 125/74
== END 2018-06-24 18:43 | disposition home health service (06) | DRG 917 ==
LOC: ER 00:44 → 1 WEST ICU 03:00 → 6 SOUTH 06-21 10:52
PROVIDERS: ADMIT Internal Medicine; ATTEND Internal Medicine
PROC: 5A09357 Assistance with Respiratory Ventilation, Less than 24 Consecutive Hours, Continuous Positive Airway Pressure (ICD-10-PCS; principal; 2018-06-19)
PROC: 5A09357 Assistance with Respiratory Ventilation, Less than 24 Consecutive Hours, Continuous Positive Airway Pressure (ICD-10-PCS; 2018-06-20)
PROC: 5A09357 Assistance with Respiratory Ventilation, Less than 24 Consecutive Hours, Continuous Positive Airway Pressure (ICD-10-PCS; 2018-06-22)
PROC: 5A09357 Assistance with Respiratory Ventilation, Less than 24 Consecutive Hours, Continuous Positive Airway Pressure (ICD-10-PCS; 2018-06-23)
PROC: 5A09357 Assistance with Respiratory Ventilation, Less than 24 Consecutive Hours, Continuous Positive Airway Pressure (ICD-10-PCS; 2018-06-24)
DX: T40.601A Poisoning by unspecified narcotics, accidental (unintentional), initial encounter (principal); G92 Toxic encephalopathy; J96.22 Acute and chronic respiratory failure with hypercapnia; J15.9 Unspecified bacterial pneumonia; J15.6 Pneumonia due to other Gram-negative bacteria; J96.21 Acute and chronic respiratory failure with hypoxia; E66.2 Morbid (severe) obesity with alveolar hypoventilation; Z68.43 Body mass index [BMI] 50.0-59.9, adult; E87.2 Acidosis; I50.32 Chronic diastolic (congestive) heart failure; J44.0 Chronic obstructive pulmonary disease with (acute) lower respiratory infection; F19.10 Other psychoactive substance abuse, uncomplicated; E03.9 Hypothyroidism, unspecified; E78.5 Hyperlipidemia, unspecified; F10.129 Alcohol abuse with intoxication, unspecified; F17.210 Nicotine dependence, cigarettes, uncomplicated; G47.33 Obstructive sleep apnea (adult) (pediatric); G89.29 Other chronic pain; I11.0 Hypertensive heart disease with heart failure; I27.20 Pulmonary hypertension, unspecified; Z82.49 Family history of ischemic heart disease and other diseases of the circulatory system; Z83.3 Family history of diabetes mellitus; Z86.73 Personal history of transient ischemic attack (TIA), and cerebral infarction without residual deficits; Z96.643 Presence of artificial hip joint, bilateral; Z96.653 Presence of artificial knee joint, bilateral; Z71.6 Tobacco abuse counseling; Y92.89 Other specified places as the place of occurrence of the external cause
CPT/HCPCS: 36415; 36600; 70450; 71045; 80048; 80076; 80307; 80329; 81001; 82805; 83605; 83735; 83874; 83880; 84439; 84443; 84484; 85007; 85025; 85610; 85730; 87086; 87641; 93005; 93306; 94640; 94660; 94760; 96365; 96367; 96368; 96375; 99291; G0480; G6039; J1650; J2310; J2543; J3370; J7040; J7620; 97110; 97116; 97530; G0479

== ENCOUNTER 2019-03-03 12:29 | Emergency (ER) | payer OTHER ==
[~2019-03-03] VITALS: Ht 167.6 cm; Wt 152.9 kg
[~2019-03-03 12:29] MED LIST changes: +ALBU2.5V8 INH; -AMLO10TA2 PO; +AMLO10TA8 PO; +AMLO5TAB10 PO; -AMLO5TAB2 PO; +BENZ-8 PO; +CARV12.511 PO; -CARV12.52 PO; +FURO20TA3 PO; +LIOT25TA PO; +LIOT25TA12 PO; -LIOT25TA3 PO; +LOSA-73 PO; +LOSA100T2 PO; -LOSA50TA6 PO; +OXYC30TA3 PO; +OXYC5TAB4 PO; -OXYC5TAB95 PO; +POTA20TA84 PO; +VARE1TAB21 PO
[2019-03-03] MEDS ORDERED: IPRATRPIUM/ALBUTEROL 0.5/2.5MG 3 ML NEBU. NEB ONE (12:45)
--- NOTE | 2019-03-03 12:46 | PHYS DOC ---
Past Medical History Past Medical History: CHF, COPD, High Cholesterol, Hypertension Additional Past Medical Histor: LEFT KNEE PAIN, OBESITY Past Surgical History: No Surgical History Additional Past Surgical Histo: ankle surgery, BILAT KNEE, BILAT HIP Alcohol Use: None Drug Use: None Adult General Chief Complaint Chief Complaint: LOWER EXTREMITY SWELLING [facility] HPI Patient is a 58 year old female presented to ER today for evaluation of left lower extremity pain, left ankle pain and swelling for about 2 weeks. Patient started noted redness and drainage from the wound on her left ankle about A week ago. She denies any recent injury, she denies any chest pain or any trouble breathing. Patient has history of left ankle surgery in the past when she was young. Review of Systems Review of Systems Constitutional: Denies fever or chills [] Eyes: Denies change in visual acuity, redness, or eye pain [] HENT: Denies nasal congestion or sore throat [] Respiratory: Denies cough or shortness of breath [] Cardiovascular: No additional information not addressed in HPI [] GI: Denies abdominal pain, nausea, vomiting, bloody stools or diarrhea [] : Denies dysuria or hematuria [] Musculoskeletal: Denies back pain , POSITIVE FOR LEFT ANKLE SWELLING, PAIN, LEFT LEG PAIN AND SWELLING. Integument: Denies rash or skin lesions [] Neurologic: Denies headache, focal weakness or sensory changes [] Endocrine: Denies polyuria or polydipsia [] All other systems were reviewed and found to be within normal limits, except as documented in this note. Current Medications Current Medications Current Medications Medications (Trade) Dose Ordered Sig/Gwendolyn Start Time Stop Time Status Last Admin Dose Admin Albuterol/ Ipratropium (Duoneb) 3 ml 1X ONCE 03/03/19 12:45 03/03/19 12:47 DC Ondansetron HCl (Zofran) 4 mg PRN Q8HRS PRN 03/03/19 15:45 03/04/19 15:44 Vancomycin HCl (Vanco Per Pharmacy) 1 each PRN DAILY PRN 03/03/19 14:00 UNV Vancomycin HCl 2 gm/Sodium Chloride 500 ml @ 250 mls/hr 1X ONCE 03/03/19 14:00 03/03/19 15:59 DC Allergies Allergies Allergies Coded Allergies Type Severity Reaction Last Updated Verified Penicillins Allergy Intermediate Itching 03/03/19 Yes Physical Exam Physical Exam Constitutional: Well developed, well nourished, no acute distress, non-toxic arabella earance. [] HENT: Normocephalic, atraumatic, bilateral external ears normal, oropharynx moist, no oral exudates, nose normal. [] Eyes: PERRLA, EOMI, conjunctiva normal, no discharge. [] Neck: Normal range of motion, no tenderness, supple, no stridor. [] Cardiovascular:Heart rate regular rhythm, no murmur [] Lungs & Thorax: Bilateral breath sounds clear to auscultation [] Abdomen: Bowel sounds normal, soft, no tenderness, no masses, no pulsatile masses. [] Skin: Warm, dry, Back: No tenderness, no CVA tenderness. [] Extremities: THE ENTIRE LEFT LEG IS SWOLLEN, TENDER, WARM TO TOUCH, ERYTHEMATOUS. There is a small wound on the lateral malleous of left ankle. Left calf is tender and swollen. There is good capillary refill. Neurologic: Alert and oriented X 3, normal motor function, normal sensory function, no focal deficits noted. [] Psychologic: Affect normal, judgement normal, mood normal. [] Current Patient Data Vital Signs Vital Signs Date Time Temp Pulse Resp B/P (MAP) Pulse Ox O2 Delivery O2 Flow Rate FiO2 03/03/19 13:21 98.4 77 20 126/80 (95) 83 Nasal Cannula 3.0 98.4 Lab Values Laboratory Tests Test 03/03/19 13:25 White Blood Count 6.0 x10^3/uL (4.0-11.0) Red Blood Count 5.30 x10^6/uL (3.50-5.40) Hemoglobin 16.4 g/dL (12.0-15.5) H Hematocrit 50.7 % (36.0-47.0) H Mean Corpuscular Volume 96 fL (79-100) Mean Corpuscular Hemoglobin 31 pg (25-35) Mean Corpuscular Hemoglobin Concent 32 g/dL (31-37) Red Cell Distribution Width 16.0 % (11.5-14.5) H Platelet Count 213 x10^3/uL (140-400) Neutrophils (%) (Auto) 69 % (31-73) Lymphocytes (%) (Auto) 16 % (24-48) L Monocytes (%) (Auto) 13 % (0-9) H Eosinophils (%) (Auto) 2 % (0-3) Basophils (%) (Auto) 0 % (0-3) Neutrophils # (Auto) 4.1 x10^3uL (1.8-7.7) Lymphocytes # (Auto) 1.0 x10^3/uL (1.0-4.8) Monocytes # (Auto) 0.8 x10^3/uL (0.0-1.1) Eosinophils # (Auto) 0.1 x10^3/uL (0.0-0.7) Basophils # (Auto) 0.0 x10^3/uL (0.0-0.2) Erythrocyte Sedimentation Rate 0 (0-25) Sodium Level 138 mmol/L (136-145) Potassium Level 4.3 mmol/L (3.5-5.1) Chloride Level 98 mmol/L (98-107) Carbon Dioxide Level 33 mmol/L (21-32) H Anion Gap 7 (6-14) Blood Urea Nitrogen 16 mg/dL (7-20) Creatinine 0.9 mg/dL (0.6-1.0) Estimated GFR (Cockcroft-Gault) 78.1 BUN/Creatinine Ratio 18 (6-20) Glucose Level 102 mg/dL (70-99) H Uric Acid 8.4 mg/dL (2.6-6.0) H Calcium Level 9.7 mg/dL (8.5-10.1) Total Bilirubin 0.9 mg/dL (0.2-1.0) Aspartate Amino Transferase (AST) 18 U/L (15-37) Alanine Aminotransferase (ALT) 26 U/L (14-59) Alkaline Phosphatase 87 U/L (46-116) Creatine Kinase 103 U/L (26-192) Creatine Kinase MB (Mass) 1.0 ng/mL (0.0-3.6) Creatine Kinase MB Relative Index 1.0 % (0-4) Troponin I Quantitative < 0.017 ng/mL (0.000-0.055) C-Reactive Protein, Quantitative 23.4 mg/L (0-3.3) H OI-Osm-W-Type Natriuretic Peptide 688 pg/mL (0-124) H Total Protein 7.8 g/dL (6.4-8.2) Albumin 3.6 g/dL (3.4-5.0) Albumin/Globulin Ratio 0.9 (1.0-1.7) L Laboratory Tests 03/03/19 13:25 Laboratory Tests 03/03/19 13:25 EKG EKG [] Radiology/Procedures Radiology/Procedures [][address] [address] IMAGING REPORT Signed PATIENT: PO BLOUNT ACCOUNT: [id number] : 1960 LOCATION: ER AGE: 58 SEX: F EXAM STATUS: REG ER ORD. PHYSICIAN: MONROE CIFUENTES DO REASON: LEFT LEG SWELLING AND PAIN FOR A WEEK PROCEDURE: VENOUS LOWER EXTREMITY LEFT Left lower extremity venous doppler ultrasound History: Left leg pain and swelling, symptoms for about one week Findings: Multiple grayscale, color, and duplex spectral analysis sonographic images were acquired of the left lower extremity veins to evaluate for the presence of DVT. There is normal phasicity. Normal compression, color-flow, and augmentation is demonstrated from the left common femoral to the popliteal veins. There is normal color flow of the proximal greater saphenous and profunda femoris veins. There is normal color flow of segments of the calf veins. Impression: 1. There is no evidence of deep venous thrombosis from the left common femoral to the popliteal veins. Electronically signed by: Alea Boudreaux MD (03/03/2019 1:15 PM) [id number] DICTATED and SIGNED BY: ALEA BOUDREAUX MD DATE: 03/03/19 [id number] [place] [address] IMAGING REPORT Signed PATIENT: PO BLOUNT ACCOUNT: [id number] : 1960 LOCATION: ER AGE: 58 SEX: F EXAM STATUS: PRE ER ORD. PHYSICIAN: MONROE CIFUENTES DO REASON: SOA PROCEDURE: PORTABLE CHEST 1V EXAM: Chest, single view. HISTORY: Shortness of air. Leg swelling. COMPARISON: 10/25/2018 FINDINGS: A frontal view of the chest is obtained. There is stable diffuse increased interstitial opacity likely due to pulmonary congestion. There is stable enlargement of the cortex left. No pleural effusion or pneumothorax is seen. IMPRESSION: Stable pulmonary congestion and cardiomegaly. Electronically signed by: Porsha Munoz MD (03/03/2019 1:05 PM) [place] [id number] DICTATED and SIGNED BY: PORSHA MUNOZ MD DATE: 03/03/19 5489 Course & Med Decision Making Course & Med Decision Making Pertinent Labs and Imaging studies reviewed. (See chart for details) [] Dragon Disclaimer Dragon Disclaimer This electronic medical record was generated, in whole or in part, using a voice recognition dictation system. Departure Departure Impression: Primary Impression: Left leg cellulitis Disposition: ADMITTED INPATIENT Admitting Physician: Leslee Reis Condition: STABLE Referrals: LESLIE LUCIO MD (PCP) MONROE CIFUENTES DO Mar 03, 2019 12:46
--- NOTE | 2019-03-03 13:08 | RAD ---
EXAM: Chest, single view. HISTORY: Shortness of air. Leg swelling. COMPARISON: 10/25/2018 FINDINGS: A frontal view of the chest is obtained. There is stable diffuse increased interstitial opacity likely due to pulmonary congestion. There is stable enlargement of the cortex left. No pleural effusion or pneumothorax is seen. IMPRESSION: Stable pulmonary congestion and cardiomegaly. Electronically signed by: Porsha Luevano MD (03/03/2019 1:05 PM) [place] [id number]
--- NOTE | 2019-03-03 13:18 | RAD ---
Left lower extremity venous doppler ultrasound History: Left leg pain and swelling, symptoms for about one week Findings: Multiple grayscale, color, and duplex spectral analysis sonographic images were acquired of the left lower extremity veins to evaluate for the presence of DVT. There is normal phasicity. Normal compression, color-flow, and augmentation is demonstrated from the left common femoral to the popliteal veins. There is normal color flow of the proximal greater saphenous and profunda femoris veins. There is normal color flow of segments of the calf veins. Impression: 1. There is no evidence of deep venous thrombosis from the left common femoral to the popliteal veins. Electronically signed by: Raad Degroot MD (03/03/2019 1:15 PM) [id number]
[2019-03-03 13:21] VITALS: BP 126/80
[2019-03-03 13:42] LABS: BASO % 0 % (0-3); EOS # 0.1 x10^3/uL (0.0-0.7); EOS % 2 % (0-3); HEMATOCRIT 50.7 % (36.0-47.0); HEMOGLOBIN 16.4 g/dL (12.0-15.5); LYMPH % 16 % (24-48); MEAN CORPUSCULAR HEMOGLOBIN 31 pg (25-35); MEAN CORPUSCULAR HGB CONC 32 g/dL (31-37); MEAN CORPUSCULAR VOLUME 96 fL (79-100); MONO # 0.8 x10^3/uL (0.0-1.1); MONO % 13 % (0-9); NEUT # 4.1 x10^3uL (1.8-7.7); NEUT % 69 % (31-73); PLATELET COUNT 213 x10^3/uL (140-400)
--- NOTE | 2019-03-03 13:46 | EKG ---
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
[2019-03-03 13:55] LABS: CALCIUM 9.7 mg/dL (8.5-10.1); CREATININE 0.9 mg/dL (0.6-1.0); GFR 78.1; POTASSIUM 4.3 mmol/L (3.5-5.1)
[2019-03-03] MEDS ORDERED: VANCOMYCIN 2 GM in IV NORMAL SALINE 500ML BAG 500 ML IV ONE (14:00)
[2019-03-03] MEDS ORDERED: VANCOMYCIN PER PHARMACY MC PRN (14:00)
[2019-03-03 14:01] LABS: ALBUMIN 3.6 g/dL (3.4-5.0); ALBUMIN/GLOBULIN RATIO 0.9 (1.0-1.7); TOTAL BILIRUBIN 0.9 mg/dL (0.2-1.0); TOTAL PROTEIN 7.8 g/dL (6.4-8.2); URIC ACID 8.4 mg/dL (2.6-6.0)
[2019-03-03 14:18] LABS: C-REACTIVE PROTEIN 23.4 mg/L (0-3.3)
[2019-03-03] MEDS ORDERED: ONDANSETRON PF 4 MG/2 ML VIAL. ONE (14:44)
[2019-03-03] MEDS ORDERED: ONDANSETRON PF 4 MG/2 ML VIAL. IV ONE (15:00)
[2019-03-03] MEDS ORDERED: ONDANSETRON PF 4 MG/2 ML VIAL. IV PRN (15:45)
[2019-03-03] MEDS ORDERED: HYDROcodone/APAP 5/325MG 1 TAB TABLET ONE (16:00)
[2019-03-03] MEDS ORDERED: OXYC5CAP PO (21:35)
[2019-03-03] MEDS ORDERED: DULO60CA6 PO (21:35)
--- NOTE | 2019-03-03 21:43 | RAD ---
ANKLE LEFT 3V History: ER patient. atraumatic swelling left ankle x1 week. Hx previous left ankle fixation.. Medial malleolar screws. Interfragmentary screws and lateral plate and screws of the distal fibula. No definite acute fracture is seen. No overtly aggressive bone destruction is seen. There is some soft tissue swelling. IMPRESSION: Soft tissue swelling. Electronically signed by: Emmanuel Daugherty MD (03/03/2019 9:40 PM) [facility]
== END 2019-03-03 16:50 | disposition other institution (70) ==
LOC: ER 12:29
DX: L03.116 Cellulitis of left lower limb (principal); R09.89 Other specified symptoms and signs involving the circulatory and respiratory systems; I11.0 Hypertensive heart disease with heart failure; J44.9 Chronic obstructive pulmonary disease, unspecified; E78.00 Pure hypercholesterolemia, unspecified; I50.9 Heart failure, unspecified; E66.9 Obesity, unspecified; Z68.43 Body mass index [BMI] 50.0-59.9, adult; Z88.0 Allergy status to penicillin
CPT/HCPCS: 36415; 71045; 73610; 80053; 82553; 83880; 84484; 84550; 85025; 85651; 86140; 93005; 93971; 94640; 94760; 99285; J7620

== ENCOUNTER 2019-03-03 15:26 | Inpatient (IN) | payer OTHER ==
[~2019-03-03] VITALS: Ht 167.6 cm; Wt 161.6 kg
[2019-03-03 19:00] VITALS: BP 111/63
[2019-03-03] MEDS ORDERED: HYDROcodone/APAP 5/325MG 1 TAB TABLET PO ONE (21:30)
[2019-03-03] MEDS ORDERED: OXYC5CAP PO (21:35)
[2019-03-03] MEDS ORDERED: DULO60CA6 PO (21:35)
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
[2019-03-03] MEDS: ALBUTEROL SULFATE 2.5 MG/3 ML NEBU. INH PRN (22:05)
[2019-03-03] MEDS: oxyCODONE ER 10 MG TAB.ER.12H PO SCH (22:08)
[2019-03-03] MEDS: MIRTAZAPINE 15 MG TABLET PO SCH (22:08)
[2019-03-03 23:00] VITALS: BP 104/54
[2019-03-04 03:00] VITALS: BP 105/56
[2019-03-04 07:00] VITALS: BP 105/58
[2019-03-04 07:05] LABS: ALBUMIN 3.3 g/dL (3.4-5.0); ALBUMIN/GLOBULIN RATIO 0.7 (1.0-1.7); CALCIUM 9.1 mg/dL (8.5-10.1); CREATININE 1.2 mg/dL (0.6-1.0); TOTAL BILIRUBIN 0.7 mg/dL (0.2-1.0); TOTAL PROTEIN 8.1 g/dL (6.4-8.2); URIC ACID 8.7 mg/dL (2.6-6.0)
[2019-03-04] MEDS: HYDROcodone/APAP 5/325MG 1 TAB TABLET PO PRN ×3 (07:56→21:15)
[2019-03-04] MEDS ORDERED: amLODIPine BESYLATE 10 MG TABLET PO SCH (09:00)
[2019-03-04] MEDS: DULoxetine HCL 30 MG CAPSULE.DR PO SCH (09:23)
[2019-03-04] MEDS: CARVEDILOL 12.5 MG TABLET. PO SCH ×2 (09:23→17:00)
[2019-03-04] MEDS: FUROSEMIDE 20 MG TABLET PO SCH (09:24)
[2019-03-04] MEDS: POTASSIUM CHLORIDE 20 MEQ TABLET.ER. PO SCH (09:24)
[2019-03-04] MEDS: LOSARTAN POTASSIUM 50 MG TABLET. PO SCH (09:24)
[2019-03-04] MEDS: oxyCODONE ER 10 MG TAB.ER.12H PO SCH ×2 (09:24→21:15)
[2019-03-04 10:35] LABS: BASO % 0 % (0-3); EOS # 0.3 x10^3/uL (0.0-0.7); EOS % 4 % (0-3); HEMATOCRIT 48.8 % (36.0-47.0); HEMOGLOBIN 15.3 g/dL (12.0-15.5); LYMPH # 0.7 x10^3/uL (1.0-4.8); LYMPH % 9 % (24-48); MEAN CORPUSCULAR HEMOGLOBIN 31 pg (25-35); MEAN CORPUSCULAR HGB CONC 31 g/dL (31-37); MEAN CORPUSCULAR VOLUME 99 fL (79-100); MONO # 0.9 x10^3/uL (0.0-1.1); MONO % 12 % (0-9); NEUT % 76 % (31-73); PLATELET COUNT 192 x10^3/uL (140-400); RED BLOOD COUNT 4.94 x10^6/uL (3.50-5.40); RED CELL DISTRIBUTION WIDTH 16.1 % (11.5-14.5); WHITE BLOOD COUNT 7.9 x10^3/uL (4.0-11.0)
[2019-03-04 11:00] VITALS: BP 95/55
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
[2019-03-04] MEDS: LIOTHYRONINE 5 MCG TABLET. PO SCH (11:30)
--- NOTE | 2019-03-04 12:49 | PDOC ---
Infectious Disease Note Vital Sign Vital Signs Vital Signs Date Time Temp Pulse Resp B/P (MAP) Pulse Ox O2 Delivery O2 Flow Rate FiO2 03/04/19 11:00 97.5 90 20 95/55 (68) 85 Nasal Cannula 4.0 97.5 Labs Lab Laboratory Tests Test 03/04/19 06:15 03/04/19 10:00 Sodium Level 139 mmol/L (136-145) Potassium Level 4.0 mmol/L (3.5-5.1) Chloride Level 100 mmol/L (98-107) Carbon Dioxide Level 35 mmol/L (21-32) Anion Gap 4 (6-14) Blood Urea Nitrogen 18 mg/dL (7-20) Creatinine 1.2 mg/dL (0.6-1.0) Estimated GFR (Cockcroft-Gault) 56.0 BUN/Creatinine Ratio 15 (6-20) Glucose Level 126 mg/dL (70-99) Uric Acid 8.7 mg/dL (2.6-6.0) Calcium Level 9.1 mg/dL (8.5-10.1) Total Bilirubin 0.7 mg/dL (0.2-1.0) Aspartate Amino Transf (AST/SGOT) 17 U/L (15-37) Alanine Aminotransferase (ALT/SGPT) 20 U/L (14-59) Alkaline Phosphatase 78 U/L (46-116) Total Protein 8.1 g/dL (6.4-8.2) Albumin 3.3 g/dL (3.4-5.0) Albumin/Globulin Ratio 0.7 (1.0-1.7) White Blood Count 7.9 x10^3/uL (4.0-11.0) Red Blood Count 4.94 x10^6/uL (3.50-5.40) Hemoglobin 15.3 g/dL (12.0-15.5) Hematocrit 48.8 % (36.0-47.0) Mean Corpuscular Volume 99 fL (79-100) Mean Corpuscular Hemoglobin 31 pg (25-35) Mean Corpuscular Hemoglobin Concent 31 g/dL (31-37) Red Cell Distribution Width 16.1 % (11.5-14.5) Platelet Count 192 x10^3/uL (140-400) Neutrophils (%) (Auto) 76 % (31-73) Lymphocytes (%) (Auto) 9 % (24-48) Monocytes (%) (Auto) 12 % (0-9) Eosinophils (%) (Auto) 4 % (0-3) Basophils (%) (Auto) 0 % (0-3) Neutrophils # (Auto) 6.0 x10^3uL (1.8-7.7) Lymphocytes # (Auto) 0.7 x10^3/uL (1.0-4.8) Monocytes # (Auto) 0.9 x10^3/uL (0.0-1.1) Eosinophils # (Auto) 0.3 x10^3/uL (0.0-0.7) Basophils # (Auto) 0.0 x10^3/uL (0.0-0.2) Erythrocyte Sedimentation Rate 2 (0-25) Objective Assessment Left leg ulcer Left leg cellulitis Obesity OA CHF Plan Plan of Care rocephine leg elevation SANTA MITCHELL MD March 04, 2019 12:49
[2019-03-04] MEDS ORDERED: VANCOMYCIN 1 GM in IV NORMAL SALINE 250ML 250 ML IV ONE (13:00)
--- NOTE | 2019-03-04 13:26 | PDOC2 ---
CARDIAC CONSULT DATE OF CONSULT Date of Consult DATE: 03/04/19 TIME: 13:11 REASON FOR CONSULT Reason for Consult: CHF Pulmonary HTN REFERRING PHYSICIAN Referring Physician: Dr. Beauchamp SOURCE Source: Chart review, Patient HISTORY OF PRESENT ILLNESS HISTORY OF PRESENT ILLNESS This is a 58 yo female who presented secondary to left ankle pain and swelling. CXR noted with pulmonary congestion, which prompted this consult. Patient reports Left ankle/foot has been swelling over the 2-3 days. Has become painful. Reports sore opened up downstairs in ED. Denies any significant shortness of breath, orthopnea or RLE edema. No chest pain, palpitations, dizziness, diaphoresis, or nausea/vomiting. LLE US negative for DVT. Left ankle xray showed soft tissue swelling. PAST MEDICAL HISTORY Past Medical History Cardiovascular: CHF (diastolic, chronic), HTN, Hyperlipidemia, Pulmonary hypertension (severe ) Pulmonary: COPD, Other (KRISTINA) Neuro: CVA GI: Other (morbid obesity) Psych: depression, anxiety Rheumatologic: No pertinent hx Musculoskeletal; Arthritis Infectious disease: No pertinent hx ENT: No pertinent hx Endocrine: Hypothyroidism PAST SURGICAL HISTORY Past Surgical History Total hip replacement (bilateral ), Total knee replacement (bilateral), left ankle surgery with hardware, Tonsillectomy FAMILY HISTORY Family History: Diabetes, Heart Disease, Hypertension SOCIAL HISTORY Social History Smoke: quit 5 years ago ALCOHOL: occasional Drugs: None Lives; Alone CURRENT MEDICATIONS CURRENT MEDICATIONS Current Medications Medications (Trade) Dose Ordered Sig/Gwendolyn Route PRN Reason Start Time Stop Time Status Last Admin Dose Admin Acetaminophen/ Hydrocodone Bitart (Lortab 5/325) 1 tab 1X ONCE PO 03/03/19 21:30 03/03/19 21:31 DC 03/03/19 21:05 Albuterol Sulfate (Ventolin Neb Soln) 2.5 mg PRN Q6HRS PRN INH SHORTNESS OF BREATH 03/03/19 21:45 03/03/19 22:05 Amlodipine Besylate (Norvasc) 10 mg DAILY PO 03/04/19 09:00 03/04/19 09:22 Furosemide (Lasix) 20 mg DAILY PO 03/04/19 09:00 03/04/19 09:24 Carvedilol (Coreg) 25 mg BIDWMEALS PO 03/04/19 08:00 03/04/19 09:23 Duloxetine HCl (Cymbalta) 60 mg DAILY PO 03/04/19 09:00 03/04/19 09:23 Liothyronine Sodium (Cytomel) 25 mcg DAILY PO 03/04/19 09:00 03/04/19 11:30 Losartan Potassium (Cozaar) 100 mg DAILY PO 03/04/19 09:00 03/04/19 09:24 Mirtazapine (Remeron) 30 mg QHS PO 03/03/19 22:00 03/03/19 22:08 Oxycodone HCl (OxyCONTIN) 10 mg Q12HR PO 03/03/19 22:00 03/04/19 09:24 Potassium Chloride (Klor-Con) 20 meq DAILYWBKFT PO 03/04/19 08:00 03/04/19 09:24 Acetaminophen/ Hydrocodone Bitart (Lortab 5/325) 1 tab PRN Q4HRS PRN PO MODERATE PAIN 03/03/19 21:45 03/04/19 07:56 ALLERGIES ALLERGIES: Coded Allergies: Penicillins (Verified Allergy, Intermediate, Itching, 03/03/19) ROS Review of System 14 point ROS conducted with pertinent positives noted above in HPI. PHYSICAL EXAM General: Alert, Oriented X3, Cooperative, No acute distress HEENT: Atraumatic, Mucous membr. moist/pink Lungs: Clear to auscultation, Other (diminished throughout ) Heart: Regular rate, Normal S1, Normal S2 Abdomen: Soft, Other (obese) Extremities: Other (1+ left ankle/foot edema. Trace RLE edema ) Skin: Other (left ankle wound) Neuro: Normal speech, Sensation intact Psych/Mental Status: Mental status NL, Mood NL MUSCULOSKELETAL: No deformity VITALS VITALS Vital Signs Date Time Temp Pulse Resp B/P (MAP) Pulse Ox O2 Delivery O2 Flow Rate FiO2 03/04/19 11:00 97.5 90 20 95/55 (68) 85 Nasal Cannula 4.0 97.5 LABS Lab: Laboratory Tests Test 03/04/19 06:15 03/04/19 10:00 Sodium Level 139 mmol/L (136-145) Potassium Level 4.0 mmol/L (3.5-5.1) Chloride Level 100 mmol/L (98-107) Carbon Dioxide Level 35 mmol/L (21-32) Anion Gap 4 (6-14) Blood Urea Nitrogen 18 mg/dL (7-20) Creatinine 1.2 mg/dL (0.6-1.0) Estimated GFR (Cockcroft-Gault) 56.0 BUN/Creatinine Ratio 15 (6-20) Glucose Level 126 mg/dL (70-99) Uric Acid 8.7 mg/dL (2.6-6.0) Calcium Level 9.1 mg/dL (8.5-10.1) Total Bilirubin 0.7 mg/dL (0.2-1.0) Aspartate Amino Transf (AST/SGOT) 17 U/L (15-37) Alanine Aminotransferase (ALT/SGPT) 20 U/L (14-59) Alkaline Phosphatase 78 U/L (46-116) Total Protein 8.1 g/dL (6.4-8.2) Albumin 3.3 g/dL (3.4-5.0) Albumin/Globulin Ratio 0.7 (1.0-1.7) White Blood Count 7.9 x10^3/uL (4.0-11.0) Red Blood Count 4.94 x10^6/uL (3.50-5.40) Hemoglobin 15.3 g/dL (12.0-15.5) Hematocrit 48.8 % (36.0-47.0) Mean Corpuscular Volume 99 fL (79-100) Mean Corpuscular Hemoglobin 31 pg (25-35) Mean Corpuscular Hemoglobin Concent 31 g/dL (31-37) Red Cell Distribution Width 16.1 % (11.5-14.5) Platelet Count 192 x10^3/uL (140-400) Neutrophils (%) (Auto) 76 % (31-73) Lymphocytes (%) (Auto) 9 % (24-48) Monocytes (%) (Auto) 12 % (0-9) Eosinophils (%) (Auto) 4 % (0-3) Basophils (%) (Auto) 0 % (0-3) Neutrophils # (Auto) 6.0 x10^3uL (1.8-7.7) Lymphocytes # (Auto) 0.7 x10^3/uL (1.0-4.8) Monocytes # (Auto) 0.9 x10^3/uL (0.0-1.1) Eosinophils # (Auto) 0.3 x10^3/uL (0.0-0.7) Basophils # (Auto) 0.0 x10^3/uL (0.0-0.2) Erythrocyte Sedimentation Rate 2 (0-25) ECHOCARDIOGRAM ECHOCARDIOGRAM <Conclusion> The left ventricular systolic function is normal and the ejection fraction is within normal range. EF 50% Septal motion consistent with conduction abnormality. There is also suggestion of right ventricular pressure and volume overload. The right ventricle is moderately dilated. RV Systolic function is mildly reduced. Doppler and Color Flow revealed mild tricuspid regurgitation. There is moderate- severe pulmonary hypertension. The PA pressure was estimated at 61 mmHg. DATE: 10/27/18 1342 ASSESSMENT/PLAN ASSESSMENT/PLAN 1. Left ankle pain, swelling- ? cellulitis, open wound. LLE US negative for DVT. Ankle Xray with soft tissue edema. Wound does not appear arterial 2. Mild acute on chronic diastolic HF. CXR with pul edema. Echo 10/21 with preserved LV systolic function 3. Hypertension; low-normotensive 4. Hyperlipidemia 5. Pulmonary HTN, moderate to severe. PAP 61 mmHg per recent echo 6. Morbid obesity, KRISTINA 7. Chronic pain on narcotic Recommendations Echo pending assess LV systolic function and PAP Mild diuresis Continue BB, ARB. Hold Norvasc with marginal BP Antibiotic therapy as per ID Supportive care Further recommendations pending above. KONSTANTIN RODRIGUEZ APRN March 04, 2019 13:26
[2019-03-04] MEDS ORDERED: cefTRIAXone IV Push 2 GM VIAL. IVP SCH (14:00)
[2019-03-04 15:00] VITALS: BP 91/58
--- NOTE | 2019-03-04 16:00 | CARD ---
MR#: [id number] Date of Study: 03/04/2019 Ordering Physician: JALYN CORTES, Referring Physician: LEONIDES MUNIZ Tech: Kitty Snow RDCS APPROVED REPORT EXAM: Two-dimensional and M-mode echocardiogram with Doppler and color Doppler. Other Information Quality : Technically LimitedHR: 95bpm Rhythm : NSRTechnically limited study due to body habitus. INDICATION PHTN 2D DIMENSIONS RVDd4.8 (2.9-3.5cm)Left Atrium(2D)3.3 (1.6-4.0cm) IVSd1.0 (0.7-1.1cm)Aortic Root(2D)2.8 (2.0-3.7cm) LVDd4.4 (3.9-5.9cm)LVOT Diameter1.9 (1.8-2.4cm) PWd0.9 (0.7-1.1cm)LVDs3.2 (2.5-4.0cm) FS (%) 26.8 %SV45.7 ml LVEF(%)52.6 (>50%) M-Mode DIMENSIONS Left Atrium(MM)3.13 (2.5-4.0cm)Aortic Root2.99 (2.2-3.7cm) Aortic Valve AoV Peak Emmett.129.4cm/sAoV VTI23.3cm AO Peak GR.6.7mmHgLVOT Peak Emmett.75.9cm/s AO Mean GR.4mmHgAVA (VMAX)1.66cm2 LESLIE (VTI)1.80cm2 Mitral Valve MV E Jcfpyzpp73.1cm/sMV DECEL [id number] MV A Nfwykrcl96.1cm/sE/A Ratio1.3 MV A [id number] Pulmonary Valve PV Peak Fpawdoer607.7cm/s Tricuspid Valve TR P. Ibujfbeh738sk/sRAP [id number] TR Peak Gr.87tgPmBJWE73fbYm LEFT VENTRICLE The left ventricle is normal size. There is normal left ventricular wall thickness. The left ventricu lar systolic function is normal. The Ejection Fraction is 55%. There is a flattened septum consistent with right ventricle volume and pressure overload. RIGHT VENTRICLE The right ventricle is moderately to severely dilated. There is normal right ventricular wall thickne ss. Systolic function is mildly to moderately reduced. ATRIA The left atrium size is normal. The right atrium size is moderately dilated. The interatrial septum i s intact with no evidence for an atrial septal defect or patent foramen ovale as noted on 2-D or Dopp ler imaging. AORTIC VALVE The aortic valve is normal in structure and function. The aortic valve is trileaflet. Doppler and Col or Flow revealed no significant aortic regurgitation. There is no significant aortic valvular stenosi s. MITRAL VALVE The mitral valve is normal in structure and function. There is no evidence of mitral valve prolapse. There is no mitral valve stenosis. Doppler and Color Flow revealed no mitral valve regurgitation note d. TRICUSPID VALVE The tricuspid valve is normal in structure and function. Doppler and Color Flow revealed mild to mode rate tricuspid regurgitation. There is moderate-severe pulmonary hypertension. The PA pressure was es timated at 61 mmHg. There is no tricuspid valve prolapse or vegetation. There is no tricuspid valve s tenosis. PULMONIC VALVE The pulmonic valve is not well visualized. GREAT VESSELS The aortic root is normal in size. The ascending aorta is normal in size. The IVC is dilated and lili apses <50% with inspiration. PERICARDIAL EFFUSION There is no evidence of significant pericardial effusion. Critical Notification Critical Value: No <Conclusion> The left ventricular systolic function is normal. The Ejection Fraction is 55%. There is a flattened septum consistent with right ventricle volume and pressure overload. The right ventricle is moderately to severely dilated. Mild to moderate tricuspid regurgitation. There is moderate-severe pulmonary hypertension. The PA pressure was estimated at 61 mmHg. There is no evidence of significant pericardial effusion. Signed by : Roman Ventura, Electronically Approved : 03/04/2019 16:00:14
[2019-03-04] MEDS ORDERED: FUROSEMIDE 40 MG TABLET. PO ONE (16:15)
[2019-03-04 19:00] VITALS: BP 122/64
[2019-03-04] MEDS: MIRTAZAPINE 15 MG TABLET PO SCH (21:14)
[2019-03-04 23:00] VITALS: BP 122/71
--- NOTE | 2019-03-04 23:19 | CONS ---
DATE OF CONSULTATION: 03/04/2019 REQUESTING PHYSICIAN: Dr. Lee. REASON FOR CONSULTATION: Left leg cellulitis. HISTORY OF PRESENT ILLNESS: This is a 58-year-old female, with morbid obesity, who came in with 2-week history of left leg ulcer and pain and swelling. The patient was diagnosed with cellulitis and was admitted for further management. The patient received 1 dose of vancomycin. The patient denies any nausea, vomiting, diarrhea. The patient denies any chest pain, shortness of breath, abdominal pain, urinary symptoms or bowel symptoms. The patient denies any trauma. PAST MEDICAL HISTORY: Positive for hypertension, hyperlipidemia, osteoarthritis, bilateral knee replacement, bilateral hip replacement, left ankle ORIF done in the past, congestive heart failure, hypertension, COPD, pulmonary hypertension, CVA. SOCIAL HISTORY: Negative for smoking, alcohol or illicit drug use. The patient quit smoking 5 years ago. ALLERGIES: LISTED ALLERGIC TO PENICILLIN, BUT SHE SAYS IT WAS WHEN SHE WAS VERY YOUNG, SHE HAS NO IDEA. She admits to have taken amoxicillin without any problem. CURRENT MEDICATIONS: Reviewed. The patient received 1 dose of vancomycin. REVIEW OF SYSTEMS: As per HPI, all other systems reviewed are negative. PHYSICAL EXAMINATION: GENERAL: Alert, oriented female, not in any distress. VITAL SIGNS: Stable, afebrile. HEENT: NAD. NECK: Supple, no JVP, no lymphadenopathy. LUNGS: Clear. HEART: S1, S2 regular. ABDOMEN: Benign. EXTREMITIES: Mild pitting edema present. The patient does have superficial clean ulcer on the left lateral leg. There is, at best, mild warmth and redness in the surrounding area. NEUROLOGICAL: The patient is neurologically intact. The patient neurologically alert, awake and appropriate. No focal neurologic deficit. LABORATORY DATA: White count is 7.9. Sed rate is 2. BUN and creatinine is 18 and 1.2. Chest x-ray is unremarkable. Venous thrombosis studies were negative. Ankle x-ray was unremarkable. IMPRESSION: 1. Left lower extremity ulcer. 2. Left lower extremity mild cellulitis. 3. Hypertension. 4. Obesity. 5. Congestive heart failure. 6. Osteoarthritis. RECOMMENDATIONS: We will give Rocephin, but soon to be able to change to oral to be able to discharge the patient. Leg elevation, fluid management, weight loss advised. Thank you very much, Dr. Lee, for giving me the opportunity to participate in this patient's care. SANTA MITCHELL MD DR: JOHAN/trace JOB#: [id number] / [id number]
[2019-03-05] VITALS (7 sets, daily range): BP systolic 96–148; BP diastolic 56–88
--- NOTE | 2019-03-05 01:59 | CONS ---
DATE OF CONSULTATION: 03/04/2019 CHIEF COMPLAINT: Left ankle swelling and wound. HISTORY OF PRESENT ILLNESS: The patient is a 58-year-old female who complains of a swollen, painful left leg and ankle and indicates that her left leg periodically swells up like an elephant. She says the right leg is much less affected. This has been happening for a couple of days now. She has a history of remote injury to her left ankle about 21 years old, where she had an ankle fracture fixed. She said that has not really given her troubles in the interim. She has since had both hips and knees replaced and indicate that she just noticed some drainage from a lateral wound that occurred yesterday after she had an ultrasound done for her DVT. She speculated that the information technology technician squeezed too much on her leg and started this problem. PAST MEDICAL HISTORY: Significant for pulmonary hypertension, congestive heart failure, hypertension, hyperlipidemia, history of previous stroke, COPD, hypothyroidism. PAST SURGICAL HISTORY: Bilateral total hips and total knee replacement as well as remote left ankle fracture surgery, tonsillectomy. FAMILY HISTORY: Diabetes, heart disease and hypertension. SOCIAL HISTORY: Denies smoking, alcohol or drug use. MEDICATIONS: List is reviewed. ALLERGIES: INCLUDE PENICILLIN, WHICH GIVES HER ITCHING. REVIEW OF SYSTEMS: She has just felt fatigued lately. No chills or night sweats. She does have a periodic swelling of the left lower extremity and has some occasional difficulty breathing not currently, aside from the left leg swelling and some associated pain, really no other specific joint maladies at present. PHYSICAL EXAMINATION: VITAL SIGNS: Temperature 98.7, pulse 92, respirations 20, blood pressure 111/63, pulse ox 91% saturation on 4 L of oxygen. GENERAL APPEARANCE: This is a morbidly obese 58-year-old female, weight is 353 pounds. EXTREMITIES: She has well-healed incisions over both hips from previous total hip arthroplasties, over both knees from previous total knee arthroplasties and incision from previous remote ankle surgery. Her ankle is stable. There is no real tenderness on palpation. She does have about a 1 cm x 1.5 cm superficial abrasion area to her skin only that does not probe deeply whatsoever and it is along the incision line where she had her lateral plate placed just above the prominent portion of the lateral malleolus. No tenderness medially. No limitation of her knee joint or effusion is noted. Likewise, both hip and knee arthroplasties are normal and appearing stable. Normal examination of the contralateral right ankle. She does have swelling in the left lower extremity more so than the right. Compartments are soft and distal pulses, sensation are intact. IMAGING: X-rays of the left ankle show a previous fixation of a bimalleolar ankle fracture. Hardware is overall intact, ankle joint mortise well maintained. She has some mild degenerative changes present in the ankle. A lower extremity ultrasound shows no evidence of deep venous thrombosis. IMPRESSION: 1. Remote left ankle fracture. 2. History of multiple medical problems, congestive heart failure, chronic obstructive pulmonary disease, with leg swelling and a recent apparent skin abrasion that is superficial in nature, no evidence of any deep involvement or hardware involvement. I had discussed this with the patient that I do not feel that there is really any need for anything other than superficial wound care and control of her swelling, which is largely a compression and fluid issue with her given her other medical conditions. I discussed this in some detail with Dr. Najera, who certainly agrees that really has minimal involvement around the area and just needs routine wound care. Really, no orthopedic followup is necessary at this point. I would be happy to see her back if her wound worsens or there becomes any hardware involvement, but hopefully medical management particularly of her swelling will override. She is going to be going down for an echo today to assess her cardiac function, further evaluation of the swelling at this point. From an orthopedic standpoint, again, no further intervention indicated at this time. NICOLE YANES MD DR: ALICIA/trace JOB#: [id number] / [id number]
[2019-03-05 04:38] LABS: BASO % 0 % (0-3); EOS # 0.4 x10^3/uL (0.0-0.7); EOS % 5 % (0-3); HEMOGLOBIN 14.8 g/dL (12.0-15.5); LYMPH # 1.3 x10^3/uL (1.0-4.8); LYMPH % 19 % (24-48); MEAN CORPUSCULAR HEMOGLOBIN 31 pg (25-35); MEAN CORPUSCULAR HGB CONC 32 g/dL (31-37); MEAN CORPUSCULAR VOLUME 99 fL (79-100); MONO # 1.1 x10^3/uL (0.0-1.1); MONO % 17 % (0-9); NEUT # 3.8 x10^3uL (1.8-7.7); NEUT % 58 % (31-73); PLATELET COUNT 186 x10^3/uL (140-400); RED BLOOD COUNT 4.72 x10^6/uL (3.50-5.40); WHITE BLOOD COUNT 6.6 x10^3/uL (4.0-11.0)
[2019-03-05 05:01] LABS: ALBUMIN 3.2 g/dL (3.4-5.0); ALBUMIN/GLOBULIN RATIO 0.7 (1.0-1.7); CALCIUM 9.3 mg/dL (8.5-10.1); CREATININE 1.2 mg/dL (0.6-1.0); POTASSIUM 4.6 mmol/L (3.5-5.1); TOTAL BILIRUBIN 0.4 mg/dL (0.2-1.0); TOTAL PROTEIN 7.7 g/dL (6.4-8.2)
[2019-03-05 05:39] LABS: CHOLESTEROL/HDL RATIO 3.1
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
--- NOTE | 2019-03-05 09:58 | PDOC ---
Infectious Disease Note Subjective Subjective feeling better ROS ROS no n/v/d/sob Vital Sign Vital Signs Vital Signs Date Time Temp Pulse Resp B/P (MAP) Pulse Ox O2 Delivery O2 Flow Rate FiO2 03/05/19 07:00 99.3 108 20 121/67 (85) 82 Nasal Cannula 3.0 99.3 Physical Exam PHYSICAL EXAM GENERAL: Alert, oriented female, not in any distress. VITAL SIGNS: Stable, afebrile. HEENT: NAD. NECK: Supple, no JVP, no lymphadenopathy. LUNGS: Clear. HEART: S1, S2 regular. ABDOMEN: Benign. EXTREMITIES: Mild pitting edema present. The patient does have superficial clean ulcer on the left lateral leg. There is, at best, mild warmth and redness in the surrounding area. NEUROLOGICAL: The patient is neurologically intact. The patient neurologically alert, awake and appropriate. No focal neurologic deficit. Labs Lab Laboratory Tests Test 03/04/19 10:00 03/05/19 03:15 White Blood Count 7.9 x10^3/uL (4.0-11.0) 6.6 x10^3/uL (4.0-11.0) Red Blood Count 4.94 x10^6/uL (3.50-5.40) 4.72 x10^6/uL (3.50-5.40) Hemoglobin 15.3 g/dL (12.0-15.5) 14.8 g/dL (12.0-15.5) Hematocrit 48.8 % (36.0-47.0) 47.0 % (36.0-47.0) Mean Corpuscular Volume 99 fL (79-100) 99 fL (79-100) Mean Corpuscular Hemoglobin 31 pg (25-35) 31 pg (25-35) Mean Corpuscular Hemoglobin Concent 31 g/dL (31-37) 32 g/dL (31-37) Red Cell Distribution Width 16.1 % (11.5-14.5) 16.0 % (11.5-14.5) Platelet Count 192 x10^3/uL (140-400) 186 x10^3/uL (140-400) Neutrophils (%) (Auto) 76 % (31-73) 58 % (31-73) Lymphocytes (%) (Auto) 9 % (24-48) 19 % (24-48) Monocytes (%) (Auto) 12 % (0-9) 17 % (0-9) Eosinophils (%) (Auto) 4 % (0-3) 5 % (0-3) Basophils (%) (Auto) 0 % (0-3) 0 % (0-3) Neutrophils # (Auto) 6.0 x10^3uL (1.8-7.7) 3.8 x10^3uL (1.8-7.7) Lymphocytes # (Auto) 0.7 x10^3/uL (1.0-4.8) 1.3 x10^3/uL (1.0-4.8) Monocytes # (Auto) 0.9 x10^3/uL (0.0-1.1) 1.1 x10^3/uL (0.0-1.1) Eosinophils # (Auto) 0.3 x10^3/uL (0.0-0.7) 0.4 x10^3/uL (0.0-0.7) Basophils # (Auto) 0.0 x10^3/uL (0.0-0.2) 0.0 x10^3/uL (0.0-0.2) Erythrocyte Sedimentation Rate 2 (0-25) OF-Gay-Y-Type Natriuretic Peptide 870 pg/mL (0-124) Sodium Level 141 mmol/L (136-145) Potassium Level 4.6 mmol/L (3.5-5.1) Chloride Level 102 mmol/L (98-107) Carbon Dioxide Level 35 mmol/L (21-32) Anion Gap 4 (6-14) Blood Urea Nitrogen 22 mg/dL (7-20) Creatinine 1.2 mg/dL (0.6-1.0) Estimated GFR (Cockcroft-Gault) 56.0 BUN/Creatinine Ratio 18 (6-20) Glucose Level 114 mg/dL (70-99) Calcium Level 9.3 mg/dL (8.5-10.1) Total Bilirubin 0.4 mg/dL (0.2-1.0) Aspartate Amino Transf (AST/SGOT) 20 U/L (15-37) Alanine Aminotransferase (ALT/SGPT) 23 U/L (14-59) Alkaline Phosphatase 75 U/L (46-116) Total Protein 7.7 g/dL (6.4-8.2) Albumin 3.2 g/dL (3.4-5.0) Albumin/Globulin Ratio 0.7 (1.0-1.7) Triglycerides Level 76 mg/dL (0-150) Cholesterol Level 138 mg/dL (0-200) LDL Cholesterol, Calculated 79 mg/dL (0-100) VLDL Cholesterol, Calculated 15 mg/dL (0-40) Non-HDL Cholesterol Calculated 94 mg/dL (0-129) HDL Cholesterol 44 mg/dL (40-60) Cholesterol/HDL Ratio 3.1 Objective Assessment Left leg ulcer Left leg cellulitis Obesity OA CHF Plan Plan of Care candido, change to keflex leg elevation ok to d/c SANTA MITCHELL MD March 05, 2019 09:58
[2019-03-05] MEDS: LIOTHYRONINE 5 MCG TABLET. PO SCH (10:00)
[2019-03-05] MEDS: DULoxetine HCL 30 MG CAPSULE.DR PO SCH (10:01)
[2019-03-05] MEDS: oxyCODONE ER 10 MG TAB.ER.12H PO SCH ×2 (10:01→21:58)
[2019-03-05] MEDS: POTASSIUM CHLORIDE 20 MEQ TABLET.ER. PO SCH (10:02)
[2019-03-05] MEDS: LOSARTAN POTASSIUM 50 MG TABLET. PO SCH (10:07)
[2019-03-05] MEDS: FUROSEMIDE 20 MG TABLET PO SCH (10:08)
[2019-03-05] MEDS: CARVEDILOL 12.5 MG TABLET. PO SCH ×2 (10:08→16:44)
--- NOTE | 2019-03-05 11:21 | PDOC ---
CARDIO Progress Notes Date and Time Date of Service 03/05/19 Time of Evaluation 1120 Subjective Subjective: No Chest Pain, No Palpitations, No Dizziness, Other (mild WORKMAN) Vitals Vitals Vital Signs Date Time Temp Pulse Resp B/P (MAP) Pulse Ox O2 Delivery O2 Flow Rate FiO2 03/05/19 10:43 99.3 99 14 129/65 (86) 90 Nasal Cannula 3.0 99.3 Weight Weight [ ] Input and Output Intake and Output Intake and Output 03/05/19 07:00 Intake Total 1500 ml Output Total 1150 ml Balance 350 ml Intake Oral 1500 ml Output Urine Total 1150 ml # Voids 3 Laboratory Labs Laboratory Tests Test 03/05/19 03:15 White Blood Count 6.6 x10^3/uL (4.0-11.0) Red Blood Count 4.72 x10^6/uL (3.50-5.40) Hemoglobin 14.8 g/dL (12.0-15.5) Hematocrit 47.0 % (36.0-47.0) Mean Corpuscular Volume 99 fL (79-100) Mean Corpuscular Hemoglobin 31 pg (25-35) Mean Corpuscular Hemoglobin Concent 32 g/dL (31-37) Red Cell Distribution Width 16.0 % (11.5-14.5) Platelet Count 186 x10^3/uL (140-400) Neutrophils (%) (Auto) 58 % (31-73) Lymphocytes (%) (Auto) 19 % (24-48) Monocytes (%) (Auto) 17 % (0-9) Eosinophils (%) (Auto) 5 % (0-3) Basophils (%) (Auto) 0 % (0-3) Neutrophils # (Auto) 3.8 x10^3uL (1.8-7.7) Lymphocytes # (Auto) 1.3 x10^3/uL (1.0-4.8) Monocytes # (Auto) 1.1 x10^3/uL (0.0-1.1) Eosinophils # (Auto) 0.4 x10^3/uL (0.0-0.7) Basophils # (Auto) 0.0 x10^3/uL (0.0-0.2) Sodium Level 141 mmol/L (136-145) Potassium Level 4.6 mmol/L (3.5-5.1) Chloride Level 102 mmol/L (98-107) Carbon Dioxide Level 35 mmol/L (21-32) Anion Gap 4 (6-14) Blood Urea Nitrogen 22 mg/dL (7-20) Creatinine 1.2 mg/dL (0.6-1.0) Estimated GFR (Cockcroft-Gault) 56.0 BUN/Creatinine Ratio 18 (6-20) Glucose Level 114 mg/dL (70-99) Calcium Level 9.3 mg/dL (8.5-10.1) Total Bilirubin 0.4 mg/dL (0.2-1.0) Aspartate Amino Transf (AST/SGOT) 20 U/L (15-37) Alanine Aminotransferase (ALT/SGPT) 23 U/L (14-59) Alkaline Phosphatase 75 U/L (46-116) Total Protein 7.7 g/dL (6.4-8.2) Albumin 3.2 g/dL (3.4-5.0) Albumin/Globulin Ratio 0.7 (1.0-1.7) Triglycerides Level 76 mg/dL (0-150) Cholesterol Level 138 mg/dL (0-200) LDL Cholesterol, Calculated 79 mg/dL (0-100) VLDL Cholesterol, Calculated 15 mg/dL (0-40) Non-HDL Cholesterol Calculated 94 mg/dL (0-129) HDL Cholesterol 44 mg/dL (40-60) Cholesterol/HDL Ratio 3.1 Physical Exam HEENT: Neck Supple W Full Motion Chest: Symmetric LUNGS: Other (diminshed ) Heart: S1S2, no gallops Abdomen: Soft N/T, Other (obese) Extremities: Other (1+ LLE and trace RLE edema. Left ankle wound with drsg intact) Neurology: alert, oriented, follow commands Assessment Assessment 1. Left ankle pain, swelling- ? cellulitis, open wound. LLE US negative for DVT. Ankle Xray with soft tissue edema. 2. Mild acute on chronic diastolic HF. CXR with pul edema. Echo showed LVEF 55%. Also notable for flattened septum consistent with right ventricle volume a nd pressure overload. 3. Hypertension; controlled 4. Hyperlipidemia; lipids on goal 5. Pulmonary HTN, moderate to severe. PAP 61 mmHg 6. Morbid obesity, KRISTINA 7. Chronic pain on narcotic Recommendations Will give dose of IV Lasix Continue BB, ARB. Hold Norvasc with marginal BP Antibiotic therapy as per ID Supportive care KONSTANTIN RODRIGUEZ APRN March 05, 2019 11:21
[2019-03-05] MEDS: CEPHALEXIN 250 MG CAPSULE. PO SCH ×3 (13:47→21:58)
--- NOTE | 2019-03-05 16:00 | NUR ---
Wound Care Wound care consult for L lateral ankle wound. Pt has had swelling in LLE, appears to be an open blister over old surgical scar, cleansed wound, applied Xeroform and foam, recommend to change every 3 days. No other wounds noted on full skin inspection. WC will continue to follow for possible changes.
[2019-03-05] MEDS ORDERED: FUROSEMIDE 40 MG/4 ML VIAL. IVP ONE (17:00)
[2019-03-05] MEDS: MIRTAZAPINE 15 MG TABLET PO SCH (21:58)
[2019-03-05] MEDS: ALBUTEROL SULFATE 2.5 MG/3 ML NEBU. INH PRN (22:20)
--- NOTE | 2019-03-05 23:00 | NUR ---
FALL NOTE: This RN was informed of patient fall at approximately 2105 by SSIS DEVELOPER. This RN and mentioned SSIS DEVELOPER went to get man lift and sling while another SSIS DEVELOPER stayed with the patient. Man lift found on [address]. Brought lift to patient room and it was discovered that the man lift battery was while this RN assessed patient vital signs. Mentioned SSIS DEVELOPER went to find another man while this RN assessed patient, SSIS DEVELOPER brought lift from [address]. Asked patient how she fell, patient stated she slipped on urine on floor. Asked patient if she hit her head - patient stated yes. No lumps, bumps, bruises, or lacerations noted on post-fall assessment. Asked patient if bed alarm went off. Patient stated "I don't know." Footboard cover was noted to be open at this time. This RN and SSIS DEVELOPER both verified at separate times earlier on in the shift that bed alarm was on and footboard cover was closed. Non-skid slippers were on but were wet. Patient took them off while sitting on floor. Patient repeatedly moved arm while BP was being taken which produced inaccurate results: 131/100. Patient was then lifted into bed via man. Floor was cleaned of urine and patient was given a bed bath. Patient's daughter entered room while bed bath was being given. Patient's daughter wanted information on fall huddle sheet, patient agreed. Copy was provided upon completion. Patient's daughter also requested to speak with nursing plant engineering supervisor. Nursing plant engineering supervisor notified and spoke with daughter post-bath. BP rechecked post-bath: 148/81. Dr. Flores paged to notify of fall. No further orders received at this time. Will continue to monitor.
[2019-03-06] MEDS: HYDROcodone/APAP 5/325MG 1 TAB TABLET PO PRN ×2 (00:58→06:19)
[2019-03-06 03:00] VITALS: BP 147/59
--- NOTE | 2019-03-06 03:45 | NUR ---
Patient has repeatedly taken O2 off throughout the night, but is now resistant to put it back on. HOSPITALITY SPECIALIST informed this RN about low O2 saturation for 0300 vitals while this RN was on lunch break. Patient had her O2 off before vital signs were obtained. HOSPITALITY SPECIALIST provided reinforcement on importance of keeping O2 on, patient resistive. When this RN returned from lunch break I rechecked her O2 saturation. Saturation improved, see EMR for results. Will pass along to day RN.
[2019-03-06 06:15] LABS: CALCIUM 8.9 mg/dL (8.5-10.1); CREATININE 0.8 mg/dL (0.6-1.0); GFR 89.5; POTASSIUM 4.4 mmol/L (3.5-5.1)
[2019-03-06 06:27] LABS: BASO % 0 % (0-3); EOS # 0.2 x10^3/uL (0.0-0.7); EOS % 3 % (0-3); HEMATOCRIT 46.5 % (36.0-47.0); HEMOGLOBIN 15.1 g/dL (12.0-15.5); LYMPH # 0.8 x10^3/uL (1.0-4.8); LYMPH % 12 % (24-48); MEAN CORPUSCULAR HEMOGLOBIN 32 pg (25-35); MEAN CORPUSCULAR HGB CONC 32 g/dL (31-37); MEAN CORPUSCULAR VOLUME 99 fL (79-100); MONO # 0.9 x10^3/uL (0.0-1.1); MONO % 14 % (0-9); NEUT # 4.6 x10^3uL (1.8-7.7); NEUT % 71 % (31-73); PLATELET COUNT 181 x10^3/uL (140-400); RED BLOOD COUNT 4.72 x10^6/uL (3.50-5.40); RED CELL DISTRIBUTION WIDTH 15.6 % (11.5-14.5); WHITE BLOOD COUNT 6.5 x10^3/uL (4.0-11.0)
[2019-03-06 06:32] VITALS: BP 135/84
[2019-03-06] MEDS ORDERED: FUROSEMIDE 40 MG/4 ML VIAL. IVP SCH (09:00)
[2019-03-06] MEDS: POTASSIUM CHLORIDE 20 MEQ TABLET.ER. PO SCH (09:42)
[2019-03-06] MEDS: CEPHALEXIN 250 MG CAPSULE. PO SCH ×2 (09:43→12:59)
[2019-03-06] MEDS: LIOTHYRONINE 5 MCG TABLET. PO SCH (09:43)
[2019-03-06] MEDS: DULoxetine HCL 30 MG CAPSULE.DR PO SCH (09:43)
[2019-03-06] MEDS: oxyCODONE ER 10 MG TAB.ER.12H PO SCH (09:44)
[2019-03-06] MEDS: LOSARTAN POTASSIUM 50 MG TABLET. PO SCH (09:44)
[2019-03-06] MEDS: CARVEDILOL 12.5 MG TABLET. PO SCH (09:44)
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
[2019-03-06] MEDS ORDERED: CEPH250C PO (10:44)
--- NOTE | 2019-03-06 10:46 | DISCH ---
DISCHARGE INSTRUCTIONS Condition on Discharge Condition on Discharge: Stable Activity After Discharge Activity Instructions for Disc: Activity as tolerated Bathing Instructions: Shower-keep dressing dry, No Tub Bath until see Lifting Instructions after Dis: No heavy lifting, No pulling or pushing, Do not lift >10 pounds Exercise Instruction after Dis: Progress as tolerated Driving Instructions after Dis: Do not drive Weight Bearing Status after Di: As tolerated Diet after Discharge Diet after Discharge: Cardiac Diet Texture: Regular Liquid Texture: Thin Liquid Swallowing Supervision: None needed Wound Incision Care Wound/Incision Care: Ice to area for comfort, Change dressing, Do not change dressing, Reinforce dressing PRN Checks after Discharge Checks after discharge: Check blood press - daily, Weigh Yourself Daily Contacting the DR. after DC Call your doctor for: Concerns you may have Treatment/Equipment after DC Adaptive Equipment Issued: None Discharge Respiratory Equipmen: Oxygen JALYN CORTES MD March 06, 2019 10:46
[2019-03-06 11:00] VITALS: BP 129/75
--- NOTE | 2019-03-06 12:26 | PDOC ---
Infectious Disease Note Subjective Subjective feeling better ROS ROS no n/v/d/ Vital Sign Vital Signs Vital Signs Date Time Temp Pulse Resp B/P (MAP) Pulse Ox O2 Delivery O2 Flow Rate FiO2 03/06/19 11:00 98.0 88 20 129/75 (93) 87 Nasal Cannula 4.0 98.0 Physical Exam PHYSICAL EXAM GENERAL: Alert, oriented female, not in any distress. VITAL SIGNS: Stable, afebrile. HEENT: NAD. NECK: Supple, no JVP, no lymphadenopathy. LUNGS: Clear. HEART: S1, S2 regular. ABDOMEN: Benign. EXTREMITIES: Mild pitting edema present. The patient does have superficial clean ulcer on the left lateral leg. There is, at best, mild warmth and redness in the surrounding area. NEUROLOGICAL: The patient is neurologically intact. The patient neurologically alert, awake and appropriate. No focal neurologic deficit. Labs Lab Laboratory Tests Test 03/06/19 04:15 White Blood Count 6.5 x10^3/uL (4.0-11.0) Red Blood Count 4.72 x10^6/uL (3.50-5.40) Hemoglobin 15.1 g/dL (12.0-15.5) Hematocrit 46.5 % (36.0-47.0) Mean Corpuscular Volume 99 fL (79-100) Mean Corpuscular Hemoglobin 32 pg (25-35) Mean Corpuscular Hemoglobin Concent 32 g/dL (31-37) Red Cell Distribution Width 15.6 % (11.5-14.5) Platelet Count 181 x10^3/uL (140-400) Neutrophils (%) (Auto) 71 % (31-73) Lymphocytes (%) (Auto) 12 % (24-48) Monocytes (%) (Auto) 14 % (0-9) Eosinophils (%) (Auto) 3 % (0-3) Basophils (%) (Auto) 0 % (0-3) Neutrophils # (Auto) 4.6 x10^3uL (1.8-7.7) Lymphocytes # (Auto) 0.8 x10^3/uL (1.0-4.8) Monocytes # (Auto) 0.9 x10^3/uL (0.0-1.1) Eosinophils # (Auto) 0.2 x10^3/uL (0.0-0.7) Basophils # (Auto) 0.0 x10^3/uL (0.0-0.2) Sodium Level 139 mmol/L (136-145) Potassium Level 4.4 mmol/L (3.5-5.1) Chloride Level 98 mmol/L (98-107) Carbon Dioxide Level 38 mmol/L (21-32) Anion Gap 3 (6-14) Blood Urea Nitrogen 19 mg/dL (7-20) Creatinine 0.8 mg/dL (0.6-1.0) Estimated GFR (Cockcroft-Gault) 89.5 Glucose Level 109 mg/dL (70-99) Calcium Level 8.9 mg/dL (8.5-10.1) Micro AEROBIC CULTURE PENDING AEROBIC RES 1 PENDING GRAM STAIN Final Final report GRAM STAIN RESULT 1 Final Comment No white blood cells seen. GRAM STAIN RESULT 2 Final Comment Many gram positive cocci. GRAM STAIN RESULT 3 Final Comment Few gram negative diplococci. GRAM STAIN RESULT 4 Final Comment Few gram negative rods. Performed at: - [facility], [place], [place] [id number] Instrument Adjuster: AMELIE Gama MD, Phone: [phone] Objective Assessment Left leg ulcer Left leg cellulitis Obesity OA CHF Plan Plan of Care keflex leg elevation ok to d/c SANTA MITCHELL MD March 06, 2019 12:26
--- NOTE | 2019-03-06 13:02 | NUR ---
SW following pt for dc needs. Pt was with [facility] at home. Resumption order faxed to [facility] by Pamela. RN notified.
--- NOTE | 2019-03-06 13:09 | NUR ---
Patient leaves the unit per w/c, all personal belongings sent with the patient at time of discharge, emotional support given, follow up appointments encouraged.
== END 2019-03-06 13:09 | disposition home health service (06) | DRG 592 ==
LOC: 5 NORTH 15:26
PROVIDERS: ADMIT Internal Medicine; ATTEND Internal Medicine
PROC: 5A09357 Assistance with Respiratory Ventilation, Less than 24 Consecutive Hours, Continuous Positive Airway Pressure (ICD-10-PCS; principal; 2019-03-04)
PROC: 5A09357 Assistance with Respiratory Ventilation, Less than 24 Consecutive Hours, Continuous Positive Airway Pressure (ICD-10-PCS; 2019-03-06)
DX: L97.329 Non-pressure chronic ulcer of left ankle with unspecified severity (principal); I50.33 Acute on chronic diastolic (congestive) heart failure; J96.20 Acute and chronic respiratory failure, unspecified whether with hypoxia or hypercapnia; L03.116 Cellulitis of left lower limb; L02.91 Cutaneous abscess, unspecified; Z68.43 Body mass index [BMI] 50.0-59.9, adult; I27.20 Pulmonary hypertension, unspecified; I11.0 Hypertensive heart disease with heart failure; E03.9 Hypothyroidism, unspecified; E66.01 Morbid (severe) obesity due to excess calories; E78.5 Hyperlipidemia, unspecified; G47.33 Obstructive sleep apnea (adult) (pediatric); G89.4 Chronic pain syndrome; J44.9 Chronic obstructive pulmonary disease, unspecified; M19.90 Unspecified osteoarthritis, unspecified site; Z82.49 Family history of ischemic heart disease and other diseases of the circulatory system; Z83.3 Family history of diabetes mellitus; Z86.73 Personal history of transient ischemic attack (TIA), and cerebral infarction without residual deficits; Z96.643 Presence of artificial hip joint, bilateral; Z87.891 Personal history of nicotine dependence; Z96.653 Presence of artificial knee joint, bilateral; F32.9 Major depressive disorder, single episode, unspecified; F41.9 Anxiety disorder, unspecified; M10.9 Gout, unspecified
CPT/HCPCS: 36415; 80048; 80053; 80061; 83880; 84550; 85025; 85651; 87070; 87186; 93306; 94660; J0696; J1940; J3370; J7050; J7613; J7030